=== PATIENT | male | born 1960 | race Caucasian/White ===

== ENCOUNTER 2016-07-28 16:01 | Emergency (ER) | payer OTHER ==
[~2016-07-28] VITALS: Ht 175.3 cm; Wt 115.3 kg
[~2016-07-28 16:01] MED LIST: ASPI81TA28 PO; ATOR-24 PO; CARV6.25 PO; FURO-85 PO; LISI-725 PO; POTA-335 PO
[2016-07-28 16:13] VITALS: TEMP 36.8; Ht 175.3 cm; Wt 115.3 kg
[2016-07-28] MEDS ORDERED: OMEP20CA9 PO (16:26)
[2016-07-28] MEDS ORDERED: CZR50 PO (16:26)
[2016-07-28] MEDS ORDERED: OPTIRAY 320 IV PRN (16:45)
--- NOTE | 2016-07-28 16:55 | EMERGENCY ROOM VISIT NOTE ---
History First contact with patient: 16:18 Chief Complaint: URINARY SYMPTOMS Stated Complaint: CAN'T URINATE, STOMACH PAIN Nursing Triage Summary: Pt reports swelling to ankle, abd bloating, unable to urinate, "My stomach is hard and I have cramps." Sx began yesterday. Nausea. "When I get cramps I get pain in my back." Denies hx of kidney stones. Denies hematuria. History of Present Illness The patient is a 56 year old male who presents to the Emergency Room with complaints of abdominal cramping, leg swelling and difficulty urinating. The patient reports that he has had abdominal bloating and cramping for the past one week. He states that yesterday, the pain became worse and he had developed difficulty urinating. The patient reports that when he does have a bowel movement, it is looser than normal. He states that he feels like his abdomen is "swelling up." The patient denies any history of similar symptoms. He rates his current discomfort a 0/10. He denies any history of kidney issues or abdominal issues. He has had a prior cholecystectomy. The patient has a history of hypertension and prediabetes, but states he is otherwise healthy. He denies any chest pain, shortness of breath, cough, fevers, blood in the stools or other urinary symptoms. Review of Systems A complete 10-point Review of Systems was discussed with the patient, with pertinent positives and negatives listed in the History of Present Illness. All remaining Review of Systems questions can be considered negative unless otherwise specified. Past Medical/Surgical History Medical Problems: (1) Benign hypertension (2) Chronic obstructive lung disease (3) Dyslipidemia (4) Gastroesophageal reflux disease (5) Male erectile disorder (6) Tobacco user Social History Smoking Status: Current Every Day Smoker Current/Historical Medications Scheduled Aspirin (Aspirin Ec), 81 MG PO DAILY Atorvastatin (Lipitor), 40 MG PO DAILY Carvedilol (Coreg), 6.25 MG PO DAILY Lisinopril (Zestril), 20 MG PO DAILY Losartan Potassium (Losartan Potassium), 50 MG PO DAILY Omeprazole (Prilosec), 20 MG PO QAM Allergies Coded Allergies: No Known Allergies (Verified , 07/28/16) Physical Exam Vital Signs Date Time Temp Pulse Resp B/P Pulse Ox O2 Delivery O2 Flow Rate FiO2 07/28/16 19:36 77 20 140/89 97 07/28/16 16:13 36.8 85 18 131/83 94 Room Air Physical Exam VITALS: Vitals are noted on the nurse's note and reviewed by myself. Vital signs stable. GENERAL: This is a 56-year-old male, in no acute distress, nondiaphoretic, well- developed well-nourished. SKIN: Capillary reflex less than 2 seconds. HEENT: Normocephalic. PERRLA. EOMI. Nares patent. Mucous membranes moist. Neck is supple without nuchal rigidity. HEART: Regular rate and rhythm without murmurs gallops or rubs. LUNGS: Clear to auscultation bilaterally without wheezes, rales or rhonchi. ABDOMEN: Positive bowel sounds x 4. The abdomen is slightly distended. There is tenderness across the mid abdomen. No guarding or rebound tenderness. MUSCULOSKELETAL: No pitting edema of the lower extremities. NEURO: Patient was alert and oriented to person place and time. Medical Decision & Procedures ER Provider Diagnostic Interpretation: CT ABD/PELVIS IV CONTRAST ONLY IMPRESSION: 1. 36 mm infrarenal abdominal aortic aneurysm. No evidence of rupture 2. 19 mm splenic hypodensity, possibly cystic 3. Hepatic steatosis 4. No current evidence of bowel obstruction. No evidence of free air 5. Multiple prominent fluid-filled small bowel loops with borderline bowel wall thickening and mild engorgement of the mesentery. The findings could indicate an enteritis. Laboratory Results 07/28/16 17:00 Red Blood Count 5.13, Mean Corpuscular Volume 92.0, Mean Corpuscular Hemoglobin 32.4, Mean Corpuscular Hemoglobin Concent 35.2, Mean Platelet Volume 11.6, Neutrophils (%) (Auto) 60.5, Lymphocytes (%) (Auto) 29.7, Monocytes (%) (Auto) 5.9, Eosinophils (%) (Auto) 3.0, Basophils (%) (Auto) 0.5, Neutrophils # (Auto) 4.64, Lymphocytes # (Auto) 2.28, Monocytes # (Auto) 0.45, Eosinophils # (Auto) 0.23, Basophils # (Auto) 0.04 07/28/16 17:00 Test 07/28/16 17:00 White Blood Count 7.67 K/uL (4.8-10.8) Red Blood Count 5.13 M/uL (4.7-6.1) Hemoglobin 16.6 g/dL (14.0-18.0) Hematocrit 47.2 % (42-52) Mean Corpuscular Volume 92.0 fL (80-100) Mean Corpuscular Hemoglobin 32.4 pg (25-34) Mean Corpuscular Hemoglobin Concent 35.2 g/dl (32-36) Platelet Count 167 K/uL (130-400) Mean Platelet Volume 11.6 fL (7.4-10.4) Neutrophils (%) (Auto) 60.5 % Lymphocytes (%) (Auto) 29.7 % Monocytes (%) (Auto) 5.9 % Eosinophils (%) (Auto) 3.0 % Basophils (%) (Auto) 0.5 % Neutrophils # (Auto) 4.64 K/uL (1.4-6.5) Lymphocytes # (Auto) 2.28 K/uL (1.2-3.4) Monocytes # (Auto) 0.45 K/uL (0.11-0.59) Eosinophils # (Auto) 0.23 K/uL (0-0.5) Basophils # (Auto) 0.04 K/uL (0-0.2) RDW Standard Deviation 45.1 fL (36.4-46.3) RDW Coefficient of Variation 13.5 % (11.5-14.5) Immature Granulocyte % (Auto) 0.4 % Immature Granulocyte # (Auto) 0.03 K/uL (0.00-0.02) Urine Color YELLOW Urine Appearance CLEAR (CLEAR) Urine pH 5.0 (4.5-7.5) Urine Specific [place] 1.024 (1.000-1.030) Urine Protein NEG (NEG) Urine Glucose (UA) NEG (NEG) Urine Ketones NEG (NEG) Urine Occult Blood NEG (NEG) Urine Nitrite NEG (NEG) Urine Bilirubin NEG (NEG) Urine Urobilinogen NEG (NEG) Urine Leukocyte Esterase NEG (NEG) Anion Gap 9.0 mmol/L (3-11) Est Creatinine Clear Calc Drug Dose 102.1 ml/min Estimated GFR () 96.4 Estimated GFR (Non- 83.2 BUN/Creatinine Ratio 12.8 (10-20) Calcium Level 8.8 mg/dl (8.5-10.1) Total Bilirubin 0.7 mg/dl (0.2-1) Aspartate Amino Transf (AST/SGOT) 22 U/L (15-37) Alanine Aminotransferase (ALT/SGPT) 32 U/L (12-78) Alkaline Phosphatase 153 U/L (45-117) Total Protein 7.4 gm/dl (6.4-8.2) Albumin 3.8 gm/dl (3.4-5.0) Globulin 3.6 gm/dl (2.5-4.0) Albumin/Globulin Ratio 1.1 (0.9-2) Lipase 150 U/L (73-393) Medical Decision Differential diagnosis includes bowel obstruction, cholecystitis, gastroenteritis, urinary retention, urinary tract infection, kidney stone, constipation, among others. The patient was evaluated as above. Labs were drawn and IV access was obtained. Imaging studies were performed and read by radiology as above. The patient declined analgesics. The patient was reassessed multiple times during their stay in the emergency department and remained in stable condition. The patient is a 56-year-old male who presents today complaining of abdominal bloating and discomfort. Labs revealed no leukocytosis, anemia or electrolyte abnormalities. Urinalysis was not suggestive of infection. Bladder scan did not show any significant urinary retention. CT scan of the abdomen and pelvis showed evidence of enteritis, which is likely the cause of the patient's discomfort. He does have an abdominal aortic aneurysm and reports that he are has this followed by vascular surgery every year. He declined any analgesics. Conservative measures were discussed and he was encouraged to follow up closely with his primary care provider. Based on the patient's presentation, lab results, and imaging studies, I feel the patient is stable for outpatient treatment. The patient's case was reviewed with Dr. Chiu, ED attending physician, who agreed with my assessment and treatment plan. Discharge instructions were reviewed with the patient. The patient verbalized understanding of my assessment and treatment plan and was discharged home in good condition. Impression Primary Impression: Enteritis Departure Information Dispostion Home / Self-Care Condition GOOD Referrals Sharan Allan M.D. (PCP) Patient Instructions A Signature Page, My [facility] Additional Instructions You have been treated in the Emergency Department your Abdominal Pain. Laboratory results and imaging studies have ruled out any emergent causes for your abdominal pain which would warrant admission or surgery. CT showed evidence of an enteritis, or inflammation of your intestines. For pain control, you can use the following lxfw-yct-[id number] medicines (if >12 yo): - Regular strength (325mg/tab) Tylenol (acetaminophen) 2 tabs every 4-6 hours as needed. Do not exceed 12 tablets in a 24 hour period. Avoid taking more than 4 grams (4000 mg) of Tylenol per day. This includes any other sources of acetaminophen you may take on a regular basis. - Regular strength (200 mg/tab) Advil (ibuprofen) 1-2 tabs every 4-6 hours as needed. Do not exceed a dose of 3200 mg per day. Drink plenty of water and stay well hydrated. As with any trip to the Emergency Department, you should follow-up with your Primary Care Provider from today's visit. Continue to follow-up with your specialist regarding the abdominal aortic aneurysm. Return to the emergency department if your symptoms persist despite treatment plan outlined above or if the following symptoms occur: Worsening abdominal pain , fevers, vomiting or any other new/concerning symptoms.
[2016-07-28 17:17] LABS: BASO % 0.5 %; BASO ABS # 0.04 K/uL (0-0.2); COMPLETE YES; HEMATOCRIT 47.2 % (42-52); IG% 0.4 %; LYMPH % 29.7 %; LYMPH ABS # 2.28 K/uL (1.2-3.4); MEAN CORPUSCULAR HEMOGLOBIN 32.4 pg (25-34); MEAN CORPUSCULAR HGB CONC 35.2 g/dl (32-36); MEAN PLATELET VOLUME 11.6 fL (7.4-10.4); MONO % 5.9 %; NEUT % 60.5 %; PLATELET COUNT 167 K/uL (130-400); RED BLOOD COUNT 5.13 M/uL (4.7-6.1); WHITE BLOOD COUNT 7.67 K/uL (4.8-10.8)
[2016-07-28 17:37] LABS: BUN/CREATININE RATIO 12.8 (10-20); CALCIUM 8.8 mg/dl (8.5-10.1); POTASSIUM 3.9 mmol/L (3.5-5.1)
[2016-07-28 17:40] LABS: ALB/GLOB RATIO 1.1 (0.9-2)
[2016-07-28 17:42] LABS: URINE APPEARANCE CLEAR (CLEAR); URINE BILIRUBIN NEG (NEG); URINE COLOR YELLOW; URINE NITRITE NEG (NEG); URINE SPECIFIC GRAVITY 1.024 (1.000-1.030); UROBILINOGEN NEG (NEG); ZZUR CULT IF INDIC CLEAN CATCH NO
[2016-07-28 18:00] LABS: MANUAL MICROSCOPIC REQUIRED? NO; REVIEW REQ? NO
--- NOTE | 2016-07-28 18:22 | DIAGNOSTIC IMAGING REPORT ---
CT ABD/PELVIS IV CONTRAST ONLY CLINICAL HISTORY: abdominal bloating, mid abdominal pain COMPARISON STUDY: None. TECHNIQUE: Following the IV administration of 116 mL of Optiray-320, CT scan of the abdomen and pelvis was performed from the lung bases to the proximal femurs. Images are reviewed in the axial, sagittal, and coronal planes. IV contrast was administered without complication. CT DOSE: 1245.21 mGy.cm FINDINGS: Lower chest: There is pulmonary emphysema. There are minor linear atelectatic changes. Liver: There is mild hepatic steatosis. No focal masses are visualized. Gallbladder: Surgically absent. Spleen: There is a 19 mm hypodensity arising from the inferior aspect of the spleen, possibly cystic Pancreas: Unremarkable. Adrenal glands: Unremarkable. Kidneys: No solid renal masses are visualized. There is a 7 mm left renal cyst. Bowel: There are multiple prominent fluid-filled small bowel loops which are the upper limits of normal in diameter. There is borderline wall thickening. There are no transition zones to indicate a high-grade bowel obstruction. There is no evidence of acute diverticulitis. There is no evidence of acute appendicitis. Peritoneum: There is no intraperitoneal free air or abdominal ascites. Vasculature: There is a 36 mm infrarenal abdominal aortic aneurysm. There is no evidence of rupture. Adenopathy: None. Pelvic viscera: The bladder, and pelvic viscera are unremarkable. Skeletal structures: No destructive osseous lesions are seen. IMPRESSION: 1. 36 mm infrarenal abdominal aortic aneurysm. No evidence of rupture 2. 19 mm splenic hypodensity, possibly cystic 3. Hepatic steatosis 4. No current evidence of bowel obstruction. No evidence of free air 5. Multiple prominent fluid-filled small bowel loops with borderline bowel wall thickening and mild engorgement of the mesentery. The findings could indicate an enteritis. Electronically signed by: Shiv Davila M.D. 07/28/2016 6:20 PM Dictated Date/Time: 07/28/2016 6:14 PM
[2016-07-28 19:36] VITALS: BP 140/89; PULSE 77; O2SAT 97
== END 2016-07-28 19:37 | disposition home or self-care (01) ==
LOC: C.EDB 16:03 → C.EDA 19:37
DX: K52.9 Noninfective gastroenteritis and colitis, unspecified (principal); I10 Essential (primary) hypertension; E78.5 Hyperlipidemia, unspecified; J44.9 Chronic obstructive pulmonary disease, unspecified; K21.9 Gastro-esophageal reflux disease without esophagitis; F17.200 Nicotine dependence, unspecified, uncomplicated; Z79.82 Long term (current) use of aspirin; Z79.899 Other long term (current) drug therapy

== ENCOUNTER → 2016-08-31 | Outpatient (CLI) | payer OTHER ==
[~2016-08-31] MED LIST changes: +CZR50 PO; -FURO-85 PO; +OMEP20CA9 PO; -POTA-335 PO
--- NOTE | 2016-09-01 06:11 | PAP/PSG TECHNICIAN REPORT ---
[facility] Blood Bank Manager Polysomnogram Report Study name: None Report date: 09/01/2016 Study date: 08/31/2016 Referring Physician: Carina Mukherjee M.D. Name: ADRIANNE CHADWICK Interpreting Physician: Carina Mukherjee M.D. Date of : 1960 Blood Bank Manager: Gene Cabezas RPSGT. Sex: Male Age: 56 StudyType: PSG Weight: 253 lbs Height: 56 years, Height 5' 10" BMI: 36.3 Medications: LIPITOR 40 MG, COREG 6.25 MG, PRILOSEC 20 MG, PRINIVIL 20 MG, ASPIRIN EC 81 MG Patient History PATIENT HAD A SLEEP STUDY DONE IN 2015. HE WAS NOT POSITIVE FOR ZAYRA BUT HAD HYPOXEMIA DURING REM SLEEP. HIS OXYGEN LEVELS DROPPED LOW 76%. HE IS HERE TODAY FOR AN EVALUATION OF ZAYRA. ESS=12 RM 5 Parameters Monitored NPSG: E1-M2, E2-M1, Fp1-M2, Fp2-M1, F3-M2, F4-M2, F4-M1, C3-M2, C4-M2, C4-M1, O1-M2, O2-M2, O2-M1, T3-M2, T4-M1, P3-M2, P4-M1, CHIN1, CHIN2, HR, EKG, Legs, PFLOW, SNOR, FLOW, CFLOW, Tidal Volume, THOR, ABDO, SpO2, PLTH, CPRESS, ETCO2 Wave, ETCO2, pH Sleep Architecture Sleep Stages Time at Lights Off 9:32:25 PM STAGES Time (min.) TST (%) Time at Lights On 5:27:25 AM Wake 81.5 -- Total Recording Time (TRT) 475.50 min. N1 56.0 14 Total Sleep Period (TSP) 456.5 min. N2 243.0 62 Total Sleep Time (TST) 393.5min. N3 13.0 3 Awake Time 82.0 min. REM 81.5 21 Wake after Sleep Onset 64.0 min. Sleep Efficiency (SE) 83 % Sleep Onset Latency (DAJUAN) 17.5 min. Number of Stage 1 Shifts None Awakenings 30 Stage Changes 119 Number of REM periods 9 REM 81.5 21 REM Latency 69.0 min. NREM 312.0 79 Body Position Analysis Supine Right Left Side Prone Vertical Total Sleep Time (min.) 45.0 181.9 178.7 360.61 0.0 0.0 Total Sleep Time (%) 8% 46% 45% 92 0% N/A% Total Sleep Time REM (min.) 5.1 37.5 38.9 None 0.0 0.0 Total Sleep Time NREM (min.) 27.8 144.4 139.8 None 0.0 0.0 Intermittent Wake (min.) 12.1 40.7 28.6 None 0.0 0.0 Total Sleep Period (%) 10% None None None None None Arousals Myoclonus (PLM) * Events Count Index Events Count Index Spontaneous 42 6 Events Awake (PLMW) 104 76.6 Respiratory 20 4.0 Events Asleep w/ Arousal (PLMA) 12 1.8 PLM 11 2 Events Asleep w/o Arousal (PLMS) 135 20.6 Snoring 9 1 Total Asleep 147 22.4 Total 82 13 Total 251 32 Respiratory Analysis * CA OA MA CH H RERA Total Count 2 20 1 0 98 1 121 Index 0.3 3.0 0.2 0 14.9 0 18.6 Mean Duration 15.6 19.5 24.1 0.00 18.0 16.9 18.2 Longest Duration 20.9 38.1 24.1 0.00 24.1 16.9 43.3 Respiratory Event Summary Total Supine ~Supine Right Left Prone REM NREM Apneas Count 23 6 17 15 2 N/A 19 4 Index 3.5 11 3 4.9 0.7 N/A 14 1 Hypopneas (4% Desat) Count 98 33 65 28 37 N/A 56 42 Index 14.9 60.2 11 9.2 12.4 N/A 41.2 8.1 Apneas & All Hypopneas Count 121 39 82 43 39 N/A 75 46 Index 18.4 71 14 14 13 N/A 55.2 8.8 Respiratory Events (Roll Forming Supervisor+All Hyp+RERA) Count 121 39 83 44 39 N/A 75 46 Index 18.6 71 14 14.5 13.1 N/A 55.2 9.0 Respiratory Related Arousal Count 20 39 9 7 2 N/A 7 19 Index 4.0 31 1 2 1 N/A 5 4 Snoring Analysis Supine Right Left Prone REM NREM Total Snore duration 20.5 min Snores count 60 303 487 N/A 229 621 850 Snore mean duration 1.4 Sec Snores index 109 100 164 N/A 168.6 119.4 129.6 TST with snoring (%) 5.2% Desaturation Event Summary: Minimum %SpO2 Event Count Mean/Min/Max Duration(sec.) Desaturation Index % Time In Bed > 90 22 28.8 / 10.8 / 55.5 153.8 1.8 86 - 90 127 26.2 / 9.3 / 80.2 19.8 81.2 81 - 85 22 28.5 / 12.0 / 60.0 27.6 10.1 76 - 80 7 19.7 / 12.3 / 30.5 14.3 6.2 71 - 75 1 12.5 / 12.5 / 12.5 17.6 0.7 66 - 70 0 N/A 0.0 0.0 61 - 65 0 N/A 0.0 0.0 56 - 60 0 N/A 0.0 0.0 51 - 55 0 N/A 0.0 0.0 < 50 0 N/A 0.0 0.0 Total REM NREM Awake <50% 0.0 min. 0.0 min. 0.0 min. 0.0 min. 51 - 60% 0.0 min. 0.0 min. 0.0 min. 0.0 min. 61 - 70% 0.0 min. 0.0 min. 0.0 min. 0.0 min. 71 - 80% 32.8 min. 29.9 min. 1.1 min. 1.9 min. 81 - 90% 433.6 min. 49.1 min. 309.9 min. 74.6 min. 91 - 100% 8.6 min. 2.5 min. 1.0 min. 5.0 min. Average 86 83 87 88 Minimum SpO2 70 70 73 74 Desaturation Event Index 18.1 54.5 9.0 16.2 # Desat. Events below 89% 143 74 47 22 Time(%) with Saturation below 89% 86.7 15.1 59.7 11.9 Time(min.) with Saturation below 89% 411.9 71.8 283.7 56.4 Time (mins) REM (mins) NREM (mins) % of TST SpO2 Below 90% 121 74 N47 97.5 SpO2 Below 88% 52 0 0 71 Heart Rate Analysis Min (bpm) Max (bpm) Average (bpm) Awake 49 103 88 NREM 62 101 82 REM 53 104 77 Overall 53 104 81 Supplemental O2 Values Minimum O2 level: None Value Start Time End Time Blood Bank Manager Comments Mr. Chadwick slept in the right, left and supine positions. No cardiac arrhythmia noted. Leg movements noted. No bruxism noted. Snoring was noted and scored as a 4 on a scale of 1 through 5. (0=no snoring, 5=snoring loud enough to be heard through a closed door or down the [address]onz[address] way) Mr. Chadwick awoke to use the restroom 0 times during the night. Mr. Chadwick stated I did not sleep as well as I do when I am in my own bed. The final report will be interpreted and signed by a sleep physician. The completed physician report will then be placed in the patient medical record. Therapy (cm H2O) 0 TIB (min.) 475.0 TST (min.) 393.5 Sleep Onset (min.) 17.5 REM Onset From Sleep (min.) 69.0 Sleep Efficiency % 83 Wakefulness (%) 17 Wakefulness (min.) 82.0 NREM 1 (%) 14 NREM 1 (min.) 56.0 NREM 2 (%) 62 NREM 2 (min.) 243.0 NREM 3 (%) 3 NREM 3 (min.) 13.0 REM (%) 21 REM (min.) 81.5 # Arousals 82 Arousal Index 13 # Snore 850 Snore Index 129.6 AHI 18.4 AHI Supine 71 AHI Non-Supine 14 NREM AHI 8.8 REM AHI 55.2 RDI 18.6 # Obstructive Apnea 20 # Central Apnea 2 # Mixed Apnea 1 # Hypopneas 98 RERAs 1 Total Respiratory Events 122 Time Below SpO2 89% (min.) 355.5 Mean NREM SpO2 (%) 87 Mean REM SpO2 (%) 83 Mean Sleep SpO2 (%) 86 Min NREM SpO2 (%) 73 Min REM SpO2 (%) 70 Position Supine (min.) 45.0 Position Non-supine (min.) 360.6 LM Index Sleep 22.4 LM Index NREM 20.6 LM Index REM 29.4 Mean Heart Rate (bpm) 81 Min Heart Rate (bpm) 53
--- NOTE | 2016-09-12 00:52 | POLYSOMNOGRAPH REPORT ---
REFERRING PERSON: Dr. Teodora Mukherjee. PET HOUSE SITTER: Gene Cabezas. Mr. Katz is a 56-year-old male who had a sleep study performed in March 2016. He was not positive for obstructive sleep apnea at that time, but had hypoxemia during REM sleep. His oxygen level dropped as low as 76%. He is here for reevaluation of obstructive sleep apnea. His [place] sleepiness scale score on the evening of this study is 12. BMI is 36.3. Following the technical and digital specifications of the [place] [employer] (AASM) a standard diagnostic polysomnogram was performed monitoring EEG, EOG, EMG (chin and leg deviations), oxygen saturation, body position, digital video, respiratory effort and airflow. The sleep Stage and event scoring was based on the AASM Manual for the Scoring of Sleep and Associated Events 2007 edition. Apneas are defined as a drop in the peak thermal sensor excursion by >90% of baseline for at least 10 seconds. Hypopneas were scored using the 4% oxygen desaturation rule (4A-[employer]ic[employer]) and a decrease in the nasal pressure excursions by >30% of baseline for at least 10 seconds. Respiratory effort-related arousal (RERA's) is defined as a sequence of breaths lasting at least 10 seconds characterized by increasing respiratory effort or flattening of the nasal pressure waveform leading to an arousal from sleep when the sequence of breaths does not meet criteria for an apnea or hypopnea. Apnea Hypopnea index (AHI) is defined as the number of apneas and hypopneas occurring in an hour of sleep. Respiratory disturbance index (RDI) is defined as the number of apneas, hypopneas, and RERA's occurring in an hour of sleep. Mr. Katz's total sleep period time was 456.5 minutes. Total sleep time was 393.5 minutes. Sleep efficiency was 83%. Latency to sleep onset was 17.5 minutes with wake after sleep onset of 64 minutes. Total non-REM sleep time was 312 minutes. He spent 14% of that time in N1 sleep, 62% in N2 sleep and 3% in N3 sleep. REM latency was 69 minutes. Total REM sleep time was 81.5 minutes or 21% of total sleep time. There were 82 cortical arousals from sleep. Forty two of these arousals were spontaneous, 20 were due to respiratory events, 11 due to periodic limb movements of sleep and 9 were due to snoring. There were 147 periodic limb movements noted on this test. Limb movement index was 22.4. Limb movement with arousal index was 1.8. There were 2 central, 20 obstructive and 1 mixed apnea on this test. There were 98 hypopneas and 1 RERA. Apnea-hypopnea index was elevated at 18.4 consistent with moderately severe sleep apnea. Supine AHI was 71, REM AHI was 55.2. There were 850 snoring events recorded. Total sleep time with snoring was 5.2%. Mean saturation during sleep was low at 86%. There were desaturations with respiratory events to 70%. Saturations were less than 89 for 411.9 minutes of recorded time. Loud snoring was heard throughout the study. IMPRESSION AND PLAN: A 56-year-old male with evidence of moderately severe sleep apnea and significant nocturnal hypoxemia on this study. This patient had hypoxemia for most of his total sleep time with deep desaturations during his episodes of REM sleep regardless of whether they were supine or non-supine. This patient would likely benefit from positive airway pressure therapy. He should return to the sleep lab for a full night titration and then based on those results be started on equipment at home. A download from his machine should be reviewed in 1 month both to check compliance as well as AHI and further pressure adjustments can occur at that time. In the meantime, this patient should be started on nocturnal oxygen. This patient may need oxygen supplementation along with CPAP to resolve his hypoxemia.
== END | disposition home or self-care (01) ==
LOC: C.NEUR 21:00
PROVIDERS: ATTEND Family Medicine
DX: J44.9 Chronic obstructive pulmonary disease, unspecified (principal); R09.02 Hypoxemia; R06.83 Snoring; G47.10 Hypersomnia, unspecified

== ENCOUNTER → 2016-10-24 | Outpatient (CLI) | payer OTHER ==
--- NOTE | 2016-10-25 06:34 | PAP/PSG TECHNICIAN REPORT ---
[facility] Director Of Cardiopulmonary Services Polysomnogram Report Study name: None Report date: 10/25/2016 Study date: 10/24/2016 Referring Physician: Benito Mukherjee M.D. Name: ADRIANNE KATZ Interpreting Physician: Carina Mukherjee M.D. Date of : 1960 Director Of Cardiopulmonary Services: Aleisha Francois RPSGT. Sex: Male Age: 56 Study Type: PSG PAP Weight: 253 lbs Height: 56 years, Height 5' 10" BMI: 36.3 Medications: LIPITOR 40 MG, COREG 6.25 MG, PRILOSEC 20 MG, PRINIVIL 20 MG, ASPIRIN EC 81 MG Patient History 56 yr-old male here for a new CPAP treatment study. He was found to be positive for ZAYRA with an AHI of 18.4. He was then set up with an Auto CPAP machine at home set to 5-15 CMH1O. He wears an AirFit F10 full face mask size medium from [employer]. The test was started on room air and 4 CMH2O. ETCO2 testing was not utilized during this study. Room 1 Parameters Monitored NPSG: E1-M2, E2-M1, Fp1-M2, Fp2-M1, F3-M2, F4-M2, F4-M1, C3-M2, C4-M2, C4-M1, O1-M2, O2-M2, O2-M1, T3-M2, T4-M1, P3-M2, P4-M1, CHIN1, CHIN2, HR, EKG, Legs, PFLOW, SNOR, FLOW, CFLOW, Tidal Volume, THOR, ABDO, SpO2, PLTH, CPRESS, ETCO2 Wave, ETCO2, pH Sleep Architecture Sleep Stages Time at Lights Off 9:38:07 PM STAGES Time (min.) TST (%) Time at Lights On 5:29:37 AM Wake 124.0 -- Total Recording Time (TRT) 471.50 min. N1 127.0 37 Total Sleep Period (TSP) 443.5 min. N2 199.0 57 Total Sleep Time (TST) 347.5min. N3 0.0 0 Awake Time 124.0 min. REM 21.5 6 Wake after Sleep Onset 96.0 min. Sleep Efficiency (SE) 74 % Sleep Onset Latency (DAJUAN) 28.0 min. Number of Stage 1 Shifts None Awakenings 30 Stage Changes 134 Number of REM periods 2 REM 21.5 6 REM Latency 333.0 min. NREM 326.0 94 Body Position Analysis Supine Right Left Side Prone Vertical Total Sleep Time (min.) 58.3 235.0 66.0 301.00 0.0 0.0 Total Sleep Time (%) 13% 68% 19% 87 0% N/A% Total Sleep Time REM (min.) 0.0 0.0 21.5 None 0.0 0.0 Total Sleep Time NREM (min.) 46.5 235.0 44.5 None 0.0 0.0 Intermittent Wake (min.) 11.8 62.4 49.8 None 0.0 0.0 Total Sleep Period (%) 13% None None None None None Arousals Myoclonus (PLM) * Events Count Index Events Count Index Spontaneous 24 4 Events Awake (PLMW) 246 119.0 Respiratory 25 4.5 Events Asleep w/ Arousal (PLMA) 98 16.9 PLM 98 17 Events Asleep w/o Arousal (PLMS) 470 81.2 Snoring 35 6 Total Asleep 568 98.1 Total 180 31 Total 814 104 Respiratory Analysis * CA OA MA CH H RERA Total Count 1 0 0 0 43 4 44 Index 0.2 0.0 0.0 0 7.4 1 8.3 Mean Duration 10.2 0.0 0.0 0.00 14.1 14.2 14.0 Longest Duration 10.2 0.0 0.0 0.00 0.0 16.1 20.5 Respiratory Event Summary Total Supine ~Supine Right Left Prone REM NREM Apneas Count 1 0 1 0 1 N/A 0 1 Index 0.2 0 0 0.0 0.9 N/A 0 0 Hypopneas (4% Desat) Count 43 3 40 7 33 N/A 8 35 Index 7.4 3.9 8 1.8 30.0 N/A 22.3 6.4 Apneas & All Hypopneas Count 44 3 41 7 34 N/A 8 36 Index 7.6 4 8 2 31 N/A 22.3 6.6 Respiratory Events (Hammer Mill Operator+All Hyp+RERA) Count 44 3 45 9 36 N/A 8 36 Index 8.3 4 9 2.3 32.7 N/A 22.3 7.4 Respiratory Related Arousal Count 25 3 25 6 19 N/A 0 26 Index 4.5 1 5 2 17 N/A 0 5 Snoring Analysis Supine Right Left Prone REM NREM Total Snore duration 82.1 min Snores count 201 2,299 106 N/A 8 2,598 2,606 Snore mean duration 1.9 Sec Snores index 259 587 96 N/A 22.3 478.2 450.0 TST with snoring (%) 23.6% Desaturation Event Summary: Minimum %SpO2 Event Count Mean/Min/Max Duration(sec.) Desaturation Index % Time In Bed > 90 125 19.8 / 7.3 / 60.0 20.2 78.8 86 - 90 13 15.8 / 7.5 / 36.0 7.9 21.0 81 - 85 0 N/A 0.0 0.2 76 - 80 0 N/A 0.0 0.0 71 - 75 0 N/A 0.0 0.0 66 - 70 0 N/A 0.0 0.0 61 - 65 0 N/A 0.0 0.0 56 - 60 0 N/A 0.0 0.0 51 - 55 0 N/A 0.0 0.0 < 50 0 N/A 0.0 0.0 Total REM NREM Awake <50% 0.0 min. 0.0 min. 0.0 min. 0.0 min. 51 - 60% 0.0 min. 0.0 min. 0.0 min. 0.0 min. 61 - 70% 0.0 min. 0.0 min. 0.0 min. 0.0 min. 71 - 80% 0.0 min. 0.0 min. 0.0 min. 0.0 min. 81 - 90% 99.5 min. 13.8 min. 64.1 min. 21.6 min. 91 - 100% 370.8 min. 7.7 min. 261.6 min. 101.5 min. Average 92 90 92 92 Minimum SpO2 84 84 87 86 Desaturation Event Index 16.0 25.1 10.7 29.0 # Desat. Events below 89% 42 9 17 16 Time(%) with Saturation below 89% 2.2 1.3 0.5 0.4 Time(min.) with Saturation below 89% 10.5 6.3 2.6 1.7 Time (mins) REM (mins) NREM (mins) % of TST SpO2 Below 90% 62 9 N53 6.5 SpO2 Below 88% 8 0 0 1 Heart Rate Analysis Min (bpm) Max (bpm) Average (bpm) Awake 67 99 81 NREM 65 96 77 REM 62 87 73 Overall 62 96 77 Supplemental O2 Values Minimum O2 level: None Value Start Time End Time Director Of Cardiopulmonary Services Comments Mr. Katz slept in the right, left, and supine positions. No cardiac arrhythmias were noted. PLMs and many arousals from leg movements were noted throughout the study. No bruxism noted. CPAP was initiated at +4 CMH2O and up-titrated to a level of +10 CMH2O, Cflex 2 which nearly eliminated all respiratory events and snoring. An AirFit F10 full face mask size medium from [employer] was used during titration He did not wake up to use the restroom during the night. Mr. Katz stated that he didn't sleep as well as he usually does. The final report will be interpreted and signed by a sleep physician. The completed physician report will then be placed in the patient medical record. Therapy Event: Therapy (cm H20) 4 5 7 8 9 10 Total Time at Pressure (min.) 50.1 98.5 81.3 48.7 92.4 100.5 TST at Pressure (min.) 22.1 54.5 58.3 39.7 82.9 90.0 # Periods 1 1 1 1 1 1 Sleep Onset (min.) 28.0 0.0 0.0 0.0 0.0 0.0 REM Onset (min.) N/A N/A N/A N/A 82.4 0.0 Sleep Efficiency % 44 55 71 81 89 89 Wakefulness (%) 55.9 44.7 28.3 18.5 10.3 10.5 Wakefulness (min.) 28.0 44.0 23.0 9.0 9.5 10.5 NREM 1 (%) 9.0 18.3 20.1 55.6 37.3 26.4 NREM 1 (min.) 4.5 18.1 16.3 27.1 34.5 26.5 NREM 2 (%) 35.1 37.0 51.6 25.9 41.5 51.8 NREM 2 (min.) 17.6 36.4 42.0 12.6 38.4 52.0 NREM 3 (%) 0.0 0.0 0.0 0.0 0.0 0.0 NREM 3 (min.) 0.0 0.0 0.0 0.0 0.0 0.0 REM (%) 0.0 0.0 0.0 0.0 10.8 11.4 REM (min.) 0.0 0.0 0.0 0.0 10.0 11.5 # Arousals 7 31 21 46 37 38 Arousal Index 19.0 34.1 21.6 69.5 26.8 25.3 # Snore 216 595 716 246 599 234 Snore Index 586.6 655.4 736.5 371.7 433.4 156.0 AHI 5.4 15.4 7.2 13.6 8.0 0.7 AHI Supine N/A N/A N/A N/A 7.7 0.0 AHI Non-Supine 5.4 15.4 7.2 13.6 8.1 0.9 NREM AHI 5.4 15.4 7.2 13.6 3.3 0.0 REM AHI N/A N/A N/A N/A 41.9 5.2 RDI 5.4 17.6 8.2 15.1 8.0 0.7 # Obstructive 0 0 0 0 0 0 # Central Ap 0 1 0 0 0 0 # Mixed 0 0 0 0 0 0 # Hypopneas 2 13 7 9 11 1 RERAS 0 2 1 1 0 0 Total Respiratory Events 2 16 8 10 11 1 Time Below SpO2 89.00% (min.) 0.5 1.1 0.4 0.1 4.2 2.5 Mean NREM SpO2 (%) 91 91 91 92 92 92 Mean REM SpO2 (%) N/A N/A N/A N/A 89 90 Mean Sleep SpO2 (%) 91 91 91 92 91 92 Min NREM SpO2 (%) 87 87 88 88 87 90 Min REM SpO2 (%) N/A N/A N/A N/A 84 86 Position Supine (min.) 0.0 0.0 0.0 0.0 23.5 23.0 Position Non-supine (min.) 22.1 54.5 58.3 39.7 59.4 67.0 LM Index Sleep 108.6 65.0 151.2 119.4 78.9 89.4 LM Index NREM 108.6 65.0 151.2 119.4 87.2 94.8 LM Index REM N/A N/A N/A N/A 18.0 52.3 Mean Heart Rate (bpm) 84 82 81 74 74 73 Min Heart Rate (bpm) 76 68 67 65 62 62
--- NOTE | 2016-10-30 22:59 | POLYSOMNOGRAPH REPORT ---
REFERRING PERSON: Carina Mukherjee MD CONSTRUCTION DRIVER: Aleisha Francois Mr. Katz is a 56-year-old male, who was found to have obstructive sleep apnea in the recent past. AHI on that study was 18.4. He was then set up on auto titrating CPAP. He returns to the lab to find out optimal pressure to ensure if hypoxemia resolves with treatment of sleep disordered breathing. He has chosen an AirFit F10 medium mask by [employer]. Following the technical and digital specifications of the [employer] (AASM) a standard diagnostic polysomnogram was performed monitoring EEG, EOG, EMG (chin and leg deviations), oxygen saturation, body position, digital video, respiratory effort and airflow. The sleep Stage and event scoring was based on the AASM Manual for the Scoring of Sleep and Associated Events 2007 edition. Apneas are defined as a drop in the peak thermal sensor excursion by >90% of baseline for at least 10 seconds. Hypopneas were scored using the 4% oxygen desaturation rule (4A-Medicare) and a decrease in the nasal pressure excursions by >30% of baseline for at least 10 seconds. Respiratory effort-related arousal (RERA's) is defined as a sequence of breaths lasting at least 10 seconds characterized by increasing respiratory effort or flattening of the nasal pressure waveform leading to an arousal from sleep when the sequence of breaths does not meet criteria for an apnea or hypopnea. Apnea Hypopnea index (AHI) is defined as the number of apneas and hypopneas occurring in an hour of sleep. Respiratory disturbance index (RDI) is defined as the number of apneas, hypopneas, and RERA's occurring in an hour of sleep. Mr. Katz's total sleep period time was 443.5 minutes. Total sleep time was 347.5 minutes. Sleep efficiency was 74%. Latency to sleep onset was 28 minutes with wake after sleep onset of 96 minutes. Total non-REM sleep time was 326 minutes. He spent 37% of his sleep time in N1 sleep, 57% in N2 sleep, no time in N3 sleep and 6% in REM sleep. This is abnormal sleep architecture with a propensity for superficial sleep. There were 180 cortical arousals from sleep. Twenty-four of these arousals were spontaneous, 25 were due to respiratory events, 98 were due to periodic limb movements of sleep and 37 were due to snoring. There were 568 periodic limb movements noted on this test. Limb movement index was 98.1. Limb movement with arousal index was 16.9. On this sleep test, there was 1 central, no obstructive and no mixed apneas. There were 43 hypopneas and 4 RERA. Apnea-hypopnea index was 7.6. A 2606 snoring events were recorded. Total sleep time with snoring was 23.6%. Mean saturation was 92% with desaturations to 84%. Saturations were less than 89 for 10.5 minutes of recorded time. There was no cardiac ectopy noted on this study. Heart rates during sleep ranged from a low of 52 beats per minute to a high of 96 beats per minute. As stated above, this was a CPAP titration study. Mr. Katz was titrated from a CPAP pressure of 4 to a CPAP pressure of 10 over the course of the night. Increasing pressures were needed to prevent apneas, hypopneas and arousals. He was observed on a pressure of 10 for 90 minutes of recording time, 11.5 of those minutes was spent in non-supine REM sleep. AHI and RDI on this pressure were both 0.7. Saturations less than 89% were only present for 2.5 minutes. He did continue to have periodic limb movements despite improvement in his sleep disordered breathing on this pressure. IMPRESSION AND PLAN: 1. Successful CPAP titration study in this patient with known obstructive sleep apnea. He appears to do well on CPAP at a pressure of 10. This appears to eliminate his apneas as well as his hypoxemia. 2. He did have considerable periodic limb movements of sleep on this test. This patient may benefit from Klonopin at that time to decrease arousals from periodic limb movements to improve hypersomnia should it persist with treatment of sleep disordered breathing.
== END | disposition home or self-care (01) ==
LOC: C.NEUR 20:00
PROVIDERS: ATTEND Family Medicine
DX: G47.33 Obstructive sleep apnea (adult) (pediatric) (principal); G47.34 Idiopathic sleep related nonobstructive alveolar hypoventilation

== ENCOUNTER 2017-07-21 14:41 | Inpatient (IN) | payer OTHER ==
[~2017-07-21] VITALS: Ht 175.3 cm; Wt 115.1 kg
[~2017-07-21 14:41] MED LIST changes: -CZR50 PO; -OMEP20CA9 PO
[2017-07-21] MEDS ORDERED: ONDANSETRON INJ 2 MG/ML 2 ML VIAL IV STA (14:58)
[2017-07-21] MEDS ORDERED: SODIUM CHLORIDE 0.9% 1000ML 1,000 ML IV STA ×2 (14:58→16:09)
--- NOTE | 2017-07-21 15:06 | EMERGENCY ROOM VISIT NOTE ---
History Report prepared by Sotero: Demetri Mcghee Under the Supervision of: Dr. Dat Espinoza M.D. First contact with patient: 14:54 Chief Complaint: SYNCOPE (NEAR SYNCOPE) Stated Complaint: ILLNESS/NEAR SYNCOPE Nursing Triage Summary: patient c/o nausea and diarrhea x 4 days. patient had near syncopal episode after having a bowel movement. patient stood up from toilet and became lightheaded, dizzy and felt hot. patient also c/o feeling pressure behind eyes. History of Present Illness The patient is a 57 year old male who presents to the Emergency Room with complaints of a persistent illness that started 4 days ago. He states that he has had persistent diarrhea throughout the 4 day period, including today. The patient notes that he has been nauseated as well, with episodes of vomiting. He adds that he has had a bit of ear pain. The patient says that he was sitting on the toilet having a bowel movement a few hours ago, and started to get very hot and lightheaded, and as he got off the toilet, he had a near-syncopal episode. The patient denies any hematochezia, but notes that his stools have been a bit dark. He adds that he is a smoker. The patient states that his grandchildren have been sick this week. He does not wear oxygen at home. Source of History: patient Onset: 4 days ago Position: other (global - illness) Timing: other (persistent) Associated Symptoms: + nausea, + vomiting (resolved), + diarrhea, No hematochezia (but stools a bit dark) Note: Associated symptoms: Near-syncopal episode this morning. Got hot and lightheaded before episode. Review of Systems See HPI for pertinent positives & negatives. A total of 10 systems reviewed and were otherwise negative. Past Medical & Surgical Medical Problems: (1) Benign hypertension (2) Chronic obstructive lung disease (3) Dyslipidemia (4) Gastroesophageal reflux disease (5) Male erectile disorder (6) Tobacco user Family History Diabetes mellitus Hypertension Social History Smoking Status: Former Smoker Marital Status: Housing Status: lives with family Occupation Status: unemployed Current/Historical Medications Scheduled Aspirin (Aspirin Ec), 81 MG PO DAILY Atorvastatin (Atorvastatin Calcium), 40 MG PO DAILY Carvedilol (Carvedilol), 6.25 MG PO QPM Losartan Potassium (Losartan Potassium), 50 MG PO QAM Montelukast Sod (Montelukast Sodium), 10 MG PO QAM Omeprazole (Prilosec), 20 MG PO QAM Allergies Coded Allergies: No Known Allergies (Verified , 07/28/16) Physical Exam Vital Signs Date Time Temp Pulse Resp B/P (MAP) Pulse Ox O2 Delivery O2 Flow Rate FiO2 07/21/17 16:28 69 18 96/56 95 Room Air 07/21/17 16:00 68 22 84/61 93 Room Air 83/41 07/21/17 15:19 79 07/21/17 15:16 70 20 77/48 96 Room Air 81 79/57 84 84/61 07/21/17 14:58 95 Room Air 07/21/17 14:47 36.5 79 20 105/65 95 Room Air Physical Exam GENERAL: Patient is in no acute distress. HEENT: No acute trauma, normocephalic atraumatic, mucous membranes dry, no nasal congestion, no scleral icterus. NECK: No stridor, no adenopathy, no meningismus, trachea is midline. LUNGS: Clear to auscultation bilaterally, no wheeze, no rhonchi, breath sounds equal. HEART: Without murmurs gallops or rubs, regular rate and rhythm. ABDOMEN: Soft, nontender, bowel sounds positive, no hernias, no peritonitis. EXTREMITIES: No cyanosis or edema, full range of motion of all the joints without pain or difficulty, no signs for acute trauma. NEUROLOGIC: Oriented x 3, no acute motor or sensory deficits, no focal weakness. SKIN: No rash, no jaundice, no diaphoresis. Medical Decision & Procedures ER Provider Diagnostic Interpretation: Orthostatic vital signs showed hypotension. Laboratory Results 07/21/17 15:32 Red Blood Count 4.84, Mean Corpuscular Volume 94.0, Mean Corpuscular Hemoglobin 33.3, Mean Corpuscular Hemoglobin Concent 35.4, Mean Platelet Volume 10.6, Neutrophils (%) (Auto) 67.5, Lymphocytes (%) (Auto) 20.1, Monocytes (%) (Auto) 8.7, Eosinophils (%) (Auto) 2.9, Basophils (%) (Auto) 0.4, Neutrophils # (Auto) 5.37, Lymphocytes # (Auto) 1.60, Monocytes # (Auto) 0.69, Eosinophils # (Auto) 0.23, Basophils # (Auto) 0.03 07/21/17 15:32 Test 07/21/17 15:32 07/21/17 15:43 White Blood Count 7.95 K/uL (4.8-10.8) Red Blood Count 4.84 M/uL (4.7-6.1) Hemoglobin 16.1 g/dL (14.0-18.0) Hematocrit 45.5 % (42-52) Mean Corpuscular Volume 94.0 fL (80-100) Mean Corpuscular Hemoglobin 33.3 pg (25-34) Mean Corpuscular Hemoglobin Concent 35.4 g/dl (32-36) Platelet Count 172 K/uL (130-400) Mean Platelet Volume 10.6 fL (7.4-10.4) Neutrophils (%) (Auto) 67.5 % Lymphocytes (%) (Auto) 20.1 % Monocytes (%) (Auto) 8.7 % Eosinophils (%) (Auto) 2.9 % Basophils (%) (Auto) 0.4 % Neutrophils # (Auto) 5.37 K/uL (1.4-6.5) Lymphocytes # (Auto) 1.60 K/uL (1.2-3.4) Monocytes # (Auto) 0.69 K/uL (0.11-0.59) Eosinophils # (Auto) 0.23 K/uL (0-0.5) Basophils # (Auto) 0.03 K/uL (0-0.2) RDW Standard Deviation 45.0 fL (36.4-46.3) RDW Coefficient of Variation 13.0 % (11.5-14.5) Immature Granulocyte % (Auto) 0.4 % Immature Granulocyte # (Auto) 0.03 K/uL (0.00-0.02) Prothrombin Time 10.9 SECONDS (9.0-12.0) Prothromb Time International Ratio 1.0 (0.9-1.1) Activated Partial Thromboplast Time 27.5 SECONDS (21.0-31.0) Partial Thromboplastin Ratio 1.1 Anion Gap 8.0 mmol/L (3-11) Est Creatinine Clear Calc Drug Dose 49.8 ml/min Estimated GFR () 41.2 Estimated GFR (Non- 35.5 BUN/Creatinine Ratio 12.3 (10-20) Calcium Level 8.4 mg/dl (8.5-10.1) Magnesium Level 2.3 mg/dl (1.8-2.4) Total Bilirubin 0.5 mg/dl (0.2-1) Aspartate Amino Transf (AST/SGOT) 26 U/L (15-37) Alanine Aminotransferase (ALT/SGPT) 33 U/L (12-78) Alkaline Phosphatase 139 U/L (45-117) Total Protein 6.9 gm/dl (6.4-8.2) Albumin 3.0 gm/dl (3.4-5.0) Globulin 3.9 gm/dl (2.5-4.0) Albumin/Globulin Ratio 0.8 (0.9-2) Thyroid Stimulating Hormone (TSH) 3.380 uIu/ml (0.300-4.500) Bedside Troponin I < 0.030 ng/ml (0-0.045) Laboratory results reviewed by me. Medications Administered Medications (Trade) Dose Ordered Sig/Joseph Route Start Time Stop Time Status Last Admin Dose Admin Ondansetron HCl (Zofran Inj) 4 mg NOW STAT IV 07/21/17 14:58 07/21/17 15:01 DC 07/21/17 15:52 4 MG Sodium Chloride 1,000 ml @ 999 mls/hr Q1H1M STAT IV 07/21/17 14:58 07/21/17 15:58 DC 07/21/17 14:58 999 MLS/HR Sodium Chloride 1,000 ml @ 999 mls/hr Q1H1M STAT IV 07/21/17 16:09 07/21/17 17:09 DC 07/21/17 16:13 999 MLS/HR ECG Indication: nausea Rate (beats per minute): 75 Rhythm: normal sinus Findings: no acute ischemic change, other (old inferior infarct, no dysrhythmia ) ED Course 1455: The patient was evaluated in room A4B. A complete history and physical exam was performed. 1458: Ordered NSS 1000 ml @ 999 mls/hr IV, Zofran Inj 4 mg IV. 1619: Upon reexamination the patient is feeling fine but his blood pressure is low. I discussed results and treatment plan with the patient. He verbalizes agreement and understanding. The patient will be evaluated for further management. 1650: Discussed the patient's case with Arin Luke. The patient will be evaluated for further management. Medical Decision Differential diagnosis includes but is not limited to dehydration, vasovagal syncope, electrolyte imbalance, anemia, dysrhythmia, renal failure. There is no leukocytosis or concerning anemia. Renal panel testing shows acute renal failure, no significant electrolyte abnormality requiring correction. There is no hepatitis. The patient appears to be in a euthyroid state. EKG shows a normal sinus rhythm, no acute ischemia. Cardiac enzyme testing 1 is not consistent with acute cardiac injury. Orthostatic vital signs showed a low blood pressure. Obstruction series is currently pending. The patient presents with a syncopal episode. He has had diarrhea and some vomiting for the last 4 days. He clinically seems dehydrated. His workup suggests acute renal failure secondary to dehydration. The patient was given IV Zofran and IV saline. He is resting comfortably. His blood pressure is still somewhat low. A hospital stay is warranted. I spoke to the patient and case management. The on-call hospitalist was consulted. Medication Reconcilliation Current Medication List: was personally reviewed by me Blood Pressure Screening Patient's blood pressure: Low blood pressure Consults Time Called: 1644 Consulting Physician: Arin Luke Returned Call: [phone] Discussed the patient's case with Arin Luke. The patient will be evaluated for further management. Impression Primary Impression: Syncope Additional Impressions: Dehydration Hypotension Diarrhea Scribe Attestation The scribe's documentation has been prepared under my direction and personally reviewed by me in its entirety. I confirm that the note above accurately reflects all work, treatment, procedures, and medical decision making performed by me. Departure Information Dispostion Being Evaluated By Hospitalist Referrals Sharan Allan M.D. (PCP) Patient Instructions My [facility] Problem Qualifiers
[2017-07-21] MEDS ORDERED: LPT40 PO (15:16)
[2017-07-21] MEDS ORDERED: SNG10 PO (15:16)
[2017-07-21] MEDS ORDERED: CRG625 PO (15:16)
[2017-07-21 15:46] LABS: BASO % 0.4 %; BASO ABS # 0.03 K/uL (0-0.2); EOS % 2.9 %; EOS ABS # 0.23 K/uL (0-0.5); HEMATOCRIT 45.5 % (42-52); HEMOGLOBIN 16.1 g/dL (14.0-18.0); IG# 0.03 K/uL (0.00-0.02); LYMPH % 20.1 %; MEAN CORPUSCULAR HEMOGLOBIN 33.3 pg (25-34); MEAN CORPUSCULAR HGB CONC 35.4 g/dl (32-36); MEAN PLATELET VOLUME 10.6 fL (7.4-10.4); MONO % 8.7 %; MONO ABS # 0.69 K/uL (0.11-0.59); NEUT % 67.5 %; NEUT ABS # 5.37 K/uL (1.4-6.5); PLATELET COUNT 172 K/uL (130-400); WHITE BLOOD COUNT 7.95 K/uL (4.8-10.8)
[2017-07-21 15:57] LABS: PTT PATIENT 27.5 SECONDS (21.0-31.0)
[2017-07-21 16:03] LABS: CALCIUM 8.4 mg/dl (8.5-10.1); CREATININE 2.01 mg/dl (0.60-1.40); POTASSIUM 3.5 mmol/L (3.5-5.1)
[2017-07-21 16:14] LABS: TOTAL PROTEIN 6.9 gm/dl (6.4-8.2)
[2017-07-21] MEDS ORDERED: OMEP20CA9 PO (16:26)
[2017-07-21] MEDS ORDERED: CZR50 PO (16:26)
--- NOTE | 2017-07-21 17:16 | DIAGNOSTIC IMAGING REPORT ---
ABDOMEN 2VIEW W/PA CHEST RTN CLINICAL HISTORY: nvd pain. Nausea. COMPARISON STUDY: 02/25/2012 FINDINGS: Mild cardia megaly. Lungs are clear. Mild nonobstructive ileus. Potential wall thickening of components of the bowel in the left flank. No evidence of bowel distention. IMPRESSION: 1. Mild cardia megaly. 2. Otherwise negative chest. 3. Mild ileus with potential wall thickening of bowel loops in the left flank. The above report was generated using voice recognition software. It may contain grammatical, syntax or spelling errors. Electronically signed by: Cristhian Ricci M.D. 07/21/2017 5:15 PM Dictated Date/Time: 07/21/2017 5:14 PM
[2017-07-21] MEDS ORDERED: ACETAMINOPHEN 325 MG TAB PO PRN (17:30)
[2017-07-21] MEDS ORDERED: ONDANSETRON INJ 2 MG/ML 2 ML VIAL IV PRN (17:30)
--- NOTE | 2017-07-21 17:59 | DIAGNOSTIC IMAGING REPORT ---
ABD/PELVIS NO IV OR ORAL CONT CT DOSE: 1390.62 mGy.cm HISTORY: Pain abdominal pain, diarrhea, hx diverticulosis TECHNIQUE: Multiaxial CT images of the abdomen and pelvis were performed without contrast. A dose lowering technique was utilized adhering to the principles of ALARA. COMPARISON STUDY: 07/28/2016 FINDINGS: Lung bases are clear. Liver spleen and pancreas are unremarkable. Cholecystectomy. Kidneys negative for hydronephrosis. Stable 3.6 cm aneurysm infrarenal aspect abdominal aorta. Nonobstructive bowel pattern. Potential mild wall thickening of components of the descending colon corresponding to the routine images. A mild low-grade colitis is not excluded. No evidence for abscess collection or obstruction. The latter is midline. Normal appendix. IMPRESSION: 1. Mild wall thickening of the descending colon suggestive of a mild colitis. 2. No evidence for abscess collection or obstruction. 3. Stable 3.6 cm abdominal aortic aneurysm. The above report was generated using voice recognition software. It may contain grammatical, syntax or spelling errors. Electronically signed by: Cristhian Ricci M.D. 07/21/2017 5:57 PM Dictated Date/Time: 07/21/2017 5:53 PM
[2017-07-21 18:45] VITALS: BP 135/77; PULSE 80; TEMP 36.4; O2SAT 94; O2SAT 96
--- NOTE | 2017-07-21 18:45 | NUR ---
a- PATIENT ADMITTED TO ROOM 221 FRON ED VIA LITTER DIAGNOSIS NEAR SYNCOPAL EPISODE....DR. WYNNE SERVICE.... NS INFUSING 100CC/HR....ORTHOSTATIC VS DONE...NEGATIVE....
[2017-07-21 18:51] VITALS: BP 143/91; PULSE 78; TEMP 36.5; O2SAT 94
[2017-07-21 18:52] VITALS: BP 138/83; PULSE 94; TEMP 36.6; O2SAT 94
[2017-07-21] MEDS ORDERED: POTASSIUM CHLORIDE 20 MEQ TABCR PO ONE (19:00)
[2017-07-21 19:09] VITALS: Ht 175.3 cm; Wt 115.1 kg
[2017-07-21 19:10] VITALS: BP 135/77; PULSE 80; TEMP 36.6
[2017-07-21 19:12] VITALS: BP 108/72; PULSE 74; TEMP 37.1; O2SAT 96
[2017-07-21 19:19] VITALS: O2SAT 96
[2017-07-21] MEDS: SODIUM CHLORIDE 0.9% 1000ML 1,000 ML IV SCH (19:34)
--- NOTE | 2017-07-21 20:00 | NUR ---
Assessment completed; see emr. SR per telemetry. VSS. Pt denies dizziness or lightheadedness. Encouraged pt to change positions slowly and to ring when OOB. OOB with supervision to BR to void; sample sent. Gait steady to and from BR. Call bacon within touch. Continue to monitor.
--- NOTE | 2017-07-21 20:18 | History and Physical ---
History & Physical Date & Time of Service: Jul 21, 2017 ~ 17:30 Chief Complaint: Syncope Primary Care Physician: Sharan Allan M.D. History of Present Illness 57 year old male who presents to the ED after a syncopal event at home. Patient reports he has been sick with nausea, vomiting, and diarrhea x 4 days. Today he was in the bathroom and reports he felt lightheaded and put himself on the floor. His reports she heard him call out for help and then she found him on the floor. She reports he kept "going out". EMS was called. Patient reports he has been having mild lower abdominal pain. No BRBPR or dark tarry stools. He has not had any vomiting for 2 days. He denies hematemesis or coffee ground emesis. After his syncopal event he was diaphoretic. He denies fever and chills. No chest pain or shortness of breath. He denies urinary symptoms. In the ED, patient is found to have creat 2.0 (normal baseline). He was also hypotensive that improved with IVF. Other labs are unremarkable. CT abd/pelvis ordered by myself is showing mild colitis. Past Medical/Surgical History Medical Problems: (1) AAA (abdominal aortic aneurysm) Permanent Comment: [place] 01/2017 - 3.8cm Status: Chronic (2) COPD (chronic obstructive pulmonary disease) Status: Chronic (3) GERD (gastroesophageal reflux disease) Status: Chronic (4) HLD (hyperlipidemia) Status: Chronic (5) HTN (hypertension) Status: Chronic Surgical Problems: (1) Hx of cholecystectomy Status: Chronic Family History FH: factor V Leiden mutation Hypertension MOTHER Social History Smoking Status: Current Every Day Smoker Alcohol Use: occasionally Immunizations History of Influenza Vaccine: Yes Influenza Vaccine Date: Jun 27, 2017 History of Tetanus Vaccine?: Yes Tetanus Immunization Date: Feb 06, 2008 History of Pneumococcal: Yes Pneumococcal Date: May 12, 2006 Multi-Drug Resistant Organisms History of MDRO: No Allergies Coded Allergies: No Known Allergies (Verified , 07/28/16) Home Medications Scheduled Aspirin (Aspirin Ec), 81 MG PO DAILY Atorvastatin (Atorvastatin Calcium), 40 MG PO DAILY Carvedilol (Carvedilol), 6.25 MG PO QPM Losartan Potassium (Losartan Potassium), 50 MG PO QAM Montelukast Sod (Montelukast Sodium), 10 MG PO QAM Omeprazole (Prilosec), 20 MG PO QAM Review of Systems ROS per HPI, all other systems reviewed and negative Physical Exam Vital Signs Date Time Temp Pulse Resp B/P (MAP) Pulse Ox O2 Delivery O2 Flow Rate FiO2 07/21/17 19:19 96 Room Air 07/21/17 19:12 37.1 74 18 108/72 (84) 96 Room Air 07/21/17 19:10 36.6 80 18 135/77 07/21/17 18:52 36.6 94 18 138/83 (101) 94 Room Air 07/21/17 18:51 36.5 78 18 143/91 (108) 94 Room Air 07/21/17 18:45 94 Room Air 07/21/17 18:45 36.4 80 18 135/77 (96) 96 Room Air 07/21/17 18:14 69 18 104/78 96 07/21/17 17:53 69 18 139/73 96 Room Air 07/21/17 16:28 69 18 96/56 95 Room Air 07/21/17 16:00 68 22 84/61 93 Room Air 83/41 07/21/17 15:19 79 07/21/17 15:16 70 20 77/48 96 Room Air 81 79/57 84 84/61 07/21/17 14:58 95 Room Air 07/21/17 14:47 36.5 79 20 105/65 95 Room Air General Appearance: WD/WN, no apparent distress Head: normocephalic, atraumatic Eyes: normal inspection, EOMI, sclerae normal ENT: hearing grossly normal, + pertinent finding (mucous membranes dry) Neck: supple, no JVD, trachea midline Respiratory/Chest: lungs clear, normal breath sounds, no respiratory distress Cardiovascular: regular rate, rhythm, no edema, normal peripheral pulses Abdomen/GI: normal bowel sounds, soft, no organomegaly, + tenderness (mild, lower abdominal ) Extremities/Musculoskelatal: normal inspection, no calf tenderness, normal capillary refill Neurologic/Psych: no motor/sensory deficits, alert, normal mood/affect, oriented x 3 Skin: normal color, warm/dry Diagnostics Laboratory Results Results Past 24 Hours Test 07/21/17 15:32 07/21/17 15:43 07/21/17 19:30 Range/Units White Blood Count 7.95 4.8-10.8 K/uL Red Blood Count 4.84 4.7-6.1 M/uL Hemoglobin 16.1 14.0-18.0 g/dL Hematocrit 45.5 42-52 % Mean Corpuscular Volume 94.0 80-100 fL Mean Corpuscular Hemoglobin 33.3 25-34 pg Mean Corpuscular Hemoglobin Concent 35.4 32-36 g/dl Platelet Count 172 130-400 K/uL Mean Platelet Volume 10.6 7.4-10.4 fL Neutrophils (%) (Auto) 67.5 % Lymphocytes (%) (Auto) 20.1 % Monocytes (%) (Auto) 8.7 % Eosinophils (%) (Auto) 2.9 % Basophils (%) (Auto) 0.4 % Neutrophils # (Auto) 5.37 1.4-6.5 K/uL Lymphocytes # (Auto) 1.60 1.2-3.4 K/uL Monocytes # (Auto) 0.69 0.11-0.59 K/uL Eosinophils # (Auto) 0.23 0-0.5 K/uL Basophils # (Auto) 0.03 0-0.2 K/uL RDW Standard Deviation 45.0 36.4-46.3 fL RDW Coefficient of Variation 13.0 11.5-14.5 % Immature Granulocyte % (Auto) 0.4 % Immature Granulocyte # (Auto) 0.03 0.00-0.02 K/uL Prothrombin Time 10.9 9.0-12.0 SECONDS Prothromb Time International Ratio 1.0 0.9-1.1 Activated Partial Thromboplast Time 27.5 21.0-31.0 SECONDS Partial Thromboplastin Ratio 1.1 Sodium Level 136 136-145 mmol/L Potassium Level 3.5 3.5-5.1 mmol/L Chloride Level 103 98-107 mmol/L Carbon Dioxide Level 25 21-32 mmol/L Anion Gap 8.0 3-11 mmol/L Blood Urea Nitrogen 25 7-18 mg/dl Creatinine 2.01 0.60-1.40 mg/dl Est Creatinine Clear Calc Drug Dose 49.8 ml/min Estimated GFR () 41.2 Estimated GFR (Non- 35.5 BUN/Creatinine Ratio 12.3 10-20 Random Glucose 117 70-99 mg/dl Calcium Level 8.4 8.5-10.1 mg/dl Magnesium Level 2.3 1.8-2.4 mg/dl Total Bilirubin 0.5 0.2-1 mg/dl Aspartate Amino Transf (AST/SGOT) 26 15-37 U/L Alanine Aminotransferase (ALT/SGPT) 33 12-78 U/L Alkaline Phosphatase 139 45-117 U/L Total Protein 6.9 6.4-8.2 gm/dl Albumin 3.0 3.4-5.0 gm/dl Globulin 3.9 2.5-4.0 gm/dl Albumin/Globulin Ratio 0.8 0.9-2 Thyroid Stimulating Hormone (TSH) 3.380 0.300-4.500 uIu/ml Bedside Troponin I < 0.030 0-0.045 ng/ml Diagnostic Radiology CHEST/ABD XR IMPRESSION: 1. Mild cardia megaly. 2. Otherwise negative chest. 3. Mild ileus with potential wall thickening of bowel loops in the left flank. CTABD/PELVIS IMPRESSION: 1. Mild wall thickening of the descending colon suggestive of a mild colitis. 2. No evidence for abscess collection or obstruction. 3. Stable 3.6 cm abdominal aortic aneurysm. Impression Assessment and Plan SYNCOPE GLADYS VOMITING / DIARRHEA - admit to tele - patient presenting after a syncopal event at home, also has been having N/V/D x 4 days - hypotensive in the ED that improved with IVF - CT showing mild colitis - likely viral gastroenteritis; check stool studies - clear liquid diet, advance as tolerated - syncope likely due to orthostasis from volume depletion; give IVF, follow orthostatic BPs, hold antihypertensives - GLADYS prerenal due to GI losses in combination with ARB use - EKG does show more pronounced Q-waves inferiorly - patient denies chest pain, troponin negative; continue to cycle cardiac enzymes, check resting echo - stress test 2013 - negative for ischemia HTN - presented with hypotension, holding losartan and carvedilol for now HLD - continue statin HX AAA - stable on CT scan DVT PROPHYLAXIS - SQ heparin DISPO - In my clinical judgment this beneficiary meets acute admission criteria, established by [facility], that includes being hospitalized through two midnights. Attending Addendum: The patient was seen and examined Admitted with Syncopal episode following N/V/D Dehydration with questionable EKG changes No more diarrhea and feels better now O/E No distress Chest-clear to auscultate bilaterally Heart-regular Abdomen-benign,no masses,bowel sound present Labs and Imaging studies were reviewed Agree with the assessment and plan. Dr Mignon Briceno Advanced Directives Existing Living Will: No Existing Power of Computator: No VTE Prophylaxis VTE Risk Assessment Done? Y/N: Yes Risk Level: Moderate
[2017-07-21 21:51] LABS: CKMB 1.4 ng/ml (0.5-3.6)
[2017-07-21] MEDS: HEPARIN SOD 5000 UNIT/0.5 ML CARP SQ SCH (22:28)
[2017-07-22] VITALS (10 sets, daily range): BP systolic 105–146; BP diastolic 70–89; PULSE 67–82; TEMP 36.2–36.5; O2SAT 93–97
--- NOTE | 2017-07-22 01:21 | NUR ---
Assessment completed; see emr. SR per telemetry. VSS. Pt denies dizziness or lightheadedness. Encouraged pt to change positions slowly and to ring when OOB. OOB with supervision to BR to void. Gait steady to and from BR. Call bacon within touch. Continue to monitor.
[2017-07-22 03:15] LABS: HEMATOCRIT 44.9 % (42-52); HEMOGLOBIN 15.1 g/dL (14.0-18.0); MEAN CELL VOLUME 95.1 fL (80-100); MEAN CORPUSCULAR HGB CONC 33.6 g/dl (32-36); MEAN PLATELET VOLUME 10.5 fL (7.4-10.4); PLATELET COUNT 152 K/uL (130-400); RED CELL DISTRIBUTION WIDTH SD 45.4 fL (36.4-46.3)
[2017-07-22 03:40] LABS: BLOOD UREA NITROGEN 18 mg/dl (7-18); CALCIUM 7.8 mg/dl (8.5-10.1); CARBON DIOXIDE 27 mmol/L (21-32); CKMB 1.7 ng/ml (0.5-3.6); CREATININE 1.41 mg/dl (0.60-1.40); GLUCOSE 83 mg/dl (70-99); POTASSIUM 4.5 mmol/L (3.5-5.1); SODIUM 137 mmol/L (136-145)
[2017-07-22] MEDS: SODIUM CHLORIDE 0.9% 1000ML 1,000 ML IV SCH ×2 (04:00→12:56)
--- NOTE | 2017-07-22 04:00 | NUR ---
Assessment completed; see emr. ST per telemetry. Pt dizziness, lightheadedness. Gait steady to the BR to void. Supervision only. Call bacon within touch, Continue to monitor.
[2017-07-22] MEDS: HEPARIN SOD 5000 UNIT/0.5 ML CARP SQ SCH ×3 (06:26→20:57)
--- NOTE | 2017-07-22 08:15 | NUR ---
A/ID; Sitting at edge of bed. Lungs diminished with rhonchi and rales at the bases. SR on monitor. Cough. Still c/o mid abdominal cramping . Last BM was yesterday. Patient teaching reinforced about need for stool specimen. Voiding concentrated yellow urine. Requesting diet be increased. NSS infusing without s/s. Call bacon within reach.
[2017-07-22] MEDS: PANTOprazole SOD 40 MG TAB PO SCH (08:27)
[2017-07-22] MEDS: ATORVASTATIN 40 MG TAB PO SCH (08:28)
[2017-07-22] MEDS: MONTELUKAST SOD 10 MG TAB PO SCH (08:28)
[2017-07-22] MEDS: ASPIRIN 81 MG ECTAB PO SCH (08:28)
--- NOTE | 2017-07-22 12:00 | NUR ---
Patient reassessed fully, see EMR for complete assessment. lungs diminished with rhonchi and rales bilateral. Denies SOB, cough, SOB and pain. Feels bloated. Abdomen distended, firm with +bsx4. Denies BM today. Passing flatus. No further abdominal cramping. Tolerating AHA diet with 100%. Call bacon within reach.
--- NOTE | 2017-07-22 16:00 | NUR ---
Patient remains OOB in chair. Lungs diminished with rhonchi with crackles in bases. SR on monitor. NSS infusing at 100cc/hr without all s/s. Still c/o bloating. No BM. Call bacon within reach.
--- NOTE | 2017-07-22 18:21 | Progress Note ---
Internal Med Progress Note Date of Service: Jul 22, 2017. Provider Documentation: SUBJECTIVE: resting comfortably no dizziness afebrile no chest pain or sob ambulating fine OBJECTIVE: Vital Signs-as noted below Exam: General-alert and oriented. Not in distress ENT-Normal hearing Neck-no neck masses supple Lungs-cta b/l no wheezing no crackles Heart-S1 and S2 heard regular rate and rthym, no murmurs Abdomen-Soft bowel sounds present non tender no distension Extremities-no edema no erythema Neuro-alert and awake moves extremities Lab data as noted below. ASSESSMENT & PLAN: SYNCOPE GLADYS VOMITING / DIARRHEA mostly viral gastroenteritis CT showing mild colitis syncope most likely due to orthostasis from volume depletion fluids holding BP meds stable currently will f/u echo. EKG changes asymptomatic Serial CE negative will f/u echo. GLADYS from above holding arb presented with cr 2.0 cr today 1.4 on fluids f/u labs. HTN presented with hypotension, holding losartan and carvedilol for now will monitor HLD On statin HX AAA stable on CT scan DVT PROPHYLAXIS SQ heparin DISPOSITION monitor in tele ambulate possible d/c in am Vital Signs: Date Time Temp Pulse Resp B/P (MAP) Pulse Ox O2 Delivery O2 Flow Rate FiO2 07/22/17 16:05 36.5 67 24 134/89 (104) 97 Room Air 07/22/17 16:00 Room Air 07/22/17 12:00 Room Air 07/22/17 11:39 36.5 74 18 113/73 (86) 95 Room Air 07/22/17 08:00 94 Room Air 07/22/17 07:50 36.5 72 19 112/78 (89) 94 Room Air 79 110/78 (89) 79 116/75 (89) 07/22/17 04:00 Room Air 07/22/17 04:00 73 105/70 (82) 80 105/73 (84) 80 112/75 (87) 07/22/17 00:10 36.4 68 20 125/76 (92) 93 Room Air 80 115/80 (92) 82 118/72 (87) 07/21/17 23:32 Room Air 07/21/17 19:19 96 Room Air 07/21/17 19:12 37.1 74 18 108/72 (84) 96 Room Air 07/21/17 19:10 36.6 80 18 135/77 07/21/17 18:52 36.6 94 18 138/83 (101) 94 Room Air 07/21/17 18:51 36.5 78 18 143/91 (108) 94 Room Air 07/21/17 18:45 94 Room Air 07/21/17 18:45 36.4 80 18 135/77 (96) 96 Room Air Lab Results: Results Past 24 Hours Test 07/21/17 19:30 07/21/17 21:00 07/21/17 21:15 07/22/17 02:58 Range/Units Urine Color YELLOW Urine Appearance CLOUDY CLEAR Urine pH 5.0 4.5-7.5 Urine Specific [place] 1.018 1.000-1.030 Urine Protein TRACE NEG Urine Glucose (UA) NEG NEG Urine Ketones NEG NEG Urine Occult Blood NEG NEG Urine Nitrite NEG NEG Urine Bilirubin NEG NEG Urine Urobilinogen NEG NEG Urine Leukocyte Esterase NEG NEG Urine WBC (Auto) 5-10 0-5 /hpf Urine RBC (Auto) 0-4 0-4 /hpf Urine Hyaline Casts (Auto) >30 0-5 /lpf Urine Epithelial Cells (Auto) >30 0-5 /lpf Urine Bacteria (Auto) NEG NEG Urine Renal Epithelial Cells 0-5 0-5 /lpf Urine Pathogenic Casts 0-3 WBC CASTS 0 /lpf Creatine Kinase MB Ratio 0-3.0 Creatine Kinase MB 1.4 1.7 0.5-3.6 ng/ml Troponin I < 0.015 < 0.015 0-0.045 ng/ml White Blood Count 6.00 4.8-10.8 K/uL Red Blood Count 4.72 4.7-6.1 M/uL Hemoglobin 15.1 14.0-18.0 g/dL Hematocrit 44.9 42-52 % Mean Corpuscular Volume 95.1 80-100 fL Mean Corpuscular Hemoglobin 32.0 25-34 pg Mean Corpuscular Hemoglobin Concent 33.6 32-36 g/dl RDW Standard Deviation 45.4 36.4-46.3 fL RDW Coefficient of Variation 13.0 11.5-14.5 % Platelet Count 152 130-400 K/uL Mean Platelet Volume 10.5 7.4-10.4 fL Sodium Level 137 136-145 mmol/L Potassium Level 4.5 3.5-5.1 mmol/L Chloride Level 107 98-107 mmol/L Carbon Dioxide Level 27 21-32 mmol/L Anion Gap 3.0 3-11 mmol/L Blood Urea Nitrogen 18 7-18 mg/dl Creatinine 1.41 0.60-1.40 mg/dl Est Creatinine Clear Calc Drug Dose 71.0 ml/min Estimated GFR () 63.2 Estimated GFR (Non- 54.5 BUN/Creatinine Ratio 13.0 10-20 Random Glucose 83 70-99 mg/dl Calcium Level 7.8 8.5-10.1 mg/dl
--- NOTE | 2017-07-22 19:22 | ECHOCARDIOGRAM REPORT ---
*NOTICE TO RECEIVING LIBERTARIAN AGENCY This information is strictly Confidential and protected under [place] law. [place] law prohibits you from making any further disclosure of this information unless further disclosure is expressly permitted by the written consent of the person to whom it pertains or is authorized by law. A general authorization for the release of medical or other information is not sufficient for this purpose. Hospital accepts no responsibility if the information is made available to any other person, INCLUDING THE PATIENT. Interpretation Summary * Name: ADRIANNE CHADWICK Study Date: 07/22/2017 03:38 PM BP: 112/75 mmHg * Patient Location: C.2T\S\E221\S\1 HR: 80 * : 1960 (M/d/yyyy) Gender: Male Height: 69 in * Age: 57 yrs Ethnicity: CA Weight: 250 lb * Ordering Physician: Arin Alba * Referring Physician: Self, Referred * Performed By: Pierre Aguirre RCS * * Reason For Study: EKG Changes * BSA: 2.3 m2 * The study was technically difficult. * -- Conclusions -- * The left ventricular wall motion is normal. * Left ventricular systolic function is normal. * There is moderate concentric left ventricular hypertrophy. * The LV Ejection Fraction = 55-60%. * Diastolic dysfunction, Grade II (pseudonormalization pattern). Procedure Details * A complete two-dimensional transthoracic echocardiogram was performed (2D, M-mode, Doppler and color flow Doppler). Left Ventricle * The left ventricle is normal in size. * There is moderate concentric left ventricular hypertrophy. * Ejection Fraction = 55-60%. * Left ventricular systolic function is normal. * The left ventricular wall motion is normal. Right Ventricle * The right ventricle is normal size. * The right ventricular systolic function is normal as assessed by tricuspid annular plane systolic excursion (TAPSE) (normal >1.5 cm). Atria * The left atrial size is normal. * Right atrial size is normal. * There is no evidence of atrial septal defect, but resolution does not allow assessment for a patent foramen ovale. Mitral Valve * The mitral valve is normal. * There is no mitral valve stenosis. * Significant mitral regurgitation is absent. Tricuspid Valve * The tricuspid valve is normal. * There is no tricuspid stenosis. * Significant tricuspid regurgitation is absent. Aortic Valve * The aortic valve is trileaflet. * Aortic stenosis is absent. * There is no significant aortic regurgitation. Pulmonic Valve * The pulmonary valve is not well seen, but the Doppler examination is normal without significant regurgitation or stenosis. Great Vessels * The aortic root and proximal ascending aorta are normal sized. Pericardium/Pleural * There is no pericardial effusion. Great Vessels * Normal inferior vena cava diameter and respiratory variation suggests normal central venous pressure. Left Ventricular Diastolic Function * Diastolic dysfunction, Grade II (pseudonormalization pattern). MMode 2D Measurements and Calculations IVSd 1.3 cm IVSs 1.4 cm LVIDd 4.0 cm LVIDs 2.9 cm LVPWd 1.3 cm LVPWs 1.5 cm IVS/LVPW 1.0 FS 25.8 % EDV(Teich) 68.6 ml ESV(Teich) 33.4 ml EF(Teich) 51.3 % EDV(cubed) 62.3 ml ESV(cubed) 25.5 ml EF(cubed) 59.1 % % IVS thick 0.64 % % LVPW thick 13.1 % LV mass(C)d 188.3 grams LV mass(C)dI 82.9 grams/m\S\2 LV mass(C)s 138.2 grams LV mass(C)sI 60.9 grams/m\S\2 SV(Teich) 35.2 ml SI(Teich) 15.5 ml/m\S\2 SV(cubed) 36.9 ml SI(cubed) 16.2 ml/m\S\2 Ao root diam 2.6 cm Ao root area 5.4 cm\S\2 LA dimension 3.6 cm asc Aorta Diam 2.9 cm LA/Ao 1.4 EDV(MOD-sp4) 123.1 ml ESV(MOD-sp4) 56.2 ml EF(MOD-sp4) 54.4 % EDV(MOD-sp2) 119.2 ml ESV(MOD-sp2) 50.2 ml EF(MOD-sp2) 57.8 % SV(MOD-sp4) 66.9 ml SI(MOD-sp4) 29.5 ml/m\S\2 SV(MOD-sp2) 68.9 ml SI(MOD-sp2) 30.3 ml/m\S\2 Doppler Measurements and Calculations MV E max heather 98.8 cm/sec MV A max heather 53.5 cm/sec MV E/A 1.8 MV P1/2t max heather 97.1 cm/sec MV P1/2t 57.5 msec MVA(P1/2t) 3.8 cm\S\2 MV dec slope 494.7 cm/sec\S\2 MV dec time 0.21 sec Ao V2 max 99.0 cm/sec Ao max PG 3.9 mmHg Ao max PG (full) 0.39 mmHg LV V1 max PG 3.5 mmHg LV V1 max 93.9 cm/sec PA V2 max 85.3 cm/sec PA max PG 2.9 mmHg TR max heather 164.8 cm/sec
--- NOTE | 2017-07-22 20:51 | NUR ---
PT ASSESSMENT COMPLETED IN [facility] PT ABLE TO AMBULATE THE ENTIRE UNIT WITH ZERO COMPLICATIONS PT IS READY TO BE DISCHARGED.
--- NOTE | 2017-07-23 | NUR ---
PT RESTING ZERO SIGNS OF DISTRESS
[2017-07-23 00:01] VITALS: O2SAT 96
[2017-07-23] MEDS: SODIUM CHLORIDE 0.9% 1000ML 1,000 ML IV SCH (00:43)
[2017-07-23 03:44] VITALS: BP 130/86; PULSE 64; TEMP 36.3; O2SAT 97
[2017-07-23 04:00] VITALS: O2SAT 96
--- NOTE | 2017-07-23 04:19 | NUR ---
PT RESTING ZERO SIGNS OF DISTRESS
[2017-07-23] MEDS: HEPARIN SOD 5000 UNIT/0.5 ML CARP SQ SCH (05:06)
--- NOTE | 2017-07-23 06:15 | NUR ---
PT HEART RATE DECREASED INTO THE 30'S AND STAYED THERE FOR A FEW SECONDS PT ASYMPTOMATIC MD MADE AWARE
[2017-07-23 07:50] VITALS: BP 128/83; PULSE 66; TEMP 36.3; O2SAT 97
[2017-07-23] MEDS: ASPIRIN 81 MG ECTAB PO SCH (09:23)
[2017-07-23] MEDS: ATORVASTATIN 40 MG TAB PO SCH (09:23)
[2017-07-23] MEDS: MONTELUKAST SOD 10 MG TAB PO SCH (09:24)
[2017-07-23] MEDS: PANTOprazole SOD 40 MG TAB PO SCH (09:24)
--- NOTE | 2017-07-23 09:30 | NUR ---
Patient ambulated with this RN in hallway. Walked down around [facility] and out around elevators and back to his room. Upon entering room, patient stated he had developed a couple of episodes of sharp chest pain that relieved on it's own. Stated they only lasted a few seconds. Patient teaching reinforced. Denies all s/s at present. This RN checked tele monitor with no s/s noted.
[2017-07-23 11:33] VITALS: BP 146/85; PULSE 63; TEMP 36.2; O2SAT 99
--- NOTE | 2017-07-23 11:52 | Cardiology Consultation ---
Cardiology Consultation Date of Consultation: Jul 23, [address] Katz is a 57 year old male seen in cardiology consultation per the request of Dr Soto for the evaluation of syncope and sinus bradycardia. The patient's PCP is Dr Allan. The patient describes onset of nausea and vomiting on 07/18/17. He notes that he was around his grandchildren the day before one of them was sick. His symptoms persisted for 4 days. Yesterday morning he was at home and felt sick to his stomach. He went to the bathroom and was sitting on the commode. He reports that after he had a bowel movement he felt warm and lightheaded. His spouse heard him calling for help and she found him on the floor here in he apparently had several lapses in consciousness in the next few minutes. He been assessed in the emergency room was found to have acute renal insufficiency with a creatinine of 2.01, which is improved 1.[address] of the abdomen and pelvis revealed stable measurements of his known abdominal aortic aneurysm and findings suggestive of colitis. EKG tracings were performed on 07/21/17, 07/22/17 and again on 07/23/17. His most recent EKG performed this morning 07/23 revealed sinus rhythm at 60 bpm. Nonpathologic Q waves are noted in leads III and aVF with mild J-point elevation which is essentially unchanged compared to a prior outpatient preoperative EKG that was performed January 2017. Overnight on telemetry transient bradycardia was noted with heart rates down to the 40-50 beat minute range, consistent with sinus bradycardia during hours of sleep. Cardiology was specifically consultation a cause of sinus bradycardia at 30 bpm For this morning 07/23/17 at 5:58 AM. The patient was sleeping at that time and was asymptomatic. No pauses or high grade AV block were noted. The second concern patient walked with the nurse in the hallway this morning. His heart rate mike appropriately with noted sinus rhythm the 6070 beat per minute range. He noted a brief episode of midline chest discomfort at the lower portion of the sternum that was fleeting and lasted only seconds and is completely resolved. Due to concerns of an age-indeterminate inferior infarction pattern on his initial presenting EKG he was admitted he underwent transthoracic echocardiogram on 07/22/17 that revealed normal biventricular function and normal left ventricular wall motion with ejection fraction 55-60%. Grade 2 diastolic dysfunction was noted with moderate concentric left ventricular hypertrophy and no significant valvular heart disease. History Past Medical History: 1. Chest pain leading to normal dobutamine stress test in June 2014 2. Mild bilateral carotid disease without infarction 3. Peripheral arterial disease with chronic moderate to severe right lower extremity disease and a 3.8 x 3.7 cm by US 01/2017 4. COPD 5. Chronic tobacco abuse 6. Obesity 7. Hypertension 8. Dyslipidemia 9. Esophageal reflux 10. Hiatal hernia 11. Hearing loss 12. Suspected underlying sharp sleep apnea, on CPAP therapy Past Surgical History: History of cholecystectomy Social History: Current every day smoker Family History: Mother with hypertension, family history of hypercoagulable state Review Of Systems See above for pertinent positives & negatives. A total of 10 systems reviewed and were otherwise negative. Allergies Coded Allergies: No Known Allergies (Verified , 07/28/16) Medications Reported Home Medications Medications Dose Route/Sig Max Daily Dose Days Date Category Dose Instructions Atorvastatin Calcium (Atorvastatin) 40 Mg Tab 40 Mg PO DAILY 07/21/17 Reported Montelukast Sodium (Montelukast Sod) 10 Mg Tab 10 Mg PO QAM 07/21/17 Reported Carvedilol 6.25 Mg Tab 6.25 Mg PO QPM 07/21/17 Reported TAKE THIS MEDICATION EVERY EVENING WITH FOOD Prilosec (Omeprazole) 20 Mg Cap 20 Mg PO QAM 07/28/16 Reported TAKE THIS MEDICATION ONCE DAILY ONE HOUR BEFORE FIRST MEAL OF THE DAY Losartan Potassium 50 Mg Tab 50 Mg PO QAM 07/28/16 Reported Aspirin Ec (Aspirin) 81 Mg Tab 81 Mg PO DAILY 02/19/15 Reported Physical Exam Vital Signs (Last 8hrs): Last 8 Hrs Date Time Temp Pulse Resp B/P (MAP) Pulse Ox O2 Delivery O2 Flow Rate FiO2 07/23/17 07:50 36.3 66 19 128/83 (98) 97 Room Air 07/23/17 04:00 96 Room Air 07/23/17 03:44 36.3 64 18 130/86 (101) 97 Room Air General Appearance: Alert and Oriented x3. NAD. Head: Normocephalic Atraumatic. Eyes: PERRLA, EOMI, conjunctiva and sclera clear Neck: Supple. No carotid bruits noted. No JVD. No HJD. Respiratory: Breath sounds clear to auscultation bilaterally. No w/r/r. Cardiovascular: Reg rate and rhythm. S1 and S2 noted. No murmurs, rubs, gallops. PMI non displace. Abdomen: Normal bowel sounds, soft nontender. no abdominal bruits. Extremities: No edema, no clubbing or cyanosis. distal pulses 2/4 bilaterally. Neuro: No focal deficits. Psychiatric: Normal affect. Data Last Resulted 07/22/17 02:58 Last Resulted 07/22/17 02:58 Serial cardiac enzymes were negative on 07/21-07/22/17 Imaging: CT findings as noted in history of present illness EKG: As noted in history of present illness Telemetry reviewed: As noted in history of present illness Assessment & Plan Impression: 49-year-old male 1. Syncope, this is compatible with vasovagal syncope in the setting of abdominal discomfort related to colitis 2. Asymptomatic sinus bradycardia during sleep, without reproduction of his present symptoms 3. Nonpathologic inferior Q waves noted on EKG, normal resting wall motion Plan: Regarding the patient's syncope that brought him here to the hospital, I think this is compatible with vasovagal syncope in the setting of his abdominal discomfort and this has improved. He has a symptomatic sinus bradycardia in the setting of untreated CPAP. I'm not sure what extent this has been evaluated in the past, or if the patient would even be willing to participate in CPAP therapy as he did not seem very enthusiastic about pursuing this. Based on his echocardiogram, he does have underlying hypertension, I agree with holding his carvedilol and losartan today with likely resume these as an outpatient tomorrow. He had a very brief episode of chest discomfort that retrospect do not think was reflective of angina that has not persisted and his cardiac enzymes resting echocardiogram have been within normal limits. No further cardiac testing is felt to be warranted at the present time. Patient is stable for discharge from cardiac perspective.
--- NOTE | 2017-07-23 12:53 | Discharge Instructions ---
Discharge Instructions Date of Service Jul 23, 2017. Admission Reason for Admission: Syncope Discharge Discharge Diagnosis / Problem: SYNCOPE Discharge Goals Goal(s): Decrease discomfort, Improve function Activity Recommendations Activity Limitations: resume your previous activity . Instructions / Follow-Up Instructions / Follow-Up FOLLOWUP WITH YOUR FAMILY DOCTOR Sharan Fernandez ON Jul AT 11:05am Current Hospital Diet Patient's current hospital diet: AHA Diet (Heart Healthy) Discharge Diet Recommended Diet: AHA Diet (Heart Healthy) Pending Studies Studies pending at discharge: no Medical Emergencies . Who to Call and When: Medical Emergencies: If at any time you feel your situation is an emergency, please call 911 immediately. . Non-Emergent Contact Non-Emergency issues call your: Primary Care Provider . . "Provider Documentation" section prepared by Héctor Soto. . VTE Core Measure Inpt VTE Proph given/why not?: Unfractionated heparin SQ (DECLINED)
[2017-07-23 13:22] VITALS: BP 146/85; PULSE 63; TEMP 36.2; O2SAT 99
--- NOTE | 2017-07-23 13:41 | NUR ---
Patient was discharged to home. discharge instructions given with patient and verbalizing understanding. saline lock dc'd/ cath tip intact. Pressure dressing applied.
--- NOTE | 2017-07-23 16:26 | Progress Note ---
Internal Med Progress Note Date of Service: Jul 23, 2017. Provider Documentation: SUBJECTIVE: resting comfortably denies any dizziness or chest pain or sob afebrile wants to go home OBJECTIVE: Vital Signs-as noted below Exam: General-alert and oriented. Not in distress ENT-Normal hearing Neck-no neck masses supple Lungs-cta b/l no wheezing no crackles Heart-S1 and S2 heard regular rate and rthym, no murmurs Abdomen-Soft bowel sounds present non tender no distension Extremities-no edema no erythema Neuro-alert and awake moves extremities Lab data as noted below. ASSESSMENT & PLAN: SYNCOPE mostlu vaso vagal from abdominal discomfort VOMITING / DIARRHEA mostly viral gastroenteritis CT showing mild colitis syncope most likely due to orthostasis from volume depletion fluids holding BP meds stable currently echo moderate concentric LVH grade 2 diastolic dysfunction, no wall motion abnormality. Normal EF stable EKG changes asymptomatic Serial CE negative echo as above asymptomatic no further cardiac testing as per cardiology GLADYS from above holding arb presented with cr 2.0 cr 1.4 07/22/17 on fluids f/u labs. Bradycardia in sleep asymptomatic mostly by not using cpap for sleep apnea advised to use cpap regularly seen by cardiology HTN presented with hypotension, holding losartan and carvedilol for now restarted on discharge HLD On statin HX AAA stable on CT scan discharged home Vital Signs: Date Time Temp Pulse Resp B/P (MAP) Pulse Ox O2 Delivery O2 Flow Rate FiO2 07/23/17 13:22 36.2 63 19 99 Room Air 07/23/17 12:00 Room Air 07/23/17 11:33 36.2 63 19 146/85 (105) 99 Room Air 07/23/17 08:00 Room Air 07/23/17 07:50 36.3 66 19 128/83 (98) 97 Room Air 07/23/17 04:00 96 Room Air 07/23/17 03:44 36.3 64 18 130/86 (101) 97 Room Air 07/23/17 00:01 96 Room Air 07/22/17 23:46 36.3 68 16 116/73 (87) 95 Room Air 07/22/17 20:00 96 Room Air 07/22/17 19:58 117/77 (90) 07/22/17 19:58 146/80 (102) 07/22/17 19:51 36.2 73 18 128/82 (97) 96 Room Air Lab Results: Microbiology Results 07/22/17 C.difficile Toxin B Gene (PCR) - Final, Complete No C. difficile toxin B gene detected 07/22/17 Shiga Toxin Test - Preliminary, Resulted No E. Coli shiga toxin 1 or shiga tox... 07/22/17 Stool Culture - Preliminary, Resulted NO SALMONELLA ISOLATED TO DATE,...
--- NOTE | 2017-07-23 17:25 | Discharge Summary ---
Discharge Summary Date of Service Jul 23, 2017. Discharge Summary Admission Date: Jul 21, 2017 at 17:25 Discharge Date: Jul 23, 2017 Discharge Disposition: Home Principal Diagnosis: SYNCOPE BRADYCARDIA Secondary Diagnoses/Problems: (1) AAA (abdominal aortic aneurysm) Permanent Comment: US 01/2017 - 3.8cm Status: Chronic (2) COPD (chronic obstructive pulmonary disease) Status: Chronic (3) GERD (gastroesophageal reflux disease) Status: Chronic (4) HLD (hyperlipidemia) Status: Chronic (5) HTN (hypertension) Status: Chronic Procedures: CT ABD/PELVIS: 1. Mild wall thickening of the descending colon suggestive of a mild colitis. 2. No evidence for abscess collection or obstruction. 3. Stable 3.6 cm abdominal aortic aneurysm. Consultations: CARDIOLOGY Medication Reconciliation Continued Medications: Aspirin (Aspirin Ec) 81 Mg Tab 81 MG PO DAILY Atorvastatin (Atorvastatin Calcium) 40 Mg Tab 40 MG PO DAILY Carvedilol (Carvedilol) 6.25 Mg Tab 6.25 MG PO QPM TAKE THIS MEDICATION EVERY EVENING WITH FOOD Losartan Potassium (Losartan Potassium) 50 Mg Tab 50 MG PO QAM Montelukast Sod (Montelukast Sodium) 10 Mg Tab 10 MG PO QAM Omeprazole (Prilosec) 20 Mg Cap 20 MG PO QAM TAKE THIS MEDICATION ONCE DAILY ONE HOUR BEFORE FIRST MEAL OF THE DAY Admission Information HPI (per Admitting provider): 57 year old male who presents to the ED after a syncopal event at home. Patient reports he has been sick with nausea, vomiting, and diarrhea x 4 days. Today he was in the bathroom and reports he felt lightheaded and put himself on the floor. His reports she heard him call out for help and then she found him on the floor. She reports he kept "going out". EMS was called. Patient reports he has been having mild lower abdominal pain. No BRBPR or dark tarry stools. He has not had any vomiting for 2 days. He denies hematemesis or coffee ground emesis. After his syncopal event he was diaphoretic. He denies fever and chills. No chest pain or shortness of breath. He denies urinary symptoms. In the ED, patient is found to have creat 2.0 (normal baseline). He was also hypotensive that improved with IVF. Other labs are unremarkable. CT abd/pelvis ordered by myself is showing mild colitis. Physical Exam (per Admitting): General Appearance: WD/WN, no apparent distress Head: normocephalic, atraumatic Eyes: normal inspection, EOMI, sclerae normal ENT: hearing grossly normal, + pertinent finding (mucous membranes dry) Neck: supple, no JVD, trachea midline Respiratory/Chest: lungs clear, normal breath sounds, no respiratory distress Cardiovascular: regular rate, rhythm, no edema, normal peripheral pulses Abdomen/GI: normal bowel sounds, soft, no organomegaly, + tenderness (mild, lower abdominal ) Extremities/Musculoskelatal: normal inspection, no calf tenderness, normal capillary refill Neurologic/Psych: no motor/sensory deficits, alert, normal mood/affect, oriented x 3 Skin: normal color, warm/dry Hospital Course SYNCOPE mostlu vaso vagal from abdominal discomfort VOMITING / DIARRHEA mostly viral gastroenteritis CT showing mild colitis syncope most likely due to orthostasis from volume depletion fluids holding BP meds stable currently echo moderate concentric LVH grade 2 diastolic dysfunction, no wall motion abnormality. Normal EF stable EKG changes asymptomatic Serial CE negative echo as above asymptomatic no further cardiac testing as per cardiology GLADYS from above holding arb presented with cr 2.0 cr 1.4 07/22/17 on fluids f/u labs. Bradycardia in sleep asymptomatic mostly by not using cpap for sleep apnea advised to use cpap regularly seen by cardiology HTN presented with hypotension, holding losartan and carvedilol for now restarted on discharge HLD On statin HX AAA stable on CT scan discharged home Total time spent on discharge = 35MINUTES This includes examination of the patient, discharge planning, medication reconciliation, and communication with other providers. Discharge Instructions Discharge Instructions Date of Service Jul 23, 2017. Admission Reason for Admission: Syncope Discharge Discharge Diagnosis / Problem: SYNCOPE Discharge Goals Goal(s): Decrease discomfort, Improve function Activity Recommendations Activity Limitations: resume your previous activity . Instructions / Follow-Up Instructions / Follow-Up FOLLOWUP WITH YOUR FAMILY DOCTOR Sharan Fernandez ON Jul AT 11:05am Current Hospital Diet Patient's current hospital diet: AHA Diet (Heart Healthy) Discharge Diet Recommended Diet: AHA Diet (Heart Healthy) Pending Studies Studies pending at discharge: no Medical Emergencies . Who to Call and When: Medical Emergencies: If at any time you feel your situation is an emergency, please call 911 immediately. . Non-Emergent Contact Non-Emergency issues call your: Primary Care Provider . . "Provider Documentation" section prepared by Héctor Soto. . VTE Core Measure Inpt VTE Proph given/why not?: Unfractionated heparin SQ (DECLINED)
== END 2017-07-23 13:44 | disposition home or self-care (01) | DRG 392 ==
LOC: EDBD 14:41 → C.EDA 14:42 → C.2T 17:25 → ENRESERV 17:50
PROVIDERS: ADMIT Internal Medicine; ATTEND Internal Medicine
DX: A08.4 Viral intestinal infection, unspecified (principal); N17.9 Acute kidney failure, unspecified; I95.1 Orthostatic hypotension; Z68.37 Body mass index [BMI] 37.0-37.9, adult; I10 Essential (primary) hypertension; J44.9 Chronic obstructive pulmonary disease, unspecified; E78.5 Hyperlipidemia, unspecified; I73.9 Peripheral vascular disease, unspecified; K21.9 Gastro-esophageal reflux disease without esophagitis; E66.9 Obesity, unspecified; Z87.891 Personal history of nicotine dependence; Z79.82 Long term (current) use of aspirin; E86.0 Dehydration; I71.4 Abdominal aortic aneurysm, without rupture; Z83.2 Family history of diseases of the blood and blood-forming organs and certain disorders involving the immune mechanism

== ENCOUNTER 2024-04-25 21:06 | Inpatient (IN) ==
[2024-04-25 21:53] LABS: Basophils # (auto) 0.12 K/uL (0.00-0.20); Basophils % (auto) 0.9 %; Eosinophils # (auto) 0.32 K/uL (0.00-0.50); Eosinophils % (auto) 2.4 %; Hematocrit (blood only) 49.4 % (42.0-52.0); Hemoglobin 16.9 g/dl (14.0-18.0); Immature Granulocytes # (auto) 0.05 K/uL (0.01-0.20); Immature Granulocytes % (auto) 0.4 %; Lymphocytes # (auto) 2.87 K/uL (1.20-3.40); Lymphocytes % (auto) 21.8 %; Mean Corpuscular Hemoglobin 32.1 pg (25.0-34.0); Mean Corpuscular Hgb Conc 34.2 g/dL (32.0-36.0); Mean Corpuscular Volume 93.7 fL (80.0-100.0); Mean Platelet Volume 11.1 fL (9.4-12.4); Monocytes # (auto) 0.73 K/uL (0.11-0.59); Monocytes % (auto) 5.6 %; Neutrophils # (auto) 9.06 K/uL (1.40-6.50); Neutrophils % (auto) 68.9 %; Platelet Count 238 K/uL (130-400); RDW Coefficient of Variation 13.9 % (11.5-14.5); RDW Standard Deviation 48.4 fL (36.4-46.3); Red Blood Count 5.27 M/uL (4.70-6.10); White Blood Count 13.15 K/ul (4.8-10.8)
[2024-04-25 22:09] LABS: Albumin Globulin Ratio 1.4 (0.9-2); Albumin Level 4.4 gm/dl (3.4-5.0); BUN Creatinine Ratio 15.7 (10-20); Bilirubin,Total 0.8 mg/dl (0.2-1.0); Calcium 9.3 mg/dl (8.6-10.3); Creatinine Clr Calc Pharmacy 74.4 ml/min; Globulin 3.1 gm/dl (2.5-4.0); Total Protein 7.5 gm/dl (6.0-8.3)
[2024-04-25] MEDS: OPTIRAY 320 100ml IV ONE (23:29)
--- NOTE | 2024-04-26 00:08 | CT Scan Report ---
Exam(s): CT ABDOMEN + PELVIS With Contrast IV Amt: 93 ml optiray 320 EXAM: CT Abdomen and Pelvis With Intravenous Contrast CLINICAL HISTORY: Reason for exam: RLQ abd pain. TECHNIQUE: Axial computed tomography images of the abdomen and pelvis with intravenous contrast. CTDI is 24.58 mGy and DLP is 1194.46 mGy-cm. Automated exposure control was utilized for the study. A dose lowering technique was utilized adhering to the principles of ALARA. CONTRAST: Patient received 93 ml optiray 320 of IV contrast COMPARISON: 07/11/2017 FINDINGS: Lung bases: Unremarkable. No mass. No consolidation. ABDOMEN: Liver: Unremarkable. No mass. Gallbladder and bile ducts: Postoperative changes prior cholecystectomy. No ductal dilation. Pancreas: Unremarkable. No mass. No ductal dilation. Spleen: Unremarkable. No splenomegaly. Adrenals: Unremarkable. No mass. Kidneys and ureters: Unremarkable. No solid mass. No hydronephrosis. Stomach and bowel: Low-grade small bowel obstruction centered on a infraumbilical and periumbilical hernias. The loops of bowel contained within the hernia demonstrate no focal distention but there is collapse of the small bowel is it exits the hernia. No mucosal thickening. PELVIS: Appendix: No findings to suggest acute appendicitis. Bladder: Unremarkable. No mass. Reproductive: Unremarkable as visualized. ABDOMEN and PELVIS: Intraperitoneal space: Unremarkable. No free air. No significant fluid collection. Bones/joints: No acute fracture. No dislocation. Soft tissues: See above. Vasculature: Unremarkable. No abdominal aortic aneurysm. Lymph nodes: Unremarkable. No enlarged lymph nodes. IMPRESSION: Low-grade small bowel obstruction secondary to 2 separate loops of small bowel contained within supra and infraumbilical anterior abdominal wall hernias. Electronically signed by: Tanner Herbert MD 04/26/24 00:07 AM
--- NOTE | 2024-04-26 00:57 | History & Physical Report ---
Date of Service April 26, 2024 Assessment & Plan (1) SBO (small bowel obstruction): Plan: hx SVT status post ablation hypertension, stable hyperlipidemia, on statin Rx AAA status post surgery COPD, chronic cough symptoms ongoing tobacco abuse Medical telemetry given potential need for patient's IV beta-héctor administration Bowel rest NGT insertion if with recurrent emesis General Surgery consult SBO DVT prophylaxis with Lovenox subcu Full code admit to Text document was generated using [employer] voice recognition software. It may contain grammatical or spelling errors. Kindly contact undersigned for clarification of any documentation item in question. History of Present Illness Chief Complaint: Abdominal pain Primary Care Provider: Alexandra Max MD History obtained from patient and records. Medical history significant for SVT status post ablation, hypertension, hyperlipidemia, PVD status post surgery, COPD, GERD, hiatal hernia, ongoing tobacco abuse. Last confinement 2016 for syncope likely vasovagal secondary to discomfort from gastroenteritis. Patient with on and off achy abdominal discomfort the last few weeks with alternating constipation/diarrhea. Patient woke up yesterday morning with more intense right lower quadrant pain associated with nausea, vomiting followed by constipation followed by loose stools. No fever, no chills. Denies headache, chest pain, SOB. 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 Allergies Allergy/AdvReac Type Severity Reaction Status Date / Time lisinopril Allergy Severe SHORT OF Verified 04/26/24 01:16 BREATH/ITCHY Home Medications Medication Instructions Recorded Confirmed Type albuterol sulfate 90 mcg/actuation 2 puff inhalation Q4H PRN 04/05/23 04/26/24 History aerosol inhaler COUGH/WHEEZING/DYSPNEA aspirin 81 mg tablet,delayed 81 mg PO QAM 04/05/23 04/26/24 History release atorvastatin 80 mg tablet 80 mg PO QAM 04/05/23 04/26/24 History montelukast 10 mg tablet 10 mg PO QAM 04/05/23 04/26/24 History (Singulair) omeprazole 20 mg capsule,delayed 20 mg PO DAILYBB 04/05/23 04/26/24 History release sildenafil 50 mg tablet 50 mg PO DAILY PRN Sexual Activity 04/05/23 04/26/24 History ezetimibe 10 mg tablet (Zetia) 10 mg PO QAM 10/18/23 04/26/24 History metoprolol succinate 25 mg 25 mg PO QAM 10/18/23 04/26/24 History tablet,extended release 24 hr losartan 25 mg tablet 25 mg PO QAM 04/26/24 04/26/24 History Past Med/Surg History Problem List Hernia (Acute) SBO (small bowel obstruction) (Acute) SVT (supraventricular tachycardia) GERD (gastroesophageal reflux disease) (Chronic) COPD (chronic obstructive pulmonary disease) (Chronic) HTN (hypertension) (Chronic) HLD (hyperlipidemia) (Chronic) AAA (abdominal aortic aneurysm) (Chronic) "US 01/2017 - 3.8cm" Hx of cholecystectomy (Chronic) Family History Other Diabetes Gallbladder disease Hypertension Social History Smoking Status: Current every day smoker Tobacco Type: Cigarettes Cigarettes Per Day: 20; Do You Dip or Chew Tobacco: No; Hx Alcohol Use: No Hx Substance Use: No Preferred Language: Irish 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 Current Living Situation: Alone Feels Safe at Home: Yes Safety Concerns: Feels Safe At This Time Assistive Devices: Denture - Upper, Denture - Lower, Glasses and Hearing Aid - Bilateral Review of Systems Review of Systems: As per HPI, all other systems reviewed and negative Physical Exam Physical Exam: GENERAL: Comfortable, pleasant, no respiratory distress SKIN: Normal color, warm HEENT: Alopecia, pink palpebral conjunctivae, no ptosis, dry buccal mucosa NECK : Supple, no tenderness CHEST : Decreased breath sounds, no tenderness HEART : RRR, no obvious murmurs ABDOMEN: Some distention, abdominal wall hernias noted, hypogastric tenderness EXTREMITIES : No LE swelling/tenderness, no other conspicuous deformities noted NEUROLOGIC : Coherent, no facial asymmetry, no other gross focality Results & Data Results & Data Vital Signs (Past 12 Hours) Vital Signs Temp Pulse Resp BP Pulse Ox O2 Del Method 04/25/24 23:54 59 L 04/25/24 21:18 36.6 C 77 18 125/85 96 Room Air Laboratory Results Laboratory Results WBC 13.15 K/ul (4.8-10.8) H 04/25/24 21:39 RBC 5.27 M/uL (4.70-6.10) 04/25/24 21:39 Hgb 16.9 g/dl (14.0-18.0) 04/25/24 21:39 Hct 49.4 % (42.0-52.0) 04/25/24 21:39 MCV 93.7 fL (80.0-100.0) 04/25/24 21:39 MCH 32.1 pg (25.0-34.0) 04/25/24 21:39 MCHC 34.2 g/dL (32.0-36.0) 04/25/24 21:39 RDW Std Deviation 48.4 fL (36.4-46.3) H 04/25/24 21:39 RDW Coeff of Mega 13.9 % (11.5-14.5) 04/25/24 21:39 Plt Count 238 K/uL (130-400) 04/25/24 21:39 MPV 11.1 fL (9.4-12.4) 04/25/24 21:39 Immature Gran % (Auto) 0.4 % 04/25/24 21:39 Neut % (Auto) 68.9 % 04/25/24 21:39 Lymph % (Auto) 21.8 % 04/25/24 21:39 [place] % (Auto) 5.6 % 04/25/24 21:39 Eos % (Auto) 2.4 % 04/25/24 21:39 Baso % (Auto) 0.9 % 04/25/24 21:39 Neut # (Auto) 9.06 K/uL (1.40-6.50) H 04/25/24 21:39 Lymph # (Auto) 2.87 K/uL (1.20-3.40) 04/25/24 21:39 [place] # (Auto) 0.73 K/uL (0.11-0.59) H 04/25/24 21:39 Eos # (Auto) 0.32 K/uL (0.00-0.50) 04/25/24 21:39 Baso # (Auto) 0.12 K/uL (0.00-0.20) 04/25/24 21:39 Immature Gran # (Auto) 0.05 K/uL (0.01-0.20) 04/25/24 21:39 Sodium 140 mmol/L (136-145) 04/25/24 21:39 Potassium 4.0 mmol/L (3.5-5.1) 04/25/24 21:39 Chloride 105 mmol/L (98-107) 04/25/24 21:39 Carbon Dioxide 28 mmol/L (21-32) 04/25/24 21:39 Anion Gap 7 (3-11) 04/25/24 21:39 BUN 17 mg/dl (6-23) 04/25/24 21:39 Creatinine 1.08 mg/dl (0.6-1.4) 04/25/24 21:39 Est Cr Clr Drug Dosing 74.4 ml/min 04/25/24 21:39 eGFR 76.16 04/25/24 21:39 BUN/Creatinine Ratio 15.7 (10-20) 04/25/24 21:39 Glucose 91 mg/dl (70-99(Fasting)) 04/25/24 21:39 Lactate 0.8 mmol/L (0.4-2.0) 04/26/24 00:12 Calcium 9.3 mg/dl (8.6-10.3) 04/25/24 21:39 Total Bilirubin 0.8 mg/dl (0.2-1.0) 04/25/24 21:39 AST 16 U/L (13-39) 04/25/24 21:39 ALT 15 U/L (7-52) 04/25/24 21:39 Alkaline Phosphatase 116 U/L (34-104) H 04/25/24 21:39 Total Protein 7.5 gm/dl (6.0-8.3) 04/25/24 21:39 Albumin 4.4 gm/dl (3.4-5.0) 04/25/24 21:39 Globulin 3.1 gm/dl (2.5-4.0) 04/25/24 21:39 Albumin/Globulin Ratio 1.4 (0.9-2) 04/25/24 21:39 Lipase 27 U/L (11-82) 04/25/24 21:39 Impressions Abdomen/Pelvis CT 04/25/24 22:02 Exam(s): CT ABDOMEN + PELVIS With Contrast IV Amt: 93 ml optiray 320 EXAM: CT Abdomen and Pelvis With Intravenous Contrast CLINICAL HISTORY: Reason for exam: RLQ abd pain. TECHNIQUE: Axial computed tomography images of the abdomen and pelvis with intravenous contrast. CTDI is 24.58 mGy and DLP is 1194.46 mGy-cm. Automated exposure control was utilized for the study. A dose lowering technique was utilized adhering to the principles of ALARA. CONTRAST: Patient received 93 ml optiray 320 of IV contrast COMPARISON: 07/11/2017 FINDINGS: Lung bases: Unremarkable. No mass. No consolidation. ABDOMEN: Liver: Unremarkable. No mass. Gallbladder and bile ducts: Postoperative changes prior cholecystectomy. No ductal dilation. Pancreas: Unremarkable. No mass. No ductal dilation. Spleen: Unremarkable. No splenomegaly. Adrenals: Unremarkable. No mass. Kidneys and ureters: Unremarkable. No solid mass. No hydronephrosis. Stomach and bowel: Low-grade small bowel obstruction centered on a infraumbilical and periumbilical hernias. The loops of bowel contained within the hernia demonstrate no focal distention but there is collapse of the small bowel is it exits the hernia. No mucosal thickening. PELVIS: Appendix: No findings to suggest acute appendicitis. Bladder: Unremarkable. No mass. Reproductive: Unremarkable as visualized. ABDOMEN and PELVIS: Intraperitoneal space: Unremarkable. No free air. No significant fluid collection. Bones/joints: No acute fracture. No dislocation. Soft tissues: See above. Vasculature: Unremarkable. No abdominal aortic aneurysm. Lymph nodes: Unremarkable. No enlarged lymph nodes. IMPRESSION: Low-grade small bowel obstruction secondary to 2 separate loops of small bowel contained within supra and infraumbilical anterior abdominal wall hernias. Electronically signed by: Tanner Herbert MD 04/26/24 00:07 AM
[2024-04-26] MEDS ORDERED: LORazepam 0.5 MG TAB PO PRN (01:00)
[2024-04-26] MEDS ORDERED: ACETAMINOPHEN 325 MG TAB PO PRN (01:00)
--- NOTE | 2024-04-26 01:11 | Emergency Department Note ---
Impression & Plan SBO (small bowel obstruction), Hernia ED Provider Note NAME: ADRIANNE CHADWICK AGE: 64 SEX: M : 1960 ARRIVES VIA: Walk-In INFORMANT: Patient, ED PROVIDER(S): Chantel David MD CHIEF COMPLAINT: Abdominal pain, nausea vomiting HPI: This is a 64-year-old male presenting for abdominal pain and nausea vomiting. Patient states that over the past few months he has had intermittent episodes similar to this where he has abdominal pain, nausea and vomiting. He is unable to eat due to this. He reports no current fevers. He does report some slight epigastric pain. Otherwise diarrhea or constipation. ROS: See above HPI for pertinent positives & negatives. A total of 10 systems reviewed and were otherwise negative. PAST MEDICAL HISTORY: See Below PAST SURGICAL HISTORY: See Below FAMILY HISTORY: See Below SOCIAL HISTORY: See Below HOME MEDICATIONS: See Below ALLERGIES: See Below VITALS: See Below PHYSICAL EXAMINATION: General: resting comfortably in no acute distress Head: Normocephalic and atraumatic Eyes: Normal inspection, extraocular muscles intact Ear, nose, throat: Normal external exam Neck: Normal range of motion Respiratory: lungs clear to auscultation bilaterally Cardiovascular: Regular rate/rhythm, no murmur GI: Distended, soft, nontender, no guarding or rebound, reducible supraumbilical anterior abdominal wall hernia Extremities: nontender, moves all extremities Neuro: The patient awake and alert, appropriately conversive, no focal deficits, symmetric faces Skin: Warm, dry, and intact MEDICAL DECISION MAKING: This is a 64-year-old male presented for abdominal pain/nausea vomiting. Patient vital does reveal leukocytosis at this time without clear electrolyte disturbances. Order CT ab/pelvis to help elucidate -CT imaging reveals a low-grade small bowel obstruction due to 2 hernias. -Patient states that this has been happening previously he is not sought medical care. -With patient's small obstruction, will admit to medicine service. -Discussed with Dr. Van Differential diagnosis: SBO, diverticulitis, appendicitis, cholecystitis ER treatment provided: See below Diagnostics interpreted by me: ECG: None Cardiac Monitoring: An order was placed for continuous cardiac monitoring. The monitor shows a rate of 66 with sinus rhythm. Laboratory studies: As stated above and show below. Imaging studies: See below. Past Med/Surg History Problem List Hernia (Acute) SBO (small bowel obstruction) (Acute) SVT (supraventricular tachycardia) GERD (gastroesophageal reflux disease) (Chronic) COPD (chronic obstructive pulmonary disease) (Chronic) HTN (hypertension) (Chronic) HLD (hyperlipidemia) (Chronic) AAA (abdominal aortic aneurysm) (Chronic) "US 01/2017 - 3.8cm" Hx of cholecystectomy (Chronic) Family History Other Diabetes Gallbladder disease Hypertension Social History Smoking Status: Current every day smoker Tobacco Type: Cigarettes Cigarettes Per Day: 20; Do You Dip or Chew Tobacco: No; Hx Alcohol Use: No Hx Substance Use: No Preferred Language: 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 Current Living Situation: Alone Feels Safe at Home: Yes Safety Concerns: Feels Safe At This Time Assistive Devices: Denture - Upper, Denture - Lower, Glasses and Hearing Aid - Bilateral Allergies Allergies Allergy/AdvReac Type Severity Reaction Status Date / Time lisinopril Allergy Severe SHORT OF Verified 04/26/24 01:16 BREATH/ITCHY Home Meds Home Medications Medication Instructions Recorded Confirmed albuterol sulfate 90 mcg/actuation 2 puff inhalation Q4H PRN 04/05/23 04/26/24 aerosol inhaler COUGH/WHEEZING/DYSPNEA aspirin 81 mg tablet,delayed 81 mg PO QAM 04/05/23 04/26/24 release atorvastatin 80 mg tablet 80 mg PO QAM 04/05/23 04/26/24 montelukast 10 mg tablet 10 mg PO QAM 04/05/23 04/26/24 (Singulair) omeprazole 20 mg capsule,delayed 20 mg PO DAILYBB 04/05/23 04/26/24 release sildenafil 50 mg tablet 50 mg PO DAILY PRN Sexual Activity 04/05/23 04/26/24 ezetimibe 10 mg tablet (Zetia) 10 mg PO QAM 10/18/23 04/26/24 metoprolol succinate 25 mg 25 mg PO QAM 10/18/23 04/26/24 tablet,extended release 24 hr losartan 25 mg tablet 25 mg PO QAM 04/26/24 04/26/24 Results & Data (ED) Vital Signs Vital Signs - 24 hr 04/25/24 21:18 04/25/24 23:54 04/25/24 23:55 Temperature 36.6 C Temperature Source Temporal Artery Scan Pulse Rate 77 59 L Pulse Rate [Apical] 61 Pulse Rhythm Pulse Rhythm [Apical] Regular Respiratory Rate 18 20 Respiratory Effort / Characteristics Non-Labored Spontaneous Non-Labored Spontaneous Respiratory Depth Normal Normal Respiratory Pattern Regular Regular Blood Pressure 125/85 Blood Pressure [Right Arm] 146/80 H Blood Pressure Mean 98 Blood Pressure Mean [Right Arm] 102 Blood Pressure Position Sitting Pulse Oximetry 96 96 Oxygen Delivery Method Room Air Room Air Sepsis Recent Fever Within 48 Hours No Sepsis New/Unexplained Change in Mental Status N/A Sepsis Action Taken by Nursing No Action Required 04/25/24 23:55 04/26/24 01:57 Temperature Temperature Source Pulse Rate 61 Pulse Rate [Apical] 66 Pulse Rhythm Regular Pulse Rhythm [Apical] Respiratory Rate 20 18 Respiratory Effort / Characteristics Non-Labored Spontaneous Respiratory Depth Normal Respiratory Pattern Regular Blood Pressure Blood Pressure [Right Arm] 124/78 Blood Pressure Mean Blood Pressure Mean [Right Arm] 93 Blood Pressure Position Pulse Oximetry 96 94 Oxygen Delivery Method Room Air Room Air Sepsis Recent Fever Within 48 Hours Sepsis New/Unexplained Change in Mental Status Sepsis Action Taken by Nursing Laboratory Data 04/25/24 21:39 04/25/24 21:39 Lab Results 04/25/24 04/26/24 Range/Units 21:39 00:12 WBC 13.15 H (4.8-10.8) K/ul RBC 5.27 (4.70-6.10) M/uL Hgb 16.9 (14.0-18.0) g/dl Hct 49.4 (42.0-52.0) % MCV 93.7 (80.0-100.0) fL MCH 32.1 (25.0-34.0) pg MCHC 34.2 (32.0-36.0) g/dL RDW Std Deviation 48.4 H (36.4-46.3) fL RDW Coeff of Mega 13.9 (11.5-14.5) % Plt Count 238 (130-400) K/uL MPV 11.1 (9.4-12.4) fL Immature Gran % (Auto) 0.4 % Neut % (Auto) 68.9 % Lymph % (Auto) 21.8 % [place] % (Auto) 5.6 % Eos % (Auto) 2.4 % Baso % (Auto) 0.9 % Neut # (Auto) 9.06 H (1.40-6.50) K/uL Lymph # (Auto) 2.87 (1.20-3.40) K/uL [place] # (Auto) 0.73 H (0.11-0.59) K/uL Eos # (Auto) 0.32 (0.00-0.50) K/uL Baso # (Auto) 0.12 (0.00-0.20) K/uL Immature Gran # (Auto) 0.05 (0.01-0.20) K/uL Sodium 140 (136-145) mmol/L Potassium 4.0 (3.5-5.1) mmol/L Chloride 105 (98-107) mmol/L Carbon Dioxide 28 (21-32) mmol/L Anion Gap 7 (3-11) BUN 17 (6-23) mg/dl Creatinine 1.08 (0.6-1.4) mg/dl Est Cr Clr Drug Dosing 74.4 ml/min eGFR 76.16 BUN/Creatinine Ratio 15.7 (10-20) Glucose 91 (70-99(Fasting)) mg/dl Lactate 0.8 (0.4-2.0) mmol/L Calcium 9.3 (8.6-10.3) mg/dl Magnesium 2.0 (1.7-2.4) mg/dl Total Bilirubin 0.8 (0.2-1.0) mg/dl AST 16 (13-39) U/L ALT 15 (7-52) U/L Alkaline Phosphatase 116 H (34-104) U/L Total Protein 7.5 (6.0-8.3) gm/dl Albumin 4.4 (3.4-5.0) gm/dl Globulin 3.1 (2.5-4.0) gm/dl Albumin/Globulin Ratio 1.4 (0.9-2) Lipase 27 (11-82) U/L Administered Medications Discontinued Medications Ioversol (Optiray 320 100ml) 100 ml IV ONCE ONE Stop: 04/25/24 23:30 Last Admin: 04/25/24 23:29 Dose: 93 ml Documented By: YAMILKA Imaging Data Radiologist's Impression: Abdomen/Pelvis CT 04/25/24 22:02 Exam(s): CT ABDOMEN + PELVIS With Contrast IV Amt: 93 ml optiray 320 EXAM: CT Abdomen and Pelvis With Intravenous Contrast CLINICAL HISTORY: Reason for exam: RLQ abd pain. TECHNIQUE: Axial computed tomography images of the abdomen and pelvis with intravenous contrast. CTDI is 24.58 mGy and DLP is 1194.46 mGy-cm. Automated exposure control was utilized for the study. A dose lowering technique was utilized adhering to the principles of ALARA. CONTRAST: Patient received 93 ml optiray 320 of IV contrast COMPARISON: 07/11/2017 FINDINGS: Lung bases: Unremarkable. No mass. No consolidation. ABDOMEN: Liver: Unremarkable. No mass. Gallbladder and bile ducts: Postoperative changes prior cholecystectomy. No ductal dilation. Pancreas: Unremarkable. No mass. No ductal dilation. Spleen: Unremarkable. No splenomegaly. Adrenals: Unremarkable. No mass. Kidneys and ureters: Unremarkable. No solid mass. No hydronephrosis. Stomach and bowel: Low-grade small bowel obstruction centered on a infraumbilical and periumbilical hernias. The loops of bowel contained within the hernia demonstrate no focal distention but there is collapse of the small bowel is it exits the hernia. No mucosal thickening. PELVIS: Appendix: No findings to suggest acute appendicitis. Bladder: Unremarkable. No mass. Reproductive: Unremarkable as visualized. ABDOMEN and PELVIS: Intraperitoneal space: Unremarkable. No free air. No significant fluid collection. Bones/joints: No acute fracture. No dislocation. Soft tissues: See above. Vasculature: Unremarkable. No abdominal aortic aneurysm. Lymph nodes: Unremarkable. No enlarged lymph nodes. IMPRESSION: Low-grade small bowel obstruction secondary to 2 separate loops of small bowel contained within supra and infraumbilical anterior abdominal wall hernias. Electronically signed by: Tanner Herbert MD 04/26/24 00:07 AM Discharge Plan Visit Data Chief Complaint: Abdominal Pain Stated Complaint: ABD PAIN, DIARREHEA, CRAMPING,NAUSEA ED Provider: Chantel David Discharge Problem: SBO (small bowel obstruction), Hernia Forms Stand Alone Forms: [employer] Prescriptions Prescriptions: No Action atorvastatin 80 mg tablet 80 mg PO QAM sildenafil 50 mg Tablet 50 mg PO DAILY PRN (Reason: Sexual Activity) Rx Instructions: administer 30 minutes to 4 hours before activity aspirin 81 mg Tablet,Delayed Release (Dr/Ec) 81 mg PO QAM omeprazole 20 mg capsule,delayed release(DR/EC) 20 mg PO DAILYBB montelukast [Singulair] 10 mg Tablet 10 mg PO QAM albuterol sulfate 90 mcg/actuation Hfa Aerosol Inhaler 2 puff INHALATION Q4H PRN (Reason: COUGH/WHEEZING/DYSPNEA) metoprolol succinate 25 mg Tablet Extended Release 24 Hr 25 mg PO QAM ezetimibe [Zetia] 10 mg Tablet 10 mg PO QAM losartan 25 mg tablet 25 mg PO QAM Referrals Referrals: Alexandra Max MD [Primary Care Provider] -
[2024-04-26] MEDS: SODIUM CHLORIDE 0.9% 1,000 ML IV ONE (02:40)
[2024-04-26] MEDS: PANTOprazole 40 MG TAB PO SCH (05:55)
[2024-04-26 07:03] LABS: Basophils # (auto) 0.07 K/uL (0.00-0.20); Basophils % (auto) 0.8 %; Eosinophils # (auto) 0.36 K/uL (0.00-0.50); Hematocrit (blood only) 45.8 % (42.0-52.0); Hemoglobin 15.1 g/dl (14.0-18.0); Immature Granulocytes # (auto) 0.03 K/uL (0.01-0.20); Immature Granulocytes % (auto) 0.3 %; Lymphocytes # (auto) 2.77 K/uL (1.20-3.40); Lymphocytes % (auto) 30.6 %; Mean Corpuscular Hemoglobin 31.8 pg (25.0-34.0); Mean Corpuscular Volume 96.4 fL (80.0-100.0); Mean Platelet Volume 10.9 fL (9.4-12.4); Monocytes # (auto) 0.64 K/uL (0.11-0.59); Monocytes % (auto) 7.1 %; Neutrophils # (auto) 5.19 K/uL (1.40-6.50); Neutrophils % (auto) 57.2 %; Platelet Count 183 K/uL (130-400); RDW Coefficient of Variation 14.1 % (11.5-14.5); RDW Standard Deviation 50.1 fL (36.4-46.3); Red Blood Count 4.75 M/uL (4.70-6.10); White Blood Count 9.06 K/ul (4.8-10.8)
[2024-04-26 07:18] LABS: BUN Creatinine Ratio 14.7 (10-20); Calcium 8.8 mg/dl (8.6-10.3); Creatinine Clr Calc Pharmacy 69.5 ml/min; Potassium 3.9 mmol/L (3.5-5.1)
[2024-04-26] MEDS: ASPIRIN 81 MG ECTAB PO SCH (07:31)
[2024-04-26] MEDS: METOPROLOL SUCC 25MG EXT REL TAB PO SCH (07:32)
[2024-04-26] MEDS: ATORVASTATIN 40 MG TAB PO SCH (07:32)
[2024-04-26] MEDS: LOSARTAN POTASSIUM 25 MG TAB PO SCH (07:32)
[2024-04-26] MEDS: EZETIMIBE 10 MG TAB PO SCH (07:32)
[2024-04-26] MEDS: MONTELUKAST SODIUM 10 MG TABLET PO SCH (07:33)
[2024-04-26 08:07] LABS: Appearance Urine Clear (Clear); Bacteria Urine Automated None Seen (None Seen); Bilirubin Urine Negative (Negative); Blood Urine Negative (Negative); Cast Urine Automated 0-2 /lpf (0-2); Color Urine Yellow; Epithelial Cell Urine Auto 0-2 /hpf (0-2); Glucose Urine UA Negative (Negative); Ketones Urine Trace (Negative); Leukocyte Esterase Urine Negative (Negative); Nitrite Urine Negative (Negative); Protein Urine Trace (Negative); RBC Urine Automated 0-2 /hpf (0-2); Specific Gravity Urine > 1.045 (1.000-1.030); Urobilinogen Urine Negative (Negative); WBC Urine Automated 0-5 /hpf (0-5)
--- NOTE | 2024-04-26 08:32 | Surgery Consultation ---
Date of Consultation April 26, 2024 Assessment & Plan (1) SBO (small bowel obstruction): Patient with c/o abd pain, n/v that has been present since last Monday. He states that he has been having these symptoms for the past year intermittently and has had two noticeable bulges on his abdominal scar since he had his open AAA repair a few years ago. He reports that when he starts to feel abd cramping/pain and nausea he will stop eating and just have some liquids and the pain and nausea subside however within a few weeks the symptoms will return. On exam he is in NAD, VSS, CT scan reading Low-grade small bowel obstruction secondary to 2 separate loops of small bowel contained within supra and infraumbilical anterior abdominal wall hernias. abd is non distended, two bulges noted around umbilical area that are reducible however protruded back out without manual pressure to abd wall defects. Dicussed with patient surgical intervention in the form of an open abd wall hernia repair x2, patient in agreement. Patient seen and examined with Dr. Garcia. (2) Hernia: Supervising Physician Co-Signing Physician Notes as per Paulie LI This 64-year-old gentleman had undergone abdominal aortic aneurysm resection in [facility] approximately 2 years ago has had off-and-on symptoms of nausea and some abdominal discomfort was noted to have radiographically at least 2 abdominal wall hernias and came in last night with symptoms of nausea On exam he is alert coherent very pleasant In the supine position the abdomen was benign in the periumbilical area infraumbilical area at least 2 defects were appreciated the most inferior along I was able to reduce the incarcerated small bowel and the defect was approximately by exam a centimeter or so in size the uppermost 1 similarly was reducible cannot the find the defect Immediately the patient's small bowel recurred and the hernial sac With this finding I recommended an open repair of the hernia with mesh Risk and complication were explained to the patient and we will proceed accordingly Due to his cardiac history although he is asymptomatic we will obtain a cardiac evaluation prior to surgery which is scheduled later this morning All questions answered History of Present Illness Reason for Consultation: SBO, abd wall hernia Attending Physician: Jerri Valdes MD History of Present Illness Patient is a pleasant 64 yo male with PMH SVT, GERD, COPD, HTN, HLD, Open AAA repair that presented to the [facility] ER last night with c/o abd pain, n/v that has been present since last Monday. He states that he has been having these symptoms for the past year intermittently and has had two noticeable bulges on his abdominal scar since he had his open AAA repair a few years ago. He reports that when he starts to feel abd cramping/pain and nausea he will stop eating and just have some liquids and the pain and nausea subside however within a few weeks the symptoms will return. He states the only abd surgeries he has had is the open AAA, chart review shows a cholecystectomy. He denies blood thinners, and has been NPO since Monday. Allergies Allergy/AdvReac Type Severity Reaction Status Date / Time lisinopril Allergy Severe SHORT OF Verified 04/26/24 01:16 BREATH/ITCHY Home Medications Medication Instructions Recorded Confirmed Type albuterol sulfate 90 mcg/actuation 2 puff inhalation Q4H PRN 04/05/23 04/26/24 History aerosol inhaler COUGH/WHEEZING/DYSPNEA aspirin 81 mg tablet,delayed 81 mg PO QAM 04/05/23 04/26/24 History release atorvastatin 80 mg tablet 80 mg PO QAM 04/05/23 04/26/24 History montelukast 10 mg tablet 10 mg PO QAM 04/05/23 04/26/24 History (Singulair) omeprazole 20 mg capsule,delayed 20 mg PO DAILYBB 04/05/23 04/26/24 History release sildenafil 50 mg tablet 50 mg PO DAILY PRN Sexual Activity 04/05/23 04/26/24 History ezetimibe 10 mg tablet (Zetia) 10 mg PO QAM 10/18/23 04/26/24 History metoprolol succinate 25 mg 25 mg PO QAM 10/18/23 04/26/24 History tablet,extended release 24 hr losartan 25 mg tablet 25 mg PO QAM 04/26/24 04/26/24 History Patient History Family History Other Diabetes Gallbladder disease Hypertension Social History Smoking Status: Current every day smoker Tobacco Type: Cigarettes Cigarettes Per Day: 20; Do You Dip or Chew Tobacco: No; Hx Alcohol Use: No Hx Substance Use: No Preferred Language: Thai Wall 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 Required: No Current Living Situation: Alone Feels Safe at Home: Yes Safety Concerns: Feels Safe At This Time Assistive Devices: Denture - Upper, Denture - Lower, Glasses and Hearing Aid - Bilateral Review of Systems Constitutional: no fever and no chills Respiratory: no dyspnea Cardiovascular: no chest pain Gastrointestinal: + abdominal pain, + nausea and + vomitin g Physical Exam Constitutional: cooperative and comfortable; no acute distress Respiratory: normal respiratory effort and able to speak in complete sentences; no respiratory distress Cardiovascular: Rate/Rhythm: regular rate Gastrointestinal (Abdomen): Inspection/Auscultation: + abdominal surgical scar Percussion/Palpation: + abdomen tender, abdomen soft and + hernia Skin: no rashes, warm and dry Results & Data Vital Signs (Past 12 Hours) Vital Signs Temp Pulse Pulse Resp BP BP Pulse Ox 04/26/24 07:57 97.3 F L 60 18 124/75 94 04/26/24 07:35 04/26/24 07:00 64 04/26/24 04:51 65 04/26/24 04:16 04/26/24 02:27 97.9 F 60 18 153/80 H 95 04/26/24 02:18 04/26/24 01:57 66 18 124/78 94 04/25/24 23:55 61 20 96 04/25/24 23:55 61 20 146/80 H 96 04/25/24 23:54 59 L 04/25/24 21:18 97.9 F 77 18 125/85 96 O2 Del Method 04/26/24 07:57 Room Air 04/26/24 07:35 Room Air 04/26/24 07:00 04/26/24 04:51 04/26/24 04:16 Room Air 04/26/24 02:27 Room Air 04/26/24 02:18 Room Air 04/26/24 01:57 Room Air 04/25/24 23:55 Room Air 04/25/24 23:55 Room Air 04/25/24 23:54 04/25/24 21:18 Room Air Diagnostic Findings [facility], [place] [phone] CT Scan Report Patient: ADRIANNE CHADWICK Admit Date: 04/25/24 MR#: [id number] Address[address]: [address] [facility] Acct ID:[id number] Address2: [address] Date: 1960 [facility] Zip: [place] [id number] Age: 64 Location: ED Sex: M Room/Bed: Att Phy: Diagnosis: ABD PAIN, DIARREHEA, CRAMPING,NAUSEA Margie Phy: Alexandra Max MD Service Date: 04/25/24 [facility] Phy: Interpreting Phy: Tanner Herbert MDAdmit Phy: Ordering Phy: Lainey Faria MD cc: ~ Exam(s): CT ABDOMEN + PELVIS With Contrast IV Amt: 93 ml optiray 320 EXAM: CT Abdomen and Pelvis With Intravenous Contrast CLINICAL HISTORY: Reason for exam: RLQ abd pain. TECHNIQUE: Axial computed tomography images of the abdomen and pelvis with intravenous contrast. CTDI is 24.58 mGy and DLP is 1194.46 mGy-cm. Automated exposure control was utilized for the study. A dose lowering technique was utilized adhering to the principles of ALARA. CONTRAST: Patient received 93 ml optiray 320 of IV contrast COMPARISON: 07/11/2017 FINDINGS: Lung bases: Unremarkable. No mass. No consolidation. ABDOMEN: Liver: Unremarkable. No mass. Gallbladder and bile ducts: Postoperative changes prior cholecystectomy. No ductal dilation. Pancreas: Unremarkable. No mass. No ductal dilation. Spleen: Unremarkable. No splenomegaly. Adrenals: Unremarkable. No mass. Kidneys and ureters: Unremarkable. No solid mass. No hydronephrosis. Stomach and bowel: Low-grade small bowel obstruction centered on a infraumbilical and periumbilical hernias. The loops of bowel contained within the hernia demonstrate no focal distention but there is collapse of the small bowel is it exits the hernia. No mucosal thickening. PELVIS: Appendix: No findings to suggest acute appendicitis. Bladder: Unremarkable. No mass. Reproductive: Unremarkable as visualized. ABDOMEN and PELVIS: Intraperitoneal space: Unremarkable. No free air. No significant fluid collection. Bones/joints: No acute fracture. No dislocation. Soft tissues: See above. Vasculature: Unremarkable. No abdominal aortic aneurysm. Lymph nodes: Unremarkable. No enlarged lymph nodes. IMPRESSION: Low-grade small bowel obstruction secondary to 2 separate loops of small bowel contained within supra and infraumbilical anterior abdominal wall hernias. Electronically signed by: Tanner Herbert MD 04/26/24 00:07 AM Dictated: 04/26/246 Transcribed: 04/26/246 PG Care Time/CCT Total # of Minutes Spent Total Time Spent with Patient: Total time spent is greater than 50% in coordination of care (as documented) at patient's floor/unit and/or counseling patient: Coding Level of Care Code 52891 INT INP/OBS CARE 2/55MIN Diagnoses SBO (small bowel obstruction) K56.609 Hernia K46.9
[2024-04-26] MEDS: ENOXAPARIN INJ 40 MG/0.4 ML SYR SQ SCH (10:01)
--- OUTSIDE RECORDS SUMMARY | 2024-04-26 10:07 | External Medical Summary | Summary of Care ---
Author Name Unknown Organization [facility] Address [address] [place] [address] Phone [phone] Care Team Providers Care Matcher Name Role Phone Alexandra Sales MD Primary Care Prov ider Reason for Visit * Reason Comments Follow Up Encounter Details Date Type Department Care Team (Late st Contact Info) Description 04/23/2024 8:00 AM EDT Office Visit Cardiology, [facility] [address] [facility] [place] [address] Crissy Siegel CRNP [address] [facility] [place] [address] SVT (supraventricular tachycardia) (HCC)*; S/P radiofrequency ablation operation for arrhythmia; HTN, goal below 130/80; Dyslipidemia, goal LDL below 70; Palpitations; Tobacco use disorder Allergies Active Allergy Reactions Criticality Noted Date Comments Lisinopril Other (Please comment) 05/16/2016 Shortness of breath, and itchy documented as of this encounter (statuses as of 04/23/2024) Medications Medication Sig Dispensed Refills Start Date End Date Status Albuterol Sulfate HFA 108 (90 Base) MCG/ACT Inhalation Aerosol Solution Inhale 2 Puffs by mouth every 4 hours as needed for Cough, Wheezing or Dyspnea. 18 g 1 04/21/2021 Active Sildenafil Citrate 50 MG Oral TabletIndications:Er ectile dysfunction Take 1 Tablet by mouth daily as needed for Erectile Dysfunction. 10 Tablet 5 10/25/2022 Active Aspirin 81 MG Oral Tablet Delayed ReleaseIndications:H TN, goal below 140/90,Palpitations, Dyslipidemia, goal LDL below 130,PAD (peripheral artery disease) (HCC) Take 1 Tablet by mouth in the morning. 99 Tablet 3 05/09/2023 Active Cetirizine HCl 10 MG Oral Tablet (ZyrTEC) Take 1 Tablet by mouth in the morning. 90 Tablet 3 05/09/2023 Active Montelukast Sodium 10 MG Oral Tablet (Singulair)Indicatio ns:COPD, moderate (HCC),Chronic rhinitis TAKE 1 TABLET BY MOUTH EVERY DAY IN THE MORNING 90 Tablet 2 06/17/2023 Active Losartan Potassium 25 MG Oral Tablet (Cozaar) Take 1 Tablet by mouth in the morning. 34 Tablet 11 07/07/2023 Active Triamcinolone Acetonide 0.5 % External Cream (Aristocort) Apply topically to affected area 2 times a day. To affected area. 15 g 5 11/08/2023 Active Fluticasone Propionate HFA 110 MCG/ACT Inhalation Aerosol (Flovent HFA)Indications:Prim nikolai osteoarthritis of both ankles TAKE 2 PUFFS BY MOUTH TWICE A DAY 12 g 5 11/23/2023 Active Ezetimibe 10 MG Oral Tablet (Zetia)Indications:D yslipidemia, goal LDL below 70 TAKE 1 TABLET BY MOUTH EVERY DAY IN THE MORNING 90 Tablet 3 12/28/2023 Active Atorvastatin Calcium 80 MG Oral Tablet (Lipitor)Indications :Hyperlipidemia LDL goal <100 TAKE 1 TABLET BY MOUTH EVERY DAY 90 Tablet 2 02/21/2024 Active Omeprazole 20 MG Oral Capsule Delayed Release (PriLOSEC)Indication s:Abdominal pain, epigastric,Gastroeso phageal reflux disease with esophagitis without hemorrhage TAKE 1 CAPSULE BY MOUTH EVERY DAY 1 HOUR BEFORE FIRST MEAL OF THE DAY 90 Capsule 1 04/13/2024 Active Metoprolol Succinate ER 50 MG Oral Tablet Extended Release 24 Hour (Toprol XL) Take 1 Tablet by mouth in the morning. 90 Tablet 3 04/23/2024 Active Verapamil HCl ER 180 MG Oral Capsule Extended Release 24 Hour Take 1 Capsule by mouth in the morning. 90 Capsule 3 12/29/2023 10/01/202 4 Discontinue d(Medicatio n/Dose Changed) Hospital, Clinic, or Other Facility Administered Medication Ordered Dose Route Frequency Start Date End Date Status albuterol sulfate (PROVENTIL) (2.5 MG/3ML) 0.083% inhalation solution 2.5 mgIndications:COPD, moderate (HCC) 2.5 mg NEBULIZER Q4H PRN 03/15/2019 Active documented as of this encounter (statuses as of 04/23/2024) Active Problems Problem Noted Date Diagnosed Date Abdominal aortic aneurysm (AAA) without rupture 10/18/2022 Abdominal aortic aneurysm (AAA) without rupture 10/18/2022 Abdominal aortic aneurysm (AAA) without rupture 10/18/2022 Postoperative anemia due to acute blood loss Chronic kidney disease, stage 3a 05/31/2021 Overview: Per CKD protocol COPD, group B, by GOLD 2017 classification 05/04 Overview: Per COPD GOLD Classification Age-related cataract of both eyes 05/07/2019 Dermatitis of both ear canals 08/01/2017 Sensorineural hearing loss (SNHL) of both ears 0 08/01/2017 Atherosclerotic PVD with intermittent claudicati on 05/10/2017 Hypoxemia 04/22/2016 Overview: 03/2016 PSG - mild DHC Abdominal aortic aneurysm without rupture 2015 Overview: 3.1 cm Diverticulosis 10/30/2014 Overview: entire colon COPD, moderate 10/31/2011 Overview: 06/27/19 In Check dial performed to assess inhaler technique: Name of inhaler Albuterol Pass: Yes at 45L/min Encouraged to take slow deep breath and use aero chamber. Test performed by Felicity TR[employer] LAYER HEAD CPFT HIATAL HERNIA 05/06/2005 ADVANCE DIRECTIVE INFORMATION 01/25/2005 Overview: No, Advance Directive brochure offered , patient declined. Tobacco use disorder 06/25/2004 Esophageal reflux 06/25/2004 BMI 37.0-37.9, adult Essential hypertension with goal blood pressure less than 140/90 Hyperlipidemia LDL goal <100 Overview: ICD-10 update of inactive term documented as of this encounter (statuses as of 04/23/2024) Resolved Problems Problem Noted Date Diagnosed Date Resolved Date Discomfort of both ears 08/01/201702/21 AAA (abdominal aortic aneurysm) 11/07/2013 12/20/2016 Overview: 3.1 cm AAA Dyslipidemia, goal LDL below 130 04/21/2010 12/23/2013 OBESITY, BMI 30-34 (SEE ACTUAL BMI) 10/15/2009 08/10/2012 Overview: Per Obesity Taxonomy Benign neoplasm of colon 05/06/200911/2017 Overview: polyps x3, diverticulosis adenomatous/repeat colonoscopy in 5 yrs Severe obesity with body mas s index (BMI) of 35.0 to 39.9 with serious comorbidity 04/08/2009 Overview: Per Obesity Taxonomy Sebaceous cyst 01/13/2005 04/08/2009 Dyslipidemia, goal to be determined 06/25/2004 10/22/2010 COPD, severity to be determined 10/31/2011 Generalized osteoarthrosis, unspecified site 02/20/2015 documented as of this encounter (statuses as of 04/23/2024) Immunizations Name Administration Dates Next Due Pneumococcal Polysaccharide PPV23 (Pneumovax) 05/12/2006 Seasonal Influenza Vac., MDV , IM, 0.5 mL (Fluzone) 05/25/2012,04/29/2011,04/21/2010,04/08,05/19/2008,04/23/2007,08/11/2006 Seasonal Influenza, PF, 6 M & above, IM , (FluLaval or Fluzone) 06/27/2017 TDAP, Age 7 and older, IM (Adacel) 02/06/2008 documented as of this encounter Social History Tobacco Use Types Packs/Day Years Used Date Smoking Tobacco: Every Day Cigarettes 1 50 Smokeless Tobacco: Never Comments:04/05/23 varies from day to day, declined pamphlet Alcohol Use Standard Drinks/Week Comments No 0 (1 standard drink = 0.6 oz pur e alcohol) occassionally PHQ-2 Answer Date Recorded PHQ Adult Total Score 0 10/18/2022 Hunger Vital Sign Answer Date Recorded Within the past 12 months, y ou worried that your food would run out before you got the money to buy more. Patient declined Within the past 12 months, t he food you bought just didn't last and you didn't have money to get more. Patient declined Sex and Gender Information Value Date Recorded Sex Assigned at Male 11/08/2023 4:03 PM EDT Gender Identity Male 11/08/2023 4:03 PM EDT Sexual Orientation Straight 11/08/2023 4: 03 PM EDT Job Start Date Occupation Industry Not on file Not on file Not on file documented as of this encounter Last Filed Vital Signs Vital Sign Reading Time Taken Comments Blood Pressure 138/82 04/23/2024 8:01 AM EDT Pulse 68 04/23/2024 8:01 AM EDT Temperature - - Respiratory Rate 20 04/23/2024 8:01 AM EDT Oxygen Saturation - - Inhaled Oxygen Concentration - - Weight 91.7 kg (202 lb 1.6 oz) 04/23/2024 8:01 A M EDT Height - - Body Mass Index 29.84 11/08/2023 3:38 PM EDT documented in this encounter Functional Status Functional Status Response Date of Assess ment Are you deaf or do you have serious difficulty h earing? Yes 12/07/2021 Are you blind or do you have serious difficulty seeing, even when wearing glasses? No 12/07/2021 Do you have serious difficul ty walking or climbing stairs? (5 years old or older) No 12/07/2021 Do you have difficulty dress ing or bathing? (5 years old or older) No 12/07/2021 Because of a physical, menta l, or emotional condition, do you have difficulty doing errands alone such as visiting a doctor s office or shopping? (15 years old or older) No 12/08/19 Cognitive Status Response Date of Assessm ent Because of a physical, menta l, or emotional condition, do you have serious difficulty concentrating, remembering, or making decisions? (5 years old or older) No 12/07/2021 documented as of this encounter Patient Instructions * Patient Instructions* Crissy Siegel CRNP - 04/23/2024 8:25 AM EDT Melatonin is a supplement you can use to help with sleep. This can be taken daily up to 10 mg max. Tylenol PM can also help used on occasion for sleep. Stop verapamil Start Toprol 50 mg daily documented in this encounter Progress Notes * Alysha Guzman DO - 04/23/2024 10:01 AM EDT I have reviewed the advanced practitioner's documentation on the date of service referenced in note, and I agree with, and take responsibility for the plan of care. 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 Reason for Visit: follow up Interim Hospitalization(s): denies Problems/Concerns: sporadic episodes of increased heart rate; reports approx every 2-3 weeks "my digestive system just stops -- I can put stuff in, but nothing comes out" Chest Pain/SOB: denies [facility] Discussed: Not applicable [facility] is a way you can talk to your provider online through e-mail. Would you like to sign up? I can activate it for you? ALREADY ACTIVE Patient was instructed to not get up on the exam table until directed and assisted by their provider; patient is to remain seated in the chair/ wheelchair/ exam table for fall prevention and safety reasons. Patient is aware to have assistance to step down off exam table with personnel. Patient voiced full comprehension of instructions. documented in this encounter Plan of Treatment Upcoming Encounters Date Type Department Care Team (Late st Contact Info) Description 06/24/2024 8:20 AM EST Office Visit Family [address] [phone] Alexandra Sales MD [address] [place] [address] [place] [address] 07/11/2024 10:30 AM EST Appointment Vascular Lab [address] [address] 07/11/2024 11:00 AM EST Appointment Vascular Lab [address] [address] 07/11/2024 12:00 PM EST Appointment Vascular Lab [place] [address] [place] [address] 07/11/2024 12:30 PM EST Office Visit Vascular Surg [facility] [address] [place] [address] Negro Dover MD [address] [place] [address] 10/22/2024 8:00 AM EDT Office Visit Cardiology, [facility] [address] [facility] [place] [address] Crissy Siegel CRNP [address] [facility] [place] [phone] Scheduled Procedures Name Priority Associated Diagnoses Date/Ti me COLONOSCOPY FLEXIBLE PROXIMA L DIAGNOSTIC Recall Personal history of colonic polyps COLONOSCOPY FLEXIBLE PROXIMA L DIAGNOSTIC Recall History of colon polyps Health Maintenance Due Date Last Done Comments Cologuard 02/08/2004 Fecal Occult Blood Test 02/08/2004 Sigmoidoscopy 02/08/2004 Pneumococcal Vaccine: 65+ Years (2 of 2 - PCV) 05/12/2007 05/12/2006 DISCUSS TOBACCO CESSATION (REFER TO SMARTSET #3291) 02/13/2020 02/12/2019 GFR 03/05/2024 09/05/2023, 04/24, 10/14/2022, Additional history exists COVID-19 Vaccine ( season) 2024 Influenza Vaccine (FLU shot) (#1) 2024 06/27/2017, 06/27/2017 (Refused), 05/25/2012, Additional history exists AAA Monitoring 04/05/2024 04/05/2023, 03/24, 10/13/2021, Additional history exists CKD PHOS USE SMARTSET 77580 05/13/2024 05/13/2023, 0 10/14/2022 CKD HGB USE SMARTSET 22143 09/05/202409/05, 05/13/2023, 05/13/2023, Additional history exists Albumin/Creatinine Ratio 11/02/2024 024, 10/14/2022, 06/07/2008, Additional history exists Depression Screening 11/07/2024 11/08/2023 O2 ASSESSMENT COMPLETED IN PAST YEAR FOR COPD 11/07/2024 11/08/2023 Colonoscopy 08/11/2025 08/11/2020, 07/24, 10/30/2014, Additional history exists Colorectal Cancer Screening 08/11/2025 Diabetes Screening 09/05/2026 09/05/2023, 1 , 05/13/2023, Additional history exists DTap/Tdap Vaccines (3 - Td or Tdap) 11/13/2031 11/12/2021 (Declined), 02/06/2008 Lung Cancer Screening Completed 05/01/2020 , 02/15/2019, 07/14/2017 RETIRED - COLONOSCOPY-EVERY 5 YRS AGES 18-100 Discontinued 08/11/2020, 08/11/2020, 10/30/2014, Additional history exists Diabetic Eye Exam Discontinued 12/22/2021, 06/25/2008 Diabetic Foot Exam Discontinued 10/18/2022, 0 12/22/2021, 05/19/2008, Additional history exists Alpha-1 Antitrypsin Completed 05/13/2023 HPV (Gardasil) Vaccine Aged Out No lo nger eligible based on patient's age to complete this topic Hepatitis B Vaccine Aged Out No longe r eligible based on patient's age to complete this topic MENINGOCOCCAL (MENACTRA/MENVEO) Aged Out No longer eligible based on patient's age to complete this topic Zoster Vaccines Discontinued documented as of this encounter Medical Devices Implanted Type Area Bomb Technician Device Identifier Shelf Expiration Date Model / Serial / Lot Lens Intraoc 16.5 - [id number] - [id number] Implanted:Qty : 1 on 05/28/2019 by Collin Mayberry MD at [facility] Right: Eye [employer] 11/20/2021 [id number] / [id number] / [id number] Lens Intraoc 17.5 - [id number] - [id number] Implanted:Qty : 1 on 06/04/2019 by Collin Mayberry MD at OR [facility] Left: Eye [employer] 12/22/2023 [id number] / [id number] / [id number] Graft Hemashld [id number] - [id number] Implanted:Qty : 1 on 12/07/2021 by Negro Dover MD [place] [facility]A: Aorta GETINGE : MAQUET [id number] 08/23/2025 [id number] / [id number] / [id number] documented as of this encounter Visit Diagnoses Diagnosis SVT (supraventricular tachycardia) (HCC)- Primary Other specified cardiac dysrhythmias S/P radiofrequency ablation operation for arrhythmia Other postprocedural status HTN, goal below 130/80 Unspecified essential hypertension Dyslipidemia, goal LDL below 70 Other and unspecified hyperlipidemia Palpitations Tobacco use disorder documented in this encounter Advance Directives * Full Code (Latest Code Status on File) Date Activated Date Inactivated Comments 12/07/2021 12:57 PM 12/12/2021 7:03 PM This order reflects the patients wishes and were consensually agreed upon. Question Answer Comments Discussion of Advance Direct krystal occurred with: Not Discussed recent postop anesthesia Care Teams Matcher Relationship Specialty Start Date End Date Alexandra Sales MD [address] [place] [address] [place] [phone] PCP - General Family Medicine 02/12/19 documented as of this encounter
--- OUTSIDE RECORDS SUMMARY | 2024-04-26 10:07 | External Medical Summary | Summary of Care ---
Author Name Unknown Organization [facility] Address [address] [place] [address] Phone [phone] Care Team Providers Care Welding Setter Name Role Phone Juve Oconnor MD Primary Care Prov ider Reason for Visit * Reason Comments eRx-Medication Refill Encounter Details Date Type Department Care Team (Late st Contact Info) Description 04/12/2024 Refill Family Medicine [address] [phone] Juve Oconnor MD [address] [place], [place] [address] [address] Abdominal pain, epigastric; Gastroesophageal reflux disease with esophagitis without hemorrhage Allergies Active Allergy Reactions Criticality Noted Date Comments Lisinopril Other (Please comment) 05/16/2016 Shortness of breath, and itchy documented as of this encounter (statuses as of 04/13/2024) Medications Medication Sig Dispensed Refills Start Date End Date Status Albuterol Sulfate HFA 108 (90 Base) MCG/ACT Inhalation Aerosol Solution Inhale 2 Puffs by mouth every 4 hours as needed for Cough, Wheezing or Dyspnea. 18 g 1 04/21/2021 Active Sildenafil Citrate 50 MG Oral TabletIndications:E rectile dysfunction Take 1 Tablet by mouth daily as needed for Erectile Dysfunction. 10 Tablet 5 10/25/2022 Active Aspirin 81 MG Oral Tablet Delayed ReleaseIndications: HTN, goal below 140/90,Palpitations ,Dyslipidemia, goal LDL below 130,PAD (peripheral artery disease) (HCC) Take 1 Tablet by mouth in the morning. 99 Tablet 3 05/09/2023 Active Cetirizine HCl 10 MG Oral Tablet (ZyrTEC) Take 1 Tablet by mouth in the morning. 90 Tablet 3 05/09/2023 Active Montelukast Sodium 10 MG Oral Tablet (Singulair)Indicati ons:COPD, moderate (HCC),Chronic rhinitis TAKE 1 TABLET BY [...] Propionate HFA 110 MCG/ACT Inhalation Aerosol (Flovent HFA)Indications:Margie amarilys osteoarthritis of both ankles TAKE 2 PUFFS BY MOUTH TWICE A DAY 12 g 5 11/23/2023 Active Ezetimibe 10 MG Oral Tablet (Zetia)Indications: Dyslipidemia, goal LDL below 70 TAKE 1 TABLET BY MOUTH EVERY DAY IN THE MORNING 90 Tablet 3 12/28/2023 Active Verapamil HCl ER 180 MG Oral Capsule Extended Release 24 Hour Take 1 Capsule by mouth in the morning. 90 Capsule 3 12/29/2023 Active Atorvastatin Calcium 80 MG Oral Tablet (Lipitor)Indication s:Hyperlipidemia LDL goal <100 TAKE 1 TABLET BY MOUTH EVERY DAY 90 Tablet 2 02/21/2024 Active Omeprazole 20 MG Oral Capsule Delayed Release (PriLOSEC)Indicatio ns:Abdominal pain, epigastric,Gastroes ophageal reflux disease with esophagitis without hemorrhage TAKE 1 CAPSULE BY MOUTH EVERY DAY 1 HOUR BEFORE FIRST MEAL OF THE DAY 90 Capsule 1 04/13/2024 Active Omeprazole 20 MG Oral Capsule Delayed Release (PriLOSEC)Indicatio ns:Abdominal pain, epigastric,Gastroes ophageal reflux disease with esophagitis without hemorrhage TAKE 1 CAPSULE BY MOUTH EVERY DAY 1 HOUR BEFORE FIRST MEAL OF THE DAY 90 Capsule 01/21/2024 04/13/20 24 Discontinued Hospital, Clinic, or Other Facility Administered Medication Ordered Dose Route Frequency Start Date End Date Status albuterol sulfate (PROVENTIL) (2.5 MG/3ML) 0.083% inhalation solution 2.5 mgIndications:COPD, moderate (HCC) 2.5 mg NEBULIZER Q4H PRN 03/15/2019 Active documented as of this encounter (statuses as of 04/13/2024) Active Problems Problem Noted Date Diagnosed Date [...] use aero chamber. Test performed by Felicity SENIOR ACTUARIAL ANALYST CPFT HIATAL HERNIA 05/06/2005 ADVANCE DIRECTIVE INFORMATION 01/25/2005 Overview: No, Advance Directive brochure offered , patient declined. Tobacco use disorder 06/25/2004 Esophageal reflux 06/25/2004 BMI 37.0-37.9, adult Essential hypertension with goal blood pressure less than 140/90 Hyperlipidemia LDL goal <100 Overview: ICD-10 update of inactive term documented as of this encounter (statuses as of 04/13/2024) Resolved Problems Problem Noted Date Diagnosed Date [...] as of this encounter (statuses as of 04/13/2024) Immunizations Name Administration Dates Next Due Pneumococcal Polysaccharide PPV23 (Pneumovax) 05/12/2006 Seasonal Influenza, PF, 6 M & above, IM , (FluLaval or Fluzone) 06/27/2017 Seasonal Influenza, Trivalen t, (IIV3), with Preserv, (Fluzone) 05/25/2012,04/29/2011,04/21/2010,04/08,05/19/2008,04/23/2007,08/11/2006 TDAP, Age 7 and older, IM (Adacel) [...] on file documented as of this encounter Functional Status Functional Status Response [...] No 12/07/2021 documented as of this encounter Miscellaneous Notes * Telephone Encounter - Claudy Kauffman, [facility] - 04/13/2024 8:35 PM EDTSigned Prescriptions: Disp Refills Omeprazole 20 MG Oral Capsule Delayed Rele*90 Cap*1 Sig: TAKE 1CAPSULE BY MOUTH EVERY DAY 1 HOUR BEFORE FIRST MEAL OF THE DAYAuthorizing Provider: JUVE OCONNOR User: CLAUDY KAUFFMAN documented in this encounter Plan of Treatment Upcoming Encounters Date Type Department Care Team (Late st Contact Info) Description 04/16/2024 9:00 AM EDT Appointment Vascular Lab [address] [address] 04/16/2024 9:30 AM EDT Appointment Vascular Lab [address] [address] 04/16/2024 10:30 AM EDT Appointment Vascular Lab [address] [address] 04/16/2024 11:15 AM EDT Office Visit Vascular Surg [address] [address] Negro Dover MD [address] [place] [address] 04/23/2024 8:00 AM EDT Office Visit Cardiology, [facility] [address] [place] [address] Crissy Siegel CRNP [address] [place] [address] 06/24/2024 8:20 AM EST Office Visit Family Medicine [address] [place] [phone] Juve Oconnor MD [address] [place] [address] [place] [phone] Scheduled Procedures Name Priority Associated Diagnoses Date/Ti [...] Additional history exists CKD PHOS USE SMARTSET 76728 05/13/2024 05/13/2023, 0 10/14/2022 CKD HGB USE SMARTSET 93461 09/05/202409/05, 05/13/2023, 05/13/2023, Additional history exists Albumin/Creatinine [...] this encounter Medical Devices Implanted Type Area Tool Room Supervisor Device Identifier Shelf Expiration Date Model / Serial / Lot Lens Intraoc 16.5 - [id number] - [id number] Implanted:Qty : 1 on 05/28/2019 by Collin Mayberry MD at OR [facility] Right: Eye BAUSCH & LOMB 11/20/2021 [id number] / [id number] / [id number] Lens Intraoc 17.5 - [id number] - [id number] Implanted:Qty : 1 on 06/04/2019 by Collin Mayberry MD at OR [facility] Left: Eye BAUSCH & LOMB 12/22/2023 [id number] / [id number] / [id number] Graft Hemashld [id number] - [id number] Implanted:Qty : 1 on 12/07/2021 by Negro Dover MD at [place] [facility] [place]/A: Aorta GETINGE : MAQUET [id number] 08/23/2025 [id number] / [id number] / [id number] documented as of this encounter Visit Diagnoses Diagnosis Abdominal pain, epigastric Gastroesophageal reflux disease with esophagitis without hemorrhage documented in this encounter Advance Directives * Full Code (Latest Code Status on File) Date Activated Date Inactivated Comments 12/07/2021 12:57 PM 12/12/2021 7:03 PM This order reflects the patients wishes and were consensually agreed upon. Question Answer Comments Discussion of Advance Direct krystal occurred with: Not Discussed recent postop anesthesia Care Teams Welding Setter Relationship Specialty Start Date End Date Juve Oconnor MD [address] [place] [address] [place] [address] PCP - General Family Medicine 02/12/19 documented as of this encounter
--- OUTSIDE RECORDS SUMMARY | 2024-04-26 10:07 | External Medical Summary | Summary of Care ---
Author Name Unknown Organization [facility] Address [address] [place] [address] Phone [phone] Care Team Providers Care Regulatory Internship Name Role Phone Alexandra Sales MD Primary Care Prov ider Reason for Referral * Evaluate & Treat - Unlimited Visits (Within 30 days (routine)) - Pending Review Specialty Diagnoses / Procedures Referred By Myesha choi Referred To Contact Vascular Surgery / Cardiovascular Surgery Diagnoses Atherosclerotic PVD with intermittent claudication (HCC) Abdominal aortic aneurysm (AAA) without rupture, unspecified part (HCC) Alexandra Sales MD [address] [place] [address] [place] [id number] Referral ID Status Reason Start Date Expiration Date Visits Requested Visits Authorized [id number] Pending Review Specialty Services Required 04/03/[phone] Question Answer Referral Priority Within 30 days (routine) Where should this appointment be scheduled? [facility] What condition is the patient being seen for? Leg Claudication / PAD / Ischemia Reason for Visit * Reason Onset Date Comments Referral Requested by Specialist 04/03/2024 Encounter Details Date Type Department Care Team (Late st Contact Info) Description 04/03/2024 Telephone Vascular Surg [facility] [address] [place] [address] Services, Scheduling [address] [place] [address] Referral Requested by Specialist Allergies Active Allergy Reactions Criticality Noted Date Comments Lisinopril Other (Please comment) 05/16/2016 Shortness of breath, and itchy documented as of this encounter (statuses as of 04/03/2024) Medications Medication Sig Dispensed Refills Start Date End Date Status Albuterol Sulfate HFA 108 (90 Base) MCG/ACT Inhalation Aerosol Solution Inhale 2 Puffs by mouth every 4 hours as needed for Cough, Wheezing or Dyspnea. 18 g 1 04/21/2021 Active Sildenafil Citrate 50 MG Oral TabletIndications:Ere ctile dysfunction Take 1 Tablet by mouth daily as needed for Erectile Dysfunction. 10 Tablet 5 10/25/2022 Active Aspirin 81 MG Oral Tablet Delayed ReleaseIndications:HT N, goal below 140/90,Palpitations,D yslipidemia, goal LDL below 130,PAD (peripheral artery disease) (HCC) Take 1 Tablet by mouth in the morning. 99 Tablet 3 05/09/2023 Active Cetirizine HCl 10 MG Oral Tablet (ZyrTEC) Take 1 Tablet by mouth in the morning. 90 Tablet 3 05/09/2023 Active Montelukast Sodium 10 MG Oral Tablet (Singulair)Indication s:COPD, moderate (HCC),Chronic rhinitis TAKE 1 TABLET BY [...] Propionate HFA 110 MCG/ACT Inhalation Aerosol (Flovent HFA)Indications:Prima ry osteoarthritis of both ankles TAKE 2 PUFFS BY MOUTH TWICE A DAY 12 g 5 11/23/2023 Active Ezetimibe 10 MG Oral Tablet (Zetia)Indications:Dy slipidemia, goal LDL below 70 TAKE 1 TABLET BY MOUTH EVERY DAY IN THE MORNING 90 Tablet 3 12/28/2023 Active Verapamil HCl ER 180 MG Oral Capsule Extended Release 24 Hour Take 1 Capsule by mouth in the morning. 90 Capsule 3 12/29/2023 Active Omeprazole 20 MG Oral Capsule Delayed Release (PriLOSEC)Indications :Abdominal pain, epigastric,Gastroesop hageal reflux disease with esophagitis without hemorrhage TAKE 1 CAPSULE BY MOUTH EVERY DAY 1 HOUR BEFORE FIRST MEAL OF THE DAY 90 Capsule 01/21/2024 Active Atorvastatin Calcium 80 MG Oral Tablet (Lipitor)Indications: Hyperlipidemia LDL goal <100 TAKE 1 TABLET BY MOUTH EVERY DAY 90 Tablet 2 02/21/2024 Active Hospital, Clinic, or Other Facility Administered Medication Ordered Dose Route Frequency Start Date End Date Status albuterol sulfate (PROVENTIL) (2.5 MG/3ML) 0.083% inhalation solution 2.5 mgIndications:COPD, moderate (HCC) 2.5 mg NEBULIZER Q4H PRN 03/15/2019 Active documented as of this encounter (statuses as of 04/03/2024) Active Problems Problem Noted Date Diagnosed Date [...] use aero chamber. Test performed by Felicity MANAGER OF REGULATORY AFFAIRS CPFT HIATAL HERNIA 05/06/2005 ADVANCE DIRECTIVE INFORMATION 01/25/2005 Overview: No, Advance Directive brochure offered , patient declined. Tobacco use disorder 06/25/2004 Esophageal reflux 06/25/2004 BMI 37.0-37.9, adult Essential hypertension with goal blood pressure less than 140/90 Hyperlipidemia LDL goal <100 Overview: ICD-10 update of inactive term documented as of this encounter (statuses as of 04/03/2024) Resolved Problems Problem Noted Date Diagnosed Date [...] as of this encounter (statuses as of 04/03/2024) Immunizations Name Administration Dates Next Due Pneumococcal [...] encounter Miscellaneous Notes * Telephone Encounter - Tabby Navarro OSA - 04/03/2024 10:04 AM EDT Good morning, This patient is being seen by Dr. Dover in the Vascular Clinic on 04/16. Would you mind please placing a referral for patient. Please let me know if you have any questions and hope you have a great day!!! [facility] documented in this encounter Plan of Treatment Upcoming Encounters Date Type Department Care Team (Late st Contact Info) Description 04/16/2024 9:00 AM EDT Appointment Vascular Lab [place] [address] [place] [address] 04/16/2024 9:30 AM EDT Appointment Vascular Lab [address] [address] 04/16/2024 10:30 AM EDT Appointment Vascular Lab [address] [address] 04/16/2024 11:15 AM EDT Office Visit Vascular Surg [address] [address] Negro Dover MD [address] [place] [address] 04/23/2024 8:00 AM EDT Office Visit Cardiology, [facility] [address] [place] [address] Crissy Siegel CRNP [address] [place] [address] 06/24/2024 8:20 AM EST Office Visit Family Medicine [address] [place] [phone] Alexandra Sales MD [address] [place] [address] [place] [address] Scheduled Procedures Name Priority Associated Diagnoses Date/Ti me COLONOSCOPY FLEXIBLE PROXIMA L DIAGNOSTIC Recall Personal history of colonic polyps COLONOSCOPY FLEXIBLE PROXIMA L DIAGNOSTIC Recall History of colon polyps Scheduled Referrals Name Type Priority Associated Diagnoses Orde r Schedule VASCULAR SURGERY REFERRAL OP Referral Within 30 days (routine) Atherosclerotic PVD with intermittent claudication (HCC) Abdominal aortic aneurysm (AAA) without rupture, unspecified part (HCC) Ordered: 04/03/2024 Health Maintenance Due Date Last Done Comments [...] Additional history exists CKD PHOS USE SMARTSET 04978 05/13/2024 05/13/2023, 0 10/14/2022 CKD HGB USE SMARTSET 19871 09/05/202409/05, 05/13/2023, 05/13/2023, Additional history exists Albumin/Creatinine [...] this encounter Medical Devices Implanted Type Area Gunite Mixer Device Identifier Shelf Expiration Date Model / Serial / Lot Lens Intraoc 16.5 - [id number] - [id number] Implanted:Qty : 1 on 05/28/2019 by Collin Mayberry MD at OR [facility] Right: Eye BAUSCH & LOMB 11/20/2021 [id number] / [id number] / [id number] Lens Intraoc 17.5 - [id number] - [id number] Implanted:Qty : 1 on 06/04/2019 by Collin Mayberry MD at OR [facility] Left: Eye BAUSCH & LOMB 12/22/2023 [id number] / [id number] / [id number] Graft Hemashld [id number] - [id number] Implanted:Qty : 1 on 12/07/2021 by Negro Dover MD at OR [facility] [place] N/A: Aorta GETINGE : MAQUET [id number] 08/23/2025 [id number] / [id number] / [id number] documented as of this encounter Visit Diagnoses Diagnosis Atherosclerotic PVD with intermittent claudication (HCC)- Primary Atherosclerosis of [place] arteries of the extremities with intermittent claudication Abdominal aortic aneurysm (AAA) without rupture, unspecified part (HCC) documented in this encounter Advance Directives * Full Code (Latest Code Status on File) Date Activated Date Inactivated Comments 12/07/2021 12:57 PM 12/12/2021 7:03 PM This order reflects the patients wishes and were consensually agreed upon. Question Answer Comments Discussion of Advance Direct krystal occurred with: Not Discussed recent postop anesthesia Care Teams Regulatory Internship Relationship Specialty Start Date End Date Alexandra Sales MD [address] [place] [address] [place] [phone] PCP - General Family Medicine 02/12/19 documented as of this encounter
--- OUTSIDE RECORDS SUMMARY | 2024-04-26 10:07 | External Medical Summary | Summary of Care ---
Author Name Unknown Organization [facility] Address [address] [place] [address] Phone [phone] Care Team Providers Care Grain Loader Name Role Phone Alexandra Sales MD Primary Care Prov ider Reason for Referral * Evaluate & Treat - Unlimited Visits (Within 30 days (routine)) - Pending Review Specialty Diagnoses / Procedures Referred By Myesha choi Referred To Contact Vascular Surgery / Cardiovascular Surgery Diagnoses Atherosclerotic PVD with intermittent claudication (HCC) Abdominal aortic aneurysm (AAA) without rupture, unspecified part (HCC) Alexandra Sales MD [address] [place] [address] [place] [address] Referral ID Status Reason Start Date Expiration Date Visits Requested Visits Authorized [id number] Pending Review Specialty Services Required 04/03/2024 999 [...] Contact Info) Description 04/03/2024 Telephone Vascular Surg [facility] [address] [place] [address] Services, Scheduling [address] [place] [address] Referral Requested by Specialist Allergies Active Allergy Reactions Criticality Noted Date Comments Lisinopril Other (Please comment) 05/16/2016 Shortness of breath, and itchy documented as of this encounter (statuses as of 04/04/2024) Medications Medication Sig Dispensed Refills Start Date [...] as of this encounter (statuses as of 04/04/2024) Active Problems Problem Noted Date Diagnosed Date [...] use aero chamber. Test performed by Felicity OPERATION RESEARCH ANALYST CPFT HIATAL HERNIA 05/06/2005 ADVANCE DIRECTIVE INFORMATION 01/25/2005 Overview: No, Advance Directive brochure offered , patient declined. Tobacco use disorder 06/25/2004 Esophageal reflux 06/25/2004 BMI 37.0-37.9, adult Essential hypertension with goal blood pressure less than 140/90 Hyperlipidemia LDL goal <100 Overview: ICD-10 update of inactive term documented as of this encounter (statuses as of 04/04/2024) Resolved Problems Problem Noted Date Diagnosed Date [...] as of this encounter (statuses as of 04/04/2024) Immunizations Name Administration Dates Next Due Pneumococcal [...] encounter Miscellaneous Notes * Telephone Encounter - Byron Serrano OSA - 04/04/2024 3:42 PM EDT Pt rec automated call about referral. I explained that it needed to be linked. I did so ZAYRA Ashton * Telephone Encounter - Tabby Navarro OSA [...] 04/16/2024 9:00 AM EDT Appointment Vascular Lab [place] [address] [place] [address] 04/16/2024 9:30 AM EDT Appointment Vascular Lab [address] [address] 04/16/2024 10:30 AM EDT Appointment Vascular Lab [place] [address] [place] [address] 04/16/2024 11:15 AM EDT Office Visit Vascular Surg [address] [address] Negro Dover MD [address] [place] [address] 04/23/2024 8:00 AM EDT Office Visit Cardiology, [facility] [address] [facility] [place] [address] Crissy Siegel CRNP [address] [facility] [place] [phone] 06/24/2024 8:20 AM EST Office Visit Family Medicine [address] [place] [phone] Alexandra Sales MD [address] [place] [address] [place] [address] Scheduled Procedures Name Priority Associated Diagnoses Date/Ti [...] Additional history exists CKD PHOS USE SMARTSET 52494 05/13/2024 05/13/2023, 0 10/14/2022 CKD HGB USE SMARTSET 93073 09/05/202409/05, 05/13/2023, 05/13/2023, Additional history exists Albumin/Creatinine [...] this encounter Medical Devices Implanted Type Area Promotion Writer Device Identifier Shelf Expiration Date Model / Serial / Lot Lens Intraoc 16.5 - [id number] - [id number] Implanted:Qty : 1 on 05/28/2019 by Collin Mayberry MD at OR [facility] Right: Eye BAUSCH & LOMB 11/20/2021 [id number] / [id number] / [id number] Lens Intraoc 17.5 - [id number] - [id number] Implanted:Qty : 1 on 06/04/2019 by Collin Mayberry MD at OR [facility] Left: Eye BAUSCH & LOMB 12/22/2023 [id number] / [id number] / [id number] Graft Hemashld [id number] - [id number] Implanted:Qty : 1 on 12/07/2021 by Negro Dover MD [place] [facility] [place] N/A: Aorta GETINGE : CAMERON [id number] 08/23/2025 [id number] / [id number] / [id number] documented as of this encounter Visit Diagnoses Diagnosis Atherosclerotic PVD with intermittent claudication (HCC)- Primary Atherosclerosis of [place] arteries of the extremities with intermittent claudication [...] Not Discussed recent postop anesthesia Care Teams Grain Loader Relationship Specialty Start Date End Date Alexandra Sales MD [address] [place] [address] [place] [address] PCP - General Family Medicine 02/12/19 documented as of this encounter
--- OUTSIDE RECORDS SUMMARY | 2024-04-26 10:08 | External Medical Summary | Summary of Care ---
Author Name Unknown Organization [facility] Address [address] [place] [address] Phone [phone] Care Team Providers Care Prekindergarten Teacher Name Role Phone Alexandra Sales MD Primary Care Prov ider Reason for Visit * Reason Comments Follow Up 6 mo f/u Encounter Details Date Type Department Care Team (Latest Contact Info) Description 11/08/2023 3:40 PM EDT Office Visit Family Medicine [address] [phone] Alexandra Sales MD [address] [place], [place] [address] [address] Annual physical exam*; SVT (supraventricular tachycardia) ([facility]); Palpitations; S/P AAA repair; Essential hypertension with goal blood pressure less than 140/90; Hyperlipidemia LDL goal <100; Tobacco use disorder; COPD, group B, by GOLD 2017 classification ([facility]) Allergies Active Allergy Reactions Criticality Noted Date Comments Lisinopril Other (Please comment) 05/16/2016 Shortness of breath, and itchy documented as of this encounter (statuses as of 11/08/2023) Medications Medication Sig Dispensed Refills Start Date [...] Erectile Dysfunction. 10 Tablet 5 10/25/2022 Active Atorvastatin Calcium 80 MG Oral Tablet (Lipitor)Indication s:Hyperlipidemia LDL goal <100 TAKE 1 TABLET BY MOUTH EVERY DAY 90 Tablet 3 02/23/2023 Active Aspirin 81 MG Oral Tablet Delayed ReleaseIndications: HTN, goal below 140/90,Palpitations ,Dyslipidemia, goal LDL below 130,PAD (peripheral artery disease) ([facility]) Take 1 Tablet by mouth in the morning. 99 Tablet 3 05/09/2023 Active Additional Information Patient not taking.Reported on 11/08/2023 Cetirizine HCl 10 MG Oral Tablet (ZyrTEC) Take 1 Tablet by mouth in the morning. 90 Tablet 3 05/09/2023 Active Ezetimibe 10 MG Oral Tablet (Zetia) Take 1 Tablet by mouth in the morning. 34 Tablet 6 05/17/2023 Active Montelukast Sodium 10 MG Oral Tablet (Singulair)Indicati ons:COPD, moderate (HCC),Chronic rhinitis TAKE 1 TABLET BY MOUTH EVERY DAY IN THE MORNING 90 Tablet 2 06/17/2023 Active Losartan Potassium 25 MG Oral Tablet (Cozaar) Take 1 Tablet by mouth in the morning. 34 Tablet 11 07/07/2023 Active Omeprazole 20 MG Oral Capsule Delayed Release (PriLOSEC)Indicatio ns:Abdominal pain, epigastric,Gastroes ophageal reflux disease with esophagitis without hemorrhage TAKE 1 CAPSULE BY MOUTH EVERY DAY 1 HOUR BEFORE FIRST MEAL OF THE DAY 90 Capsule 0 10/24/2023 Active Fluticasone Propionate HFA 110 MCG/ACT Inhalation Aerosol (Flovent HFA)Indications:Margie amarilys osteoarthritis of both ankles TAKE 2 PUFFS BY MOUTH TWICE A DAY 12 g 0 10/24/2023 Active Triamcinolone Acetonide 0.5 % External Cream (Aristocort) Apply topically to affected area 2 times a day. To affected area. 15 g 5 11/08/2023 Active Metoprolol Succinate ER 50 MG Oral Tablet Extended Release 24 Hour (toPROL XL)Indications:SVT (supraventricular tachycardia) (HCC),Palpitations, S/P AAA repair,Essential hypertension with goal blood pressure less than 140/90 Take 50mg daily in the morning 30 Tablet 5 11/08/2023 Active Metoprolol Succinate ER 50 MG Oral Tablet Extended Release 24 Hour (Toprol XL)Indications:SVT (supraventricular tachycardia) (HCC),Palpitations, S/P AAA repair,Essential hypertension with goal blood pressure less than 140/90 Take 50mg daily in the morning and 25mg (1/2 tablet) in the evening. 135 Tablet 3 08/02/2023 4 Discontinu ed(Refill) Hospital, Clinic, or Other Facility Administered Medication Ordered Dose Route Frequency Start Date End Date Status albuterol sulfate (PROVENTIL) (2.5 MG/3ML) 0.083% inhalation solution 2.5 mgIndications:COPD, moderate (HCC) 2.5 mg NEBULIZER Q4H PRN 03/15/2019 Active documented as of this encounter (statuses as of 11/08/2023) Active Problems Problem Noted Date Diagnosed Date [...] use aero chamber. Test performed by Felicity WORK OVER RIG OPERATOR CPFT HIATAL HERNIA 05/06/2005 ADVANCE DIRECTIVE INFORMATION 01/25/2005 Overview: No, Advance Directive brochure offered , patient declined. Tobacco use disorder 06/25/2004 Esophageal reflux 06/25/2004 BMI 37.0-37.9, adult Essential hypertension with goal blood pressure less than 140/90 Hyperlipidemia LDL goal <100 Overview: ICD-10 update of inactive term documented as of this encounter (statuses as of 11/08/2023) Resolved Problems Problem Noted Date Diagnosed Date [...] as of this encounter (statuses as of 11/08/2023) Immunizations Name Administration Dates Next Due Pneumococcal Polysaccharide PPV23 (Pneumovax) 05/12/2006 Seasonal Influenza, PF, 6 M & above, IM , (FluLaval or Fluzone) 06/27/2017 Seasonal Influenza, Split, I IV3, With Preserve, Inj 05/25/2012,04/29/2011,04/21/2010,04/08,05/19/2008,04/23/2007,08/11/2006 TDAP (age 11 and older)(Adacel) 02/06/2008 documented as of this encounter Social History Tobacco Use Types Packs/Day Years Used Date Smoking Tobacco: Every Day Cigarettes 1 50 Smokeless Tobacco: Never Tobacco Cessation:Ready to Q uit: Not Asked; Counseling Given: Not Answered Comments:04/05/23 varies from day to day, declined [...] Sign Reading Time Taken Comments Blood Pressure 130/68 11/08/2023 3:38 PM EDT Pulse 63 11/08/2023 3:38 PM EDT Temperature 35.9 C (96.6 F) 11/08/2023 3:38 PM ED T Respiratory Rate - - Oxygen Saturation 97% 11/08/2023 3:38 PM EDT Inhaled Oxygen Concentration - - Weight 81.6 kg (180 lb) 11/08/2023 3:38 PM EDT Height 175.3 cm (5' 9") 11/08/2023 3:38 PM EDT Body Mass Index 26.58 11/08/2023 3:38 PM EDT documented in this [...] No 12/07/2021 documented as of this encounter Progress Notes * Alexandra Sales MD - 11/08/2023 3:58 PM EDT Is [address] Katz is a 63 year old male. Chief Complaint Patient presents with Follow Up 6 mo f/u HPI: annual check up HTN. Well managed with losartan and metoprolol.. Lipids. Taking atorvastatin 80mg. Last LDL 54. SVT. Underwent ablation per Dr Yip on 10/18/23. Believes was told to reduce metoprolol to 25mg daily, which he did. States he is noticing palpitations in the evening time; just before he takes the 25mg metoprolol (which he is just taking once a day in the evening). AAA repair. Completed 11/2021. Follows with vascular surgery. Weight. Actively working on weight loss through watching his diet. Feeling better. Prediabetes. A1C 5.7 in apr 2023. Working on diet and exercise. A1C is much improved. Tobacco. Still smoking but wants to quit. Up to 1 PPD. States he needs to make up his mind once andfor all. Prev; vaccines PMH: Patient Active Problem List Diagnosis Code Tobacco use disorder F17.200 Esophageal reflux K21.9 ADVANCE DIRECTIVE INFORMATION HIATAL HERNIA K44.9 COPD, moderate (HCC) J44.9 BMI 37.0-37.9, adult Z68.37 Essential hypertension with goal blood pressure less than 140/90 I10 Hyperlipidemia LDL goal <100 E78.5 Diverticulosis K57.90 Abdominal aortic aneurysm without rupture (HCC) I71.40 Hypoxemia R09.02 Atherosclerotic PVD with intermittent claudication ([facility]) I70.219 Dermatitis of both ear canals H60.543 Sensorineural hearing loss (SNHL) of both ears H90.3 Age-related cataract of both eyes H25.9 COPD, group B, by GOLD 2017 classification ([facility]) J44.9 Chronic kidney disease, stage 3a ([facility]) N18.31 Postoperative anemia due to acute blood loss D62 Abdominal aortic aneurysm (AAA) without rupture ([facility]) I71.40 Abdominal aortic aneurysm (AAA) without rupture ([facility]) I71.40 Abdominal aortic aneurysm (AAA) without rupture ([facility]) I71.40 Current Outpatient Medications Medication Sig Dispense Refill Albuterol Sulfate HFA 108 (90 Base) MCG/ACT Inhalation Aerosol Solution Inhale 2 Puffs by mouth every 4 hours as needed for Cough, Wheezing or Dyspnea. 18 g 1 Sildenafil Citrate 50 MG Oral Tablet Take 1 Tablet by mouth daily as needed for Erectile Dysfunction. 10 Tablet 5 Atorvastatin Calcium 80 MG Oral Tablet (Lipitor) TAKE 1 TABLET BY MOUTH EVERY DAY 90 Tablet 3 Cetirizine HCl 10 MG Oral Tablet (ZyrTEC) Take 1 Tablet by mouth in the morning. 90 Tablet 3 Ezetimibe 10 MG Oral Tablet (Zetia) Take 1 Tablet by mouth in the morning. 34 Tablet 6 Montelukast Sodium 10 MG Oral Tablet (Singulair) TAKE 1 TABLET BY MOUTH EVERY DAY IN THE MORNING 90Tablet 2 Losartan Potassium 25 MG Oral Tablet (Cozaar) Take 1 Tablet by mouth in the morning. 34 Tablet 11 Metoprolol Succinate ER 50 MG Oral Tablet Extended Release 24 Hour (Toprol XL) Take 50mg daily in the morning and 25mg (1/2 tablet) in the evening. 135 Tablet 3 Omeprazole 20 MG Oral Capsule Delayed Release (PriLOSEC) TAKE 1 CAPSULE BY MOUTH EVERY DAY 1 HOUR BEFORE FIRST MEAL OF THE DAY 90 Capsule 0 Fluticasone Propionate HFA 110 MCG/ACT Inhalation Aerosol (Flovent HFA) TAKE 2 PUFFS BY MOUTH TWICEA DAY 12 g 0 Triamcinolone Acetonide 0.5 % External Cream (Aristocort) Apply topically to affected area 2 times a day. To affected area. 15 g 5 Aspirin 81 MG Oral Tablet Delayed Release Take 1 Tablet by mouth in the morning. (Patient not taking: Reported on 11/08/2023) 99 Tablet 3 Current Facility-Administered Medications Medication Dose Route Frequency Provider Last Rate Last Admin albuterol sulfate (PROVENTIL) (2.5 MG/3ML) 0.083% inhalation solution 2.5 mg 2.5 mg Nebulizer Q4H PRN Alexandra Sales MD 2.5 mg at 06/27/19 1331 Review of patient's allergies indicates: Allergen Reactions Lisinopril Other (Please comment) Shortness of breath, and itchy Objective BP 130/68 | Pulse 63 | Temp 35.9 C (96.6 F) (Tympanic) | Ht 1.753 m (5' 9") | Wt 81.6 kg (180 lb) | SpO2 97% | BMI 26.58 kg/m | BSA 1.99 m Physical Exam Constitutional: Appearance: Normal appearance. HENT: Head: Normocephalic. Cardiovascular: Rate and Rhythm: Normal rate and regular rhythm. Pulses: Normal pulses. Pulmonary: Effort: Pulmonary effort is normal. Breath sounds: Wheezing and rhonchi present. Abdominal: Palpations: Abdomen is soft. Musculoskeletal: General: Normal range of motion. Cervical back: Normal range of motion and neck supple. Skin: General: Skin is warm and dry. Neurological: General: No focal deficit present. Mental Status: He is alert and oriented to person, place, and time. Psychiatric: Mood and Affect: Mood normal. ASSESSMENT/PLAN: Annual physical exam (Primary) SVT (supraventricular tachycardia) (HCC) Palpitations S/P AAA repair Essential hypertension with goal blood pressure less than 140/90 Hyperlipidemia LDL goal <100 Tobacco use disorder COPD, group B, by GOLD 2017 classification (HCC) Other orders - Triamcinolone Acetonide 0.5 % External Cream (Aristocort); Apply topically to affected area 2 times a day. To affected area. Increase metoprolol to 50mg qAM to suppress SVT and keep follow up with cardiology Strongly encourage tobacco cessation; he is thinking about it Follow up in 6 months. Alexandra Max MD documented in this encounter Nursing Notes * Mikey Hernandez LPN - 11/08/2023 3:46 PM EDT Chief Complaint Patient presents with Follow Up 6 mo f/u Taking Metoprolol 25 mg at Bedtime. He states told him at Procedure to stop 50 mg and just take 25 mg at Hs Had Ablastin done 10/18/23 Request Triamcinolone cream for Eczema Given in 2019 The patient has been properly identified by confirmation of name and date of . documented in this encounter Plan of Treatment Upcoming Encounters Date Type Department Care Team (Late st Contact Info) Description 11/28/2023 3:00 PM EDT Office Visit Cardiology, [facility] [address] [facility] [place] [address] Crissy Siegel CRNP [address] [facility] [place] [address] 04/16/2024 9:00 AM EDT Appointment Vascular Lab [facility] [place] [address] [place] [address] 04/16/2024 9:30 AM EDT Appointment Vascular Lab [address] [address] 04/16/2024 10:30 AM EDT Appointment Vascular Lab [place] [address] [place] [address] 04/16/2024 11:15 AM EDT Office Visit Vascular Surg [place] [address] [place] [address] Negro Dover MD [address] [place] [address] 05/17/2024 8:00 AM EDT Office Visit Cardiology, [facility] [address] [place] [address] Shelbie Arnold PA-C [address] [facility] [facility] [place] [address] 06/25/2024 8:00 AM EST Office Visit Family Medicine [address] [place] [phone] Alexandra Sales MD [address] [place] [address] [place] [address] Scheduled Procedures Name Priority Associated Diagnoses Date/Ti me COLONOSCOPY FLEXIBLE PROXIMA L DIAGNOSTIC Recall Personal history of colonic polyps COLONOSCOPY FLEXIBLE PROXIMA L DIAGNOSTIC Recall History of colon polyps Health Maintenance Due Date Last Done Comments Pneumococcal Vaccine: Pediatrics (0 to 5 Years) and At-Risk Patients (6 to 64 Years) (2 of 2 - PCV) 05/12/2007 05/12/2006 DISCUSS TOBACCO CESSATION (REFER TO SMARTSET #3291) 02/13/2020 02/12/2019 COVID-19 Vaccine ( season) 2023 GFR 03/05/2024 09/05/2023, 04/24, 10/14/2022, Additional history exists Influenza Vaccine (FLU shot) (Season Ended) 2024 06/27/2017, 06/27/2017 (Refused), 05/25/2012, Additional history exists AAA Monitoring 04/05/2024 04/05/2023, 03/24, 10/13/2021, Additional history exists CKD PHOS USE SMARTSET 27769 05/13/2024 05/13/2023, 0 10/14/2022 CKD HGB USE SMARTSET 26653 09/05/202409/05, 05/13/2023, 05/13/2023, Additional history exists Albumin/Creatinine Ratio 11/02/2024 024, 10/14/2022, 06/07/2008, Additional history exists Depression Screening 11/07/2024 11/08/2023 O2 ASSESSMENT COMPLETED IN PAST YEAR FOR COPD 11/07/2024 11/08/2023 COLONOSCOPY-EVERY 5 YRS AGES 18-100 08/11/2025 08/11/2020, 08/11/2020, 10/30/2014, Additional history exists Diabetes Screening 09/05/2026 09/05/2023, 1 , 05/13/2023, Additional history exists DTaP,Tdap,and Td Vaccines (3 - Td or Tdap) 11/13/2031 11/12/2021 (Declined), 02/06/2008 Lung Cancer Screening Completed 05/01/2020 , 02/15/2019, 07/14/2017 Diabetic Eye Exam Discontinued 12/22/2021, , 05/19/2008, Additional history exists Diabetic Foot Exam Discontinued 10/18/2022, 0 12/22/2021, 05/19/2008, Additional history exists Alpha-1 Antitrypsin Completed 05/13/2023 GARDASIL-HPV IMMUNIZATION SERIES Aged Out No longer eligible based on patient's age to complete this topic Hepatitis B Aged Out No longer eligi ble based on patient's age to complete this topic MENINGOCOCCAL (MENACTRA/MENVEO) Aged Out No longer eligible based on patient's age to complete this topic Zoster Vaccines Discontinued documented as of this encounter Medical Devices Implanted Type Area General Studies Program Chair Device Identifier Shelf Expiration Date Model / Serial / Lot Lens Intraoc 16.5 - [id number] - [id number] Implanted:Qty : 1 on 05/28/2019 by Collin Mayberry MD at OR [facility] Right: Eye [employer] 11/20/2021 [id number] / [id number] / [id number] Lens Intraoc 17.5 - [id number] - [id number] Implanted:Qty : 1 on 06/04/2019 by Collin Mabyerry MD at OR [facility] Left: Eye [employer] 12/22/2023 [id number] / [id number] / [id number] Graft Hemashld [id number] - [id number] Implanted:Qty : 1 on 12/07/2021 by Negro Dover MD at [place] [facility] [place]/A: Aorta GETINGE : MAQUET [id number] 08/23/2025 [id number] / [id number] / [id number] documented as of this encounter Visit Diagnoses Diagnosis Annual physical exam- Primary Routine general medical examination at a health care facility SVT (supraventricular tachycardia) (HCC) Other specified cardiac dysrhythmias Palpitations S/P AAA repair Other postprocedural status Essential hypertension with goal blood pressure less than 140/90 Hyperlipidemia LDL goal <100 Other and unspecified hyperlipidemia Tobacco use disorder COPD, group B, by GOLD 2017 classification (HCC) documented in this encounter Advance Directives Latest Code Status on File Code Status Date Activated Date Inactivated Comments Full Code 12/07/2021 12:57 PM 12/12/2021 7:03 PM This order reflects the patients wishes and were consensually agreed upon. Question Answer Comments Discussion of Advance Directives occurred with: Not Discussed recent postop anesthesia Care Teams Prekindergarten Teacher Relationship Specialty Start Date End Date Alexandra Sales MD [address] [place] [address] [place] [address] PCP - General Family Medicine 02/12/19 documented as of this encounter
--- OUTSIDE RECORDS SUMMARY | 2024-04-26 10:08 | External Medical Summary | Summary of Care ---
Author Name Unknown Organization [facility] Address [address] [place] [address] Phone [phone] Care Team Providers Care Gum Worker Name Role Phone Alexandra Sales MD Primary Care Prov ider Reason for Visit * Reason Comments Outpatient Testing Encounter Details Date Type Department Care Team (Late st Contact Info) Description 11/03/2023 10:20 AM EDT Laboratory Laboratory [address] [place] [phone] [facility] [address] [place] [address] Encounter for long-term (current) use of other medications; Chronic kidney disease, stage 3a (HCC) Allergies Active Allergy Reactions Criticality Noted Date Comments Lisinopril Other (Please comment) 05/16/2016 Shortness of breath, and itchy documented as of this encounter (statuses as of 11/03/2023) Medications Medication Sig Dispensed Refills Start Date End Date Status Albuterol Sulfate HFA 108 (90 Base) MCG/ACT Inhalation Aerosol Solution Inhale 2 Puffs by mouth every 4 hours as needed for Cough, Wheezing or Dyspnea. 18 g 1 04/21/2021 Active Sildenafil Citrate 50 MG Oral TabletIndications:Erec tile dysfunction Take 1 Tablet by mouth daily as needed for Erectile Dysfunction. 10 Tablet 5 10/25/2022 Active Atorvastatin Calcium 80 MG Oral Tablet (Lipitor)Indications:H yperlipidemia LDL goal <100 TAKE 1 TABLET BY MOUTH EVERY DAY 90 Tablet 3 02/23/2023 Active Aspirin 81 MG Oral Tablet Delayed ReleaseIndications:HTN , goal below 140/90,Palpitations,Dy slipidemia, goal LDL below 130,PAD (peripheral artery disease) [...] Active Montelukast Sodium 10 MG Oral Tablet (Singulair)Indications :COPD, moderate (HCC),Chronic rhinitis TAKE 1 TABLET BY MOUTH EVERY DAY IN THE MORNING 90 Tablet 2 06/17/2023 Active Losartan Potassium 25 MG Oral Tablet (Cozaar) Take 1 Tablet by mouth in the morning. 34 Tablet 11 07/07/2023 Active Metoprolol Succinate ER 50 MG Oral Tablet Extended Release 24 Hour (Toprol XL)Indications:SVT (supraventricular tachycardia) ([facility]),Palpitations,S/P AAA repair,Essential hypertension with goal blood pressure less than 140/90 Take 50mg daily in the morning and 25mg (1/2 tablet) in the evening. 135 Tablet 3 08/02/2023 Active Omeprazole 20 MG Oral Capsule Delayed Release (PriLOSEC)Indications: Abdominal pain, epigastric,Gastroesoph ageal reflux disease with esophagitis without hemorrhage TAKE 1 CAPSULE BY MOUTH EVERY DAY 1 HOUR BEFORE FIRST MEAL OF THE DAY 90 Capsule 0 10/24/2023 Active Fluticasone Propionate HFA 110 MCG/ACT Inhalation Aerosol (Flovent HFA)Indications:Primar y osteoarthritis of both ankles TAKE 2 PUFFS BY MOUTH TWICE A DAY 12 g 0 10/24/2023 Active Hospital, Clinic, or Other Facility Administered Medication Ordered Dose Route Frequency Start Date End Date Status albuterol sulfate (PROVENTIL) (2.5 MG/3ML) 0.083% inhalation solution 2.5 mgIndications:COPD, moderate (HCC) 2.5 mg NEBULIZER Q4H PRN 03/15/2019 Active documented as of this encounter (statuses as of 11/03/2023) Active Problems Problem Noted Date Diagnosed Date [...] use aero chamber. Test performed by Felicity WEATHERIZATION COORDINATOR CPFT HIATAL HERNIA 05/06/2005 ADVANCE DIRECTIVE INFORMATION 01/25/2005 Overview: No, Advance Directive brochure offered , patient declined. Tobacco use disorder 06/25/2004 Esophageal reflux 06/25/2004 BMI 37.0-37.9, adult Essential hypertension with goal blood pressure less than 140/90 Hyperlipidemia LDL goal <100 Overview: ICD-10 update of inactive term documented as of this encounter (statuses as of 11/03/2023) Resolved Problems Problem Noted Date Diagnosed Date [...] as of this encounter (statuses as of 11/03/2023) Immunizations Name Administration Dates Next Due Pneumococcal [...] Information Value Date Recorded Sex Assigned at Not on file Gender Identity Not on file Sexual Orientation Not on file Job Start Date Occupation Industry Not on [...] No 12/07/2021 documented as of this encounter Plan of Treatment Upcoming Encounters Date Type Department Care Team (Late st Contact Info) Description 11/08/2023 3:40 PM EDT Office Visit Family Medicine [address] [place] [address] Alexandra Sales MD [address] [place] [address] [place] [address] 11/28/2023 3:00 PM EDT Office Visit Cardiology, [facility] [address] [facility] [place] [address] Crissy Siegel CRNP [address] [place] [address] 04/16/2024 9:00 AM EDT Appointment Vascular Lab [address] [place] [address] 04/16/2024 9:30 AM EDT Appointment Vascular Lab [facility] [address] [place] [address] 04/16/2024 10:30 AM EDT Appointment Vascular Lab [facility] [address] [place] [address] 04/16/2024 11:15 AM EDT Office Visit Vascular Surg [facility] [address] [place] [address] Negro Dover MD [address] [place] [address] 05/17/2024 8:00 AM EDT Office Visit Cardiology, [facility] [address] [facility] [place] [address] Shelbie Arnold PA-C [address] [facility] [place] [address] Pending Results Name Type Priority Associated Diagnoses Date /Time VITAMIN B12 Lab Routine Encounter for long-term (current) use of other medications 11/03/2023 10:15 AM EDT MAGNESIUM Lab Routine Encounter for long-term (current) use of other medications 11/03/2023 10:15 AM EDT ALBUMIN / CREATININE RATIO, URINE Lab Routine Chronic kidney disease, stage 3a (HCC) 11/03/2023 10:15 AM EDT Scheduled Procedures Name Priority Associated Diagnoses Date/Ti [...] 02/13/2020 02/12/2019 COVID-19 Vaccine ( season) 2023 Albumin/Creatinine Ratio 10/15/2023 023, 06/07/2008, 06/20/2006, Additional history exists Depression Screening 10/19/2023 10/18/2022 GFR 03/05/2024 09/05/2023, 04/24, 10/14/2022, Additional history exists Influenza Vaccine (FLU shot) (Season Ended) 2024 06/27/2017, 06/27/2017 (Refused), 05/25/2012, Additional history exists AAA Monitoring 04/05/2024 04/05/2023, 03/24, 10/13/2021, Additional history exists CKD PHOS USE SMARTSET 39327 05/13/2024 05/13/2023, 0 10/14/2022 O2 ASSESSMENT COMPLETED IN PAST YEAR FOR COPD 07/07/2024 07/07/2023 CKD HGB USE SMARTSET 60267 09/05/202409/05, 05/13/2023, 05/13/2023, Additional history exists COLONOSCOPY-EVERY 5 YRS AGES 18-100 08/11/2025 08/11/2020, 08/11/2020, 10/30/2014, Additional history exists Diabetes Screening 09/05/2026 09/05/2023, 1 , 05/13/2023, Additional history exists DTaP,Tdap,and Td Vaccines (3 - Td or Tdap) 11/13/2031 11/12/2021 (Declined), 02/06/2008 LUNG CANCER SCREENING - USE SMARTSET 89273 Completed 05/01/2020, 02/15/2019, 07/14/2017 Diabetic Eye Exam Discontinued 12/22/2021, [...] this encounter Medical Devices Implanted Type Area Boom Boss Device Identifier Shelf Expiration Date Model / Serial / Lot Lens Intraoc 16.5 - [id number] - [id number] Implanted:Qty : 1 on 05/28/2019 by Collin Mayberry MD at OR [facility] Right: Eye [employer] LOMB 11/20/2021 [id number] / [id number] / [id number] Lens Intraoc 17.5 - [id number] - [id number] Implanted:Qty : 1 on 06/04/2019 by Collin Mayberry MD at OR [facility] Left: Eye BAUSCH & LOMB 12/22/2023 [id number] / [id number] / [id number] Graft Hemashld [id number] - [id number] Implanted:Qty : 1 on 12/07/2021 by Negro Dover MD at OR [facility] N/A: Aorta GETINGE : MAQUET [id number] 08/23/2025 [id number] / [id number] / [id number] documented as of this encounter Visit Diagnoses Diagnosis Encounter for long-term (current) use of other medications Chronic kidney disease, stage 3a (HCC) documented in this encounter Advance Directives Latest Code Status on File Code Status Date Activated Date Inactivated Comments Full Code 12/07/2021 12:57 PM 12/12/2021 7:03 PM This order reflects the patients wishes and were consensually agreed upon. Question Answer Comments Discussion of Advance Directives occurred with: Not Discussed recent postop anesthesia Care Teams Gum Worker Relationship Specialty Start Date End Date Alexandra Sales MD [address] [place] [address] [place] [address] PCP - General Family Medicine 02/12/19 documented as of this encounter
--- OUTSIDE RECORDS SUMMARY | 2024-04-26 10:08 | External Medical Summary | Summary of Care ---
Author Name Unknown Organization [facility] Address [address] [place] [address] Phone [phone] Care Team Providers Care Submarine Operator Name Role Phone Juve Oconnor MD Primary Care Prov ider Reason for Visit * Reason Comments eRx-Medication Refill Encounter Details Date Type Department Care Team (Late st Contact Info) Description 01/20/2024 Refill Family Medicine [address] [phone] Juve Oconnor MD [address] [place], [place] [address] [phone] Abdominal pain, epigastric; Gastroesophageal reflux disease with esophagitis without hemorrhage Allergies Active Allergy Reactions Criticality Noted Date Comments Lisinopril Other (Please comment) 05/16/2016 Shortness of breath, and itchy documented as of this encounter (statuses as of 01/21/2024) Medications Medication Sig Dispensed Refills Start Date [...] OF THE DAY 90 Capsule 01/21/2024 Active Omeprazole 20 MG Oral Capsule Delayed Release (PriLOSEC)Indicatio ns:Abdominal pain, epigastric,Gastroes ophageal reflux disease with esophagitis without hemorrhage TAKE 1 CAPSULE BY MOUTH EVERY DAY 1 HOUR BEFORE FIRST MEAL OF THE DAY 90 Capsule 10/24/2023 01/21/20 24 Discontinued Hospital, Clinic, or Other Facility Administered Medication Ordered Dose Route Frequency Start Date End Date Status albuterol sulfate (PROVENTIL) (2.5 MG/3ML) 0.083% inhalation solution 2.5 mgIndications:COPD, moderate (HCC) 2.5 mg NEBULIZER Q4H PRN 03/15/2019 Active documented as of this encounter (statuses as of 01/21/2024) Active Problems Problem Noted Date Diagnosed Date [...] use aero chamber. Test performed by Felicity MULTICRAFT OPERATOR CPFT HIATAL HERNIA 05/06/2005 ADVANCE DIRECTIVE INFORMATION 01/25/2005 Overview: No, Advance Directive brochure offered , patient declined. Tobacco use disorder 06/25/2004 Esophageal reflux 06/25/2004 BMI 37.0-37.9, adult Essential hypertension with goal blood pressure less than 140/90 Hyperlipidemia LDL goal <100 Overview: ICD-10 update of inactive term documented as of this encounter (statuses as of 01/21/2024) Resolved Problems Problem Noted Date Diagnosed Date [...] as of this encounter (statuses as of 01/21/2024) Immunizations Name Administration Dates Next Due Pneumococcal Polysaccharide PPV23 (Pneumovax) 05/12/2006 Seasonal Influenza, PF, 6 M & above, IM , (FluLaval or Fluzone) 06/27/2017 Seasonal Influenza, Split, I IV3, With Preserve, Inj 05/25/2012,04/29/2011,04/21/2010,04/08,05/19/2008,04/23/2007,08/11/2006 TDAP, Age 7 and older, IM [...] encounter Miscellaneous Notes * Telephone Encounter - Gloria Dietz [facility] - 01/21/2024 9:57 AM EDT Signed Prescriptions: Disp Refills Omeprazole 20 MG Oral Capsule Delayed Rele*90 Cap*0 Sig: TAKE 1 CAPSULE BY MOUTH EVERY DAY 1 HOUR BEFORE FIRST MEAL OF THE DAYAuthorizing Provider: JUVE OCONNOR User: GLORIA DIETZ documented in this encounter Plan of Treatment Upcoming Encounters Date Type Department Care Team (Late st Contact Info) Description 04/16/2024 9:00 AM EDT Appointment Vascular Lab [address] [address] 04/16/2024 9:30 AM EDT Appointment Vascular Lab [address] [address] 04/16/2024 10:30 AM EDT Appointment Vascular Lab [address] [address] 04/16/2024 11:15 AM EDT Office Visit Vascular Surg [address] [address] Negro Dover MD [facility] [place] [address] 04/23/2024 8:00 AM EDT [facility] [place] [address] Crissy Siegel CRNP [address] [place], [place] [phone] 06/25/2024 8:00 AM EST Office Visit Family Medicine [address] [place] [phone] Juve Oconnor MD [address] [place] [address] [place] [id number] Scheduled Procedures Name Priority Associated Diagnoses Date/Ti me COLONOSCOPY FLEXIBLE PROXIMA L DIAGNOSTIC Recall Personal history of colonic polyps COLONOSCOPY FLEXIBLE PROXIMA L DIAGNOSTIC Recall History of colon polyps Health Maintenance Due Date Last Done Comments Cologuard 02/08/2004 Fecal Occult Blood Test 02/08/2004 Sigmoidoscopy 02/08/2004 Pneumococcal Vaccine: Pediatrics (0 to 5 Years) and At-Risk Patients (6 to 64 Years) (2 of 2 - PCV) 05/12/2007 05/12/2006 DISCUSS TOBACCO CESSATION (REFER TO SMARTSET #3291) 02/13/2020 02/12/2019 COVID-19 Vaccine ( - season) 2023 GFR 03/05/2024 09/05/2023, 04/24, 10/14/2022, Additional history exists Influenza Vaccine (FLU shot) (Season Ended) 2024 06/27/2017, 06/27/2017 (Refused), 05/25/2012, Additional history exists AAA Monitoring 04/05/2024 04/05/2023, 03/24, 10/13/2021, Additional history exists CKD PHOS USE SMARTSET 27598 05/13/2024 05/13/2023, 0 10/14/2022 CKD HGB USE SMARTSET 03059 09/05/202409/05, 05/13/2023, 05/13/2023, Additional history exists Albumin/Creatinine [...] this encounter Medical Devices Implanted Type Area Vessel Captain Device Identifier Shelf Expiration Date Model / Serial / Lot Lens Intraoc 16.5 - [id number] - [id number] Implanted:Qty : 1 on 05/28/2019 by Collin Mayberry MD at OR [facility] Right: Eye BAUSCH [employer] LOMB 11/20/2021 [id number] / [id number] / [id number] Lens Intraoc 17.5 - [id number] - [id number] Implanted:Qty : 1 on 06/04/2019 by Collin Mayberry MD at OR [facility] Left: Eye BAUSCH [employer] LOMB 12/22/2023 [id number] / [id number] / [id number] Graft Hemashld [id number] - [id number] Implanted:Qty : 1 on 12/07/2021 by Negro Dover MD at OR [facility] N/A: Aorta GETINGE : MAQUET [id number] 08/23/2025 [id number] 180 / [id number] / [id number] documented as of this encounter [...] Not Discussed recent postop anesthesia Care Teams Submarine Operator Relationship Specialty Start Date End Date Juve Oconnor MD [address] [place] [address] [place] [address] PCP - General Family Medicine 02/12/19 documented as of this encounter
--- OUTSIDE RECORDS SUMMARY | 2024-04-26 10:08 | External Medical Summary | Summary of Care ---
Author Name Unknown Organization [facility] Address [address] [place] [address] Phone [phone] Care Team Providers Care Filemaker Developer Name Role Phone Alexandra Sales MD Primary Care Prov ider Reason for Visit * Reason Comments eRx-Medication Refill Encounter Details Date Type Department Care Team (Late st Contact Info) Description 12/27/2023 Refill Cardiology, [facility] [address] [facility] [place] [address] Wilian Castanon, [address] [place] [address] Dyslipidemia, goal LDL below 70* Allergies Active Allergy Reactions Criticality Noted Date Comments Lisinopril Other (Please comment) 05/16/2016 Shortness of breath, and itchy documented as of this encounter (statuses as of 12/28/2023) Medications Medication Sig Dispensed Refills Start Date End Date Status Albuterol Sulfate HFA 108 (90 Base) MCG/ACT Inhalation Aerosol Solution Inhale 2 Puffs by mouth every 4 hours as needed for Cough, Wheezing or Dyspnea. 18 g 1 1 Active Sildenafil Citrate 50 MG Oral TabletIndications:E rectile dysfunction Take 1 Tablet by mouth daily as needed for Erectile Dysfunction. 10 Tablet 5 3 Active Atorvastatin Calcium 80 MG Oral Tablet (Lipitor)Indication s:Hyperlipidemia LDL goal <100 TAKE 1 TABLET BY MOUTH EVERY DAY 90 Tablet 3 3 Active Aspirin 81 MG Oral Tablet Delayed ReleaseIndications: HTN, goal below 140/90,Palpitations ,Dyslipidemia, goal LDL below 130,PAD (peripheral artery disease) (HCC) Take 1 Tablet by mouth in the morning. 99 Tablet 3 3 Active Additional Information Patient not taking.Reported on 11/08/2023 Cetirizine HCl 10 MG Oral Tablet (ZyrTEC) Take 1 Tablet by mouth in the morning. 90 Tablet 3 3 Active Montelukast Sodium 10 MG Oral Tablet (Singulair)Indicati ons:COPD, moderate (HCC),Chronic rhinitis TAKE 1 TABLET BY MOUTH EVERY DAY IN THE MORNING 90 Tablet 2 3 Active Losartan Potassium 25 MG Oral Tablet (Cozaar) Take 1 Tablet by mouth in the morning. 34 Tablet 11 3 Active Omeprazole 20 MG Oral Capsule Delayed Release (PriLOSEC)Indicatio ns:Abdominal pain, epigastric,Gastroes ophageal reflux disease with esophagitis without hemorrhage TAKE 1 CAPSULE BY MOUTH EVERY DAY 1 HOUR BEFORE FIRST MEAL OF THE DAY 90 Capsule 4 Active Triamcinolone Acetonide 0.5 % External Cream (Aristocort) Apply topically to affected area 2 times a day. To affected area. 15 g 5 4 Active Metoprolol Succinate ER 50 MG Oral Tablet Extended Release 24 Hour (toPROL XL)Indications:SVT (supraventricular tachycardia) ([facility]),Palpitations, S/P AAA repair,Essential hypertension with goal blood pressure less than 140/90 Take 50mg daily in the morning 30 Tablet 5 4 Active Fluticasone Propionate HFA 110 MCG/ACT Inhalation Aerosol (Flovent HFA)Indications:Margie amarilys osteoarthritis of both ankles TAKE 2 PUFFS BY MOUTH TWICE A DAY 12 g 5 4 Active Ezetimibe 10 MG Oral Tablet (Zetia)Indications: Dyslipidemia, goal LDL below 70 TAKE 1 TABLET BY MOUTH EVERY DAY IN THE MORNING 90 Tablet 3 4 Active Ezetimibe 10 MG Oral Tablet (Zetia) Take 1 Tablet by mouth in the morning. 34 Tablet 6 3 12/28/19 24 Discontinued Hospital, Clinic, or Other Facility Administered Medication Ordered Dose Route Frequency Start Date End Date Status albuterol sulfate (PROVENTIL) (2.5 MG/3ML) 0.083% inhalation solution 2.5 mgIndications:COPD, moderate (HCC) 2.5 mg NEBULIZER Q4H PRN 03/15/2019 Active documented as of this encounter (statuses as of 12/28/2023) Active Problems Problem Noted Date Diagnosed Date [...] use aero chamber. Test performed by Felicity CERTIFIED PROSTHETIST VICE PRESIDENT CPFT HIATAL HERNIA 05/06/2005 ADVANCE DIRECTIVE INFORMATION 01/25/2005 Overview: No, Advance Directive brochure offered , patient declined. Tobacco use disorder 06/25/2004 Esophageal reflux 06/25/2004 BMI 37.0-37.9, adult Essential hypertension with goal blood pressure less than 140/90 Hyperlipidemia LDL goal <100 Overview: ICD-10 update of inactive term documented as of this encounter (statuses as of 12/28/2023) Resolved Problems Problem Noted Date Diagnosed Date [...] as of this encounter (statuses as of 12/28/2023) Immunizations Name Administration Dates Next Due Pneumococcal [...] encounter Miscellaneous Notes * Telephone Encounter - Pdero Siegel CRNP - 12/28/2023 1:24 PM EDTSigned Prescriptions: Disp Refills Ezetimibe 10 MG Oral Tablet (Zetia) 90 Tab*3 Sig: TAKE 1 TABLET BY MOUTH EVERY DAY IN THE MORNING Authorizing Provider: PEDRO SIEGEL * Telephone Encounter - Jaquelin Torres CMA - 12/28/2023 11:24 AM EDTPending Prescriptions: Disp Refills Ezetimibe 10 MG Oral Tablet (Zetia) 90 Tab*3 Sig: TAKE 1 TABLET BY MOUTH EVERY DAY IN THE MORNING * Telephone Encounter - Jaquelin Torres CMA - 12/28/2023 11:23 AM EDT Did you pend patient's preferred pharmacy and medication before forwarding?yes Pharmacy: [id number] Pending Prescriptions: Disp Refills Ezetimibe 10 MG Oral Tablet (Zetia) [Phar*90 Tab*3 Sig: TAKE 1 TABLET BY MOUTH EVERY DAY IN THE MORNING Last Visit: 11/28/2023 (in office), Visit date not found (telemedicine) Next Visit: 12/29/2023 If no future appointments scheduled, and last appointment is greater than a year ago, please schedule patient for a follow-up appointment Last date the medication was ordered: 05-17-2023 Is this request for a controlled substance?No Urine Drug Screen:No results found for this or any previous visit. Patient Phone Numbers Labs: Lab Results Component Value Date/Time CREAT 1.1 09/05/2023 04:25 PM CREAT 1.3 (H) 10/01/2020 09:14 AM CREAT 1.3 (H) 03/03/2020 10:24 AM POTASSIUM 4.0 09/05/2023 04:25 PM POTASSIUM 4.7 12/07/2021 12:24 PM POTASSIUM 4.2 03/03/2020 10:24 AM TSH 1.06 05/13/2023 09:48 AM TSH 1.69 08/10/2012 11:35 AM LDLCALC 54 09/05/2023 04:25 PM LDLCALC UNINTERPRETABLE RESULT 03/15/2019 09:34 AM LDLDIRECT 104 03/03/2020 10:24 AM ALT 27 05/12/2021 11:12 AM ALT 32 07/28/2016 12:00 AM ALT 26 05/27/2015 01:30 PM HGBA1C 5.7 (H) 05/13/2023 09:48 AM HGBA1C 5.8 04/08/2009 09:09 AM documented in this encounter Plan of Treatment Upcoming Encounters Date Type Department Care Team (Late st Contact Info) Description 12/29/2023 9:30 AM EDT Office Visit Cardiology, [facility] 132 [facility] [place] [address] Pedro Siegel CRNP [address] [place] [address] 04/16/2024 9:00 AM EDT Appointment Vascular Lab [address] [address] 04/16/2024 9:30 AM EDT Appointment Vascular Lab [address] [address] 04/16/2024 10:30 AM EDT Appointment Vascular Lab [address] [address] 04/16/2024 11:15 AM EDT Office Visit Vascular Surg [address] [address] Negro Dover MD [facility] [place] [address] 05/17/2024 8:00 AM EDT Office Visit Cardiology, [facility] [address] [place] [address] Shelbie Arnold PA-C [address] [address] 06/25/2024 8:00 AM EST Office Visit Family Medicine [address] [place] [address] Alexandra Sales MD [address] [place] [address] [place] [address] Scheduled Procedures Name Priority Associated Diagnoses Date/Ti [...] Additional history exists CKD PHOS USE SMARTSET 08953 05/13/2024 05/13/2023, 0 10/14/2022 CKD HGB USE SMARTSET 99104 09/05/202409/05, 05/13/2023, 05/13/2023, Additional history exists Albumin/Creatinine [...] this encounter Medical Devices Implanted Type Area Food And Beverage Lead Device Identifier Shelf Expiration Date Model / Serial / Lot Lens Intraoc 16.5 - [id number] - [id number] Implanted:Qty : 1 on 05/28/2019 by Collin Mayberry MD at OR [facility] Right: Eye BAUSCH [employer] LOMB 11/20/2021 [id number] / [id number] / [id number] Lens Intraoc 17.5 - [id number] - [id number] Implanted:Qty : 1 on 06/04/2019 by Collin Mayberry MD at OR [facility] Left: Eye BAUSCH & LOMB 12/22/2023 [id number] / [id number] / [id number] Graft Hemashld [id number] - [id number] Implanted:Qty : 1 on 12/07/2021 by Negro Dover MD at OR [facility] N/A: Aorta GETINGE : DEONNAT [id number] 08/23/2025 [id number] 180 / [id number] / [id number] documented as of this encounter Visit Diagnoses Diagnosis Dyslipidemia, goal LDL below 70- Primary Other and unspecified hyperlipidemia documented in this encounter Advance Directives * Full Code (Latest Code Status on File) Date Activated Date Inactivated Comments 12/07/2021 12:57 PM 12/12/2021 7:03 PM This order reflects the patients wishes and were consensually agreed upon. Question Answer Comments Discussion of Advance Direct krystal occurred with: Not Discussed recent postop anesthesia Care Teams Filemaker Developer Relationship Specialty Start Date End Date Alexandra Sales MD [address] [place] [address] [place] [phone] PCP - General Family Medicine 02/12/19 documented as of this encounter
--- OUTSIDE RECORDS SUMMARY | 2024-04-26 10:08 | External Medical Summary ---
Author Name Unknown Address Unknown Organization K01:[facility] [place] [place] - [address] [place] [address] Laboratory Report Ordering Provider Test Date Status PADMINI WATERS 11/03/2023 10:15:22 Final Normal: <30 mg/g creatinine< br/>High: 30-300 mg/g creatinine
Very High: >300 mg/g creatinine
Nephrotic: >2200 mg/g creatinine Observation Date Value Abnormality Reference (Units ) Status Albumin, Urine 11/03/2023 10:15:22 <1.20 (mg/dL) Final Creatinine, Urine 11/03/2023 10:15:22 51 (mg/dL) Final Albumin/Creatinine [Mass Ratio] in Urine 11/03/2023 10:15:22 <24 <30 (mg/g Creat) Final Performing Location [facility] [place] [place] - [address] [place] [address]
--- OUTSIDE RECORDS SUMMARY | 2024-04-26 10:08 | External Medical Summary ---
Author Name Unknown Address Unknown Organization [id number]:LABORATORY [facility] [place] - [address] [place] [address] Laboratory Report Ordering Provider Test Date Status PADMINI WATERS 11/03/2023 10:15:22 Final Observation Date Value Abnormality Reference (Units ) Status Vitamin B12 11/03/2023 10:15:22 [phone] (pg/mL) Final Performing Location LABORATORY [facility] - [address] [place] [address]
--- OUTSIDE RECORDS SUMMARY | 2024-04-26 10:08 | External Medical Summary | Summary of Care ---
Author Name Unknown Organization [facility] Address [address] [place] [address] Phone [phone] Care Team Providers Care Long Term Name Role Phone Alexandra Sales MD Primary Care Prov ider Reason for Visit * Reason Comments Follow Up Encounter Details Date Type Department Care Team (Late st Contact Info) Description 12/29/2023 9:30 AM EDT Office Visit Cardiology, [facility] [address] [facility] [place] [address] Crissy Siegel CRNP [address] [place] [address] SVT (supraventricular tachycardia) (HCC)*; S/P radiofrequency ablation operation for arrhythmia; HTN, goal below 130/80; Dyslipidemia, goal LDL below 70; Coronary artery disease involving [place] coronary artery of [place] heart without angina pectoris Allergies Active Allergy Reactions Criticality Noted Date Comments Lisinopril Other (Please comment) 05/16/2016 Shortness of breath, and itchy documented as of this encounter (statuses as of 01/14/2024) Medications Medication Sig Dispensed Refills Start Date [...] goal LDL below 130,PAD (peripheral artery disease) ([facility]) Take 1 Tablet by mouth in the morning. 99 Tablet 3 05/09/2023 Active Cetirizine HCl 10 MG Oral Tablet (ZyrTEC) Take 1 Tablet by mouth in the morning. 90 Tablet 3 05/09/2023 Active Montelukast Sodium 10 MG Oral Tablet (Singulair)Indicatio ns:COPD, moderate ([facility]),Chronic rhinitis TAKE 1 TABLET BY MOUTH EVERY [...] MEAL OF THE DAY 90 Capsule 10/24/2023 Active Triamcinolone Acetonide 0.5 % External [...] the morning. 90 Capsule 3 12/29/2023 Active Metoprolol Succinate ER 50 MG Oral Tablet Extended Release 24 Hour (toPROL XL)Indications:SVT (supraventricular tachycardia) (HCC),Palpitations,S /P AAA repair,Essential hypertension with goal blood pressure less than 140/90 Take 50mg daily in the morning 30 Tablet 5 11/08/2023 4 Discontinue d(Medicatio n/Dose Changed) Hospital, Clinic, or Other Facility Administered Medication Ordered Dose Route Frequency Start Date End Date Status albuterol sulfate (PROVENTIL) (2.5 MG/3ML) 0.083% inhalation solution 2.5 mgIndications:COPD, moderate (HCC) 2.5 mg NEBULIZER Q4H PRN 03/15/2019 Active documented as of this encounter (statuses as of 01/14/2024) Active Problems Problem Noted Date Diagnosed Date [...] use aero chamber. Test performed by Felicity .NET ARCHITECT CPFT HIATAL HERNIA 05/06/2005 ADVANCE DIRECTIVE INFORMATION 01/25/2005 Overview: No, Advance Directive brochure offered , patient declined. Tobacco use disorder 06/25/2004 Esophageal reflux 06/25/2004 BMI 37.0-37.9, adult Essential hypertension with goal blood pressure less than 140/90 Hyperlipidemia LDL goal <100 Overview: ICD-10 update of inactive term documented as of this encounter (statuses as of 01/14/2024) Resolved Problems Problem Noted Date Diagnosed Date [...] as of this encounter (statuses as of 01/14/2024) Immunizations Name Administration Dates Next Due Pneumococcal [...] Sign Reading Time Taken Comments Blood Pressure 116/64 12/29/2023 9:14 AM EDT Pulse 60 12/29/2023 9:14 AM EDT Temperature - - Respiratory Rate 16 12/29/2023 9:14 AM EDT Oxygen Saturation - - Inhaled Oxygen Concentration - - Weight 88.1 kg (194 lb 4.8 oz) 12/29/2023 9:14 A M EDT Height - - Body Mass Index 28.69 11/08/2023 3:38 PM EDT documented in this [...] * Patient Instructions* Crissy Siegel CRNP - 12/29/2023 9:51 AM EDT Stop Metoprolol Start Verapamil 180 mg 1 tablet once per day Change positions slowly, try not to hyperextend your neck to far when you are looking up documented in this encounter Progress Notes * Alysha Guzman DO - 01/14/2024 7:58 PM EDT I have reviewed the advanced practitioner's documentation on the date of service referenced in note, and I agree with, and take responsibility for the plan of care. Pt returns to EP due to SVT He has not had any more feelings of passing out Still has severe episodes of palpitations with associated dizziness But also has dizziness with change in head positions When he wore the zio he did not have any reall symptoms I think the dizzy episodes are possibly more due to vertigo Can try verapamil rather than metoprolol EP f/u 3 months Alysha Guzman DO Department of Cardiology [facility] [place] [address] documented in this encounter Nursing Notes * Jaquelin Torres CMA - 12/29/2023 9:14 AM EDT Examination Room: 10 Name: [address] Date of : (1960). Reason for Visit: follow up Interim Hospitalization(s): denies Problems/Concerns: denies Chest Pain/SOB: denies [facility] [...] 04/16/2024 9:00 AM EDT Appointment Vascular Lab [place] [address] [place] [address] 04/16/2024 9:30 AM EDT Appointment Vascular Lab [place] [address] [place] [address] 04/16/2024 10:30 AM EDT Appointment Vascular Lab [address] [address] 04/16/2024 11:15 AM EDT Office Visit Vascular Surg [place] [address] [place] [address] Negro Dover MD [address] [place] [address] 04/23/2024 8:00 AM EDT Office Visit Cardiology, [facility] [address] [place] [address] Crissy Siegel CRNP [address] [place] [address] 06/25/2024 8:00 AM EST Office Visit Family Medicine [address] [place] [phone] Alexandra Sales MD [address] [place] [address] [place] [address] Scheduled Procedures Name Priority Associated Diagnoses Date/Ti [...] #3291) 02/13/2020 02/12/2019 COVID-19 Vaccine ( - 2022- season) 2023 GFR 03/05/2024 09/05/2023, 04/24, 10/14/2022, Additional history exists Influenza Vaccine (FLU shot) (Season Ended) 2024 06/27/2017, 06/27/2017 (Refused), 05/25/2012, Additional history exists AAA Monitoring 04/05/2024 04/05/2023, 03/24, 10/13/2021, Additional history exists CKD PHOS USE SMARTSET 65153 05/13/2024 05/13/2023, 0 10/14/2022 CKD HGB USE SMARTSET 19667 09/05/202409/05, 05/13/2023, 05/13/2023, Additional history exists Albumin/Creatinine [...] this encounter Medical Devices Implanted Type Area Certified Fraud Examiner Device Identifier Shelf Expiration Date Model / Serial / Lot Lens Intraoc 16.5 - [id number] - [id number] Implanted:Qty : 1 on 05/28/2019 by Collin Mayberry MD at OR [facility] Right: Eye [employer]OMB 11/20/2021 [id number] / [id number] / [id number] Lens Intraoc 17.5 - [id number] - [id number] Implanted:Qty : 1 on 06/04/2019 by Collin Mayberry MD at OR [facility] Left: Eye BAUSCH [employer] LOMB 12/22/2023 [id number] / [id number] / [id number] Graft Hemashld Obck83do [id number] - [id number] Implanted:Qty : 1 on 12/07/2021 by Negro Dover MD at [place] [facility] N/A: Aorta GETINGE : MAQUET [id number] 08/23/2025 [id number] / [id number] / [id number] documented as of this encounter Visit Diagnoses Diagnosis SVT (supraventricular tachycardia) (HCC)- Primary Other specified cardiac dysrhythmias S/P radiofrequency ablation operation for arrhythmia Other postprocedural status HTN, goal below 130/80 Unspecified essential hypertension Dyslipidemia, goal LDL below 70 Other and unspecified hyperlipidemia Coronary artery disease involving [place] coronary artery of [place] heart without angina pectoris documented in this encounter Advance Directives * Full Code (Latest Code Status on File) Date Activated Date Inactivated Comments 12/07/2021 12:57 PM 12/12/2021 7:03 PM This order reflects the patients wishes and were consensually agreed upon. Question Answer Comments Discussion of Advance Direct krystal occurred with: Not Discussed recent postop anesthesia Care Teams Long Term Relationship Specialty Start Date End Date Alexandra Sales MD [address] [place] [address] [place] [id number] PCP - General Family Medicine 02/12/19 documented as of this encounter
--- OUTSIDE RECORDS SUMMARY | 2024-04-26 10:08 | External Medical Summary | Summary of Care ---
Author Name Unknown Organization [facility] Address [address] [place] [address] Phone [phone] Care Team Providers Care Ramp Jockey Name Role Phone Juve Oconnor MD Primary Care Prov ider Reason for Visit * Reason Comments eRx-Medication Refill Encounter Details Date Type Department Care Team (Late st Contact Info) Description 11/22/2023 Refill Family Medicine [address] [phone] Juve Oconnor MD [address] [place] [address] [place] [address] Primary osteoarthritis of both ankles Allergies Active Allergy Reactions Criticality Noted Date Comments Lisinopril Other (Please comment) 05/16/2016 Shortness of breath, and itchy documented as of this encounter (statuses as of 11/23/2023) Medications Medication Sig Dispensed Refills Start Date [...] goal LDL below 130,PAD (peripheral artery disease) ([facility]) Take 1 Tablet by mouth in the morning. 99 Tablet 3 3 Active Additional Information Patient not taking.Reported on 11/08/2023 Cetirizine HCl 10 MG Oral Tablet (ZyrTEC) Take 1 Tablet by mouth in the morning. 90 Tablet 3 3 Active Ezetimibe 10 MG Oral Tablet (Zetia) Take 1 Tablet by mouth in the morning. 34 Tablet 6 3 Active Montelukast Sodium 10 MG Oral [...] MEAL OF THE DAY 90 Capsule 0 4 Active Triamcinolone Acetonide 0.5 % External Cream (Aristocort) Apply topically to affected area 2 times a day. To affected area. 15 g 5 4 Active Metoprolol Succinate ER 50 MG Oral Tablet Extended Release 24 Hour (toPROL XL)Indications:SVT (supraventricular tachycardia) ([facility]),Palpitations, S/P AAA repair,Essential hypertension with goal blood pressure less than 140/90 Take 50mg daily in the morning 30 Tablet 5 4 Active Fluticasone Propionate HFA 110 MCG/ACT Inhalation Aerosol (Flovent HFA)Indications:Margie panda osteoarthritis of both ankles TAKE 2 PUFFS BY MOUTH TWICE A DAY 12 g 5 4 Active Fluticasone Propionate HFA 110 MCG/ACT Inhalation Aerosol (Flovent HFA)Indications:Margie panda osteoarthritis of both ankles TAKE 2 PUFFS BY MOUTH TWICE A DAY 12 g 0 4 11/23/19 24 Discontinued Hospital, Clinic, or Other Facility Administered Medication Ordered Dose Route Frequency Start Date End Date Status albuterol sulfate (PROVENTIL) (2.5 MG/3ML) 0.083% inhalation solution 2.5 mgIndications:COPD, moderate (HCC) 2.5 mg NEBULIZER Q4H PRN 03/15/2019 Active documented as of this encounter (statuses as of 11/23/2023) Active Problems Problem Noted Date Diagnosed Date [...] use aero chamber. Test performed by Felicity ELECTRONICS DEPARTMENT MANAGER CPFT HIATAL HERNIA 05/06/2005 ADVANCE DIRECTIVE INFORMATION 01/25/2005 Overview: No, Advance Directive brochure offered , patient declined. Tobacco use disorder 06/25/2004 Esophageal reflux 06/25/2004 BMI 37.0-37.9, adult Essential hypertension with goal blood pressure less than 140/90 Hyperlipidemia LDL goal <100 Overview: ICD-10 update of inactive term documented as of this encounter (statuses as of 11/23/2023) Resolved Problems Problem Noted Date Diagnosed Date [...] as of this encounter (statuses as of 11/23/2023) Immunizations Name Administration Dates Next Due Pneumococcal [...] encounter Miscellaneous Notes * Telephone Encounter - Radha Vega [facility] - 11/23/2023 2:55 PM EDT Signed Prescriptions: Disp Refills Fluticasone Propionate HFA 110 MCG/ACT Inh*12 g 5 Sig: TAKE 2 PUFFS BY MOUTH TWICE A DAYAuthorizing Provider: JUVE OCONNOR User: RADHA VEGA documented in this encounter Plan of Treatment Upcoming Encounters Date Type Department Care Team (Late st Contact Info) Description 11/28/2023 3:00 PM EDT Office Visit Cardiology, [facility] [address] [place] [address] Crissy Siegel CRNP [address] [facility] [place] [address] 04/16/2024 9:00 AM EDT Appointment Vascular Lab [place] [address] [place] [address] 04/16/2024 9:30 AM EDT Appointment Vascular Lab [place] [address] [place] [address] 04/16/2024 10:30 AM EDT Appointment Vascular Lab [place] [address] [place] [address] 04/16/2024 11:15 AM EDT Office Visit Vascular Surg [place] [address] [place] [address] Negro Dover MD [address] [place] [address] 05/17/2024 8:00 AM EDT Office Visit Cardiology, [facility] [address] [place] [address] Shelbie Arnold PA-C [address] [place] [address] [place] [id number] 06/25/2024 8:00 AM EST Office Visit Family Medicine [address] [phone] Juve Oconnor MD [address] [place] [address] [place] [address] Scheduled Procedures Name Priority Associated Diagnoses Date/Ti [...] TO SMARTSET #3291) 02/13/2020 02/12/2019 COVID-19 Vaccine (2022- season) 2023 GFR 03/05/2024 09/05/2023, 04/24, 10/14/2022, Additional history exists Influenza Vaccine (FLU shot) (Season Ended) 2024 06/27/2017, 06/27/2017 (Refused), 05/25/2012, Additional history exists AAA Monitoring 04/05/2024 04/05/2023, 03/24, 10/13/2021, Additional history exists CKD PHOS USE SMARTSET 77062 05/13/2024 05/13/2023, 0 10/14/2022 CKD HGB USE SMARTSET 20905 09/05/202409/05, 05/13/2023, 05/13/2023, Additional history exists Albumin/Creatinine [...] history exists Diabetic Eye Exam Discontinued 12/22/2021, , 05/19/2008, [...] this encounter Medical Devices Implanted Type Area Consumer Insight Manager Device Identifier Shelf Expiration Date Model / Serial / Lot Lens Intraoc 16.5 - [id number] - [id number] Implanted:Qty : 1 on 05/28/2019 by Collin Mayberry MD at OR [facility] Right: Eye BAUSCH & LOMB 11/20/2021 [id number] / [id number] / [id number] Lens Intraoc 17.5 - [id number] - [id number] Implanted:Qty : 1 on 06/04/2019 by Collin Mayberry MD at OR [facility] Left: Eye BAUSCH & LOMB 12/22/2023 [id number] / [id number] / [id number] Graft Hemashld [id number] - [id number] Implanted:Qty : 1 on 12/07/2021 by Negro Dover MD at OR [facility] N/A: Aorta GETINGE : MAQUET [id number] 08/23/2025 [id number] / [id number] / [id number] documented as of this encounter Visit Diagnoses Diagnosis Primary osteoarthritis of both ankles documented in this encounter Advance Directives Latest Code Status on File Code Status Date Activated Date Inactivated Comments Full Code 12/07/2021 12:57 PM 12/12/2021 7:03 PM This order reflects the patients wishes and were consensually agreed upon. Question Answer Comments Discussion of Advance Directives occurred with: Not Discussed recent postop anesthesia Care Teams Ramp Jockey Relationship Specialty Start Date End Date Juve Oconnor MD [address] [place] [address] [place] [address] PCP - General Family Medicine 02/12/19 documented as of this encounter
--- OUTSIDE RECORDS SUMMARY | 2024-04-26 10:08 | External Medical Summary | Summary of Care ---
Author Name Unknown Organization [facility] Address [address] [place] [address] Phone [phone] Care Team Providers Care Jigger Crown Pouncing Machine Operator Name Role Phone Alexandra Sales MD Primary Care Prov ider Reason for Visit * Reason Comments Follow Up Encounter Details Date Type Department Care Team (Late st Contact Info) Description 11/28/2023 3:00 PM EDT Office Visit Cardiology, [facility] [address] [facility] [place] [address] Crissy Siegel CRNP [address] [place] [address] SVT (supraventricular tachycardia) (HCC)*; S/P radiofrequency ablation operation for arrhythmia; HTN, goal below 130/80; Dyslipidemia, goal LDL below 70; Coronary artery disease involving [place] coronary artery of [place] heart without angina pectoris; Palpitations Allergies Active Allergy Reactions Criticality Noted Date Comments Lisinopril Other (Please comment) 05/16/2016 Shortness of breath, and itchy documented as of this encounter (statuses as of 12/01/2023) Medications Medication Sig Dispensed Refills Start Date [...] goal LDL below 130,PAD (peripheral artery disease) ([facility]) Take 1 Tablet by mouth in the [...] 10 MG Oral Tablet (Singulair)Indicatio ns:COPD, moderate ([facility]),Chronic rhinitis TAKE 1 TABLET BY MOUTH EVERY [...] THE DAY 90 Capsule 0 10/24/2023 Active Triamcinolone Acetonide 0.5 % External Cream (Aristocort) Apply topically to affected area 2 times a day. To affected area. 15 g 5 11/08/2023 Active Metoprolol Succinate ER 50 MG Oral Tablet Extended Release 24 Hour (toPROL XL)Indications:SVT (supraventricular tachycardia) ([facility]),Palpitations,S /P AAA repair,Essential hypertension with goal blood pressure less than 140/90 Take 50mg daily in the morning 30 Tablet 5 11/08/2023 Active Fluticasone Propionate HFA 110 MCG/ACT Inhalation Aerosol (Flovent HFA)Indications:Prim nikolai osteoarthritis of both ankles TAKE 2 PUFFS BY MOUTH TWICE A DAY 12 g 5 11/23/2023 Active Hospital, Clinic, or Other Facility Administered Medication Ordered Dose Route Frequency Start Date End Date Status albuterol sulfate (PROVENTIL) (2.5 MG/3ML) 0.083% inhalation solution 2.5 mgIndications:COPD, moderate (HCC) 2.5 mg NEBULIZER Q4H PRN 03/15/2019 Active documented as of this encounter (statuses as of 12/01/2023) Active Problems Problem Noted Date Diagnosed Date [...] use aero chamber. Test performed by Felicity CHANNEL REBUILDER CPFT HIATAL HERNIA 05/06/2005 ADVANCE DIRECTIVE INFORMATION 01/25/2005 Overview: No, Advance Directive brochure offered , patient declined. Tobacco use disorder 06/25/2004 Esophageal reflux 06/25/2004 BMI 37.0-37.9, adult Essential hypertension with goal blood pressure less than 140/90 Hyperlipidemia LDL goal <100 Overview: ICD-10 update of inactive term documented as of this encounter (statuses as of 12/01/2023) Resolved Problems Problem Noted Date Diagnosed Date [...] as of this encounter (statuses as of 12/01/2023) Immunizations Name Administration Dates Next Due Pneumococcal [...] Sign Reading Time Taken Comments Blood Pressure 128/80 11/28/2023 2:53 PM EDT Pulse 64 11/28/2023 2:53 PM EDT Temperature - - Respiratory Rate 16 11/28/2023 2:53 PM EDT Oxygen Saturation - - Inhaled Oxygen Concentration - - Weight 85.7 kg (189 lb) 11/28/2023 2:53 PM EDT Height - - Body Mass Index 27.91 11/08/2023 3:38 PM EDT documented in this [...] as of this encounter Progress Notes * Alysha Guzman DO - 12/01/2023 6:19 PM EDT I have reviewed the advanced practitioner's documentation on the date of service referenced in note, and I agree with, and take responsibility for the plan of care. Pt seen in routine EP f/u due to SVT Pt reported a near syncopal episode one time he saw his PCP and his toprol was increased and symptoms seem better Continue current cardiac medications Recommend zio patch EP f/u 1 month Alysha Guzman DO Department of Cardiology [facility] [place] [address] documented in this encounter Procedure Notes * Wilian Castanon DO - 11/28/2023 3:01 PM EDTAssociated Order(s): EKG REASON FOR STUDY: s/p abl;s/p abl CONCLUSIONS: Sinus bradycardia with Premature supraventricular complexes Otherwise normal ECG When compared with ECG of 17-May-2023 14:03, Premature supraventricular complexes are now Present Ventricular Rate: 55 Atrial Rate: 55 VT Interval: 200 QRS Duration: 80 QT/QTc: 424/405 ms P-R-T [place]: 53 : 52 : 48 degrees documented in this encounter Plan of Treatment Upcoming Encounters Date Type Department Care Team (Late st Contact Info) Description 12/29/2023 9:30 AM EDT Office Visit Cardiology, [facility] [address] [facility] [place] [address] Crissy Siegel CRNP [address] [facility] [place] [phone] 04/16/2024 9:00 AM EDT Appointment Vascular Lab [address] [place] [phone] 04/16/2024 9:30 AM EDT Appointment Vascular Lab [place] [address] [place] [address] 04/16/2024 10:30 AM EDT Appointment Vascular Lab [place] [address] [place] [address] 04/16/2024 11:15 AM EDT Office Visit Vascular Surg [place] [address] [place] [address] Negro Dover MD [address] [place] [address] 05/17/2024 8:00 AM EDT Office Visit Cardiology, [facility] [address] [facility] [place] [address] Shelbei Arnold PA-C [address] [facility] [place], [place] [phone] 06/25/2024 8:00 AM EST Office Visit Family Medicine [address] [place] [phone] Alexandra Sales MD [address] [place] [address] [place] [address] Scheduled Orders Name Type Priority Associated Diagnoses Orde r Schedule EXTERNAL EKG 8 TO 15 DAYS Holter Routine S/P radiofrequency ablation operation for arrhythmia SVT (supraventricular tachycardia) (HCC) Expected: 11/28/2023 (Approximate), Expires: 11/27/2024 Scheduled Procedures Name Priority Associated Diagnoses Date/Ti [...] 05/12/2006 DISCUSS TOBACCO CESSATION (REFER TO SMARTSET #7390) 02/13/2020 02/12/2019 COVID-19 Vaccine ( season) 2023 GFR 03/05/2024 09/05/2023, 04/24, 10/14/2022, Additional history exists Influenza Vaccine (FLU shot) (Season Ended) 2024 06/27/2017, 06/27/2017 (Refused), 05/25/2012, Additional history exists AAA Monitoring 04/05/2024 04/05/2023, 03/24, 10/13/2021, Additional history exists CKD PHOS USE SMARTSET 33874 05/13/2024 05/13/2023, 0 10/14/2022 CKD HGB USE SMARTSET 32259 09/05/202409/05, 05/13/2023, 05/13/2023, Additional history exists Albumin/Creatinine [...] this encounter Medical Devices Implanted Type Area Staff Readiness Officer Device Identifier Shelf Expiration Date Model / Serial / Lot Lens Intraoc 16.5 - [id number] - [id number] Implanted:Qty : 1 on 05/28/2019 by Collin Mayberry MD at OR [facility] [address] Right: Eye BAUSCH & LOMB 11/20/2021 [id number] / [id number] / [id number] Lens Intraoc 17.5 - [id number] - [id number] Implanted:Qty : 1 on 06/04/2019 by Collin Mayberry MD at OR [facility] [address] Left: Eye BAUSCH & LOMB 12/22/2023 [id number] / [id number] / [id number] Graft Hemashld [id number] - [id number] Implanted:Qty : 1 on 12/07/2021 by Negro Dover MD [place] [facility] N/A: Aorta GETINGE : MAQUET [id number] 08/23/2025 [id number] 180 / [id number] / [id number] documented as of this encounter Procedures Procedure Name Priority Date/Time Associated Diagnosis Comments VT ECG ROUTINE ECG W/LEAST 12 LDS W/I&R Routine 11/28/2023 3:01 PM EDT S/P radiofrequency ablation operation for arrhythmia SVT (supraventricular tachycardia) (HCC) documented in this encounter Results * EKG (11/28/2023 3:01 PM EDT) 11/28/2023 3:01 PM EDT Narrative Procedure Note Wilian Castanon DO - 11/28/2023 3:01 PM EDT REASON FOR STUDY: s/p abl;s/p abl CONCLUSIONS: Sinus bradycardia with Premature supraventricular complexes Otherwise normal ECG When compared with ECG of 17-May-2023 14:03, Premature supraventricular complexes are now Present Ventricular Rate: 55 Atrial Rate: 55 VT Interval: 200 QRS Duration: 80 QT/QTc: 424/405 ms P-R-T [place]: 53 : 52 : 48 degrees Crissy Siegel JEN EKG [facility] documented in this encounter Visit Diagnoses Diagnosis SVT (supraventricular tachycardia) (HCC)- Primary Other specified cardiac dysrhythmias S/P radiofrequency ablation operation for arrhythmia Other postprocedural status HTN, goal below 130/80 Unspecified essential hypertension Dyslipidemia, goal LDL below 70 Other and unspecified hyperlipidemia Coronary artery disease involving [place] coronary artery of [place] heart without angina pectoris Palpitations documented in this encounter Advance Directives Latest Code Status on File Code Status Date Activated Date Inactivated Comments Full Code 12/07/2021 12:57 PM 12/12/2021 7:03 PM This order reflects the patients wishes and were consensually agreed upon. Question Answer Comments Discussion of Advance Directives occurred with: Not Discussed recent postop anesthesia Care Teams Jigger Crown Pouncing Machine Operator Relationship Specialty Start Date End Date Alexandra Sales MD [address] [place] [address] [place] [address] PCP - General Family Medicine 02/12/19 documented as of this encounter
--- OUTSIDE RECORDS SUMMARY | 2024-04-26 10:08 | External Medical Summary ---
Author Name Unknown Address Unknown Organization K01:[facility] [address] [place] [address] Laboratory Report Ordering Provider Test Date Status PADMINI WATERS 11/03/2023 10:15:22 Final Observation Date Value Abnormality Reference (Units ) Status Magnesium 11/03/2023 10:15:22 2.3 1.5-2.6 (m g/dL) Final Performing Location [facility] [address] [place] [address]
--- OUTSIDE RECORDS SUMMARY | 2024-04-26 10:08 | External Medical Summary | Summary of Care ---
Author Name Unknown Organization [facility] Address [address] [place] [address] Phone [phone] Care Team Providers Care Acupressurist Name Role Phone Juve Oconnor MD Primary Care Prov ider Reason for Visit * Reason Comments eRx-Medication Refill Encounter Details Date Type Department Care Team (Late st Contact Info) Description 02/21/2024 Refill Family Medicine [address] [phone] Juve Oconnor MD [address] [place] [address] [place] [address] Hyperlipidemia LDL goal <100 Allergies Active Allergy Reactions Criticality Noted Date Comments Lisinopril Other (Please comment) 05/16/2016 Shortness of breath, and itchy documented as of this encounter (statuses as of 02/21/2024) Medications Medication Sig Dispensed Refills Start Date [...] EVERY DAY 90 Tablet 2 02/21/2024 Active Atorvastatin Calcium 80 MG Oral Tablet (Lipitor)Indication s:Hyperlipidemia LDL goal <100 TAKE 1 TABLET BY MOUTH EVERY DAY 90 Tablet 3 02/23/2023 02/21/20 24 Discontinued Hospital, Clinic, or Other Facility Administered Medication Ordered Dose Route Frequency Start Date End Date Status albuterol sulfate (PROVENTIL) (2.5 MG/3ML) 0.083% inhalation solution 2.5 mgIndications:COPD, moderate (HCC) 2.5 mg NEBULIZER Q4H PRN 03/15/2019 Active documented as of this encounter (statuses as of 02/21/2024) Active Problems Problem Noted Date Diagnosed Date [...] use aero chamber. Test performed by Felicity AUTO SALVAGE WORKER CPFT HIATAL HERNIA 05/06/2005 ADVANCE DIRECTIVE INFORMATION 01/25/2005 Overview: No, Advance Directive brochure offered , patient declined. Tobacco use disorder 06/25/2004 Esophageal reflux 06/25/2004 BMI 37.0-37.9, adult Essential hypertension with goal blood pressure less than 140/90 Hyperlipidemia LDL goal <100 Overview: ICD-10 update of inactive term documented as of this encounter (statuses as of 02/21/2024) Resolved Problems Problem Noted Date Diagnosed Date [...] as of this encounter (statuses as of 02/21/2024) Immunizations Name Administration Dates Next Due Pneumococcal [...] encounter Miscellaneous Notes * Telephone Encounter - Remedios Velez RPh - 02/21/2024 2:26 PM EDTSigned Prescriptions: Disp Refills Atorvastatin Calcium 80 MG Oral Tablet (Li*90 Tab*2 Sig: TAKE 1TABLET BY MOUTH EVERY DAYAuthorizing Provider: JUVE OCONNOR User: REMEDIOS VELEZ documented in this encounter Plan of Treatment Upcoming Encounters Date Type Department Care Team (Late st Contact Info) Description 04/16/2024 9:00 AM EDT Appointment Vascular Lab [facility] [address] [place] [address] 04/16/2024 9:30 AM EDT Appointment Vascular Lab [place] [address] [place] [address] 04/16/2024 10:30 AM EDT Appointment Vascular Lab [place] [address] [place] [address] 04/16/2024 11:15 AM EDT Office Visit Vascular Surg [address] [address] Negro Dover MD [address] [place] [address] 04/23/2024 8:00 AM EDT Office Visit Cardiology, [facility] [address] [place] [address] Crissy Siegel CRNP [address] [place], [place] [phone] 06/25/2024 8:00 AM EST Office Visit Family Medicine [address] [phone] Juve Oconnor MD [address] [place] [address] [place] [address] Scheduled Procedures Name Priority Associated Diagnoses Date/Ti [...] 02/13/2020 02/12/2019 COVID-19 Vaccine ( season) 2023 *CXR OR CT FOR COPD EVER 02/04/2024 GFR 03/05/2024 09/05/2023, 04/24, 10/14/2022, Additional history exists Influenza Vaccine (FLU shot) (#1) 2024 06/27/2017, 06/27/2017 (Refused), 05/25/2012, Additional history exists AAA Monitoring 04/05/2024 04/05/2023, 03/24, 10/13/2021, Additional history exists CKD PHOS USE SMARTSET 95705 05/13/2024 05/13/2023, 0 10/14/2022 CKD HGB USE SMARTSET 77096 09/05/202409/05, 05/13/2023, 05/13/2023, Additional history exists Albumin/Creatinine [...] this encounter Medical Devices Implanted Type Area Travel Writer Device Identifier Shelf Expiration Date Model / Serial / Lot Lens Intraoc 16.5 - [id number] - [id number] Implanted:Qty : 1 on 05/28/2019 by Collin Mayberry MD at OR [facility] Right: Eye BAUSCH & LOMB 11/20/2021 [id number] / [id number] / [id number] Lens Intraoc 17.5 - [id number] - [id number] Implanted:Qty : 1 on 06/04/2019 by Collin Mayberry MD at OR [facility] Left: Eye BAUSCH & LOMB 12/22/2023 [id number] / [id number] / [id number] Graft Hemashld [id number] - [id number] Implanted:Qty : 1 on 12/07/2021 by Negro Dover MD at [place] [facility] N/A: Aorta GETINGE : MAQUET [id number] 08/23/2025 [id number] 180 / [id number] / [id number] documented as of this encounter Visit Diagnoses Diagnosis Hyperlipidemia LDL goal <100 Other and unspecified hyperlipidemia documented in this encounter Advance Directives * Full Code (Latest Code Status on File) Date Activated Date Inactivated Comments 12/07/2021 12:57 PM 12/12/2021 7:03 PM This order reflects the patients wishes and were consensually agreed upon. Question Answer Comments Discussion of Advance Direct krystal occurred with: Not Discussed recent postop anesthesia Care Teams Acupressurist Relationship Specialty Start Date End Date Juve Oconnor MD [address] [place] [address] [place] [address] PCP - General Family Medicine 02/12/19 documented as of this encounter
--- OUTSIDE RECORDS SUMMARY | 2024-04-26 10:09 | External Medical Summary | Summary of Care ---
Author Name Unknown Organization [facility] Address [address] [place] [address] Phone [phone] Care Team Providers Care Document Management Consultant Name Role Phone Alexandra Sales MD Primary Care Prov ider Encounter Details Date Type Department Care Team ([facility] st Contact Info) Description 10/31/2023 Orders Only PATIENT PORTAL DO NOT DELETE THIS DEPT USED BY [place] [id number] Allergies Active Allergy Reactions Criticality Noted Date Comments Lisinopril Other (Please comment) 05/16/2016 Shortness of breath, and itchy documented as of this encounter (statuses as of 10/31/2023) Medications Medication Sig Dispensed Refills Start Date [...] Release 24 Hour (Toprol XL)Indications:SVT (supraventricular tachycardia) (HCC),Palpitations,S/P AAA repair,Essential hypertension with goal blood pressure [...] as of this encounter (statuses as of 10/31/2023) Active Problems Problem Noted Date Diagnosed Date [...] use aero chamber. Test performed by Felicity WELFARE WORKER CPFT HIATAL HERNIA 05/06/2005 ADVANCE DIRECTIVE INFORMATION 01/25/2005 Overview: No, Advance Directive brochure offered , patient declined. Tobacco use disorder 06/25/2004 Esophageal reflux 06/25/2004 BMI 37.0-37.9, adult Essential hypertension with goal blood pressure less than 140/90 Hyperlipidemia LDL goal <100 Overview: ICD-10 update of inactive term documented as of this encounter (statuses as of 10/31/2023) Resolved Problems Problem Noted Date Diagnosed Date [...] as of this encounter (statuses as of 10/31/2023) Immunizations Name Administration Dates Next Due Pneumococcal [...] 3:40 PM EDT Office Visit Family Medicine [address] [phone] Alexandra Sales MD [address] [place] [address] [place] [address] 11/28/2023 3:00 PM EDT Office Visit Cardiology, [facility] [address] [facility] [place] [address] Crissy Siegel CRNP 400 [facility] [place] [address] 04/16/2024 9:00 AM EDT Appointment Vascular Lab [address] [address] 04/16/2024 9:30 AM EDT Appointment Vascular Lab [address] [address] 04/16/2024 10:30 AM EDT Appointment Vascular Lab [address] [address] 04/16/2024 11:15 AM EDT Office Visit Vascular Surg [facility] [address] [facility] [place] [address] Negro Dover [facility] [address] [facility] [place] [address] 05/17/2024 8:00 AM EDT Office Visit Cardiology, [facility] [address] [facility] [place] [address] Shelbie Arnold PA-C [address] [place] [address] Scheduled Procedures Name Priority Associated Diagnoses Date/Ti [...] Additional history exists CKD PHOS USE SMARTSET 69505 05/13/2024 05/13/2023, 0 10/14/2022 O2 ASSESSMENT COMPLETED IN PAST YEAR FOR COPD 07/07/2024 07/07/2023 CKD HGB USE SMARTSET 25088 09/05/202409/05, 05/13/2023, 05/13/2023, Additional history exists COLONOSCOPY-EVERY 5 YRS AGES 18-100 08/11/2025 08/11/2020, 08/11/2020, 10/30/2014, Additional history exists Diabetes Screening 09/05/2026 09/05/2023, 1 , 05/13/2023, Additional history exists DTaP,Tdap,and Td Vaccines (3 - Td or Tdap) 11/13/2031 11/12/2021 (Declined), 02/06/2008 LUNG CANCER SCREENING - USE SMARTSET 76471 Completed 05/01/2020, 02/15/2019, 07/14/2017 Diabetic Eye Exam [...] this encounter Medical Devices Implanted Type Area Computer Discovery Teacher Device Identifier Shelf Expiration Date Model / Serial / Lot Lens Intraoc 16.5 - [id number] - [id number] Implanted:Qty : 1 on 05/28/2019 by Collin Mayberry MD at OR [facility] Right: Eye BAUSCH & LOMB 11/20/2021 [id number] / [id number] / [id number] Lens Intraoc 17.5 - [id number] - [id number] Implanted:Qty : 1 on 06/04/2019 by Collin Mayberry MD at OR [facility] Left: Eye BAUSCH & LOMB 12/22/2023 [id number] / [id number] / [id number] Graft Hemashld [id number] - [id number] Implanted:Qty : 1 on 12/07/2021 by Negro Dover MD at [facility] N/A: Aorta GETINGE : [place] [id number] 08/23/2025 [id number] / [id number] / [id number] documented as of this encounter Advance Directives Latest Code Status on File Code Status Date Activated Date Inactivated Comments Full Code 12/07/2021 12:57 PM 12/12/2021 7:03 PM This order reflects the patients wishes and were consensually agreed upon. Question Answer Comments Discussion of Advance Directives occurred with: Not Discussed recent postop anesthesia Care Teams Document Management Consultant Relationship Specialty Start Date End Date Alexandra Sales MD [address] [place] [address] [place] [id number] PCP - General Family Medicine 02/12/19 documented as of this encounter
[2024-04-26 10:33] LABS: Troponin I High Sensitivity 4.4 pg/ml (0-20)
[2024-04-26] MEDS ORDERED: PROPOFOL IV EMULSION 10 MG/ML 20 ML VIAL IV ONE (10:51)
[2024-04-26] MEDS ORDERED: LIDOCAINE 2% 2 ML VIAL/AMP(20MG/ML) INFIL ONE (10:51)
[2024-04-26] MEDS ORDERED: ONDANSETRON INJ 2 MG/ML 2 ML VIAL ONE ×2 (10:51→14:26)
[2024-04-26] MEDS ORDERED: DEXAMETHASONE SOD INJ 4 MG/ML VIAL ONE ×2 (10:51→14:26)
[2024-04-26] MEDS ORDERED: fentaNYL citrate PF 100 MCG/2 ML VIAL ONE (10:51)
[2024-04-26] MEDS ORDERED: MIDAZOLAM HCL 1 MG/ML 2ML VIAL ONE (10:51)
[2024-04-26] MEDS: LACTATED RINGER'S 1,000 ML IV SCH (11:18)
[2024-04-26] MEDS ORDERED: ONDANSETRON INJ 2 MG/ML 2 ML VIAL IV PRN ×3 (11:29→15:47)
[2024-04-26] MEDS ORDERED: fentaNYL citrate PF 100 MCG/2 ML VIAL IV PRN (11:29)
[2024-04-26] MEDS ORDERED: HYDROmorphone INJ 1 MG/ML SYRINGE IV PRN ×2 (11:29→11:32)
[2024-04-26] MEDS ORDERED: ATROPINE SULFATE 0.1 MG/ML 10ML SYR IV PRN ×2 (11:29→11:32)
[2024-04-26] MEDS ORDERED: ePHEDrine sulfate 50 MG/ML AMP IV PRN ×2 (11:29→11:32)
--- NOTE | 2024-04-26 11:29 | Anesthesiology Consultation ---
Date of Service April 26, 2024 Assessment & Plan ASA ASA3 Proposed Anesthesia Anesthesia Type: General Risk / Benefits Reviewed With: PT / POA / Parent / Guardian, Accepts Plan and Informed Consent Obtained History Surgery Operation Date: 04/26/24 13:50 Proposed Procedures p Open Abdominal Wall Hernia Repair with Mesh - Janes Garcia MD, FACS Height/Weight Height: 5 ft 9 in Weight: 87.3 kg Allergies Allergy/AdvReac Type Severity Reaction Status Date / Time lisinopril Allergy Severe SHORT OF Verified 04/26/24 01:16 BREATH/ITCHY Medications Home Medications Medication Instructions Recorded Confirmed Last Taken albuterol sulfate 90 mcg/actuation 2 puff inhalation Q4H PRN 04/05/23 04/26/24 Unknown aerosol inhaler COUGH/WHEEZING/DYSPNEA aspirin 81 mg tablet,delayed 81 mg PO QAM 04/05/23 04/26/24 04/24/24 release atorvastatin 80 mg tablet 80 mg PO QAM 04/05/23 04/26/24 04/24/24 montelukast 10 mg tablet 10 mg PO QAM 04/05/23 04/26/24 04/24/24 (Singulair) omeprazole 20 mg capsule,delayed 20 mg PO DAILYBB 04/05/23 04/26/24 04/24/24 release sildenafil 50 mg tablet 50 mg PO DAILY PRN Sexual Activity 04/05/23 04/26/24 Unknown ezetimibe 10 mg tablet (Zetia) 10 mg PO QAM 10/18/23 04/26/24 04/24/24 metoprolol succinate 25 mg 25 mg PO QAM 10/18/23 04/26/24 04/24/24 tablet,extended release 24 hr losartan 25 mg tablet 25 mg PO QA 04/26/24 04/26/24 04/24/24 Active Medications Generic Name Dose Route Start Last Admin Trade Name Freq PRN Reason Stop Dose Admin Aspirin 81 mg 04/26/24 09:00 04/26/24 07:31 Aspirin 81 Mg Ectab PO 05/26/24 08:59 81 mg QAM EVELIN Administration Atorvastatin Calcium 80 mg 04/26/24 09:00 04/26/24 07:32 Atorvastatin 40 Mg Tab PO 05/26/24 08:59 80 mg QAM EVELIN Administration Ezetimibe 10 mg 04/26/24 09:00 04/26/24 07:32 Ezetimibe 10 Mg Tab PO 05/26/24 08:59 10 mg QAM EVELIN Administration Enoxaparin Sodium 40 mg 04/26/24 09:00 04/26/24 10:01 Enoxaparin Inj 40 Mg/0.4 Ml Syr SQ 05/26/24 08:59 Not Given QAM EVELIN Sodium Chloride 1,000 mls @ 75 mls/hr 04/26/24 01:00 04/26/24 10:42 Nss IV 04/26/24 14:19 0 mls/hr .[id number] Infusion Lactated Ringer's 1,000 mls @ 15 mls/hr 04/26/24 11:30 04/26/24 11:18 Lr IV 05/26/24 11:29 15 mls/hr .Q24H EVELIN Administration Losartan Potassium 25 mg 04/26/24 09:00 04/26/24 07:32 Losartan Potassium 25 Mg Tab PO 05/26/24 08:59 25 mg QAM EVELIN Administration Metoprolol Succinate 25 mg 04/26/24 09:00 04/26/24 07:32 Metoprolol Succ 25mg Ext Rel Tab PO 05/26/24 08:59 25 mg QAM EVELIN Administration Montelukast Sodium 10 mg 04/26/24 09:00 04/26/24 07:33 Montelukast Sodium 10 Mg Tablet PO 05/26/24 08:59 10 mg QAM EVELIN Administration Pantoprazole Sodium 40 mg 04/26/24 06:30 04/26/24 05:55 Pantoprazole 40 Mg Tab PO 05/26/24 06:29 40 mg DAILYBB EVELIN Administration NPO Date Last Intake of Fluids: 04/24/24 Time Last Intake of Fluids: 07:30 Last Intake of Fluids Comment: Water w/ AM meds Date Last Intake of Solids: 04/24/24 Exercise / Class Metabolic Activity II 4-5 Yardwork/Stairs/Walk up hill Past Family History Family History Other Diabetes Gallbladder disease Hypertension Past Anesthesia History No Hx of Anesthesia Complications and No Family Hx of Anesthesia Complications History of PONV No Hx of PONV and No Hx of Motion Sickness Social History Smoking Status: Current every day smoker Smoking cigarettes per day: 20 Do You Dip or Chew Tobacco: No Hx Alcohol Use: No Hx Substance Use: No substance use type: does not use Review of Systems denies fever/cough/ colds/ chest pain/ SOB/ ZAYRA denies ZAYRA Physical Exam Vital Signs Last Vital Signs Temp 36.8 C 04/26/24 11:08 Pulse 58 L 04/26/24 11:08 Resp 20 04/26/24 11:08 BP 114/66 04/26/24 11:08 Pulse Ox 96 04/26/24 11:08 O2 Del Method Room Air 04/26/24 11:08 ENMT Mouth: + edentulous; no TMJ abnormality and no dentition abnormality Thyromental Distance: > or= 3.5 Finger Breadths Mallampati Class: II Neck neck extension not limited Respiratory normal respiratory effort; no respiratory distress Auscultation: lungs clear to auscultation bilaterally Cardiovascular Rate/Rhythm: regular rate and regular rhythm Neurologic moves all extremities Psychiatric Orientation: alert and oriented x 3 Testing Laboratory Results 04/26/24 06:45 04/26/24 06:45 Urine Color Yellow 04/26/24 Unknown Urine Appearance Clear (Clear) 04/26/24 Unknown Urine pH 5.0 (4.5-7.5) 04/26/24 Unknown Ur Specific Crapo > 1.045 (1.000-1.030) H 04/26/24 Unknown Urine Protein Trace (Negative) H 04/26/24 Unknown Urine Glucose (UA) Negative (Negative) 04/26/24 Unknown Urine Ketones Trace (Negative) H 04/26/24 Unknown Urine Nitrite Negative (Negative) 04/26/24 Unknown Ur Leukocyte Esterase Negative (Negative) 04/26/24 Unknown Urine WBC (Auto) 0-5 /hpf (0-5) 04/26/24 Unknown Urine RBC (Auto) 0-2 /hpf (0-2) 04/26/24 Unknown U Hyaline Cast (Auto) 0-2 /lpf (0-2) 04/26/24 Unknown U Epithel Cells (Auto) 0-2 /hpf (0-2) 04/26/24 Unknown Urine Bacteria (Auto) None Seen (None Seen) 04/26/24 Unknown
--- NOTE | 2024-04-26 11:29 | Cardiology Consultation ---
Date of Consultation April 26, 2024 Assessment & Plan (1) Pre-operative cardiovascular examination, supraventricular arrhythmia: (2) SVT (supraventricular tachycardia): (3) SBO (small bowel obstruction): (4) S/P AAA repair: Plan Patient admitted with recurrent abdominal pain and findings consistent with small bowel obstruction secondary due to abdominal hernias. General Surgery Consulted who recommended hernia repair during this admission. Patient with history of SVT s/p ablation without recurrent arrhythmias. Verapamil recently transitioned to low dose metoprolol 25 mg - 1 tablet daily Continue current dose. No significant bradycardia or bradyarrhythmias on telemetry. He is asymptomatic. Currently patient has no symptoms to suggest underlying ischemic heart disease, angina, arrhythmias, or CHF. He had a recent echo in Jul 2023 with preserved EF and no significant valvular disease. He had a nuclear stress test in Jul 2023 that was negative for inducible ischemia His EKG on admission was without ischemic changes. He is followed closely by vascular with imaging of his AAA repair and PVD, both of which have been stable. Cardiovascular surgical risks discussed with patient in detail. He is considered moderate risk of perioperative cardiac complications based on his risk factors for CAD and history/co morbidities. However, he is currently optimized from a cardiac standpoint and currently without symptoms. No cardiac contraindications to proceeding with surgery for hernia repair as planned No further cardiac testing warranted. Case discussed with Dr. ePtty I spent a total of 60 minutes on the date of service in preparation, delivery, and documentation of the care provided to this patient, excluding any time spent in the performance of separately billed services. Millicent Soria PA-C Department of Cardiology, [facility] This chart was completed in part utilizing Speech Voice Recognition Software. Grammatical errors, random word insertions, pronoun errors, and incomplete sentences are an occasional consequence of this system due to software limitations, ambient noise, and hardware issues. Any formal questions or concerns about the content, text, or information contained within the body of this dictation should be directly addressed to the provider for clarification. Supervising Physician Co-Signing Physician Notes Patient seen and examined please see additional consultation placed under my name as well Assessment and plan as well outlined above Care and management personally endorsed I spent a total of 20 minutes on the date of service in preparation, delivery, and documentation of the care provided to this patient, excluding any time spent in the performance of separate History of Present Illness Reason for Consultation: Preop cardiovascular evaluation/risk assessment Requesting Physician: Marly Hospitalist - Dr. Valdes Attending Physician: Dr. Petty History of Present Illness Patient Is a 64-year-old male who who presented to the emergency department with complaints of abdominal pain. Diagnosed with small bowel obstruction in the setting of Abdominal hernia. Surgery consulted and plans for hernia repair x2 during admission. Cardiology consulted for preop risk assessment. Patient know to [facility] - Dr. Castanon and Dr. Guzman. History includes: 1. PSVT with heart rate recorded as high as 230 beats per minute on ZIO -Underwent AVNRT/SVT slow pathway modification on 10/18/[address] Guzman 2. Atypical chest discomfort in the setting of chronic ROA and limited functional capacity due to RLE claudication and COPD. -Negative nuclear stress test in Jul 2023 3. Right SFA occlusion with chronic, stable right calf claudication. No resting discomfort - Follows with vascular surger 4. AAA s/p repair (18 mm Dacron tube graft) on 12/07/21 - follows with vascular surgery 5. Dyslipidemia 6. HTN 7. Active tobacco abuse Most recent office visit with EP was several days ago. Verapamil possibly contributing to constipation and was changed to low dose metoprolol succinate 25 mg daily. he tolerated this change without issue. At time of consult today, patient resting in bed comfortably. He denies acute abdominal pain currently. He denies acute cardiac complaints. No recent exertional chest pain. Chronic but stable dyspnea reported. This was evaluated earlier this year as an outpatient and he had a negative nuclear stress test in Jul 2023 and also had an echo with normal LVEF and No significant valvular heart disease. No recent sustained palpitations or tachypalpitations. Rare fluttering noted, non sustained. EKG on arrival demonstrated sinus bradycardia, HR of 54. On telemetry, his HR has ranged 56 -70's. No significant bradycardia. Allergies Allergy/AdvReac Type Severity Reaction Status Date / Time lisinopril Allergy Severe SHORT OF Verified 04/26/24 01:16 BREATH/ITCHY Home Medications Medication Instructions Recorded Confirmed Type albuterol sulfate 90 mcg/actuation 2 puff inhalation Q4H PRN 04/05/23 04/26/24 History aerosol inhaler COUGH/WHEEZING/DYSPNEA aspirin 81 mg tablet,delayed 81 mg PO QAM 04/05/23 04/26/24 History release atorvastatin 80 mg tablet 80 mg PO QAM 04/05/23 04/26/24 History montelukast 10 mg tablet 10 mg PO QAM 04/05/23 04/26/24 History (Singulair) omeprazole 20 mg capsule,delayed 20 mg PO DAILYBB 04/05/23 04/26/24 History release sildenafil 50 mg tablet 50 mg PO DAILY PRN Sexual Activity 04/05/23 04/26/24 History ezetimibe 10 mg tablet (Zetia) 10 mg PO QAM 10/18/23 04/26/24 History metoprolol succinate 25 mg 25 mg PO QAM 10/18/23 04/26/24 History tablet,extended release 24 hr losartan 25 mg tablet 25 mg PO QAM 04/26/24 04/26/24 History Patient History Family History Other Diabetes Gallbladder disease Hypertension Social History Smoking Status: Current every day smoker Tobacco Type: Cigarettes Cigarettes Per Day: 20; Do You Dip or Chew Tobacco: No; Hx Alcohol Use: No Hx Substance Use: No Preferred Language: Swedish 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 Current Living Situation: Alone Feels Safe at Home: Yes Safety Concerns: Feels Safe At This Time Assistive Devices: Denture - Upper, Denture - Lower, Glasses and Hearing Aid - Bilateral Review of Systems Review of Systems: All systems reviewed & are unremarkable except as noted in HPI & below Physical Exam Constitutional: WD/WN, vitals as above average body habitus; no acute distress Neck: normal visual inspection Respiratory: normal respiratory effort; no respiratory distress Auscultation: + wheezes (scattered expiratory wheeze) Cardiovascular: Rate/Rhythm: regular rate and regular rhythm Heart Sounds: normal S1 and normal S2; no murmur Vessels: no JVD Extremities: no edema Gastrointestinal (Abdomen): Inspection/Auscultation: normal bowel sounds Percussion/Palpation: abdomen soft and + hernia (x2) Musculoskeletal: no cyanosis or clubbing, extremities motor strength 5/5 Neurologic: PERRL, EOMI, accommodation nl, no face palsy, no dysarthria Results & Data Vital Signs (Past 12 Hours) Vital Signs Temp Pulse Pulse Resp BP Pulse Ox O2 Del Method 04/26/24 11:08 36.8 C 58 L 20 114/66 96 Room Air 04/26/24 07:57 36.3 C L 60 18 124/75 94 Room Air 04/26/24 07:35 Room Air 04/26/24 07:00 64 04/26/24 04:51 65 04/26/24 04:16 Room Air 04/26/24 02:27 36.6 C 60 18 153/80 H 95 Room Air 04/26/24 02:18 Room Air 04/26/24 01:57 66 18 124/78 94 Room Air 04/25/24 23:55 61 20 96 Room Air 04/25/24 23:55 61 20 146/80 H 96 Room Air 04/25/24 23:54 59 L Laboratory Results Cardiac Enzymes 04/25/24 04/26/24 Range/Units 21:39 06:45 AST 16 (13-39) U/L Troponin I High Sens 4.4 (0-20) pg/ml CBC 04/25/24 04/26/24 Range/Units 21:39 06:45 WBC 13.15 H 9.06 (4.8-10.8) K/ul RBC 5.27 4.75 (4.70-6.10) M/uL Hgb 16.9 15.1 (14.0-18.0) g/dl Hct 49.4 45.8 (42.0-52.0) % Plt Count 238 183 (130-400) K/uL Neut # (Auto) 9.06 H 5.19 (1.40-6.50) K/uL Lymph # (Auto) 2.87 2.77 (1.20-3.40) K/uL Pima # (Auto) 0.73 H 0.64 H (0.11-0.59) K/uL Eos # (Auto) 0.32 0.36 (0.00-0.50) K/uL Baso # (Auto) 0.12 0.07 (0.00-0.20) K/uL Comprehensive Metabolic Panel 04/25/24 04/26/24 Range/Units 21:39 06:45 Sodium 140 142 (136-145) mmol/L Potassium 4.0 3.9 (3.5-5.1) mmol/L Chloride 105 107 (98-107) mmol/L Carbon Dioxide 28 29 (21-32) mmol/L BUN 17 17 (6-23) mg/dl Creatinine 1.08 1.16 (0.6-1.4) mg/dl Glucose 91 82 (70-99(Fasting)) mg/dl Calcium 9.3 8.8 (8.6-10.3) mg/dl AST 16 (13-39) U/L ALT 15 (7-52) U/L Alkaline Phosphatase 116 H (34-104) U/L Total Protein 7.5 (6.0-8.3) gm/dl Albumin 4.4 (3.4-5.0) gm/dl Intake and Output 04/25/24 04/26/24 04/26/24 22:59 06:59 14:59 Intake Total 662.5 / 662.5 Output Total 0 / 0 Balance 662.5 / 662.5 Intake: IV 602.5 / 602.5 Sodium Chloride 0.9% 1,000 ml @ 602.5 / 602.5 75 mls/hr IV .[id number] Rx#: [id number] Oral 60 / 60 Output: # Bowel Movements 0 / 0 Other: Other Intake Source npo Water w/ AM meds # Unmeasured Voids 1 Weight 86.9 kg 87.3 kg 87.3 kg Weight Measurement Method Standing Scale Patient Weight 04/27/24 06:59 Weight 87.3 kg Diagnostic Findings Telemetry reviewed: sinus onelia and NSR with HR ranging 56 to 65 bmp. No arrhythmias. No symptomatic bradycardia, pauses or high degree AV block. EKG reviewed from admission: Sinus bradycardia 54 bpm Otherwise normal EKG No ischemic changes noted. Abdomen/Pelvis CT 04/25/24 22:02 IMPRESSION: Low-grade small bowel obstruction secondary to 2 separate loops of small bowel contained within supra and infraumbilical anterior abdominal wall hernias. Electronically signed by: Tanner Herbert MD 04/26/24 00:07 AM Prior outside data reviewed: Nuclear stress test report reviewed dated July 2023: Interpretation Summary Lexiscan nuclear stress test is negative for ischemia or scar. Gated SPECT images reveals normal myocardial thickening and wall motion. The LV ejection fraction is calculated at >70%. Echocardiogram report reviewed dated July 2023: Interpretation Summary The qualitative LV ejection fraction is 55-59% (normal). The left ventricular diastolic function is normal. No significant valvular disease is present. Compared to prior study of 11/08/2021, there is no significant change. Aortic duplex report reviewed dated March 2023: IMPRESSION : There is no evidence of an abdominal aortic aneurysm., Abdominal aortic ectasia of 2.6 cm. Recommend follow-up aortic ultrasound in five years for further evaluation of ectasia. Medications Administered Current Inpatient Medications Acetaminophen (Acetaminophen 325 Mg Tab) 650 mg PO QID PRN PRN Reason: pain/fever Stop: 05/26/24 00:59 Aspirin (Aspirin 81 Mg Ectab) [facility] [place] Stop: 05/26/24 08:59 Last Admin: 04/26/24 07:31 Dose: 81 mg Atorvastatin Calcium (Atorvastatin 40 Mg Tab) 80 mg [facility] [place] Stop: 05/26/24 08:59 Last Admin: 04/26/24 07:32 Dose: 80 mg Atropine Sulfate (Atropine Sulfate 0.1 Mg/Ml 10ml Syr) 0.5 mg IV Q1M PRN PRN Reason: PACU Use-HR<40 &/or Bradycardi Stop: 04/26/24 19:32 Ezetimibe (Ezetimibe 10 Mg Tab) 10 mg [facility] [place] Stop: 05/26/24 08:59 Last Admin: 04/26/24 07:32 Dose: 10 mg Enoxaparin Sodium (Enoxaparin Inj 40 Mg/0.4 Ml Syr) 40 mg SQ QAM [facility] Stop: 05/26/24 08:59 Last Admin: 04/26/24 10:01 Dose: Not Given Ephedrine Sulfate (Ephedrine Sulfate 50 Mg/Ml Amp) 5 mg IV Q5M PRN PRN Reason: PACU Use Only-SBP<90 mmHg Stop: 04/26/24 19:32 Fentanyl Citrate (Fentanyl Citrate Pf 100 Mcg/2 Ml Vial) 50 mcg IV Q5M PRN PRN Reason: PACU Use Only-Pain Stop: 04/26/24 19:32 Hydromorphone HCl (Hydromorphone Inj 1 Mg/Ml Syringe) 0.25 mg IV Q5M PRN PRN Reason: PACU Use Only-Pain Stop: 04/26/24 19:32 Sodium Chloride (Nss) 1,000 mls @ 75 mls/hr IV .[id number] ONE Stop: 04/26/24 14:19 Last Infusion: 04/26/24 10:42 Dose: 0 mls/hr Promethazine HCl (Phenergan) 6.25 mg in 50.25 mls @ 201 mls/hr IV Q6H PRN PRN Reason: Nausea And Vomiting Stop: 05/26/24 00:59 Sodium Chloride (Nss) 1,000 mls @ 75 mls/hr IV .[id number] EVELIN Stop: 05/26/24 13:59 Lactated Ringer's (Lr) 1,000 mls @ 15 mls/hr IV .Q24H [facility] Stop: 05/26/24 11:29 Last Admin: 04/26/24 11:18 Dose: 15 mls/hr Ketorolac Tromethamine (Ketorolac Tromethamine 15 Mg/Ml Vial) 15 mg IV Q6H PRN PRN Reason: Pain Stop: 05/01/24 00:59 Lorazepam (Lorazepam 0.5 Mg Tab) 0.5 mg PO TID PRN PRN Reason: Anxiety Stop: 05/26/24 00:59 Losartan Potassium (Losartan Potassium 25 Mg Tab) [address] [facility] Stop: 05/26/24 08:59 Last Admin: 04/26/24 07:32 Dose: 25 mg Metoprolol Succinate (Metoprolol Succ 25mg Ext Rel Tab) 25 mg PO [facility] [place] Stop: 05/26/24 08:59 Last Admin: 04/26/24 07:32 Dose: 25 mg Montelukast Sodium (Montelukast Sodium 10 Mg Tablet) [address] [facility] Stop: 05/26/24 08:59 Last Admin: 04/26/24 07:33 Dose: 10 mg Ondansetron HCl (Ondansetron Inj 2 Mg/Ml 2 Ml Vial) 4 mg IV ONCE PRN PRN Reason: PACU Use Only-Nausea/Vomiting Stop: 04/26/24 19:32 Pantoprazole Sodium (Pantoprazole 40 Mg Tab) [facility]: 05/26/24 06:29 Last Admin: 04/26/24 05:55 Dose: 40 mg
--- NOTE | 2024-04-26 11:43 | Cardiology Consultation ---
Date of Consultation April 26, 2024 Assessment & Plan (1) Pre-operative cardiovascular examination, supraventricular arrhythmia: (2) SBO (small bowel obstruction): (3) Hernia: (4) S/P AAA repair: (5) COPD (chronic obstructive pulmonary disease): Plan Patient is a 64-year-old male referred for preoperative evaluation prior to planned necessary surgery for incarcerated hernia, small bowel obstruction. No cardiac contraindications to surgery. No recent myocardial infarction, congestive heart failure, angina or sustained arrhythmias. No valvular disease with preserved LV systolic function EKG normal Functional capacity approximately 5 METS or greater Patient has vascular risk factors given known abdominal aneurysm and peripheral vascular disease as well as underlying obstructive lung disease Most recent issues of atrial arrhythmias controlled other than brief episodes of atrial tachycardia. Has received beta-héctor this morning Recommendations: Proceed with surgery at mild to moderately increased risk secondary to underlying morbidities only No cardiac contraindication Continue prehospital medications with metoprolol succinate at 25 mg/day History of Present Illness Reason for Consultation: Preoperative cardiovascular evaluation Requesting Physician: Marly zapien Attending Physician: Jerri Valdes MD History of Present Illness Patient is a 64-year-old male referred for preoperative evaluation prior to planned surgical repair/small bowel obstruction Ongoing chronic cardiac concerns include 1. 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 Hypertension 3. Hyperlipidemia 4. Chronic obstructive lung disease with ongoing tobacco use 5. Atherosclerotic peripheral vascular disease status post surgical abdominal aortic aneurysm repair with Dacron tube graft 12/07/2021. 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 Patient has been having intermittent difficulties with constipation and abdominal pain. Medications recently switched from verapamil to metoprolol succinate due to concerns with little change in symptom No history of myocardial infarction, TIA or stroke No recent angina, congestive heart failure. No history of significant valvular disease or LV dysfunction No sustained arrhythmias No renal dysfunction Functional capacity above 5 METS Prior stress nuclear imaging July 2023 negative for ischemia with known normal LV systolic function EKG normal Patient received a.m. meds this morning Allergies Allergy/AdvReac Type Severity Reaction Status Date / Time lisinopril Allergy Severe SHORT OF Verified 04/26/24 01:16 BREATH/ITCHY Home Medications Medication Instructions Recorded Confirmed Type albuterol sulfate 90 mcg/actuation 2 puff inhalation Q4H PRN 04/05/23 04/26/24 History aerosol inhaler COUGH/WHEEZING/DYSPNEA aspirin 81 mg tablet,delayed 81 mg PO QAM 04/05/23 04/26/24 History release atorvastatin 80 mg tablet 80 mg PO QAM 04/05/23 04/26/24 History montelukast 10 mg tablet 10 mg PO QAM 04/05/23 04/26/24 History (Singulair) omeprazole 20 mg capsule,delayed 20 mg PO DAILYBB 04/05/23 04/26/24 History release sildenafil 50 mg tablet 50 mg PO DAILY PRN Sexual Activity 04/05/23 04/26/24 History ezetimibe 10 mg tablet (Zetia) 10 mg PO QAM 10/18/23 04/26/24 History metoprolol succinate 25 mg 25 mg PO QAM 10/18/23 04/26/24 History tablet,extended release 24 hr losartan 25 mg tablet 25 mg PO QAM 04/26/24 04/26/24 History Patient History Family History Other Diabetes Gallbladder disease Hypertension Social History Smoking Status: Current every day smoker Tobacco Type: Cigarettes Cigarettes Per Day: 20; Do You Dip or Chew Tobacco: No; Hx Alcohol Use: No Hx Substance Use: No Preferred Language: [place] Oracle Bpm Consultant Required: No Current Living Situation: Alone Feels Safe at Home: Yes Safety Concerns: Feels Safe At This Time Assistive Devices: Denture - Upper, Denture - Lower, Glasses and Hearing Aid - Bilateral Physical Exam Constitutional: WD/WN, vitals as above no acute distress Eyes: PERRL, conjunctivae normal, anicteric sclerae ENMT: external ear and nose normal, oropharynx normal Neck: trachea midline, no thyromegaly Respiratory: normal respiratory effort, lungs clear to auscultation Auscultation: + diminished lung sounds Cardiovascular: Rate/Rhythm: regular rate and regular rhythm Heart Sounds: normal S1 and normal S2; no gallop and no murmur Palpation: normal PMI Vessels: normal carotid upstroke and radial pulses present; no JVD and no carotid bruit Extremities: no edema Diminished pulses right lower extremity Gastrointestinal (Abdomen): Inspection/Auscultation: + abdominal surgical scar Percussion/Palpation: + abdomen tender and + guarding Musculoskeletal: no cyanosis or clubbing, extremities motor strength 5/5 Skin: no rashes, warm and dry Neurologic: PERRL, EOMI, accommodation nl, no face palsy, no dysarthria Psychiatric: A+Ox3, euthymic affect Results & Data Vital Signs (Past 12 Hours) Vital Signs Temp Pulse Pulse Resp BP Pulse Ox O2 Del Method 04/26/24 11:08 36.8 C 58 L 20 114/66 96 Room Air 04/26/24 07:57 36.3 C L 60 18 124/75 94 Room Air 04/26/24 07:35 Room Air 04/26/24 07:00 64 04/26/24 04:51 65 04/26/24 04:16 Room Air 04/26/24 02:27 36.6 C 60 18 153/80 H 95 Room Air 04/26/24 02:18 Room Air 04/26/24 01:57 66 18 124/78 94 Room Air 04/25/24 23:55 61 20 96 Room Air 04/25/24 23:55 61 20 146/80 H 96 Room Air 04/25/24 23:54 59 L Laboratory Results Laboratory Results - last 24 hr 04/25/24 04/26/24 04/26/24 21:39 00:12 06:45 WBC 13.15 H 9.06 RBC 5.27 4.75 Hgb 16.9 15.1 Hct 49.4 45.8 MCV 93.7 96.4 MCH 32.1 31.8 MCHC 34.2 33.0 RDW Std Deviation 48.4 H 50.1 H RDW Coeff of Mega 13.9 14.1 Plt Count 238 183 MPV 11.1 10.9 Immature Gran % (Auto) 0.4 0.3 Neut % (Auto) 68.9 57.2 Lymph % (Auto) 21.8 30.6 Ceiba % (Auto) 5.6 7.1 Eos % (Auto) 2.4 4.0 Baso % (Auto) 0.9 0.8 Neut # (Auto) 9.06 H 5.19 Lymph # (Auto) 2.87 2.77 Ceiba # (Auto) 0.73 H 0.64 H Eos # (Auto) 0.32 0.36 Baso # (Auto) 0.12 0.07 Immature Gran # (Auto) 0.05 0.03 Sodium 140 142 Potassium 4.0 3.9 Chloride 105 107 Carbon Dioxide 28 29 Anion Gap 7 6 BUN 17 17 Creatinine 1.08 1.16 Est Cr Clr Drug Dosing 74.4 69.5 eGFR 76.16 69.90 BUN/Creatinine Ratio 15.7 14.7 Glucose 91 82 Lactate 0.8 Calcium 9.3 8.8 Magnesium 2.0 Total Bilirubin 0.8 AST 16 ALT 15 Alkaline Phosphatase 116 H Troponin I High Sens 4.4 Total Protein 7.5 Albumin 4.4 Globulin 3.1 Albumin/Globulin Ratio 1.4 Lipase 27 Urine Color Urine Appearance Urine pH Ur Specific [place] Urine Protein Urine Glucose (UA) Urine Ketones Urine Blood Urine Nitrite Urine Bilirubin Urine Urobilinogen Ur Leukocyte Esterase Urine WBC (Auto) Urine RBC (Auto) U Hyaline Cast (Auto) U Epithel Cells (Auto) Urine Bacteria (Auto) 04/26/24 Unknown WBC RBC Hgb Hct MCV MCH MCHC RDW Std Deviation RDW Coeff of Mega Plt Count MPV Immature Gran % (Auto) Neut % (Auto) Lymph % (Auto) [place] % (Auto) Eos % (Auto) Baso % (Auto) Neut # (Auto) Lymph # (Auto) Ce[place] # (Auto) Eos # (Auto) Baso # (Auto) Immature Gran # (Auto) Sodium Potassium Chloride Carbon Dioxide Anion Gap BUN Creatinine Est Cr Clr Drug Dosing eGFR BUN/Creatinine Ratio Glucose Lactate Calcium Magnesium Total Bilirubin AST ALT Alkaline Phosphatase Troponin I High Sens Total Protein Albumin Globulin Albumin/Globulin Ratio Lipase Urine Color Yellow Urine Appearance Clear Urine pH 5.0 Ur Specific [place] > 1.045 H Urine Protein Trace H Urine Glucose (UA) Negative Urine Ketones Trace H Urine Blood Negative Urine Nitrite Negative Urine Bilirubin Negative Urine Urobilinogen Negative Ur Leukocyte Esterase Negative Urine WBC (Auto) 0-5 Urine RBC (Auto) 0-2 U Hyaline Cast (Auto) 0-2 U Epithel Cells (Auto) 0-2 Urine Bacteria (Auto) None Seen Diagnostic Findings Lexiscan stress nuclear imaging 07/27/2023 Interpretation Summary Lexiscan nuclear stress test is negative for ischemia or scar. Gated SPECT images reveals normal myocardial thickening and wall motion. The LV ejection fraction is calculated at >70%. Echocardiogram 07/27/2023 The qualitative LV ejection fraction is 55-59% (normal). The left ventricular diastolic function is normal. No significant valvular disease is present. Compared to prior study of 11/08/2021, there is no significant change. EKG 04/26/2024 Sinus bradycardia 54 bpm with otherwise normal trace
[2024-04-26] MEDS: ceFAZolin 2,000 MG/15 ML IV PUSH IV ONE (12:07)
[2024-04-26] MEDS ORDERED: ALBUTEROL HFA 8 GM INHALER INH ONE (12:17)
[2024-04-26] MEDS ORDERED: ePHEDrine sulfate 50 MG/5 ML SYR ONE ×2 (12:37→14:26)
[2024-04-26] MEDS ORDERED: ROCURONIUM BROMIDE 10 MG/ML 5 ML VIAL IV ONE (12:37)
[2024-04-26] MEDS ORDERED: SUCCINYLCHOLINE 100MG/5ML SYR IV ONE (12:37)
[2024-04-26] MEDS ORDERED: SUGAMMADEX SODIUM 200 MG/2 ML VIAL IV ONE (12:39)
--- NOTE | 2024-04-26 13:04 | Hospitalist Progress Note ---
Date of Service April 26, 2024 Assessment & Plan (1) SBO (small bowel obstruction): Plan Pt is a 64yoM with past medical history significant for SVT status post ablation, hypertension, hyperlipidemia, PVD status post surgery, COPD, GERD, hiatal hernia, ongoing tobacco abuse admitted with SBO in the setting of abdominal hernias. SBO Abdominal hernias Patient presenting with right-sided abdominal pain, nausea and vomiting and alternating diarrhea versus constipation CT abdomen pelvis noting low-grade SBO in the setting of loops of bowel contained in supra and infraumbilical abdominal hernias. Lactate normal Bowel rest, pt NPO General surgery consulted, appreciate recs - will proceed with surgery, requesting cardiology surgical clearance/optimization. Cardiology consulted, appreciate recs. Continue metoprolol succinate 25 mg daily -Status post abdominal hernia repair on 04/26/2024 -Per general surgery, keep patient n.p.o. after surgery due to unexpected findings Continue IV fluids, PRN IV pain control and antiemetics Continue to monitor hx SVT status post ablation 10/18/2023 continue metoprolol succinate 25 mg daily Hypertension continue metoprolol succinate 25 mg daily, losartan Hyperlipidemia on statin Rx PVD AAA status post surgery Diet: NPO at this time per Gen surg DVT prophylaxis: Lovenox subcu Dispo: PT/OT once medically stable for further recs Admission and Anticipated Discharge Date Admission Date: April 26, 2024 Subjective Patient was seen sitting in bed. Denied acute concerns. Denied abdominal pain at that time. Denied chest pain, shortness of breath Review of Systems Review of Systems: All systems reviewed & are unremarkable except as noted in Subjective Physical Exam Physical Exam: General: Alert, oriented. No acute distress Psych: Appropriate mood and affect Neuro: No gross deficits HEENT: NC/AT CV: RRR Resp: Breath sounds clear bilaterally, no increased effort of breathing. Abdomen: Soft, tender in R upper and lower quadrants Extremities: trace edema in lower extremities bilaterally. Results & Data Results & Data Vital Signs (Past 12 Hours) Vital Signs Temp Pulse Pulse Resp BP Pulse Ox O2 Del Method 04/26/24 11:08 36.8 C 58 L 20 114/66 96 Room Air 04/26/24 07:57 36.3 C L 60 18 124/75 94 Room Air 04/26/24 07:35 Room Air 04/26/24 07:00 64 04/26/24 04:51 65 04/26/24 04:16 Room Air 04/26/24 02:27 36.6 C 60 18 153/80 H 95 Room Air 04/26/24 02:18 Room Air 04/26/24 01:57 66 18 124/78 94 Room Air Diagnostic Findings Abdomen/Pelvis CT 04/25/24 22:02 Exam(s): CT ABDOMEN + PELVIS With Contrast IV Amt: 93 ml optiray 320 EXAM: CT Abdomen and Pelvis With Intravenous Contrast CLINICAL HISTORY: Reason for exam: RLQ abd pain. TECHNIQUE: Axial computed tomography images of the abdomen and pelvis with intravenous contrast. CTDI is 24.58 mGy and DLP is 1194.46 mGy-cm. Automated exposure control was utilized for the study. A dose lowering technique was utilized adhering to the principles of ALARA. CONTRAST: Patient received 93 ml optiray 320 of IV contrast COMPARISON: 07/11/2017 FINDINGS: Lung bases: Unremarkable. No mass. No consolidation. ABDOMEN: Liver: Unremarkable. No mass. Gallbladder and bile ducts: Postoperative changes prior cholecystectomy. No ductal dilation. Pancreas: Unremarkable. No mass. No ductal dilation. Spleen: Unremarkable. No splenomegaly. Adrenals: Unremarkable. No mass. Kidneys and ureters: Unremarkable. No solid mass. No hydronephrosis. Stomach and bowel: Low-grade small bowel obstruction centered on a infraumbilical and periumbilical hernias. The loops of bowel contained within the hernia demonstrate no focal distention but there is collapse of the small bowel is it exits the hernia. No mucosal thickening. PELVIS: Appendix: No findings to suggest acute appendicitis. Bladder: Unremarkable. No mass. Reproductive: Unremarkable as visualized. ABDOMEN and PELVIS: Intraperitoneal space: Unremarkable. No free air. No significant fluid collection. Bones/joints: No acute fracture. No dislocation. Soft tissues: See above. Vasculature: Unremarkable. No abdominal aortic aneurysm. Lymph nodes: Unremarkable. No enlarged lymph nodes. IMPRESSION: Low-grade small bowel obstruction secondary to 2 separate loops of small bowel contained within supra and infraumbilical anterior abdominal wall hernias. Electronically signed by: Tanner Herbert MD 04/26/24 00:07 AM
[2024-04-26] MEDS ORDERED: KETOROLAC 30 MG/ML VIAL ONE (14:18)
--- NOTE | 2024-04-26 14:18 | Post Operative Brief Note ---
Immediate Post Op Note Date of Surgery April 26, 2024 Pre & Post Diagnosis Operation Date: 04/26/24 13:50 Pre-Op Diagnosis: Small Bowel Obstruction, Abdominal Wall Hernia Post-Op Diagnosis: Small Bowel Obstruction, Abdominal Wall Hernia I identified the patient and participated in the time-out.: Yes Procedure Operation Date: 04/26/24 13:50 Actual Procedures p Open incarcerated incisional hernia x 2, lysis of adhesions, repair incercerated hernia with marlex mesh(Not Applicable) - Janes Garcia MD, FACS Surgeon Janes Garcia MD, FACS Food Taster Brenda LI Estimated Blood Loss 30 Findings Consistent with Post-Op Diagnosis Drains Migue Drain (19 Amharic Migue drain inserted into abdomen during procedure by Dr. Garcia)
[2024-04-26] MEDS: BUPIVACAINE 0.5 % 5 MG/1 ML MPF 30ML VIAL ONE (14:22)
[2024-04-26] MEDS: LIDOCAINE 1% LOCAL 20 ML VIAL ONE (14:22)
--- NOTE | 2024-04-26 14:35 | Operative Report ---
PG Post Operative Report Pre & Post Diagnosis Operation Date: 04/26/24 13:50 Pre-Op Diagnosis: Small Bowel Obstruction, Abdominal Wall Hernia Post-Op Diagnosis: Small Bowel Obstruction, Abdominal Wall Hernia I identified the patient and participated in the time-out.: Yes Procedure Operation Date: 04/26/24 13:50 Actual Procedures p Open incarcerated incisional hernia x 2, lysis of adhesions, repair incercerated hernia with marlex mesh(Not Applicable) - Janes Garcia MD, FACS Patient was brought into the operating theater supine position general trach anesthesia systemic antibiotics on board patient identified timeout was had after we have prepped the abdomen Betadine scrub and solution properly draped made a linear incision through the old scar extending approximately 10 cm around the umbilical crater for clinically the patient had a hernia at approximately 7 o'clock position and another hernia of the 12 o'clock position went through subcutaneous tissue significant amount of scar tissue was appreciated we elevated the scar tissue and dissected out through the subcu until we were able to identify the hernial sac inferiorly with small bowel strictly adherent to the hernial sac could be reduced to the into the abdomen easily but we needed to dissected out underneath the hernial defect we were finished the most inferior hernia with defect was approximately 4 cm once this had been completed for dissection onto the abdominal wall we identified another hernia just cephalad to this similarly had a small bowel contents that was easily reducible we dissected out underneath the hernial defect and identified that this defect was approximately 2 cm we then elected to bring these to the defects together with a total of approximately 6 cm defect we then dissected more cephalad since clinically had another hernia and we were able to then identified a similar fashion hernia with small bowel contents acutely reducible adhesions to the anterior abdominal wall and the hernial defect were taken down avoiding the bowel we were dilated approximately 3 cm defect with generously dissecting the subcutaneous tissue away from the abdominal wall well beyond so that we were free. The initial hernias in anticipation that we would likely reinforce the area or Marlex mesh we then closed the inferior hernia first using 0 PDS interrupted suture we did this transversely is relatively tension-free and then similarly we closed the upper hernia in a similar fashion using 0 PDS interrupted suture that we brought in a sheet of Marlex mesh and sutured it onto the lateral aspect of the rectus fascia in both areas overlapping defect approximately 2 to 3 cm circumferentially we tacked this down with an 0 Prolene suture the repair appeared solid without any significant tension the subcutaneous tissue was then closed after we placed a Migue drain through a separate incision at 5 o'clock position stab wound on top of the mesh usin 2-0 Vicryl we were able then to approximate the subcutaneous tissue onto the fascia and the mesh with interrupted sutures and we continued with a continuous suture in the subcutaneous corner midline mert for skin edges dressing was applied procedure was tolerated well by patient estimate blood loss 30 cc addendum The total incisional hernia x 2 one 6 cm the other 3 cm AddendumC Sid LI was present throughout the procedure and helped the retraction exposure wound closure Spoke with his [id number] Jory at [phone] Surgeon Janes Garcia MD, FACS Contract Associate Manager Brenda LI Estimated Blood Loss 30 Findings Consistent with Post-Op Diagnosis 3 abdominal wall defects incarcerated hernias inferior to 2 hernias were united 1 single defect was approximately 6 cm another defect approximately 3 cm was cephalad to that both at incarcerated but partially reducible small bowel Specimens Hernial sac scar tissue Drains 19 Migue subcutaneous Complications None Indications Recurrent intermittent small bowel obstruction Description of Procedure merda I attest to the content of the Intraoperative Record and any orders documented therein. Any exceptions are noted below.
[2024-04-26] MEDS: fentaNYL citrate PF 100 MCG/2 ML VIAL IV PRN (14:46)
--- NOTE | 2024-04-26 15:11 | Anesthesiology Progress Note ---
Date of Service April 26, 2024 Anesthesia Post Procedure Vital Signs Vital Signs: Temp Pulse Pulse Resp BP BP BP 04/26/24 15:05 81 16 131/71 04/26/24 14:55 71 16 136/83 04/26/24 14:45 72 16 138/75 04/26/24 14:37 36.0 C L 75 16 128/64 04/26/24 11:08 36.8 C 58 L 20 114/66 04/26/24 07:57 36.3 C L 60 18 124/75 04/26/24 07:35 04/26/24 07:00 64 04/26/24 04:51 65 04/26/24 04:16 04/26/24 02:27 36.6 C 60 18 153/80 H 04/26/24 02:18 04/26/24 01:57 66 18 124/78 04/25/24 23:55 61 20 04/25/24 23:55 61 20 146/80 H 04/25/24 23:54 59 L 04/25/24 21:18 36.6 C 77 18 125/85 Pulse Ox O2 Del Method O2 Flow Rate 04/26/24 15:05 97 Nasal Cannula 2 04/26/24 14:55 98 Oxymask 5 04/26/24 14:45 96 Oxymask 9 04/26/24 14:37 94 Oxymask 9 04/26/24 11:08 96 Room Air 04/26/24 07:57 94 Room Air 04/26/24 07:35 Room Air 04/26/24 07:00 04/26/24 04:51 04/26/24 04:16 Room Air 04/26/24 02:27 95 Room Air 04/26/24 02:18 Room Air 04/26/24 01:57 94 Room Air 04/25/24 23:55 96 Room Air 04/25/24 23:55 96 Room Air 04/25/24 23:54 04/25/24 21:18 96 Room Air Pain Intensity Abdomen: Pain Intensity: 4 Transfer of Care Handoff Completed per policy Notes Mental Status: alert / awake / arousable Patient Amnestic to Procedure: Yes Nausea / Vomiting: adequately controlled Pain: adequately controlled Airway Patency, RR, SpO2: stable & adequate BP & HR: stable & adequate Hydration State: stable & adequate Anesthetic Complications: no major complications apparent
[2024-04-26] MEDS ORDERED: ACETAMINOPHEN 1,000 MG/100 ML VIAL IV PRN (15:47)
[2024-04-26] MEDS ORDERED: MoRPHine SULFATE 4 MG/ML 1 ML CARP\\VIAL IV PRN (15:47)
[2024-04-26] MEDS: SODIUM CHLORIDE 0.9% 1,000 ML IV SCH (15:49)
[2024-04-26] MEDS: PROMETHAZINE 6.25 MG/50.25 ML BAG IV PRN (16:23)
--- NOTE | 2024-04-26 18:40 | Electrocardiogram Report ---
Test Reason : Blood Pressure : */* mmHG Vent. Rate : 54 BPM Atrial Rate : 54 BPM P-R Int : 194 ms QRS Dur : 82 ms QT Int : 430 ms P-R-T Axes : 57 55 36 degrees QTcB Int : 407 ms Sinus bradycardia Otherwise normal ECG When compared with ECG of 18-Oct-2023 14:36, SC interval has decreased Confirmed by Dave Herring ([id number]) on 04/26/2024 6:39:59 PM Referred By: REFERRED SELF Confirmed By: Dave Herring
[2024-04-26] MEDS: KETOROLAC TROMETHAMINE 15 MG/ML VIAL IV PRN (19:38)
[2024-04-26] MEDS: ceFAZolin 2000MG 2,000 MG/15 ML SYR IV SCH (19:47)
[2024-04-26] MEDS: HEPARIN SOD 5,000 UNIT/0.5 ML VIAL SQ SCH (21:50)
[2024-04-27] MEDS: MoRPHine SULFATE 2 MG/ML CARP IV PRN (01:30)
[2024-04-27 06:01] LABS: Basophils # (auto) 0.03 K/uL (0.00-0.20); Basophils % (auto) 0.2 %; Hematocrit (blood only) 42.8 % (42.0-52.0); Hemoglobin 13.8 g/dl (14.0-18.0); Immature Granulocytes # (auto) 0.05 K/uL (0.01-0.20); Immature Granulocytes % (auto) 0.4 %; Lymphocytes # (auto) 1.38 K/uL (1.20-3.40); Lymphocytes % (auto) 10.8 %; Mean Corpuscular Hemoglobin 31.5 pg (25.0-34.0); Mean Corpuscular Hgb Conc 32.2 g/dL (32.0-36.0); Mean Corpuscular Volume 97.7 fL (80.0-100.0); Monocytes # (auto) 0.72 K/uL (0.11-0.59); Monocytes % (auto) 5.6 %; Neutrophils # (auto) 10.58 K/uL (1.40-6.50); Platelet Count 182 K/uL (130-400); RDW Coefficient of Variation 13.9 % (11.5-14.5); RDW Standard Deviation 50.3 fL (36.4-46.3); Red Blood Count 4.38 M/uL (4.70-6.10); White Blood Count 12.76 K/ul (4.8-10.8)
[2024-04-27 06:19] LABS: Albumin Globulin Ratio 1.5 (0.9-2); Albumin Level 3.8 gm/dl (3.4-5.0); Bilirubin,Total 0.5 mg/dl (0.2-1.0); Calcium 8.4 mg/dl (8.6-10.3); Globulin 2.5 gm/dl (2.5-4.0); Magnesium 1.9 mg/dl (1.7-2.4); Phosphorus 4.3 mg/dl (2.5-4.9); Potassium 4.5 mmol/L (3.5-5.1); Total Protein 6.3 gm/dl (6.0-8.3)
--- NOTE | 2024-04-27 09:41 | Surgery Progress Note ---
Date of Service April 27, 2024 Assessment & Plan (1) SBO (small bowel obstruction): Plan: Patient is postop day #1 for open repair of incisional hernia x 2 with Marlex mesh onlay The operative findings was explained to the patient specifically stating what we have found in the surgical repair At this point we will start a diet leave the Migue drain in for today and tentatively plan to discharge the patient tomorrow All question answered Plan Increase activity as tolerated Start patient on full liquid advance as tolerated Likely plan for discharge tomorrow Admission and Anticipated Discharge Date Admission Date: April 26, 2024 Subjective Patient feels fine like to get started denies any nausea any tolerable Physical Exam Physical Exam: Alert coherent resting comfortable no distress Abdomen soft no localized tenderness dressing removed mert intact no ecchymosis Migue drain approximately 30 cc serosanguineous Results & Data Vital Signs (Past 12 Hours) Vital Signs Temp Pulse Pulse Resp BP Pulse Ox O2 Del Method 04/27/24 08:32 50 L 04/27/24 08:12 36.5 C 59 L 18 119/69 94 Room Air 04/27/24 02:54 36.6 C 67 18 107/67 92 Room Air 04/27/24 00:10 Room Air 04/26/24 22:41 56 L 04/26/24 22:23 36.8 C 57 L 18 104/63 93 Room Air 04/26/24 21:56 63
[2024-04-27] MEDS: oxyCODONE/ACETAMINOPHEN 5mg/325mg TAB PO PRN (11:30)
--- NOTE | 2024-04-27 11:50 | Hospitalist Progress Note ---
Date of Service April 27, 2024 Assessment & Plan (1) SBO (small bowel obstruction): Plan Pt is a 64yoM with past medical history significant for SVT status post ablation, hypertension, hyperlipidemia, PVD status post surgery, COPD, GERD, hiatal hernia, ongoing tobacco abuse admitted with SBO in the setting of abdominal hernias. SBO Abdominal hernias Patient presenting with right-sided abdominal pain, nausea and vomiting and alternating diarrhea versus constipation CT abdomen pelvis noting low-grade SBO in the setting of loops of bowel contained in supra and infraumbilical abdominal hernias. Lactate normal Bowel rest, pt NPO General surgery consulted, appreciate recs - will proceed with surgery, requesting cardiology surgical clearance/optimization. Cardiology consulted, appreciate recs. Continue metoprolol succinate 25 mg daily -Status post abdominal hernia repair on 04/26/2024 -Per general surgery, keep patient n.p.o. after surgery due to unexpected findings. diet being advanced on postop day 1 Continue IV fluids, PRN IV pain control and antiemetics Continue to monitor hx SVT status post ablation 10/18/2023 continue metoprolol succinate 25 mg daily Hypertension continue metoprolol succinate 25 mg daily, losartan Hyperlipidemia on statin Rx PVD AAA status post surgery Diet: advancing diet as tolerated DVT prophylaxis: heparin subcu Dispo: PT/OT once medically stable for further recs Admission and Anticipated Discharge Date Admission Date: April 26, 2024 Subjective patient was seen sitting in the chair at bedside. Denied acute concerns. Notes he does not have any pain except when he moves or touches the area with mert Has been eating, states tolerating well Review of Systems Review of Systems: All systems reviewed & are unremarkable except as noted in Subjective Physical Exam Physical Exam: General: Alert, oriented. No acute distress Psych: Appropriate mood and affect Neuro: No gross deficits HEENT: NC/AT CV: RRR Resp: Breath sounds clear bilaterally, no increased effort of breathing. Abdomen: Soft, tender in R upper and lower quadrants Extremities: trace edema in lower extremities bilaterally. Results & Data Results & Data Vital Signs (Past 12 Hours) Vital Signs Temp Pulse Pulse Resp BP Pulse Ox O2 Del Method 04/27/24 11:26 36.8 C 55 L 18 150/77 H 96 Room Air 04/27/24 08:32 50 L 04/27/24 08:12 36.5 C 59 L 18 119/69 94 Room Air 04/27/24 02:54 36.6 C 67 18 107/67 92 Room Air 04/27/24 00:10 Room Air
[2024-04-28 03:08] VITALS: RESP 18
[2024-04-28 06:04] LABS: Hematocrit (blood only) 42.4 % (42.0-52.0); Mean Corpuscular Hemoglobin 31.8 pg (25.0-34.0); Mean Corpuscular Volume 96.4 fL (80.0-100.0); Mean Platelet Volume 11.2 fL (9.4-12.4); Platelet Count 159 K/uL (130-400); RDW Standard Deviation 50.1 fL (36.4-46.3); White Blood Count 9.37 K/ul (4.8-10.8)
[2024-04-28 06:25] LABS: Albumin Globulin Ratio 1.6 (0.9-2); Albumin Level 3.9 gm/dl (3.4-5.0); BUN Creatinine Ratio 17.7 (10-20); Bilirubin,Total 0.7 mg/dl (0.2-1.0); Calcium 8.6 mg/dl (8.6-10.3); Creatinine Clr Calc Pharmacy 85.5 ml/min; Globulin 2.5 gm/dl (2.5-4.0); Magnesium 1.8 mg/dl (1.7-2.4); Potassium 4.4 mmol/L (3.5-5.1); Total Protein 6.4 gm/dl (6.0-8.3)
[2024-04-28 08:12] VITALS: TEMP 97.9
--- NOTE | 2024-04-28 09:07 | Surgery Progress Note ---
Date of Service April 28, 2024 Assessment & Plan (1) SBO (small bowel obstruction): Plan: Patient is postop day #2 for open repair of incisional hernia x 2 with Marlex mesh onlay Pain is well-controlled. Abdominal incision is healing well. Migue drain removed and Optifoam dressing placed. He is ok for discharge today from surgical perspective. Primary team aware. Discharge instructions reviewed. He is going to use Ibuprofen and Tylenol for post-op pain management. All questions answered. Discharge per primary team. Pt seen and examined with Dr. Garcia. Plan Increase activity as tolerated Start patient on full liquid advance as tolerated Likely plan for discharge tomorrow Admission and Anticipated Discharge Date Admission Date: April 26, 2024 Supervising Physician Co-Signing Physician Notes Will plan discharge today if okay with the medical service drain a bit removed instructions given regarding wound care and follow-up activity Subjective Patient resting in bed, he is tolerating a regular diet with no new concerns. Physical Exam Physical Exam: Alert coherent resting comfortable no distress Abdomen soft no localized tenderness. Incision is clean, dry, intact and well- approximated with mert in place. There are no signs of infection or evidence of incisional separation. Migue drain removed today and Optifoam dressing applied. Results & Data Vital Signs (Past 12 Hours) Vital Signs Temp Pulse Pulse Resp BP Pulse Ox O2 Del Method 04/28/24 08:11 36.6 C 50 L 18 126/81 92 Room Air 04/28/24 07:21 53 L 04/28/24 07:12 Room Air 04/28/24 02:34 36.3 C L 51 L 18 137/82 91 Room Air 04/27/24 22:49 36.6 C 54 L 16 132/75 91 Room Air 04/27/24 21:55 52 L 04/27/24 21:15 Room Air PG Care Time/CCT Total # of Minutes Spent Total Time Spent with Patient: Total time spent is greater than 50% in coordination of care (as documented) at patient's floor/unit and/or counseling patient: Coding Level of Care Code 00526 Post Operative Follow-Up Diagnoses SBO (small bowel obstruction) K56.609
[2024-04-28] MEDS ORDERED: SODIUM PHOSPHATE 3 MMOL/1 ML INFUSION IV STA (09:35)
[2024-04-28] MEDS: SODIUM PHOSPHATE 15 MMOL in SODIUM CHLORIDE 0.9% 250 ML IV ONE (10:16)
[2024-04-28 11:25] VITALS: BP 153/88; O2SAT 94
[2024-04-28] MEDS: POT PHOSPHATE MONOBASIC W/ SOD TAB PO SCH (11:25)
--- NOTE | 2024-04-28 12:57 | Discharge Summary ---
Discharge Summary Date of Service April 28, 2024 Principal Dx & Hospital Course #1 = Principal Diagnosis (1) S/P hernia repair: (2) Hernia: (3) SBO (small bowel obstruction): Plan Pt is a 64yoM with past medical history significant for SVT status post ablation, hypertension, hyperlipidemia, PVD status post surgery, COPD, GERD, hiatal hernia, ongoing tobacco abuse admitted with SBO in the setting of abdominal hernias. SBO Abdominal hernias Patient presenting with right-sided abdominal pain, nausea and vomiting and alternating diarrhea versus constipation CT abdomen pelvis noting low-grade SBO in the setting of loops of bowel contained in supra and infraumbilical abdominal hernias. Lactate normal Bowel rest, pt initially NPO General surgery consulted, appreciate recs - will proceed with surgery, requesting cardiology surgical clearance/optimization. Cardiology consulted, appreciate recs. Continue metoprolol succinate 25 mg daily -Status post abdominal hernia repair on 04/26/2024 -Per general surgery, keep patient n.p.o. after surgery due to unexpected findings. diet being advanced from postop day 1. Pt discharged on postop Day 2 Was treated with IV fluids, PRN IV pain control and antiemetics pt passing gas on day of discharge, tolerating food well. General surgery follow up after discharge Hypophosphatemia Repleted with po and IV on day of discharge PCP followup for continued monitoring and supplementation hx SVT status post ablation 10/18/2023 continue metoprolol succinate 25 mg daily Cardiology follow up after discharge Hypertension continue metoprolol succinate 25 mg daily, losartan Hyperlipidemia on statin Rx, continue PVD AAA status post surgery Notes For Next Care Provider please ensure General surgery follow up Please continue to monitor electrolytes, particularly phosphate after discharge. Replete as needed. Medication Changes From Visit Percocet 5mg/325mg 1 tab q8h ( 0 tabs Admission HPI Per Admitting Provider History obtained from patient and records. Medical history significant for SVT status post ablation, hypertension, hyperlipidemia, PVD status post surgery, COPD, GERD, hiatal hernia, ongoing tobacco abuse. Last confinement 2016 for syncope likely vasovagal secondary to discomfort from gastroenteritis. Patient with on and off achy abdominal discomfort the last few weeks with alternating constipation/diarrhea. Patient woke up yesterday morning with more intense right lower quadrant pain associated with nausea, vomiting followed by constipation followed by loose stools. No fever, no chills. Denies headache, chest pain, SOB. 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 No acute distress Psych: Appropriate mood and affect Neuro: No gross deficits HEENT: NC/AT CV: RRR Resp: Breath sounds clear bilaterally, no increased effort of breathing. Abdomen: Soft, tender in R lower quadrant Extremities: trace edema in lower extremities bilaterally. Updated Medication List Medication Instructions Recorded Confirmed Type albuterol sulfate 90 mcg/actuation 2 puff inhalation Q4H PRN 04/05/23 04/26/24 History aerosol inhaler COUGH/WHEEZING/DYSPNEA aspirin 81 mg tablet,delayed 81 mg PO QAM 04/05/23 04/26/24 History release atorvastatin 80 mg tablet 80 mg PO QAM 04/05/23 04/26/24 History montelukast 10 mg tablet 10 mg PO QAM 04/05/23 04/26/24 History (Singulair) omeprazole 20 mg capsule,delayed 20 mg PO DAILYBB 04/05/23 04/26/24 History release sildenafil 50 mg tablet 50 mg PO DAILY PRN Sexual Activity 04/05/23 04/26/24 History ezetimibe 10 mg tablet (Zetia) 10 mg PO QAM 10/18/23 04/26/24 History metoprolol succinate 25 mg 25 mg PO QAM 10/18/23 04/26/24 History tablet,extended release 24 hr losartan 25 mg tablet 25 mg PO QAM 04/26/24 04/26/24 History oxycodone-acetaminophen 5 mg-325 1 tab PO Q8H PRN pain, severe #10 04/28/24 Rx mg tablet (Percocet) tabs Hospital Stay Data Consultations 04/26/24 00:35 ED Decision to Admit Stat 04/26/24 02:40 Consult General Surgery Routine 04/26/24 08:52 Consult Cardiology Routine Procedures Performed Operation Date: 04/26/24 13:50 Actual Procedures p Open incarcerated incisional hernia x 2, lysis of adhesions, repair in cercerated hernia with marlex mesh(Not Applicable) - Janes Garcia MD, FACS Diagnostic Imagining Performed 04/25/24 22:02 CT Abd and Pelvis [CT abd pelvis IV con only] Stat Abdomen/Pelvis CT 04/25/24 22:02 Exam(s): CT ABDOMEN + PELVIS With Contrast IV Amt: 93 ml optiray 320 EXAM: CT Abdomen and Pelvis With Intravenous Contrast CLINICAL HISTORY: Reason for exam: RLQ abd pain. TECHNIQUE: Axial computed tomography images of the abdomen and pelvis with intravenous contrast. CTDI is 24.58 mGy and DLP is 1194.46 mGy-cm. Automated exposure control was utilized for the study. A dose lowering technique was utilized adhering to the principles of ALARA. CONTRAST: Patient received 93 ml optiray 320 of IV contrast COMPARISON: 07/11/2017 FINDINGS: Lung bases: Unremarkable. No mass. No consolidation. ABDOMEN: Liver: Unremarkable. No mass. Gallbladder and bile ducts: Postoperative changes prior cholecystectomy. No ductal dilation. Pancreas: Unremarkable. No mass. No ductal dilation. Spleen: Unremarkable. No splenomegaly. Adrenals: Unremarkable. No mass. Kidneys and ureters: Unremarkable. No solid mass. No hydronephrosis. Stomach and bowel: Low-grade small bowel obstruction centered on a infraumbilical and periumbilical hernias. The loops of bowel contained within the hernia demonstrate no focal distention but there is collapse of the small bowel is it exits the hernia. No mucosal thickening. PELVIS: Appendix: No findings to suggest acute appendicitis. Bladder: Unremarkable. No mass. Reproductive: Unremarkable as visualized. ABDOMEN and PELVIS: Intraperitoneal space: Unremarkable. No free air. No significant fluid collection. Bones/joints: No acute fracture. No dislocation. Soft tissues: See above. Vasculature: Unremarkable. No abdominal aortic aneurysm. Lymph nodes: Unremarkable. No enlarged lymph nodes. IMPRESSION: Low-grade small bowel obstruction secondary to 2 separate loops of small bowel contained within supra and infraumbilical anterior abdominal wall hernias. Electronically signed by: Tanner Herbert MD 04/26/24 00:07 AM Pending Results Patient Have Any Pending Studies at Discharge: No Discharge Instructions Given to Patient (Per Discharging Provider) Per General Surgery: You may remove your outer dressing on 04/28/24. You have mert that will need to come out at your follow up appointment. Please keep surgical area clean and dry. You can apply gauze and tape for comfort, Change your dressing daily. please continue to wear your abdominal binder until your follow up in 1 week. You can remove for short breaks and showering Total Time Total Time Spent Total Time Spent (In Minutes): 65
[2024-04-28 13:11] VITALS: PULSE 81
== END 2024-04-28 14:02 | disposition home or self-care (01) | DRG 355 ==
LOC: ED 21:06 → 2N 04-26 00:58 → 2W 04-26 22:42

== ENCOUNTER 2024-08-28 09:51 | Inpatient (IN) ==
--- NOTE | 2024-08-28 10:04 | Emergency Department Note ---
Impression & Plan Acute hypoxemic respiratory failure, Influenza A, Shortness of breath ED Provider Note NAME: ADRIANNE CHADWICK AGE: 64 SEX: M : 1960 ARRIVES VIA: Ambulance INFORMANT: Patient ED PROVIDER(S): Tanner Nixon DO CHIEF COMPLAINT: Shortness of breath HPI: Patient is a 64-year-old male with past medical history of SVT, SBO, AAA repair, COPD, hypertension, hyperlipidemia who presents to the ER for shortness of breath. Symptoms have been present since yesterday. He admits to cough, congestion, and runny nose. He has been feeling hot and cold at home. He was febrile for medics. He denies any belly pain, nausea, vomiting or diarrhea. No dysuria, urgency or frequency. Notes he does have significant manage shortness of breath. Per EMS who provides additional history was hypoxic at 87%. ADDITIONAL HISTORY OBTAINED: Per HPI Chronic Medical/Social Conditions Affecting Care: Per HPI PAST MEDICAL HISTORY:See Below PAST SURGICAL HISTORY:See Below FAMILY HISTORY:See Below SOCIAL HISTORY:See Below HOME MEDICATIONS:See Below ALLERGIES:See Below VITALS:See Below PHYSICAL EXAMINATION: GENERAL: Sitting up in bed, alert, slightly ill-appearing, on nasal cannula, persistent cough EYE EXAM: normal conjunctiva. OROPHARYNX: Dry mucous membranes NECK: supple, no nuchal rigidity, no adenopathy, non-tender LUNGS: Diffuse wheezing bilaterally. Normal chest wall mechanics HEART: no murmurs, S1 normal and S2 normal ABDOMEN: abdomen soft, non-tender, normo-active bowel sounds, no masses, no rebound or guarding. UPPER EXTREMITIES: upper extremities are grossly normal. LOWER EXTREMITIES: No pitting edema. NEURO EXAM: Normal sensorium, cranial nerves II-XII grossly intact, normal speech, no gross weakness of arms, no gross weakness of legs. MEDICAL DECISION MAKING: Patient is a 64-year-old male who presents to the ER brought in by EMS found to be hypoxic at 87% on room air. He was placed on 2 L nasal cannula. IV was established and blood work was obtained. He was given neb treatments as well as IV steroids. Labs show no significant leukocytosis or anemia. Mild thrombocytopenia. BMP along with LFTs bilirubins were unremarkable. Troponin was negative. Pro-Dale normal. Patient was positive for influenza. Chest x-ray was clean. Patient was updated bedside. He remained on 2 L throughout the stay in the ER was updated bedside discussed with the hospitalist for further evaluation management treatment. Consults/Care Managements Discussions: Per MDM Triage Nursing notes reviewed. Limited review of prior medical records performed Vital Signs: reviewed and remarkable for no significant abnormalities Differential diagnosis: Differential diagnoses includes but is not limited to pneumonia, bronchitis, COPD/Asthma exacerbation, pneumothorax, pulmonary embolism, congestive heart failure, acute coronary syndrome ER treatment provided: See below Diagnostics interpreted by me include EKG and cardiac monitoring as listed below: -Cardiac Monitoring: An order was placed for continuous cardiac monitoring. The monitor shows a rate of 101 with sinus rhythm. -ECG: Sinus rhythm rate of 97 Normal axis No PVCs QTc 419 -Laboratory studies:Interpreted by me as stated above in MDM and shown below. Imaging studies: Xrays: As interpreted by me: Portable AP upright 1 view of the chest shows no focal infiltrate CTs show: none Procedures:none Critical Care: I have personally spent 33 minutes of critical care time in the direct management of this patient. This includes bedside care, interpretation of diagnostic studies, and testing, discussion with consultants, patient, and family members, and other required patient management activities. This 33 minutes is in excess of all separately billable procedures. Past Med/Surg History Problem List (Updated 06/11/24 @ 14:34 by Janes Garcia MD, FACS) Shortness of breath (Acute) Influenza A (Acute) Acute hypoxemic respiratory failure (Acute) Influenza A History of incisional hernia repair (04/26/24) Open incarcerated incisional hernia x 2, lysis of adhesions, repair incercerated hernia with marlex mesh(Not Applicable) - Janes Garcia MD, FACS S/P AAA repair Hernia (Acute) SBO (small bowel obstruction) (Acute) SVT (supraventricular tachycardia) GERD (gastroesophageal reflux disease) (Chronic) COPD (chronic obstructive pulmonary disease) (Chronic) HTN (hypertension) (Chronic) HLD (hyperlipidemia) (Chronic) AAA (abdominal aortic aneurysm) (Chronic) "US 01/2017 - 3.8cm" Hx of cholecystectomy (Chronic) Surgical History (Updated 06/11/24 @ 14:34 by Janes Garcia MD, FACS) S/P hernia repair Family History Other Diabetes Gallbladder disease Hypertension Social History Smoking Status: Current every day smoker Tobacco Type: Cigarettes Cigarettes Per Day: 20; Do You Dip or Chew Tobacco: No; Hx Alcohol Use: No Hx Substance Use: No Preferred Language: Spanish Communication Ability: Effective Court Bailiff Required: No Current Living Situation: Alone Feels Safe at Home: Yes Assistive Devices: None Allergies Allergies Allergy/AdvReac Type Severity Reaction Status Date / Time lisinopril Allergy Severe SHORT OF Verified 06/11/24 14:29 BREATH/ITCHY Home Meds Home Medications Medication Instructions Recorded Confirmed aspirin 81 mg tablet,delayed 81 mg PO QAM 04/05/23 08/28/24 release atorvastatin 80 mg tablet 80 mg PO QAM 04/05/23 08/28/24 montelukast 10 mg tablet 10 mg PO QAM 04/05/23 08/28/24 (Singulair) omeprazole 20 mg capsule,delayed 20 mg PO DAILYBB 04/05/23 08/28/24 release ezetimibe 10 mg tablet (Zetia) 10 mg PO QAM 10/18/23 08/28/24 losartan 25 mg tablet 25 mg PO QA 04/26/24 08/28/24 metoprolol succinate 50 mg 50 mg PO QAM 08/28/24 08/28/24 tablet,extended release 24 hr Results & Data (ED) Vital Signs Vital Signs - 24 hr 08/28/24 09:41 08/28/24 09:57 08/28/24 09:57 Temperature 37.9 C H 37.9 C H Temperature Source Oral Oral Pulse Rate Pulse Rate [Right Finger] 95 H Pulse Rate from SpO2 Sensor Respiratory Rate 26 H Respiratory Effort / Characteristics Spontaneous Accessory Muscle Use Short of Breath Respiratory Pattern Tachypnea Blood Pressure Blood Pressure [Right Arm] 146/73 H Blood Pressure Mean Blood Pressure Mean [Right Arm] 97 Pulse Oximetry 86 L 94 Oxygen Delivery Method Room Air Nasal Cannula Oxygen Flow Rate 2 Sepsis Recent Fever Within 48 Hours Yes Sepsis New/Unexplained Change in Mental Status No Sepsis Action Taken by Nursing No Action Required 08/28/24 10:02 08/28/24 10:06 08/28/24 10:16 Temperature Temperature Source Pulse Rate 99 H 93 H Pulse Rate [Right Finger] Pulse Rate from SpO2 Sensor 100 H Respiratory Rate 23 18 Respiratory Effort / Characteristics Non-Labored Spontaneous Respiratory Pattern Blood Pressure 146/73 H Blood Pressure [Right Arm] Blood Pressure Mean 97 Blood Pressure Mean [Right Arm] Pulse Oximetry 94 95 Oxygen Delivery Method Nasal Cannula Oxygen Flow Rate 2 Sepsis Recent Fever Within 48 Hours Sepsis New/Unexplained Change in Mental Status Sepsis Action Taken by Nursing 08/28/24 11:12 08/28/24 11:30 08/28/24 11:30 Temperature Temperature Source Pulse Rate 126 H Pulse Rate [Right Finger] Pulse Rate from SpO2 Sensor 126 H Respiratory Rate 17 Respiratory Effort / Characteristics Respiratory Pattern Blood Pressure 116/67 82/56 L 82/56 L Blood Pressure [Right Arm] Blood Pressure Mean 83 62 62 Blood Pressure Mean [Right Arm] Pulse Oximetry 98 Oxygen Delivery Method Oxygen Flow Rate Sepsis Recent Fever Within 48 Hours Sepsis New/Unexplained Change in Mental Status Sepsis Action Taken by Nursing 08/28/24 11:33 Temperature Temperature Source Pulse Rate 133 H Pulse Rate [Right Finger] Pulse Rate from SpO2 Sensor 134 H Respiratory Rate 21 Respiratory Effort / Characteristics Respiratory Pattern Blood Pressure 82/56 L Blood Pressure [Right Arm] Blood Pressure Mean 64 Blood Pressure Mean [Right Arm] Pulse Oximetry 97 Oxygen Delivery Method Oxygen Flow Rate 3 Sepsis Recent Fever Within 48 Hours Sepsis New/Unexplained Change in Mental Status Sepsis Action Taken by Nursing Laboratory Data 08/28/24 10:00 08/28/24 10:00 Lab Results 08/28/24 Range/Units 10:00 WBC 9.24 (4.8-10.8) K/ul RBC 4.65 L (4.70-6.10) M/uL Hgb 14.8 (14.0-18.0) g/dl Hct 42.5 (42.0-52.0) % MCV 91.4 (80.0-100.0) fL MCH 31.8 (25.0-34.0) pg MCHC 34.8 (32.0-36.0) g/dL RDW Std Deviation 44.9 (36.4-46.3) fL RDW Coeff of Mega 13.2 (11.5-14.5) % Plt Count 128 L (130-400) K/uL MPV 11.4 (9.4-12.4) fL Immature Gran % (Auto) 0.4 % Neut % (Auto) 87.5 % Lymph % (Auto) 4.7 % Carlton % (Auto) 6.6 % Eos % (Auto) 0.2 % Baso % (Auto) 0.6 % Neut # (Auto) 8.08 H (1.40-6.50) K/uL Lymph # (Auto) 0.43 L (1.20-3.40) K/uL Carlton # (Auto) 0.61 H (0.11-0.59) K/uL Eos # (Auto) 0.02 (0.00-0.50) K/uL Baso # (Auto) 0.06 (0.00-0.20) K/uL Immature Gran # (Auto) 0.04 (0.01-0.20) K/uL Sodium 138 (136-145) mmol/L Potassium 3.7 (3.5-5.1) mmol/L Chloride 106 (98-107) mmol/L Carbon Dioxide 25 (21-32) mmol/L Anion Gap 7 (3-11) BUN 16 (6-23) mg/dl Creatinine 1.08 (0.6-1.4) mg/dl Est Cr Clr Drug Dosing Not Reportable eGFR 76.16 BUN/Creatinine Ratio 14.8 (10-20) Glucose 81 (70-99(Fasting)) mg/dl Calcium 8.4 L (8.6-10.3) mg/dl Total Bilirubin 0.6 (0.2-1.0) mg/dl AST 21 (13-39) U/L ALT 18 (7-52) U/L Alkaline Phosphatase 97 (34-104) U/L Troponin I High Sens 9.8 (0-20) pg/ml Total Protein 6.7 (6.0-8.3) gm/dl Albumin 4.0 (3.4-5.0) gm/dl Globulin 2.7 (2.5-4.0) gm/dl Albumin/Globulin Ratio 1.5 (0.9-2) Lipase 20 (11-82) U/L Procalcitonin 0.09 (0-0.5) ng/ml Nasal Influ A H1 2008 PCR DETECTED A (NotDetected) Adenovirus (PCR) Not Detected (NotDetected) B. pertussis DNA (PCR) Not Detected (NotDetected) B.parapertussis DNA PCR Not Detected (NotDetected) C. pneumoniae DNA (PCR) Not Detected (NotDetected) Coronavirus OC43 (PCR) Not Detected (NotDetected) Coronavirus HKU1 (PCR) Not Detected (NotDetected) Coronavirus 229E (PCR) Not Detected (NotDetected) SARS-CoV-2 (PCR) Not Detected (NotDetected) Coronavirus NL63 (PCR) Not Detected (NotDetected) Human Metapneumovir PCR Not Detected (NotDetected) Influenza Type B (PCR) Not Detected (NotDetected) M. pneumoniae (PCR) Not Detected (NotDetected) Parainfluenza 1 (PCR) Not Detected (NotDetected) Parainfluenza 2 (PCR) Not Detected (NotDetected) Parainfluenza 3 (PCR) Not Detected (NotDetected) Parainfluenza 4 (PCR) Not Detected (NotDetected) RSV (PCR) Not Detected (NotDetected) Entero/Rhino (PCR) Not Detected (NotDetected) Administered Medications Albuterol (Albut/Ipratrop 3mg/0.5mg Neb 3 Ml Vial) 3 ml NEB Q6R [facility]; Protocol Stop: 09/27/24 12:59 Last Admin: 08/28/24 13:13 Dose: 3 ml Documented By: Guaifenesin (Guaifenesin 600 Mg Tabcr) 600 mg PO Q12 [facility] Stop: 09/27/24 12:04 Last Admin: 08/28/24 13:12 Dose: 600 mg Documented By: MR Losartan Potassium (Losartan Potassium 25 Mg Tab) 25 mg PO QAM [facility] Stop: 09/27/24 11:59 Last Admin: 08/28/24 12:30 Dose: Not Given Documented By: MR Metoprolol Succinate (Metoprolol Succ 25mg Ext Rel Tab) [facility] [place] Stop: 09/27/24 11:59 Last Admin: 08/28/24 12:30 Dose: Not Given Documented By: MR Oseltamivir Phosphate (Oseltamivir Phosphate 75 Mg Cap) 75 mg PO BID [facility]; Protocol Stop: 09/02/24 11:44 Last Admin: 08/28/24 13:12 Dose: Not Given Documented By: MR Discontinued Medications Albuterol (Albut/Ipratrop 3mg/0.5mg Neb 3 Ml Vial) 12 ml NEB ONE ONE; Protocol Stop: 08/28/24 09:58 Last Admin: 08/28/24 10:16 Dose: 12 ml Documented By: KULWANT Azithromycin (Azithromycin 250 Mg Tab) 500 mg PO NOW ONE Stop: 08/28/24 11:43 Last Admin: 08/28/24 13:12 Dose: 500 mg Documented By: MR Benzonatate (Benzonatate 100 Mg Capsule) 100 mg PO NOW ONE Stop: 08/28/24 09:59 Last Admin: 08/28/24 10:18 Dose: 100 mg Documented By: MR Sodium Chloride (Nss) 1,000 mls @ 999 mls/hr IV .Q1H1M ONE Stop: 08/28/24 10:57 Last Infusion: 08/28/24 11:57 Dose: Infused Documented By: Admin: 08/28/24 10:19 Dose: 999 mls/hr Documented By: MR Ceftriaxone Sodium (Rocephin) 2,000 mg in 50 mls @ 100 mls/hr IV NOW STA Stop: 08/28/24 10:27 Last Infusion: 08/28/24 11:57 Dose: Infused Documented By: Admin: 08/28/24 10:18 Dose: 100 mls/hr Documented By: MR Ibuprofen (Ibuprofen 200 Mg Tab) 400 mg PO NOW STA Stop: 08/28/24 09:59 Last Admin: 08/28/24 10:18 Dose: 400 mg Documented By: MR Methylprednisolone (Methylprednisolone 125 Mg/2 Ml Vial) 40 mg IV NOW STA Stop: 08/28/24 09:58 Last Admin: 08/28/24 10:18 Dose: 40 mg Documented By: MR Oseltamivir Phosphate (Oseltamivir Phosphate 75 Mg Cap) 75 mg PO 1200 EVELIN; Protocol Stop: 08/28/24 14:00 Last Admin: 08/28/24 13:12 Dose: 75 mg Documented By: MR Imaging Data Radiologist's Impression: Chest X-Ray 08/28/24 09:57 XR chest 1V portable CLINICAL HISTORY: Chest pain, nonspecific COMPARISON STUDY: 04/05/2023 FINDINGS: Heart size and pulmonary vasculature normal. No effusion, consolidation, or pneumothorax. IMPRESSION: No acute findings. ACT 112: Negative or not required by law. Electronically signed by: Ezequiel Jarquin M.D. 08/28/2024 10:23 AM Discharge Plan Visit Data Chief Complaint: Illness Stated Complaint: ILLNESS, COUGH, HEADACHE, FEVER ED Provider: Tanner Nixon Discharge Problem: Acute hypoxemic respiratory failure, Influenza A, Shortness of breath Patient Disposition: Admitted As Inpatient Discharge Instructions Interventions: ED Discharge Assessment Last Done: 08/28/24 13:31
[2024-08-28] MEDS: ALBUT/IPRATROP 3MG/0.5MG NEB 3 ML VIAL NEB ONE (10:16)
[2024-08-28] MEDS: methylPREDNISolone 125 MG/2 ML VIAL IV STA (10:18)
[2024-08-28] MEDS: IBUPROFEN 200 MG TAB PO STA (10:18)
[2024-08-28] MEDS: cefTRIAXone SODIUM 2,000 MG/50 ML BAG IV STA (10:18)
[2024-08-28] MEDS: BENZONATATE 100 MG CAPSULE PO ONE (10:18)
[2024-08-28] MEDS: SODIUM CHLORIDE 0.9% 1,000 ML IV ONE (10:19)
--- NOTE | 2024-08-28 10:25 | XRay Report ---
XR chest 1V portable CLINICAL HISTORY: Chest pain, nonspecific COMPARISON STUDY: 04/05/2023 FINDINGS: Heart size and pulmonary vasculature normal. No effusion, consolidation, or pneumothorax. IMPRESSION: No acute findings. ACT 112: Negative or not required by law. Electronically signed by: Ezequiel Jarquin M.D. 08/28/2024 10:23 AM
[2024-08-28 10:30] LABS: Basophils # (auto) 0.06 K/uL (0.00-0.20); Basophils % (auto) 0.6 %; Eosinophils # (auto) 0.02 K/uL (0.00-0.50); Eosinophils % (auto) 0.2 %; Hematocrit (blood only) 42.5 % (42.0-52.0); Hemoglobin 14.8 g/dl (14.0-18.0); Immature Granulocytes # (auto) 0.04 K/uL (0.01-0.20); Immature Granulocytes % (auto) 0.4 %; Lymphocytes # (auto) 0.43 K/uL (1.20-3.40); Lymphocytes % (auto) 4.7 %; Mean Corpuscular Hemoglobin 31.8 pg (25.0-34.0); Mean Corpuscular Hgb Conc 34.8 g/dL (32.0-36.0); Mean Corpuscular Volume 91.4 fL (80.0-100.0); Mean Platelet Volume 11.4 fL (9.4-12.4); Monocytes # (auto) 0.61 K/uL (0.11-0.59); Monocytes % (auto) 6.6 %; Neutrophils # (auto) 8.08 K/uL (1.40-6.50); Neutrophils % (auto) 87.5 %; Platelet Count 128 K/uL (130-400); RDW Coefficient of Variation 13.2 % (11.5-14.5); RDW Standard Deviation 44.9 fL (36.4-46.3); Red Blood Count 4.65 M/uL (4.70-6.10); White Blood Count 9.24 K/ul (4.8-10.8)
[2024-08-28 10:40] LABS: Alanine Aminotransferase 18 U/L (7-52); Albumin Globulin Ratio 1.5 (0.9-2); Alkaline Phosphatase 97 U/L (34-104); Anion Gap 7 (3-11); Aspartate Aminotransferase 21 U/L (13-39); BUN Creatinine Ratio 14.8 (10-20); Bilirubin,Total 0.6 mg/dl (0.2-1.0); Blood Urea Nitrogen 16 mg/dl (6-23); Calcium 8.4 mg/dl (8.6-10.3); Carbon Dioxide 25 mmol/L (21-32); Chloride 106 mmol/L (98-107); Globulin 2.7 gm/dl (2.5-4.0); Glucose 81 mg/dl (70-99(Fasting)); Lipase 20 U/L (11-82); Potassium 3.7 mmol/L (3.5-5.1); Sodium 138 mmol/L (136-145); Total Protein 6.7 gm/dl (6.0-8.3)
[2024-08-28 10:45] LABS: Troponin I High Sensitivity 9.8 pg/ml (0-20)
[2024-08-28 11:09] LABS: Adenovirus PCR Not Detected (NotDetected); Bordetella parapertussis PCR Not Detected (NotDetected); Bordetella pertussis PCR Not Detected (NotDetected); Chlamydia pneumoniae PCR Not Detected (NotDetected); Coronavirus 229E PCR Not Detected (NotDetected); Coronavirus CoV-2 (COVID19)PCR Not Detected (NotDetected); Coronavirus HKU1 PCR Not Detected (NotDetected); Coronavirus NL63 PCR Not Detected (NotDetected); Coronavirus OC43PCR Not Detected (NotDetected); Human Metapneumovirus PCR Not Detected (NotDetected); Influenza A (H1 2009) PCR DETECTED (NotDetected); Influenza B PCR Not Detected (NotDetected); Mycoplasma pneumoniae PCR Not Detected (NotDetected); Parainfluenza Virus 1 PCR Not Detected (NotDetected); Parainfluenza Virus 2 PCR Not Detected (NotDetected); Parainfluenza Virus 3 PCR Not Detected (NotDetected); Parainfluenza Virus 4 PCR Not Detected (NotDetected); Respiratory Syncytial VirusPCR Not Detected (NotDetected); Rhinovirus/Enterovirus PCR Not Detected (NotDetected)
--- NOTE | 2024-08-28 11:32 | Electrocardiogram Report ---
Test Reason : Blood Pressure : */* mmHG Vent. Rate : 97 BPM Atrial Rate : 97 BPM P-R Int : 170 ms QRS Dur : 76 ms QT Int : 330 ms P-R-T Axes : 59 37 57 degrees QTcB Int : 419 ms Normal sinus rhythm Normal ECG When compared with ECG of 26-Apr-2024 09:37, Vent. rate has increased by 43 bpm Confirmed by Jan Sparks ([id number]) on 08/28/2024 11:31:43 AM Referred By: Confirmed By: Jan Sparks
[2024-08-28] MEDS ORDERED: LEVALBUTEROL 1.25 MG/3 ML NEB NEB PRN (11:39)
[2024-08-28] MEDS ORDERED: ONDANSETRON INJ 2 MG/ML 2 ML VIAL IV PRN (11:45)
[2024-08-28] MEDS ORDERED: MAGNESIUM HYDROXIDE SUSP 30 ML UDC PO PRN (11:45)
[2024-08-28] MEDS ORDERED: ALUMINUM/MAGNESIUM SUSP 30 ML UDC PO PRN (11:45)
--- NOTE | 2024-08-28 11:50 | History & Physical Report ---
Date of Service August 28, 2024 Assessment & Plan (1) Influenza A: Plan Acute exacerbation of COPD Acute exacerbation of asthma Influenza A URTI Sepsis POA: Likely secondary to viral URTI. Heart rate and respiratory rate elevated at presentation. Hypoxia Patient presents with dry cough, sore throat, fever for 1 day Noted to have flu a positive at presentation CXR with no acute finding. Pro-Dale and WBC WNL. Exacerbation of COPD and asthma likely secondary to viral UTI UTI. Continue with Solu-Medrol scheduled, Perforomist and budesonide nebulization, Tessalon Perles, Mucinex, incentive spirometer. Add doxycycline for 5 days. Add tamsulosin for 5 days. Continue to provide supportive care, IVF today given tachycardia. Can DC IV fluid once heart rate settled and p.o. intake improves. Other chronic medical conditions: HLD, GERD, CKD stage IIIb----continue with/resume home meds as when able. DVT prophylaxis: Heparin subcu DNI/DNI Addendum: BP was low ,at 81/54, RN paged, will give 500 ml NS bolus, pt seen at bedside again, denies any chest pain or new complaints, keep leg end of bed elevated, c/w maintenance ivf at 75 ml/hr for next 1.5 L NSS. Hold today AM BP meds. communicated w/ RN at bedside. History of Present Illness Chief Complaint: Fever, sore throat, dry cough for 1 day Primary Care Provider: Alexandra Max MD 64-year-old male with PMH of asthma, COPD, current tobacco abuse [smokes 1 packs a day for more than 50 years per patient], PVD, HLD, CKD stage IIIa, GERD, AAA, SNHL of both ears presented to the ED with complaint of dry cough, fever, sore throat for 1 days. Patient reports having fever, but did not measure, it is associated with dry cough, shortness of breath, weakness, poor appetite since yesterday. Patient noted to be hypoxic at 87% by EMS. Patient needed 2 L oxygen at presentation. Patient denies nausea, vomiting, chest pain, belly pain, diarrhea, pain or burning with passing urine. Patient reports decreased appetite. Patient reports smoking 1 packs a day for more than 50 years, denies alcohol/recreational drug use. DNR/DNI Medications reviewed with patient at bedside. Plan of care discussed with patient and his [id number] at bedside in detail, answered all their questions, they voiced understanding. Allergies Allergy/AdvReac Type Severity Reaction Status Date / Time lisinopril Allergy Severe SHORT OF Verified 06/11/24 14:29 BREATH/ITCHY Home Medications Medication Instructions Recorded Confirmed Type albuterol sulfate 90 mcg/actuation 2 puff inhalation Q4H PRN 04/05/23 06/11/24 History aerosol inhaler COUGH/WHEEZING/DYSPNEA aspirin 81 mg tablet,delayed 81 mg PO QAM 04/05/23 06/11/24 History release atorvastatin 80 mg tablet 80 mg PO QAM 04/05/23 06/11/24 History montelukast 10 mg tablet 10 mg PO QAM 04/05/23 06/11/24 History (Singulair) omeprazole 20 mg capsule,delayed 20 mg PO DAILYBB 04/05/23 06/11/24 History release sildenafil 50 mg tablet 50 mg PO DAILY PRN Sexual Activity 04/05/23 06/11/24 History ezetimibe 10 mg tablet (Zetia) 10 mg PO QAM 10/18/23 06/11/24 History metoprolol succinate 25 mg 25 mg PO QAM 10/18/23 06/11/24 History tablet,extended release 24 hr losartan 25 mg tablet 25 mg PO QAM 04/26/24 06/11/24 History Past Med/Surg History Problem List (Updated 06/11/24 @ 14:34 by Janes Garcia MD, FACS) Influenza A History of incisional hernia repair (04/26/24) Open incarcerated incisional hernia x 2, lysis of adhesions, repair incercerated hernia with marlex mesh(Not Applicable) - Janes Garcia MD, FACS S/P AAA repair Hernia (Acute) SBO (small bowel obstruction) (Acute) SVT (supraventricular tachycardia) GERD (gastroesophageal reflux disease) (Chronic) COPD (chronic obstructive pulmonary disease) (Chronic) HTN (hypertension) (Chronic) HLD (hyperlipidemia) (Chronic) AAA (abdominal aortic aneurysm) (Chronic) "US 01/2017 - 3.8cm" Hx of cholecystectomy (Chronic) Surgical History (Updated 06/11/24 @ 14:34 by Janes Garcia MD, FACS) S/P hernia repair Family History Other Diabetes Gallbladder disease Hypertension Social History Smoking Status: Current every day smoker Tobacco Type: Cigarettes Cigarettes Per Day: 20; Do You Dip or Chew Tobacco: No; Hx Alcohol Use: No Hx Substance Use: No Preferred Language: [place] Communication Ability: Effective Pin Attacher Required: No Current Living Situation: Alone Feels Safe at Home: Yes Assistive Devices: None Review of Systems Review of Systems: Negative otherwise mentioned in HPI. Physical Exam Physical Exam: GENERAL: Alert and oriented x3. NAD, getting breathing treatment HEENT: No pallor, no icterus. Pupils equal, round and reactive to light. Oral mucosa moist. NECK: No JVD, no neck masses. HEART: S1 and S2 heard. Regular rate and rhythm. HR in 110s, No murmur, no gallop. RESPIRATORY SYSTEM: Normal AP diameter. No accessory muscle use. b/l wheeze and occ crackles ABDOMEN: Soft, bowel sounds present, nontender, no distention. Midline old healed surgical scar noted. CENTRAL NERVOUS SYSTEM: No facial droop. Speech is clear. Obeys simple commands. Moves extremities. EXTREMITIES: No edema, no erythema seen. Results & Data Results & Data Vital Signs (Past 12 Hours) Vital Signs Temp Pulse Pulse Resp BP Pulse Ox O2 Del Method 08/28/24 10:16 18 95 Nasal Cannula 08/28/24 10:02 99 H 08/28/24 09:57 94 Nasal Cannula 08/28/24 09:41 37.9 C H 95 H 26 H 146/73 H 86 L Room Air O2 Flow Rate 08/28/24 10:16 2 08/28/24 10:02 08/28/24 09:57 2 08/28/24 09:41
[2024-08-28] MEDS ORDERED: Patient's HEIGHT &/or WEIGHT Needed STA (11:56)
[2024-08-28] MEDS: METOPROLOL SUCC 25MG EXT REL TAB PO SCH (12:30)
[2024-08-28] MEDS: LOSARTAN POTASSIUM 25 MG TAB PO SCH (12:30)
[2024-08-28] MEDS: guaiFENesin 600 MG TABCR PO SCH (13:12)
[2024-08-28] MEDS: AZITHROMYCIN 250 MG TAB PO ONE (13:12)
[2024-08-28] MEDS: OSELTAMIVIR PHOSPHATE 75 MG CAP PO SCH ×2 (13:12)
[2024-08-28] MEDS: ALBUT/IPRATROP 3MG/0.5MG NEB 3 ML VIAL NEB SCH (13:13)
--- OUTSIDE RECORDS SUMMARY | 2024-08-28 15:57 | External Medical Summary | Summary of Care ---
Author Name Unknown Organization [facility] Address [address] [place] [address] Phone [phone] Care Team Providers Care Disabilities Services Officer Name Role Phone Alexandra Sales MD Primary Care Prov ider Reason for Visit * Reason Comments eRx-Medication Refill Encounter Details Date Type Department Care Team (Late st Contact Info) Description 07/09/2024 Refill Cardiology, [facility] [address] [place] [address] Shelbie Arnold PA-C [address] [facility] [place] [phone] Allergies Active Allergy Reactions Criticality Noted Date Comments Lisinopril Other (Please comment) 05/16/2016 Shortness of breath, and itchy documented as of this encounter (statuses as of 07/11/2024) Medications Albuterol Sulfate HFA 108 (90 Base) MCG/ACT Inhalation Aerosol Solution Inhale 2 Puffs by mouth every 4 hours as needed for Cough, Wheezing or Dyspnea. 18 g 1 021 Active Sildenafil Citrate 50 MG Oral TabletIndications :Erectile dysfunction Take 1 Tablet by mouth daily as needed for Erectile Dysfunction. 10 Tablet 5 023 Active Aspirin 81 MG Oral Tablet Delayed ReleaseIndication s:HTN, goal below 140/90,Palpitatio ns,Dyslipidemia, goal LDL below 130,PAD (peripheral artery disease) (HCC) Take 1 Tablet by mouth in the morning. 99 Tablet 3 023 Active Cetirizine HCl 10 MG Oral Tablet (ZyrTEC) Take 1 Tablet by mouth in the morning. 90 Tablet 3 023 Active Triamcinolone Acetonide 0.5 % External Cream (Aristocort) Apply topically to affected area 2 times a day. To affected area. 15 g 5 024 Active Fluticasone Propionate HFA 110 MCG/ACT Inhalation Aerosol (Flovent HFA)Indications:P rimary osteoarthritis of both ankles TAKE 2 PUFFS BY MOUTH TWICE A DAY 12 g 5 024 Active Additional Information Patient taking differently: PRN, Reported on 07/11/2024 Ezetimibe 10 MG Oral Tablet (Zetia)Indication s:Dyslipidemia, goal LDL below 70 TAKE 1 TABLET BY MOUTH EVERY DAY IN THE MORNING 90 Tablet 3 024 Active Atorvastatin Calcium 80 MG Oral Tablet (Lipitor)Indicati ons:Hyperlipidemi a LDL goal <100 TAKE 1 TABLET BY MOUTH EVERY DAY 90 Tablet 2 024 Active Omeprazole 20 MG Oral Capsule Delayed Release (PriLOSEC)Indicat ions:Abdominal pain, epigastric,Gastro esophageal reflux disease with esophagitis without hemorrhage TAKE 1 CAPSULE BY MOUTH EVERY DAY 1 HOUR BEFORE FIRST MEAL OF THE DAY 90 Capsule 1 024 Active Metoprolol Succinate ER 50 MG Oral Tablet Extended Release 24 Hour (Toprol XL) Take 1 Tablet by mouth in the morning. 90 Tablet 3 024 Active Montelukast Sodium 10 MG Oral Tablet (Singulair)Indica tions:COPD, moderate (HCC),Chronic rhinitis TAKE 1 TABLET BY MOUTH EVERY DAY IN THE MORNING 90 Tablet 1 024 Active Losartan Potassium 25 MG Oral Tablet (Cozaar) TAKE 1 TABLET BY MOUTH EVERY DAY IN THE MORNING 90 Tablet 024 Active Losartan Potassium 25 MG Oral Tablet (Cozaar) Take 1 Tablet by mouth in the morning. 34 Tablet 11 023 2023 Discontinued Hospital, Clinic, or Other Facility Administered Medication Ordered Dose Route Frequency Start Date End Date Status albuterol sulfate (PROVENTIL) (2.5 MG/3ML) 0.083% inhalation solution 2.5 mgIndications:COPD, moderate (HCC) 2.5 mg NEBULIZER Q4H PRN 03/15/2019 Active documented as of this encounter (statuses as of 07/11/2024) Active Problems Problem Noted Date Diagnosed Date Actinic keratosis of scalp 06/24/2024 Abdominal aortic aneurysm (AAA) without rupture 10/18/2022 [...] with intermittent claudicati on 05/10/2017 Hypoxemia 04/22/2016 Overview (04/22/2016): 03/2016 PSG - mild DHC Abdominal aortic aneurysm without rupture 2015 Overview (12/20/2016): 3.1 cm Diverticulosis 10/30/2014 Overview (11/06/2014): entire colon COPD, moderate 10/31/2011 Overview (06/27/2019): 06/27/19 In Check dial performed to assess inhaler technique: Name of inhaler Albuterol Pass: Yes at 45L/min Encouraged to take slow deep breath and use aero chamber. Test performed by [employer] [facility] HIATAL HERNIA 05/06/2005 Tobacco use disorder 06/25/2004 Esophageal reflux 06/25/2004 BMI 37.0-37.9, adult Essential hypertension with goal blood pressure less than 140/90 Hyperlipidemia LDL goal <100 Overview (11/23/2015): ICD-10 update of inactive term documented as of this encounter (statuses as of 07/11/2024) Resolved Problems Problem Noted Date Diagnosed Date Resolved Date Prediabetes 06/24/2024 07/08/2024 Discomfort of both ears 08/01/201702/21 AAA (abdominal aortic aneurysm) 11/07/2013 12/20/2016 Overview (11/20/2013): 3.1 cm AAA Dyslipidemia, goal LDL below 130 04/21/2010 12/23/2013 OBESITY, BMI 30-34 (SEE ACTUAL BMI) 10/15/2009 08/10/2012 Overview (10/15/2009): Per Obesity Taxonomy Benign neoplasm of colon 05/06/200911/2017 Overview (05/13/2009): polyps x3, diverticulosis adenomatous/repeat colonoscopy in 5 yrs Severe obesity with body mas s index (BMI) of 35.0 to 39.9 with serious comorbidity 04/08/2009 Overview (10/15/2009): Per Obesity Taxonomy ADVANCE DIRECTIVE INFORMATION 01/25/2005 05/27/2024 Overview (01/25/2005): No, Advance Directive brochure offered , patient declined. Sebaceous cyst 01/13/2005 04/08/2009 Dyslipidemia, goal to be determined 06/25/2004 10/22/2010 COPD, severity to be determined 10/31/2011 Generalized osteoarthrosis, unspecified site 02/20/2015 documented as of this encounter (statuses as of 07/11/2024) Immunizations Name Administration Dates Next Due Pneumococcal [...] Date Recorded PHQ Adult Total Score 0 11/08/2023 Hunger Vital Sign Answer Date Recorded Within the past 12 months, y ou worried that your food would run out before you got the money to buy more. Patient declined Within the past 12 months, t he food you bought just didn't last and you didn't have money to get more. Patient declined Childcare Answer Date Recorded Do you feel overwhelmed with taking care of a child, family member or friend? No 11/08/2023 Does your family need help f inding childcare? (Household - for ages 0-17 years) Not on file 11/08/2023 Clothing Answer Date Recorded Have you been unable to get clothing when it was really needed? No 11/08/2023 Is your family able to get c lothes or diapers when needed? (Household - for ages 0-17 years) Not on file 11/08/2023 Personal Safety Answer Date Recorded Do you feel unsafe or have concerns for your saf ety? No 11/08/2023 Do you have concerns for you r family's safety? (Household - for ages 0-17 years) Not on file 11/08/2023 Utilities Answer Date Recorded Do you have trouble paying y our heating, water, or electric bill? No 11/08/2023 Is your family able to pay t he heat, water, or electric bill? (Household - for ages 0-17 years) Not on file 11/08/2023 Does your family have access to good internet? (Household - for ages 0-17 years) Not on file 11/08/2023 Employment Status Answer Date Recorded Are you unemployed or without regular income? No 11/08/2023 Does the household have a re gular source of income? (Household - for ages 0-17 years) Not on file 11/08/2023 Social Connections Answer Date Recorded How often do you feel lonely or isolated from th ose around you? Never 11/08/2023 Financial Resource Strain Answer Date R ecorded Do you have any trouble payi ng for your medications, or do you think you might in the future? No 11/08/2023 Does your family have troubl e paying for medicine? (Household - for ages 0-17 years) Not on file 11/08/2023 Transportation Needs Answer Date Record ed READ ONLY Do you have troubl e getting a ride to medical visits or work? Never True 11/08/2023 Does your family have a hard time getting a ride to doctors visits? (Household - for ages 0-17 years) Not on file 11/08/2023 Has lack of transportation k ept you from medical appointments, meetings, work, or from getting things needed for daily living? Check all that apply. (Adult - for ages 18 years and over) Not on file 11/08/2023 Do you (or your family) have trouble finding or paying for a ride (transportation)? (Household - for ages 0-17 years) Not on file 11/08/2023 Housing Stability Answer Date Recorded Do you currently live in a s helter or have no steady place to sleep at night? No 11/08/2023 READ ONLY Do you think you a re at risk of becoming homeless? No 11/08/2023 Does your family worry about paying for your home or becoming homeless? (Household - for ages 0-17 years) Not on file 0 11/08/2023 Are you homeless or worried that you might be in the future? (Adult - for ages 18 years and over) Not on file Are you (or your family) jeffery eless or worried that you might be in the future? (Household - for ages 0-17 years) Not on file Food Insecurity Answer Date Recorded Do you need food for this week? No 11/08/2023 Are you able to get enough f ood for your family? (Household - for ages 0-17 years) Not on file 11/08/2023 Does your family need food t his week? (Household - for ages 0-17 years) Not on file 11/08/2023 Do you always have enough fo od for your family? 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 Answer Date of Assessment Author Yes 12/07/2021 3:58 PM EDT Adrianna Hu RN * Are you blind or do you have serious difficulty seeing, even when wearing glasses? Answer Date of Assessment Author No 12/07/2021 3:58 PM EDT Adrianna Hu RN * Do you have serious difficulty walking or climbing stairs? (5 years old or older) Answer Date of Assessment Author No 12/07/2021 3:58 PM EDT Karen Hu RN * Do you have difficulty dressing or bathing? (5 years old or older) Answer Date of Assessment Author No 12/07/2021 3:58 PM EDT Adrianna Hu RN * Because of a physical, mental, or emotional condition, do you have difficulty doing errands alone such as visiting a doctors office or shopping? (15 years old or older) Answer Date of Assessment Author No 12/07/2021 3:58 PM EDT Adrianna Hu RN documented as of this encounter Mental Status * Because of a physical, mental, or emotional condition, do you have serious difficulty concentrating, remembering, or making decisions? (5 years old or older) Answer Entry Date Author No 12/07/2021 3:58 PM EDT Adrianna Hu RN documented in this encounter Miscellaneous Notes * Telephone Encounter - Evgeny Houston - 07/11/2024 4:10 PM EST Received message from [facility] regarding patient needing an appointment. Patient was notified. Successfully contacted patient and provided [facility] message. * Telephone Encounter - Matt Archibald RPh - 07/10/2024 2:18 PM ESTSigned Prescriptions: Disp Refills Losartan Potassium 25 MG Oral Tablet (Coza*90 Tab*0 Sig: TAKE 1 TABLET BY MOUTH EVERY DAY IN THE MORNING Authorizing Provider: SHELBIE ARNOLD Ordering User: MATT ARCHIBALD * Telephone Encounter - Matt Archibald RPh - 07/10/2024 2:16 PM EST Please contact patient so that an appointment can be scheduled with his Primary CARDIOLOGY provider. Refill authorized to hold patient over in the mean time. Last Visit: 10/06/2023 (in office), Visit date not found (telemedicine) Next Visit: 10/22/2024 (cardiology EP visit) ThanksMatt, PharmD Clinical Pharmacist [facility] ([facility]) 07/10/2024, 2:16 PM documented in this encounter Plan of Treatment Upcoming Encounters Date Type Department Care Team (Late st Contact Info) Description 10/22/2024 8:00 AM EDT Office Visit Cardiology, [facility] [address] [facility] [place] [address] Crissy Siegel CRNP [address] [place] [address] [place] [phone] 12/24/2024 8:00 AM EDT Office Visit Family Medicine [address] [phone] Maribel Angel PA-C [address] [place] [address] [place] [id number] 06/25/2025 8:00 AM EST Office Visit Family Medicine [address] [place] [phone] Alexandra Sales MD [address] [place] [address] [place] [id number] 07/30/2025 11:30 AM EST Appointment Vascular [facility] [place] [address] [place] [address] 07/30/2025 12:00 PM EST Office Visit Vascular Surg [place] [address] [place] [address] Negro [place] MD [facility] [place] [address] Scheduled Procedures Name Priority Associated Diagnoses Date/Ti me COLONOSCOPY FLEXIBLE PROXIMA L DIAGNOSTIC Recall Personal history of colonic polyps COLONOSCOPY FLEXIBLE PROXIMA L DIAGNOSTIC Recall History of colon polyps Health Maintenance Due Date Last Done Comments Cologuard 02/08/2004 Fecal Occult Blood Test 02/08/2004 Sigmoidoscopy 02/08/2004 Pneumococcal Vaccine: 65+ Years (2 of 2 - PCV) 05/12/2007 05/12/2006 COVID-19 Vaccine ( season) 2024 Influenza Vaccine (FLU shot) (#1) 2024 06/27/2017, 06/27/2017 (Refused), 05/25/2012, Additional history exists CKD HGB USE SMARTSET 03434 09/05/202409/05, 05/13/2023, 05/13/2023, Additional history exists Albumin/Creatinine Ratio 11/02/2024 024, 10/14/2022, 06/07/2008, Additional history exists Depression Screening 11/07/2024 11/08/2023 GFR 12/23/2024 06/24/2024, 08/24, 05/13/2023, Additional history exists AAA Monitoring 04/05/2025 04/05/2023, 03/24, 10/13/2021, Additional history exists CKD PHOS USE SMARTSET 77926 06/24/202508/2023, 05/13/2023, 10/14/2022 DISCUSS TOBACCO CESSATION (REFER TO SMARTSET #3234) 06/24/2025 06/24/2024 (Course Completed), 02/12/2019 O2 ASSESSMENT COMPLETED IN PAST YEAR FOR COPD 06/24/2025 06/24/2024 Colonoscopy 08/11/2025 08/11/2020, 07/24, 10/30/2014, Additional history exists Colorectal Cancer Screening 08/11/2025 Diabetes Screening 06/24/2027 06/24/2024, 1 08/25/2023, 09/05/2023, Additional history exists DTap/Tdap Vaccines (3 - [...] this encounter Medical Devices Implanted Type Area Barrel Endshake Adjuster Device Identifier Shelf Expiration Date Model / Serial / Lot Lens Intraoc 16.5 - [id number] - [id number] Implanted:Qty : 1 on 05/28/2019 by Collin Mayberry MD at [facility] Right: Eye [employer] 11/20/2021 [id number] / [id number] / [id number] Lens Intraoc 17.5 - [id number] - [id number] Implanted:Qty : 1 on 06/04/2019 by Collin Mayberry MD at [facility] Left: Eye [employer] 12/22/2023 [id number] / [id number] / [id number] Graft Hemashld [id number] - [id number] Implanted:Qty : 1 on 12/07/2021 by Negro [place] MD at OR [facility] N/A: Aorta GETINGE : MAQUET [id number] 08/23/2025 [id number] / [id number] / [id number] documented as of this encounter Advance Directives * Full Code (Latest Code Status on File) Date Activated Date Inactivated Comments 12/07/2021 12:57 PM 12/12/2021 7:03 PM This order reflects the patients wishes and were consensually agreed upon. Question Answer Comments Discussion of Advance Direct krystal occurred with: Not Discussed recent postop anesthesia Care Teams Disabilities Services Officer Relationship Specialty Start Date End Date Alexandra Sales MD [address] [place] [address] [place] [phone] PCP - General Family Medicine 02/12/19 documented as of this encounter
--- OUTSIDE RECORDS SUMMARY | 2024-08-28 15:57 | External Medical Summary | Summary of Care ---
Author Name Unknown Organization [facility] Address [address] [place] [address] Phone [phone] Care Team Providers Care Project Executive Name Role Phone Alexandra Sales MD Primary Care Prov ider Reason for Visit * Reason Comments eRx-Medication Refill Encounter Details Date Type Department Care Team (Late st Contact Info) Description 08/06/2024 Refill Cardiology, [facility] [address] [facility] [place] [address] Wilian Castanon, [address] [facility] [place] [address] Palpitations; Supraventricular tachycardia, unspecified (HCC) Allergies Active Allergy Reactions Criticality Noted Date Comments Lisinopril Other (Please comment) 05/16/2016 Shortness of breath, and itchy documented as of this encounter (statuses as of 08/06/2024) Medications Albuterol Sulfate HFA 108 (90 Base) [...] goal LDL below 130,PAD (peripheral artery disease) ([facility]) Take 1 Tablet by mouth in [...] THE DAY 90 Capsule 1 024 Active Montelukast Sodium 10 MG Oral Tablet (Singulair)Indica tions:COPD, moderate (HCC),Chronic rhinitis TAKE 1 TABLET BY MOUTH EVERY DAY IN THE MORNING 90 Tablet 1 024 Active Losartan Potassium 25 MG Oral Tablet (Cozaar) TAKE 1 TABLET BY MOUTH EVERY DAY IN THE MORNING 90 Tablet 024 Active Metoprolol Succinate ER 50 MG Oral Tablet Extended Release 24 Hour (toPROL XL)Indications:Pa lpitations,Suprav entricular tachycardia, unspecified (HCC) TAKE 50MG BY MOUTH ONCE DAILY IN THE MORNING AND 25MG (1/2 TABLET) IN THE EVENING 135 Tablet 3 025 Active Metoprolol Succinate ER 50 MG Oral Tablet Extended Release 24 Hour (Toprol XL) Take 1 Tablet by mouth in the morning. 90 Tablet 3 024 2024 Discontinued Hospital, Clinic, or Other Facility Administered Medication Ordered Dose Route Frequency Start Date End Date Status albuterol sulfate (PROVENTIL) (2.5 MG/3ML) 0.083% inhalation solution 2.5 mgIndications:COPD, moderate (HCC) 2.5 mg NEBULIZER Q4H PRN 03/15/2019 Active documented as of this encounter (statuses as of 08/06/2024) Active Problems Problem Noted Date Diagnosed Date [...] use aero chamber. Test performed by Felicity LEGAL BILLER CPFT HIATAL HERNIA 05/06/2005 Tobacco use disorder 06/25/2004 Esophageal reflux 06/25/2004 BMI 37.0-37.9, adult Essential hypertension with goal blood pressure less than 140/90 Hyperlipidemia LDL goal <100 Overview (11/23/2015): ICD-10 update of inactive term documented as of this encounter (statuses as of 08/06/2024) Resolved Problems Problem Noted Date Diagnosed Date [...] as of this encounter (statuses as of 08/06/2024) Immunizations Name Administration Dates Next Due Pneumococcal [...] Day Cigarettes 1 50 Smokeless Tobacco: Never Comments:07/11/24 1 pack chuy ly, declined pamphlet Alcohol Use Standard Drinks/Week Comments [...] 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 Not on file [...] Adrianna Hu RN * Do you have difficulty [...] encounter Miscellaneous Notes * Telephone Encounter - Torrie Delacruz, [facility] - 08/06/2024 8:19 PM EST Signed Prescriptions: Disp Refills Metoprolol Succinate ER 50 MG Oral Tablet *135 Ta*3 Sig: TAKE 50MG BY MOUTH ONCE DAILY IN THE MORNING AND 25MG (1/2 TABLET) IN THE EVENING Authorizing Provider: PEDRO SIEGEL Ordering User: TORRIE DELACRUZ * Telephone Encounter - Vernon Houston - 08/06/2024 5:08 AM ESTPending Prescriptions: Disp Refills Metoprolol Succinate ER 50 MG Oral Tablet *135 Ta*3 Sig: TAKE 50MG BY MOUTH ONCE DAILY IN THE MORNING AND 25MG (1/2 TABLET) IN THE EVENING * Telephone Encounter - Vernon Houston - 08/06/2024 5:06 AM EST Did you pend patient's preferred pharmacy and medication before forwarding?yes Pharmacy: [id number] [id number] [facility] Pending Prescriptions: Disp Refills Metoprolol Succinate ER 50 MG Oral Tablet*135 Ta*3 Sig: TAKE 50MG BY MOUTH ONCE DAILY IN THE MORNING AND 25MG (1/2 TABLET) IN THE EVENING Last Visit: 04/23/2024 (in office), Visit date not found (telemedicine) Next Visit: 10/22/2024 If no future appointments scheduled, and last appointment is greater than a year ago, please schedule patient for a follow-up appointment Last date the medication was ordered: 04/23/2024 Is this request for a controlled substance?No Urine Drug Screen:No results found for this or any previous visit. Patient Phone Numbers Labs: Lab Results Component Value Date/Time CREAT 1.0 06/24/2024 08:53 AM CREAT 1.3 (H) 10/01/2020 09:14 AM CREAT 1.3 (H) 03/03/2020 10:24 AM POTASSIUM 4.4 06/24/2024 08:53 AM POTASSIUM 4.7 12/07/2021 12:24 PM POTASSIUM 4.2 03/03/2020 10:24 AM TSH 1.06 05/13/2023 09:48 AM TSH 1.69 08/10/2012 11:35 AM LDL 54 09/05/2023 04:25 PM LDL 104 03/03/2020 10:24 AM LDL UNINTERPRETABLE RESULT 03/15/2019 09:34 AM ALT 27 05/12/2021 11:12 AM ALT 32 07/28/2016 12:00 AM ALT 26 05/27/2015 01:30 PM HGBA1C 5.6 06/24/2024 08:53 AM HGBA1C 5.8 04/08/2009 09:09 AM documented in this encounter Plan of Treatment Upcoming Encounters Date Type Department Care Team (Late st Contact Info) Description 10/22/2024 8:00 AM EDT Office Visit Cardiology, [facility] [address] [facility] [place] [address] Pedro Siegel CRNP [address] [place] [address] Jg [place] [address] 12/24/2024 8:00 AM EDT Office Visit [address] [place] [phone] Maribel Angel PA-C [address] [place] [address] [place] [address] 06/25/2025 8:00 AM EST Office Visit Family Medicine [address] [phone] Alexandra Sales MD [address] [place] [address] [place] [address] 07/30/2025 11:30 AM EST Appointment Vascular Lab [place] [address] [place] [address] 07/30/2025 12:00 PM EST Office Visit Vascular Surg [place] [address] [place] [address] Negro Dover MD [facility] [place] [address] Scheduled Procedures Name Priority Associated Diagnoses Date/Ti me COLONOSCOPY FLEXIBLE PROXIMA L DIAGNOSTIC Recall Personal history of colonic polyps COLONOSCOPY FLEXIBLE PROXIMA L DIAGNOSTIC Recall History of colon polyps Health Maintenance Due Date Last Done Comments Cologuard 02/08/2004 Fecal Occult Blood Test 02/08/2004 Sigmoidoscopy 02/08/2004 Pneumococcal Vaccine: 50+ Years (2 of 2 - PCV) 05/12/2007 05/12/2006 COVID-19 Vaccine ( season) 2024 Influenza Vaccine (FLU shot) (#1) 2024 06/27/2017, 06/27/2017 (Refused), 05/25/2012, Additional history exists CKD HGB USE SMARTSET 02287 09/05/202409/05, 05/13/2023, 05/13/2023, Additional history exists Albumin/Creatinine Ratio 11/02/2024 024, 10/14/2022, 06/07/2008, Additional history exists Depression Screening 11/07/2024 11/08/2023 GFR 12/23/2024 06/24/2024, 08/24, 05/13/2023, Additional history exists AAA Monitoring 04/05/2025 04/05/2023, 03/24, 10/13/2021, Additional history exists CKD PHOS USE SMARTSET 02722 06/24/2025 12/08/2023, 05/13/2023, 10/14/2022 DISCUSS TOBACCO CESSATION (REFER TO SMARTSET #3291) 06/24/2025 06/24/2024 (Course Completed), 02/12/2019 O2 ASSESSMENT [...] this encounter Medical Devices Implanted Type Area Supervisor Fabrication And Assembly Device Identifier Shelf Expiration Date Model / Serial / Lot Lens Intraoc 16.5 - [id number] - [id number] Implanted:Qty : 1 on 05/28/2019 by Collin Mayberry MD at OR [facility] Right: Eye [employer] 11/20/2021 [id number] / [id number] / [id number] Lens Intraoc 17.5 - [id number] - [id number] Implanted:Qty : 1 on 06/04/2019 by Collin aMyberry MD at OR [facility] Left: Eye [employer]CH [employer] LOMB 12/22/2023 [id number] / [id number] / [id number] Graft Hemashld [id number] - [id number] Implanted:Qty : 1 on 12/07/2021 by Negro Dover MD at [place] [facility] N/A: Aorta GETINGE : MAQUET [id number] 08/23/2025 [id number] / [id number] / [id number] documented as of this encounter Visit Diagnoses Diagnosis Palpitations Supraventricular tachycardia, unspecified (HCC) documented in this encounter Advance Directives * Full Code (Latest Code Status on File) Date Activated Date Inactivated Comments 12/07/2021 12:57 PM 12/12/2021 7:03 PM This order reflects the patients wishes and were consensually agreed upon. Question Answer Comments Discussion of Advance Direct krystal occurred with: Not Discussed recent postop anesthesia Care Teams Project Executive Relationship Specialty Start Date End Date Alexandra Sales MD [address] [place] [address] [place] [address] PCP - General Family Medicine 02/12/19 documented as of this encounter
--- OUTSIDE RECORDS SUMMARY | 2024-08-28 15:57 | External Medical Summary | Summary of Care ---
Author Name Unknown Organization [facility] Address [address] [place] [address] Phone [phone] Care Team Providers Care Manager Solution Name Role Phone Alexandra Sales MD Primary Care Prov ider Encounter Details Date Type Department Care Team (Latest Contact Info) Description 07/11/2024 9:29 AM EST Hospital Encounter Vascular Lab [facility] [address] [place] [address] Arrived Discharge Disposition: Home - Self Care Allergies Active Allergy Reactions Criticality Noted Date Comments Lisinopril Other (Please comment) 05/16/2016 Shortness of breath, and itchy documented as of this encounter (statuses as of 07/12/2024) Medications Albuterol Sulfate HFA 108 (90 Base) MCG/ACT Inhalation Aerosol Solution Inhale 2 Puffs by mouth every 4 hours as needed for Cough, Wheezing or Dyspnea. 18 g 1 1 Active Sildenafil Citrate 50 MG Oral TabletIndications: Erectile dysfunction Take 1 Tablet by mouth daily as needed for Erectile Dysfunction. 10 Tablet 5 3 Active Aspirin 81 MG Oral Tablet Delayed ReleaseIndications :HTN, goal below 140/90,Palpitation s,Dyslipidemia, goal LDL below 130,PAD (peripheral artery disease) (HCC) Take 1 Tablet by mouth in the morning. 99 Tablet 3 3 Active Cetirizine HCl 10 MG Oral Tablet (ZyrTEC) Take 1 Tablet by mouth in the morning. 90 Tablet 3 3 Active Triamcinolone Acetonide 0.5 % External Cream (Aristocort) Apply topically to affected area 2 times a day. To affected area. 15 g 5 4 Active Fluticasone Propionate HFA 110 MCG/ACT Inhalation Aerosol (Flovent HFA)Indications:Pr imary osteoarthritis of both ankles TAKE 2 PUFFS BY MOUTH TWICE A DAY 12 g 5 4 Active Ezetimibe 10 MG Oral Tablet (Zetia)Indications :Dyslipidemia, goal LDL below 70 TAKE 1 TABLET BY MOUTH EVERY DAY IN THE MORNING 90 Tablet 3 4 Active Atorvastatin Calcium 80 MG Oral Tablet (Lipitor)Indicatio ns:Hyperlipidemia LDL goal <100 TAKE 1 TABLET BY MOUTH EVERY DAY 90 Tablet 2 4 Active Omeprazole 20 MG Oral Capsule Delayed Release (PriLOSEC)Indicati ons:Abdominal pain, epigastric,Gastroe sophageal reflux disease with esophagitis without hemorrhage TAKE 1 CAPSULE BY MOUTH EVERY DAY 1 HOUR BEFORE FIRST MEAL OF THE DAY 90 Capsule 1 4 Active Metoprolol Succinate ER 50 MG Oral Tablet Extended Release 24 Hour (Toprol XL) Take 1 Tablet by mouth in the morning. 90 Tablet 3 4 Active Montelukast Sodium 10 MG Oral Tablet (Singulair)Indicat ions:COPD, moderate (HCC),Chronic rhinitis TAKE 1 TABLET BY MOUTH EVERY DAY IN THE MORNING 90 Tablet 1 4 Active Hospital, Clinic, or Other Facility Administered Medication Ordered Dose Route Frequency Start Date End Date Status albuterol sulfate (PROVENTIL) (2.5 MG/3ML) 0.083% inhalation solution 2.5 mgIndications:COPD, moderate (HCC) 2.5 mg NEBULIZER Q4H PRN 03/15/2019 Active documented as of this encounter (statuses as of 07/12/2024) Active Problems Problem Noted Date Diagnosed Date [...] use aero chamber. 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 Not on file [...] Adrianna Hu RN documented in this encounter Plan of Treatment Upcoming Encounters Date Type Department Care Team (Late st Contact Info) Description 10/22/2024 8:00 AM EDT Office Visit Cardiology, [address] [place] [address] Crissy Siegel CRNP [address] [place] [address] [place] [address] 12/24/2024 8:00 AM EDT Office Visit [address] [place] [phone] Maribel Angel PA-C [address] [place] [address] [place] [address] 06/25/2025 8:00 AM EST Office Visit Family Medicine [address] [phone] Alexandra Sales MD [address] [place] [address] [place] [address] 07/30/2025 11:30 AM EST Appointment Vascular Lab [place] [address] [place] [address] 07/30/2025 12:00 PM EST Office Visit Vascular Surg [place] [address] [place] [address] Negro Dover MD [address], [place] [id number] Scheduled Procedures Name Priority Associated Diagnoses Date/Ti [...] Additional history exists CKD HGB USE SMARTSET 55332 09/05/202409/05, 05/13/2023, 05/13/2023, Additional history exists Albumin/Creatinine Ratio 11/02/2024 024, 10/14/2022, 06/07/2008, Additional history exists Depression Screening 11/07/2024 11/08/2023 GFR 12/23/2024 06/24/2024, 08/24, 05/13/2023, Additional history exists AAA Monitoring 04/05/2025 04/05/2023, 03/24, 10/13/2021, Additional history exists CKD PHOS USE SMARTSET 38194 06/24/2025 12/08/2023, 05/13/2023, 10/14/2022 DISCUSS TOBACCO CESSATION [...] this encounter Medical Devices Implanted Type Area Psychiatric Assistant Device Identifier Shelf Expiration Date Model / Serial / Lot Lens Intraoc 16.5 - [id number] - [id number] Implanted:Qty : 1 on 05/28/2019 by Collin Mayberry MD at OR [facility] Right: Eye BAUSCH [employer] LOMB 11/20/2021 [id number] / [id number] / [id number] Lens Intraoc 17.5 - [id number] - [id number] Implanted:Qty : 1 on 06/04/2019 by Collin Mayberry MD at OR [facility] Left: Eye BAUSCH & LOMB 12/22/2023 [id number] / [id number] / [id number] Graft Hemashld [id number] - [id number] Implanted:Qty : 1 on 12/07/2021 by Negro Dover MD at [place] [facility] [place] N/A: Aorta GETINGE : MAQUET [id number] 08/23/2025 [id number] / [id number] / [id number] documented as of this encounter Procedures Procedure Name Priority Date/Time Associated Diagnosis Comments [facility] DUPLEX CAROTID BILAT Routine 07/11/2024 11:02 AM EST Infrarenal abdominal aortic aneurysm (AAA) without rupture (HCC) documented in this encounter Results * [facility] DUPLEX CAROTID BILAT (07/11/2024 11:02 AM EST) Anatomical Region Laterality Modality Neck, Vascular Ultrasound Narrative 07/11/2024 12:14 PM EST VASCULAR LAB RESULTS DATE OF EXAM: 07/11/24 PRESENTING CONDITIONS: Open AAA repair, evlaute for carotid stenosis PHYSICIAN REPORT Carotid Artery Duplex Examination Immediately before proceeding with the vascular lab procedure reported below, the identity of the patient, the correct exam and the correct procedural site were verified. Rogers scale and color flow Doppler imaging was performed for evaluation of the right carotid artery. Duplex examination of the right carotid artery identifies atherosclerotic plaque at the carotid bifurcation. The plaque is echogenic and appears to have an irregular surface. Color Doppler imaging was performed for evaluation of the right carotid bifurcation. Spectral analysis of the right internal carotid artery demonstrates peak systolic velocities of 120 cm/sec. Maximum end diastolic velocities are 25 cm/sec.. Peak right common carotid velocity is 70 cm/sec. The right internal carotid to common carotid ratio is 1.7. The right external carotid artery has a peak velocity of 98 centimeters per second. Rogers scale and color flow Doppler imaging was performed for the evaluation of the left carotid artery. Duplex examination of the left carotid artery identifies atherosclerotic plaque at the carotid bifurcation. The plaque is echogenic and appears to have an irregular surface. Color Doppler imaging was performed for the evaluation of the left carotid bifurcation. Spectral analysis of the left internal carotid artery demonstrates peak systolic velocities of 51 cm/sec. Maximum end diastolic velocities are 18 cm/sec. Peak left common carotid velocity is 84 cm/sec. The left internal carotid to common carotid ratio is 0.6. The left external carotid artery has a peak velocity of 81 centimeters per second. The right vertebral artery demonstrates antegrade flow. The left vertebral artery demonstrates antegrade flow. Impression: Right carotid artery duplex examination indicates evidence of less than 50% stenosis of the internal carotid artery. Left carotid artery duplex examination indicates evidence of less than 50% stenosis of the internal carotid artery. David LI RAD VASCULAR Final Resu lt documented in this encounter Advance Directives * Full Code (Latest Code Status on File) Date Activated Date Inactivated Comments 12/07/2021 12:57 PM 12/12/2021 7:03 PM This order reflects the patients wishes and were consensually agreed upon. Question Answer Comments Discussion of Advance Direct krystal occurred with: Not Discussed recent postop anesthesia Care Teams Manager Solution Relationship Specialty Start Date End Date Alexandra Sales MD [address] [place] [address] [place] [address] PCP - General Family Medicine 02/12/19 documented as of this encounter
--- OUTSIDE RECORDS SUMMARY | 2024-08-28 15:57 | External Medical Summary | Summary of Care ---
Author Name Unknown Organization [facility] Address [address] [place] [address] Phone [phone] Care Team Providers Care Social Insurance Analyst Name Role Phone Alexandra Sales MD Primary Care Prov ider Reason for Visit * Reason Comments Follow Up * Evaluate & Treat - Unlimited Visits (Within 30 days (routine)) - Pending Review Specialty Diagnoses / Procedures Referred By Contmustapha t Referred To Contact Vascular Surgery / Cardiovascular Surgery Diagnoses Atherosclerotic PVD with intermittent claudication (HCC) Abdominal aortic aneurysm (AAA) without rupture, unspecified part (HCC) Alexandra Sales MD [address] [place] [address] [place] [address] Phone: tel: fax: Referral ID Status Reason Start Date Expiration Date Visits Requested Visits Authorized [id number] Pending Review Specialty Services Required 04/03/[phone] Encounter Details Date Type Department Care Team (Late st Contact Info) Description 07/11/2024 12:30 PM EST Office Visit Vascular Surg [facility] [address] [place] [address] Negro Dover MD [address] [place] [address] PVD (peripheral vascular disease) (HCC)*; Hyperlipidemia LDL goal <100; Essential hypertension with goal blood pressure less than 140/90; Superficial femoral artery occlusion (HCC) Allergies Active Allergy Reactions Criticality Noted Date Comments Lisinopril Other (Please comment) 05/16/2016 Shortness of breath, and itchy documented as of this encounter (statuses as of 07/11/2024) Medications Albuterol Sulfate HFA 108 (90 Base) MCG/ACT Inhalation Aerosol Solution Inhale 2 Puffs by mouth every 4 hours as needed for Cough, Wheezing or Dyspnea. 18 g 1 04/21/20 21 Active Sildenafil Citrate 50 MG Oral TabletIndications: Erectile dysfunction Take 1 Tablet by mouth daily as needed for Erectile Dysfunction. 10 Tablet 5 10/26/19 23 Active Aspirin 81 MG Oral Tablet Delayed ReleaseIndications :HTN, goal below 140/90,Palpitation s,Dyslipidemia, goal LDL below 130,PAD (peripheral artery disease) ([facility]) Take 1 Tablet by mouth in the morning. 99 Tablet 3 05/09/20 23 Active Cetirizine HCl 10 MG Oral Tablet (ZyrTEC) Take 1 Tablet by mouth in the morning. 90 Tablet 3 05/09/20 23 Active Triamcinolone Acetonide 0.5 % External Cream (Aristocort) Apply topically to affected area 2 times a day. To affected area. 15 g 5 11/08/19 24 Active Fluticasone Propionate HFA 110 MCG/ACT Inhalation Aerosol (Flovent HFA)Indications:Pr imary osteoarthritis of both ankles TAKE 2 PUFFS BY MOUTH TWICE A DAY 12 g 5 11/23/19 24 Active Additional Information Patient taking differently: PRN, Reported on 07/11/2024 Ezetimibe 10 MG Oral Tablet (Zetia)Indications :Dyslipidemia, goal LDL below 70 TAKE 1 TABLET BY MOUTH EVERY DAY IN THE MORNING 90 Tablet 3 12/28/19 24 Active Atorvastatin Calcium 80 MG Oral Tablet (Lipitor)Indicatio ns:Hyperlipidemia LDL goal <100 TAKE 1 TABLET BY MOUTH EVERY DAY 90 Tablet 2 02/21/20 24 Active Omeprazole 20 MG Oral Capsule Delayed Release (PriLOSEC)Indicati ons:Abdominal pain, epigastric,Gastroe sophageal reflux disease with esophagitis without hemorrhage TAKE 1 CAPSULE BY MOUTH EVERY DAY 1 HOUR BEFORE FIRST MEAL OF THE DAY 90 Capsule 1 04/13/20 24 Active Metoprolol Succinate ER 50 MG Oral Tablet Extended Release 24 Hour (Toprol XL) Take 1 Tablet by mouth in the morning. 90 Tablet 3 04/23/20 24 Active Montelukast Sodium 10 MG Oral Tablet (Singulair)Indicat ions:COPD, moderate (HCC),Chronic rhinitis TAKE 1 TABLET BY MOUTH EVERY DAY IN THE MORNING 90 Tablet 1 06/16/20 24 Active Losartan Potassium 25 MG Oral Tablet (Cozaar) TAKE 1 TABLET BY MOUTH EVERY DAY IN THE MORNING 90 Tablet 07/10/20 24 Active Hospital, Clinic, or Other Facility Administered [...] use aero chamber. 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 on file Not on file Not on file documented as of this encounter Last Filed Vital Signs Vital Sign Reading Time Taken Comments Blood Pressure 120/72 07/11/2024 11:19 AM EST Pulse 70 07/11/2024 11:19 AM EST Temperature 36.3 C (97.3 F) 07/11/2024 11:[address] Respiratory Rate - - Oxygen Saturation - - Inhaled Oxygen Concentration - - Weight 96.7 kg (213 lb 1.6 oz) 07/11/2024 11:19 AM EST Height - - Body Mass Index 31.47 11/08/2023 3:38 PM EDT documented in this encounter Functional Status * Are you [...] Adrianna Hu RN documented in this encounter Progress Notes * Christiano Dalton PA-C - 07/11/2024 11:26 AM EST Date of Service: 07/11/2024 11:[address] Katz is a 64 year old male. Referring Physician: Alexandra Max MD Chief Complaint: Annual return Patient underwent repair of ventral hernia x 2, KATLYN with Dr. Lloyd @ [facility] on 04/26/24 secondaryto incarcerated ventral hernias & recurrent SBOs Remains a dedicated smoker, 1 ppd Has chronic right calf "tiredness" after walking 1 mile No rest pain or ulcers feet/toes HPI: Patient is a dedicated smoker with PMH of HTN, COPD, CKD, dyslipidemia, and obesity. Underwent open repair of unruptured infra-renal abdominal aortic aneurysm with aortic Dacron bypassgraft ( 18 mm Dacron tube graft) and ultrasound-guided transversus abdominis plane block on 12/07/21by Dr. Dover ABDOMINAL AORTIC ANEURYSM: Patient denies any symptoms related to AAA. Patient's chronic low back pain is unchanged. Patient denies new abdominal pain, flank pain, and back pain. PERIPHERAL VASCULAR DISEASE: Known right SFA occlusion, per 2014 CTA. Reports [id number] R calf claudication. Denies rest pain or ulcerations. FAMILY HISTORY: Denies FH of AAA Current Outpatient Medications Medication Sig Dispense Refill Albuterol Sulfate HFA 108 (90 Base) MCG/ACT Inhalation Aerosol Solution Inhale 2 Puffs by mouth every 4 hours as needed for Cough, Wheezing or Dyspnea. 18 g 1 Sildenafil Citrate 50 MG Oral Tablet Take 1 Tablet by mouth daily as needed for Erectile Dysfunction. 10 Tablet 5 Aspirin 81 MG Oral Tablet Delayed Release Take 1 Tablet by mouth in the morning. 99 Tablet 3 Cetirizine HCl 10 MG Oral Tablet (ZyrTEC) Take 1 Tablet by mouth in the morning. 90 Tablet 3 Triamcinolone Acetonide 0.5 % External Cream (Aristocort) Apply topically to affected area 2 times a day. To affected area. 15 g 5 Fluticasone Propionate HFA 110 MCG/ACT Inhalation Aerosol (Flovent HFA) TAKE 2 PUFFS BY MOUTH TWICEA DAY (Patient taking differently: as needed.) 12 g 5 Ezetimibe 10 MG Oral Tablet (Zetia) TAKE 1 TABLET BY MOUTH EVERY DAY IN THE MORNING 90 Tablet 3 Atorvastatin Calcium 80 MG Oral Tablet (Lipitor) TAKE 1 TABLET BY MOUTH EVERY DAY 90 Tablet 2 Omeprazole 20 MG Oral Capsule Delayed Release (PriLOSEC) TAKE 1 CAPSULE BY MOUTH EVERY DAY 1 HOUR BEFORE FIRST MEAL OF THE DAY 90 Capsule 1 Metoprolol Succinate ER 50 MG Oral Tablet Extended Release 24 Hour (Toprol XL) Take 1 Tablet by mouth in the morning. 90 Tablet 3 Montelukast Sodium 10 MG Oral Tablet (Singulair) TAKE 1 TABLET BY MOUTH EVERY DAY IN THE MORNING 90Tablet 1 Losartan Potassium 25 MG Oral Tablet (Cozaar) TAKE 1 TABLET BY MOUTH EVERY DAY IN THE MORNING 90 Tablet 0 Current Facility-Administered Medications Medication Dose Route Frequency Provider Last Rate Last Admin albuterol sulfate (PROVENTIL) (2.5 MG/3ML) 0.083% inhalation solution 2.5 mg 2.5 mg Nebulizer Q4H PRN Alexandra Sales MD 2.5 mg at 06/27/19 1331 Review of patient's allergies indicates: Allergen Reactions Lisinopril Other (Please comment) Shortness of breath, and itchy Patient Active Problem List Diagnosis Tobacco use disorder Esophageal reflux HIATAL HERNIA COPD, moderate (HCC) BMI 37.0-37.9, adult Essential hypertension with goal blood pressure less than 140/90 Hyperlipidemia LDL goal <100 Diverticulosis Abdominal aortic aneurysm without rupture (HCC) Hypoxemia Atherosclerotic PVD with intermittent claudication (HCC) Dermatitis of both ear canals Sensorineural hearing loss (SNHL) of both ears Age-related cataract of both eyes COPD, group B, by GOLD 2017 classification (HCC) Chronic kidney disease, stage 3a (HCC) Postoperative anemia due to acute blood loss Abdominal aortic aneurysm (AAA) without rupture (HCC) Abdominal aortic aneurysm (AAA) without rupture (HCC) Abdominal aortic aneurysm (AAA) without rupture (HCC) Actinic keratosis of scalp Past Medical History: Diagnosis Date AAA (abdominal aortic aneurysm) (HCC) 11/07/13 3.1 cm AAA Benign neoplasm of colon 05/06/09 polyps x3, diverticulosis adenomatous/repeat colonoscopy in 5 yrs BMI 33.0-33.9,adult Carpal tunnel syndrome left wrist Chest pain s/p cardiac cath January of 2004-normal Cholelithiasis COPD, moderate (HCC) Diverticulosis 10/30/14 entire colon Esophageal reflux Generalized osteoarthrosis, unspecified site HTN, goal below 140/90 Hyperlipidemia LDL goal < 130 Mixed conductive and sensorineural hearing loss Need for hepatitis C screening test 02/20/15 negative Peripheral vertigo Screening for HIV without presence of risk factors 02/20/15 negative Superficial femoral artery occlusion (HCC) 11/07/13 right Tobacco use disorder Past Surgical History: Procedure Laterality Date ANEUR AORTA/ILIAC/OCCL ILIAC N/A 12/07/2021 REPAIR ANEURYSM ABDOMINAL AORTA ILIAC performed by Negro Dover MD at OR [facility] BACK/FLANK DEEP TUMOR REMOVAL, 5 CM OR MORE N/A 02/20/2017 EXCISION BACK/FLANK DEEP TUMOR, 5 CM OR MORE performed by Christiano Linton MD at OR [facility] DX epidermoid cyst COLONOSCOPY W/ BIOPSY (RECTUM) 05/06/2009 polyps x3, diverticulosis adenomatous/repeat colonoscopy in 5 yrs COLONOSCOPY, DIAGNOSTIC (RECTUM) 10/30/2014 diverticulosis, repeat 5 yrs/COLONOSCOPY FLEXIBLE PROXIMAL DIAGNOSTIC performed by Zachary Suarez MD at ENDOSCOPY [facility] COLONOSCOPY, DIAGNOSTIC (RECTUM) 08/11/2020 adenomatous polyps, diverticulosis, repeat 5 yrs / COLONOSCOPY FLEXIBLE PROXIMAL DIAGNOSTIC performed by Nathalia Jara MD at ENDOSCOPY [facility] CT ABDOMEN/PELVIS 07/21/2017 stable 3.6 cm AAA, mild wall thickening of the descending colon suggestive of mild colitis CT CHEST LOW DOSE SCAN LUNG CANCER SCREEN INITIAL 07/14/2017 lung rads 1 normal CTA CHEST NON-CORONARY W CONTRAST 09/17/2009 COPD with scattered tiny bleb,. Clfd DRAIN SKIN ABSCESS, SIMPLE/SINGLE coccyx ECHO, COMPLETE (2D), TRANS-THORACIC 07/21/2017 mod conc LVH with normal wall motion, EF 55-60%, LA normal sized EKG 09/17/2009 NSR, Clfd IOF CT HEAD/BRAIN WO CONTRAST 09/17/2009 tiny 2 by 3mm hemorrhage right lateral ventricle, Clfd IR ARTERIOGRAM VISCERAL 11/07/2013 cholelithiasis, aortic aneurysm 3.1 cm, right superficial femoral artery chronically occluded, other vessels mostly patent with some tibial calcification LAPAROSCOPY; CHOLECYSTECTOMY N/A 07/07/2015 LAPAROSCOPIC CHOLECYSTECTOMY performed by Jeri Mcintyre MD at OR [facility] LOWER LEG/ANKLE SUBQ TUMOR REMOVAL,[id number] on left knee NOCTURNAL HOME OXIMETRY (OP) 08/13/2012 does not qualify for oxygen PFT B/A 05/04/2010 moderate COPD REMOVE CATARACT, INSERT LENS PROSTH Right 05/28/2019 right EXTRACAPSULAR CATARACT REMOVAL WITH INTRAOCULAR LENS performed by Collin Mayberry MD at OR [facility] REMOVE CATARACT, INSERT LENS PROSTH Left 06/04/2019 left EXTRACAPSULAR CATARACT REMOVAL WITH INTRAOCULAR LENS performed by Collin Mayberry MD at OR [facility] REPAIR COMPL CRANIOFACIAL FX W/FIX s/p pinning which was taken out REPLACE DENTURE TEETH COMPLT dentures upper and lower jaw TRANSVERSUS ABDOMINIS PLANE BLOCK , BILAT, INJ 12/07/[address]INIS PLANE (TAP) BLOCK (ABDOMINAL PLANE BLOCK, RECTUS SHEATH BLOCK) BILATERAL; BY INJECTION(S)--INCLUDES IMAGING GUIDANCE, WHEN PERFORMED performed by Negro Dover MD at OR [facility] US AORTA 11/10/2014 stable to slightly enlarging AAA US AORTA 03/02/2016 slightly enlarging 3.8x3.7 cm aorta US AORTA 01/31/2017 stable 3.8 cm US AORTA 03/12/2018 stable fusiform AAA, 3.7x3.6 cm VASC ARTERIAL DOPPLER LE Right 02/19/2015 FRED 0.61 suggest porimal iliac stenosis, and superficial femoral artery disease VASC DUPLEX VENOUS LE BILAT 10/24/2013 no DVT but has high grade stenosis or occlusion of right femoral artery Family History Problem Relation Name Age of Onset Hypertension Mother Cancer Father unknown Diabetes Grandmother (Paternal) Cancer Grandfather (Paternal) stomach? 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 marijuana use Sexual activity: Yes Partners: Female Other Topics Concern Not on file Social History Narrative Not on file Social Needs Financial Resource Strain: Low Risk (11/08/2023) Financial Resource Strain Do you have any trouble paying for your medications, or do you think you might in the future? (Adult - for ages 18 years and over): No Does your family have trouble paying for medicine? (Household - for ages 0-17 years): Not on file Food Insecurity: No Food Insecurity (11/08/2023) Food Insecurity Do you need food for this week? (Adult - for ages 18 years and over): No Are you able to get enough food for your family? (Household - for ages 0-17 years): Not on file Does your family need food this week? (Household - for ages 0-17 years): Not on file Do you always have enough food for your family? (Household - for ages 0-17 years): Not on file Transportation Needs: No Transportation Needs (11/08/2023) Transportation Needs Do you have trouble getting a ride to medical visits or work? (Adult - for ages 18 years and over):Never True Does your family have a hard time getting a ride to doctors visits? (Household - for ages 0-17 years): Not on file Has lack of transportation kept you from medical appointments, meetings, work, or from getting things needed for daily living? Check all that apply. (Adult - for ages 18 years and over): Not on file Do you (or your family) have trouble finding or paying for a ride (transportation)? (Household - for ages 0-17 years): Not on file Social Connections: Socially Integrated (11/08/2023) Social Connections How often do you feel lonely or isolated from those around you? (Adult - for ages 18 years and over): Never Housing Stability: Low Risk (11/08/2023) Housing Stability Do you currently live in a skilled nursing or have no steady place to sleep at night? (Adult - for ages 18 years and over): No Do you think you are at risk of becoming homeless? (Adult - for ages 18 years and over): No Does your family worry about paying for your home or becoming homeless? (Household - for ages 0-17 years): Not on file Are you homeless or worried that you might be in the future? (Adult - for ages 18 years and over): Not on file Are you (or your family) homeless or worried that you might be in the future? (Household - for ages0-17 years): Not on file REVIEW OF SYSTEMS: Constitutional: No fever/chills Eyes: No amaurosis fugax Pulmonary: No shortness of breath, reports stable ROA Cardiac: No chest pain GI: Reports BRBPR, reports midline abdominal surgical incision healed : No hematuria Skin: No ulcers Neurologic: No TIA/CVA symptoms GENERAL MULTI-SYSTEM PHYSICAL EXAM: VITAL SIGNS: BP 120/72 (BP Site: Left Arm, BP Position: Sitting, BP Cuff Size: Regular) | Pulse 70 | Temp 36.3 C (97.3 F) (Temporal Artery) | Wt 96.7 kg (213 lb 1.6 oz) | BMI 31.47 kg/m | BSA 2.17 m GENERAL MULTI-SYSTEM PHYSICAL EXAM: GENERAL: Normal grooming habits, no acute distress and appears stated age. RESPIRATORY: Nl effort, CTA CARDIOVASCULAR: RRR, no BLE edema. GASTROINTESTINAL: no tenderness, obese, midline abdominal surgical incision healed, on obvious hernia(s) SKIN: no ulcers of feet bilaterally PSYCHIATRIC: orientation to time, place and person normal and recent and remote memory normal. EYES: sclerae normal. NEUROLOGIC: Motor function grossly intact. PULSE SCALE: Carotid Right:----Bruit: No Left:----Bruit: No Radial Right: 2 Left: 2 Femoral Right: 2 Left: 2 Popliteal Right: 0 Left: 2 Dorsalis Pedis Right: 0 Left: 2 Posterior Tibial Right: 0 Left: 0 PULSE SCALE: 4=Aneurysmal; 3=Normal; 2=Diminished; 1=Barely Palpable; 0=Absent DIAGNOSTIC STUDIES: 07/11/24 FRED: 0.81/1.13 07/11/24 LE Art Duplex: RCFA 118/1 cm, R Pop 32/0.7 cm, no flow in RSFA (chronic, dating back to 2013) LCFA 1333/1.0 cm, L Pop 59/0.8 cm 07/11/24 Carotid Duplex: ALEXX 120/25, LICA 51/18, ante verts 04/25/24 CTA Abd/Pelvis ([facility]): patent abd tube graft. Non-obstructive calcified plaque of prox SMA,RIGHT renal artery @ its origin, B/L CIAs/CFAs The above diagnostic images were directly visualized and independently interpreted by me on 07/11/2024 with results as above 04/05/23 FRED .78/1.09. 04/05/23; Location of Study: [facility]; Modality: duplex; AAA measures 2.6 cm in greatest transversedimension s/p open AAA repair. B/L NAZARIO 1 cm. 04/04/22: aortic duplex: Ao 62/68/55, 2.5 cm patent aorta, CIAs UI, difficult imaging due to bowel gas/body habitus 11/08/21: DSE: Negative for inducible ischemia. No significant valvular disease. 10/13/21: CTA Abd/Pelv: 5.5 cm AAA; sub optimal infrarenal neck. 10/13/21: FRED: 0.83/1 10/01/20: CT: 4.7 cm AAA 05/01/20 CT chest: no TAA 08/20/19: aortic duplex 4.6 cm AAA 08/20/19: 0.68/1.0 06/25/18 FRED .70/.94. 03/12/18: Aortic Duplex: 3.7 cm AAA 03/02/16: Aortic Duplex: 3.8 cm AAA 06/30/15: Carotid Duplex: Bilat <50% 11/10/14: Aortic Duplex: 3.2 cm AAA 11/11/13: FRED: 0.68/1 (mono on right, tri on left) 11/06/13: CTA Runoff: 3.1 cm AAA. RSFA occlusion. 11/06/13: Carotid Duplex: Bilat <50% 05/20/10: FRED: 1/1, triphasic LABS: Creatinine Results: Lab Results Component Value Date/Time CREATININE - [facility] 1.0 06/24/2024 08:53 AM CREATININE - [facility] 1.1 09/05/2023 04:25 PM CREATININE - [facility] 1.1 05/13/2023 09:48 AM CREATININE - [facility] 1.3 (H) 03/03/2020 10:24 AM CREATININE - [facility] 1.2 03/15/2019 09:34 AM CREATININE - [facility] 1.1 03/09/2018 01:59 PM CREATININE POCT - [facility] 1.3 (H) 10/01/2020 09:14 AM CREATININE, RANDOM URINE - [facility] 51 11/03/2023 10:15 AM CREATININE, RANDOM URINE - [facility] 318 10/14/2022 07:35 AM CREATININE, RANDOM URINE - [facility] 169 03/15/2019 09:34 AM CREATININE, RANDOM URINE - [facility] 238 06/07/2008 09:32 AM CREATININE, RANDOM URINE - [facility] 23 06/20/2006 11:06 AM Lab Results Component Value Date/Time LDL CHOLESTEROL (CALCULATED) - [facility] 54 09/05/2023 04:25 PM LDL CHOLESTEROL (CALCULATED) - [facility] UNINTERPRETABLE RESULT 03/15/2019 09:34 AM LDL CHOLESTEROL (DIRECT MEASURE) - [facility] 104 03/03/2020 10:24 AM Hemoglobin Results: Lab Results Component Value Date/Time HGB 15.4 09/05/2023 04:25 PM HGB 15.5 05/13/2023 09:48 AM HGB 15.5 10/14/2022 07:35 AM HGB 12.9 (L) 12/07/2021 06:58 PM HGB 7.6 (L) 12/07/2021 01:47 PM HGB 15.3 02/15/2017 09:20 AM HGB 14.9 05/27/2015 01:30 PM HGB 14.9 08/10/2012 11:35 AM Hemoglobin AIC Results: Lab Results Component Value Date/Time HEMOGLOBIN A1C - [facility] 5.6 06/24/2024 08:53 AM HEMOGLOBIN A1C - [facility] 5.7 (H) 05/13/2023 09:48 AM HEMOGLOBIN A1C - [facility] 5.9 (H) 10/14/2022 07:35 AM HEMOGLOBIN A1C - [facility] 5.8 04/08/2009 09:09 AM HEMOGLOBIN A1C - [facility] 6.0 06/07/2008 09:32 AM HEMOGLOBIN A1C - [facility] 5.9 11/19/2007 10:14 AM The above clinical lab tests were reviewed by me on 07/11/2024 IMPRESSIONS: S/P open repair of unruptured infra-renal abdominal aortic aneurysm with aortic Dacron bypass graft(18 mm Dacron tube graft) and ultrasound-guided transversus abdominis plane block on 12/07/21 by - patent PAD with chronic R SFA occlusion, with aul-pghvouhvu-eifxdion claudication (calf "tired" after walking 1 mile) Asymptomatic bilateral internal carotid <50% stenosis No fem/pop aneurysms, per 2013 CTA. S/P repair of ventral hernia x 2, KATLYN with Dr. Lloyd @ [facility] on 04/26/24 secondary to incarcerated ventral hernias & recurrent SBOs HTN, stable on 2 meds Dyslipidemia, stable on statin Tobaco dependency. COPD. Prediabetes CKD, stage IIIa PLAN: The patient was counseled regarding the pathophysiology and natural history of abdominal aortic aneurysms, as well as the signs of rupture and the need to initiate emergency medical attention in thatsituation. Review of [facility] 2023 CTA Abd/Pelvis revealed patent abd aortic graft The patient was counseled regarding the pathophysiology and natural history of peripheral vascular disease, as well as the interventional and noninterventional therapeutic options. Stable vascular labs and claudication symptoms of RLE No rest pain or skin breakdown Continue aspirin 81 mg daily for antiplatelet therapy. Continue atorvastatin 80 mg daily for dyslipidemia and pleiotropic effects. The negative side effects of nicotine, in all forms, upon blood vessels was discussed. The nature of nicotine addiction was discussed. The usefulness of behavioral and medical therapies was discussed. The correct use, costs and side effects of medical therapies was discussed. The quit rates were discussed. Patient was referred to: [place] [facility]: [id number]. F/U in 1 year with FRED The patient was seen and examined with Negro Dover MD. Christiano Dalton MPAS, PA-C Section of Vascular and Endovascular Surgery [address] [address] I have reviewed the advanced practitioner's documentation on the date of service referenced in note, and I agree with, and take responsibility for the plan of care. 64-year-old male status post open AAA repair with a tube graft in November of 2021 for a 5.5 cm infrarenal AAA. We also follow him for stable mild right lower extremity claudication. Since we last saw himhe had an incarcerated hernia that is now status post repair. He is recovering well from this. He continues to work on smoking cessation. He had a CT scan done at the time of his hernia repair which shows an intact AAA repair. He knows to call us should his claudication symptoms worsen otherwise wewill plan on seeing him back in 1 year with an FRED or sooner as needed. Negro Dover MD Vascular Surgeon Division of Vascular and Endovascular Surgery [facility] documented in this encounter Nursing Notes * Ann-Marie Gasca LPN - 07/11/2024 11:22 AM EST Reviewed the option of transferring scripts to [facility] pharmacy with patient and / or family. Ann-Marie Gasca LPN documented in this encounter Plan of Treatment Upcoming Encounters Date Type Department Care Team (Late st Contact Info) Description 10/22/2024 8:00 AM EDT Office Visit Cardiology, [facility] [address] [facility] [place] [address] Crissy Siegel CRNP [address] [facility] [place] [address] 12/24/2024 8:00 AM EDT Office Visit Family [address] [phone] Maribel Angel PA-C [address] [place] [address] [place] [address] 06/25/2025 8:00 AM EST Office Visit Family Medicine [address] [phone] Alexandra Sales MD [address] [place] [address] [place] [address] 07/30/2025 11:30 AM EST Appointment Vascular Lab [address] [address] 07/30/2025 12:00 PM EST Office Visit Vascular Surg [facility] [address] [place] [address] Negro Dover MD [address] [place] [address] Scheduled Orders Name Type Priority Associated Diagnoses Orde r Schedule VASC ANKLE BRACHIAL INDICES WITHOUT PPG (PAD) Medical Imaging Routine Hyperlipidemia LDL goal <100 Essential hypertension with goal blood pressure less than 140/90 PVD (peripheral vascular disease) (HCC) Superficial femoral artery occlusion (HCC) Ordered: 07/11/2024 Scheduled Procedures Name Priority Associated Diagnoses Date/Ti [...] Additional history exists CKD HGB USE SMARTSET 49939 09/05/202409/05, 05/13/2023, 05/13/2023, Additional history exists Albumin/Creatinine Ratio 11/02/2024 024, 10/14/2022, 06/07/2008, Additional history exists Depression Screening 11/07/2024 11/08/2023 GFR 12/23/2024 06/24/2024, 08/24, 05/13/2023, Additional history exists AAA Monitoring 04/05/2025 04/05/2023, 03/24, 10/13/2021, Additional history exists CKD PHOS USE SMARTSET 50828 06/24/2025 1208/2023, 05/13/2023, 10/14/2022 DISCUSS TOBACCO CESSATION (REFER TO [...] this encounter Medical Devices Implanted Type Area Legal Services Manager Device Identifier Shelf Expiration Date Model / Serial / Lot Lens Intraoc 16.5 - [id number] - [id number] Implanted:Qty : 1 on 05/28/2019 by Collin Mayberry MD at OR [facility] Right: Eye BAUSCH & LOMB 11/20/2021 [id number] / [id number] / [id number] Lens Intraoc 17.5 - [id number] - [id number] Implanted:Qty : 1 on 06/04/2019 by Collin Mayberry MD at OR [facility] Left: Eye BAUSCH & LOMB 12/22/2023 [id number] / [id number] / [id number] Graft Hemashld [id number] - [id number] Implanted:Qty : 1 on 12/07/2021 by Negro Dover MD at OR [facility] [place] N/A: Aorta GETINGE : DEONNAT [id number] 08/23/2025 [id number] 180 / [id number] / [id number] documented as of this encounter Visit Diagnoses Diagnosis PVD (peripheral vascular disease) (HCC)- Primary Peripheral vascular disease, unspecified Hyperlipidemia LDL goal <100 Other and unspecified hyperlipidemia Essential hypertension with goal blood pressure less than 140/90 Superficial femoral artery occlusion (HCC) Atherosclerosis of mcgrath arteries of the extremities, unspecified documented in this encounter Advance Directives * Full Code (Latest Code Status on File) Date Activated Date Inactivated Comments 12/07/2021 12:57 PM 12/12/2021 7:03 PM This order reflects the patients wishes and were consensually agreed upon. Question Answer Comments Discussion of Advance Direct krystal occurred with: Not Discussed recent postop anesthesia Care Teams Social Insurance Analyst Relationship Specialty Start Date End Date Alexandra Sales MD [address] [place] [address] [place] [address] PCP - General Family Medicine 02/12/19 documented as of this encounter
--- OUTSIDE RECORDS SUMMARY | 2024-08-28 15:57 | External Medical Summary | Summary of Care ---
Author Name Unknown Organization [facility] Address [address] [place] [address] Phone [phone] Care Team Providers Care Embroiderer Name Role Phone Alexandra Sales MD Primary Care Prov ider Encounter Details Date Type Department Care Team (Latest Contact Info) Description 07/11/2024 9:30 AM EST - 07/11/2024 11:59 PM EST Hospital Encounter Vascular Lab [facility] [address] [place] [address] Arrived Discharge Disposition: Home - [...] MORNING 90 Tablet 1 06/16/20 24 Active Hospital, Clinic, or Other Facility [...] use aero chamber. 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 on file [...] 12/07/2021 3:58 PM EDT Karen Hu RN documented as of this encounter [...] 10/22/2024 8:00 AM EDT Office Visit Cardiology, [facility] [address] [facility] [place] [address] Crissy Siegel CRNP [address] [place] [address] 12/24/2024 8:00 AM EDT Office Visit Family Medicine [address] [place] [phone] Maribel Angel PA-C [address] [place] [address] [place] [address] 06/25/2025 8:00 AM EST Office Visit Family [address] [place] [address] Alexandra Sales MD [address] [place] [address] [place] [address] 07/30/2025 11:30 AM EST Appointment Vascular Lab [address] [address] 07/30/2025 12:00 PM EST Office Visit Vascular Surg [address] [address] Nergo Dover MD [address] [place] [address] Scheduled Procedures Name Priority Associated Diagnoses Date/Ti me COLONOSCOPY FLEXIBLE PROXIMA L DIAGNOSTIC Recall Personal history of colonic polyps COLONOSCOPY FLEXIBLE PROXIMA L DIAGNOSTIC Recall History of colon polyps Health Maintenance Due Date Last Done Comments Cologuard 02/08/2004 Fecal Occult Blood Test 02/08/2004 Sigmoidoscopy 02/08/2004 Pneumococcal Vaccine: 65+ Years (2 of 2 - PCV) 05/12/2007 05/12/2006 COVID-19 Vaccine ( - season) 2024 Influenza Vaccine (FLU shot) (#1) 2024 06/27/2017, 06/27/2017 (Refused), 05/25/2012, Additional history exists CKD HGB USE SMARTSET 26500 09/05/202409/05, 05/13/2023, 05/13/2023, Additional history exists Albumin/Creatinine Ratio 11/02/2024 024, 10/14/2022, 06/07/2008, Additional history exists Depression Screening 11/07/2024 11/08/2023 GFR 12/23/2024 06/24/2024, 08/24, 05/13/2023, Additional history exists AAA Monitoring 04/05/2025 04/05/2023, 03/24, 10/13/2021, Additional history exists CKD PHOS USE SMARTSET 20896 06/24/2025 12/08/2023, 05/13/2023, 10/14/2022 DISCUSS TOBACCO CESSATION [...] this encounter Medical Devices Implanted Type Area Mold Yard Worker Device Identifier Shelf Expiration Date Model / Serial / Lot Lens Intraoc 16.5 - [id number] - [id number] Implanted:Qty : 1 on 05/28/2019 by Collin Mayberry MD at [facility] Right: Eye BAUSCH & LOMB 11/20/2021 [id number] / [id number] / [id number] Lens Intraoc 17.5 - [id number] - [id number] Implanted:Qty : 1 on 06/04/2019 by Collin Mayberry MD at OR [facility] Left: Eye BAUSCH & LOMB 12/22/2023 [id number] / [id number] / [id number] Graft Hemashld [id number] - [id number] Implanted:Qty : 1 on 12/07/2021 by Negro Dover MD at OR [facility] N/A: Aorta GETINGE : MAQUET [id number] 08/23/2025 [id number] 180 / [id number] / [id number] documented as of this encounter Procedures Procedure Name Priority Date/Time Associated Diagnosis Comments VASC ANKLE BRACHIAL INDICES WITHOUT PPG (PAD) Routine 07/11/2024 11:04 AM EST Atherosclerotic PVD with intermittent claudication (HCC) documented in this encounter Results * VASC ANKLE BRACHIAL INDICES WITHOUT PPG (PAD) (07/11/2024 11:04 AM EST) Anatomical Region Laterality Modality Extremity, Ankle, Vascular, Lower Extremity, Hamlet t Ultrasound Impressions 07/11/2024 12:12 PM EST : FRED at rest is 0.81 on the right and 1.13 on the left. For the right lower extremity: Lower extremity Doppler Evaluation is consistent with mild arterial occlusive disease. For the left lower extremity: Lower extremity Doppler Evaluation is normal at rest with no evidence of significant arterial occlusive disease. Narrative 07/11/2024 12:12 PM EST VASCULAR LAB RESULTS DATE OF EXAMINATION: 07/11/24 INDICATION: PAD ANKLE BRACHIAL INDEX OF THE LOWER EXTREMITIES Immediately before proceeding with the vascular lab procedure reported below, the identity of the patient, the correct exam and the correct procedural site were identified. Continuous wave doppler and appropriate size pressure cuffs were utilized during the examination. Findings: The right and left brachial artery blood pressures are 108 mmHg and 106 mmHg respectively. On the right, the posterior tibial artery waveform is biphasic and has an amplitude which is decreased. . The right dorsalis pedis artery waveform is biphasic and has an amplitude which is good. The right peroneal artery waveform is biphasic and has an amplitude which is decreased. The tibial pressures range from 86 mmHg to 88 mmHg. On the left, the posterior tibial artery waveform is triphasic and has an amplitude which is good. . The left dorsalis pedis artery waveform is triphasic and has an amplitude which is good. . The left peroneal artery waveform is triphasic and has an amplitude which is decreased. The tibial pressures range from 118 mmHg to 122 mmHg. us David Vallecillo TOWER WATCHMAN RAD VASCULAR Final Resu lt documented in this encounter Advance Directives * Full Code (Latest Code Status on File) Date Activated Date Inactivated Comments 12/07/2021 12:57 PM 12/12/2021 7:03 PM This order reflects the patients wishes and were consensually agreed upon. Question Answer Comments Discussion of Advance Direct krystal occurred with: Not Discussed recent postop anesthesia Care Teams Embroiderer Relationship Specialty Start Date End Date Alexandra Sales MD [address] [place] [address] [place] [phone] PCP - General Family Medicine 02/12/19 documented as of this encounter
--- OUTSIDE RECORDS SUMMARY | 2024-08-28 15:57 | External Medical Summary | Summary of Care ---
Author Name Unknown Organization [facility] Address [address] [place] [address] Phone [phone] Care Team Providers Care Car Dumper Operator Helper Name Role Phone Alexandra Sales MD Primary Care Prov ider Encounter Details Date Type Department Care Team (Latest Contact Info) Description 07/11/2024 9:29 AM EST Hospital Encounter Vascular Lab [facility] [address] [place] [address] Arrived Discharge Disposition: Home - [...] use aero chamber. 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 [...] 10/22/2024 8:00 AM EDT Office Visit Cardiology, [address] [place] [address] Crissy Siegel CRNP [address] [place] [address] [place] [address] 12/24/2024 8:00 AM EDT Office Visit [address] [place] [phone] Maribel Angel PA-C [address] [place] [address] [place] [address] 06/25/2025 8:00 AM EST Office Visit Family Medicine [address] [phone] Alexandra Sales MD [address] [place] [address] [place] [address] 07/30/2025 11:30 AM EST Appointment Vascular Lab [place] [address] [place] [address] 07/30/2025 12:00 PM EST Office Visit Vascular Surg [place] [address] [place] [address] Negro Dover MD [address] [place], [place] [phone] Scheduled Procedures Name Priority Associated Diagnoses Date/Ti [...] Additional history exists CKD HGB USE SMARTSET 05691 09/05/202409/05, 05/13/2023, 05/13/2023, Additional history exists Albumin/Creatinine Ratio 11/02/2024 024, 10/14/2022, 06/07/2008, Additional history exists Depression Screening 11/07/2024 11/08/2023 GFR 12/23/2024 06/24/2024, 08/24, 05/13/2023, Additional history exists AAA Monitoring 04/05/2025 04/05/2023, 03/24, 10/13/2021, Additional history exists CKD PHOS USE SMARTSET 24822 06/24/2025 12/08/2023, 05/13/2023, 10/14/2022 DISCUSS TOBACCO CESSATION [...] this encounter Medical Devices Implanted Type Area Dialysis Registered Nurse Device Identifier Shelf Expiration Date Model / Serial / Lot Lens Intraoc 16.5 - [id number] - [id number] Implanted:Qty : 1 on 05/28/2019 by Collin Mayberry MD at OR [facility] Right: Eye BAUSCH & LOMB 11/20/2021 [id number] / [id number] / [id number] Lens Intraoc 17.5 - [id number] - [id number] Implanted:Qty : 1 on 06/04/2019 by Collin Mayberry MD at OR [facility] Left: Eye BAUSCH & LOMB 12/22/2023 [id number] / [id number] / [id number] Graft Hemashld [id number] - [id number] Implanted:Qty : 1 on 12/07/2021 by Negro Dover MD at [place] [facility] [place] N/A: Aorta GETINGE : MAQUET [id number] 08/23/2025 [id number] 180 / [id number] / [id number] documented as of this encounter Procedures Procedure Name Priority Date/Time Associated Diagnosis Comments [facility] [place] ART DUP BILAT LE Routine 07/11/2024 11:03 AM EST Infrarenal abdominal aortic aneurysm (AAA) without rupture (HCC) documented in this encounter Results * VASC [place] ART DUP BILAT LE (07/11/2024 11:03 AM EST) Anatomical Region Laterality Modality Lower Extremity, Vascular Ultras ound Narrative 07/11/2024 12:13 PM EST VASCULAR LAB RESULTS DATE OF EXAMINATION: 07/11/24 INDICATION: S/P open AAA, evaluate for fem/pop aneurysms LOWER EXTREMITY ARTERIAL DUPLEX FOR DETECTION OF ANEURYSM Immediately before proceeding with the vascular lab procedure reported below, the identity of the patient, the correct exam and the correct procedural site were verified. Rogers scale, color flow and spectral doppler were performed for this examination. Duplex ultrasound of the right common femoral artery has a triphasic waveform with a velocity of 118 cm/sec and a maximum dimension of 1.0 centimeters by 1.0 centimeters. Duplex ultrasound of the right superficial femoral artery has a absent waveform with a velocity of 0 cm/sec. Duplex ultrasound of the right popliteal artery has a biphasic waveform with a velocity of 32 cm/sec and a maximum dimension of 0.7 centimeters by 0.7 centimeters. Duplex ultrasound of the left common femoral artery has a triphasic waveform with a velocity of 133 cm/sec and a maximum dimension of 1.0 centimeters by 1.0 centimeters. Duplex ultrasound of the left popliteal artery has a triphasic waveform with a velocity of 59 cm/sec and a maximum dimension of 0.8 centimeters by 0.8 centimeters. CONCLUSIONS: For the right: Normal femoral/ popliteal arterial duplex examination with no evidence of aneurysmal degeneration. The right superficial femoral artery demonstrates no flow consistent with an occlusion. For the left: Normal femoral/popliteal arterial duplex examination with no evidence of aneurysmal degeneration. us David LI RAD VASCULAR Final Resu lt documented in this encounter Advance Directives * Full Code (Latest Code Status on File) Date Activated Date Inactivated Comments 12/07/2021 12:57 PM 12/12/2021 7:03 PM This order reflects the patients wishes and were consensually agreed upon. Question Answer Comments Discussion of Advance Direct krystal occurred with: Not Discussed recent postop anesthesia Care Teams Car Dumper Operator Helper Relationship Specialty Start Date End Date Alexandra Sales MD [address] [place] [address] [place] [address] PCP - General Family Medicine 02/12/19 documented as of this encounter
--- OUTSIDE RECORDS SUMMARY | 2024-08-28 15:58 | External Medical Summary | Summary of Care ---
Author Name Unknown Organization [facility] Address [address] [place] [address] Phone [phone] Care Team Providers Care Instructional Services Librarian Name Role Phone Alexandra Oconnor MD Primary Care Prov ider Reason for Visit * Reason Comments eRx-Medication Refill Encounter Details Date Type Department Care Team (Late st Contact Info) Description 06/16/2024 Refill Family Medicine [address] [phone] Alexandra Oconnor MD [address] [place] [address] [place] [address] COPD, moderate (HCC); Chronic rhinitis Allergies Active Allergy Reactions Criticality Noted Date Comments Lisinopril Other (Please comment) 05/16/2016 Shortness of breath, and itchy documented as of this encounter (statuses as of 06/16/2024) Medications Albuterol Sulfate HFA 108 (90 Base) MCG/ACT Inhalation Aerosol Solution Inhale 2 Puffs by mouth every 4 hours as needed for Cough, Wheezing or Dyspnea. 18 g 1 04/21/20 21 Active Sildenafil Citrate 50 MG Oral TabletIndications [...] morning. 90 Tablet 3 05/09/20 23 Active Losartan Potassium 25 MG Oral Tablet (Cozaar) Take 1 Tablet by mouth in the morning. 34 Tablet 11 07/07/20 23 Active Triamcinolone Acetonide 0.5 % External Cream (Aristocort) Apply topically to affected area 2 times a day. To affected area. 15 g 5 11/08/19 24 Active Fluticasone Propionate HFA 110 MCG/ACT Inhalation Aerosol (Flovent HFA)Indications:P rimary osteoarthritis of both ankles TAKE 2 PUFFS BY MOUTH TWICE A DAY 12 g 5 11/23/19 24 Active Ezetimibe 10 MG Oral Tablet (Zetia)Indication s:Dyslipidemia, [...] MORNING 90 Tablet 1 06/16/20 24 Active Montelukast Sodium 10 MG Oral Tablet (Singulair)Indica tions:COPD, moderate (HCC),Chronic rhinitis TAKE 1 TABLET BY MOUTH EVERY DAY IN THE MORNING 90 Tablet 2 06/17/20 23 024 Discontinued Hospital, Clinic, or Other Facility Administered Medication Ordered Dose Route Frequency Start Date End Date Status albuterol sulfate (PROVENTIL) (2.5 MG/3ML) 0.083% inhalation solution 2.5 mgIndications:COPD, moderate (HCC) 2.5 mg NEBULIZER Q4H PRN 03/15/2019 Active documented as of this encounter (statuses as of 06/16/2024) Active Problems Problem Noted Date Diagnosed Date [...] use aero chamber. 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 [...] encounter Miscellaneous Notes * [facility] 12[facility]32 PM ESTSigned Prescriptions: Disp Refills Montelukast Sodium 10 MG Oral Tablet (Sing*90 Tab*1 Sig: TAKE 1 TABLET BY MOUTH EVERY DAY IN THE MORNINGAuthorizing Provider: ALEXANDRA OCONNOR User: TALEROSKI, NAMRATA M documented in this encounter Plan of Treatment Upcoming Encounters Date Type Department Care Team (Late st Contact Info) Description 06/24/2024 8:20 AM EST Office Visit Family Medicine [address] [place] [phone] Alexandra Oconnor MD [address] [place] [address] [place] [address] 07/11/2024 10:30 AM EST Appointment Vascular Lab [address] [address] 07/11/2024 11:00 AM EST Appointment Vascular Lab [address] [address] 07/11/2024 12:00 PM EST Appointment Vascular Lab [address] [address] 07/11/2024 12:30 PM EST Office Visit Vascular Surg [address] [address] Negro Dover MD [address] [place] [address] 10/22/2024 8:00 AM EDT Office Visit Cardiology, [facility] [address] [facility] [place] [address] Crissy Siegel [facility] [address] [facility] [place] [address] Scheduled Procedures Name Priority Associated Diagnoses Date/Ti me COLONOSCOPY FLEXIBLE PROXIMA L DIAGNOSTIC Recall Personal history of colonic polyps COLONOSCOPY FLEXIBLE PROXIMA L DIAGNOSTIC Recall History of colon polyps Health Maintenance Due Date Last Done Comments Cologuard 02/08/2004 Fecal Occult Blood Test 02/08/2004 Sigmoidoscopy 02/08/2004 Pneumococcal Vaccine: 65+ Years (2 of 2 - PCV) 05/12/2007 05/12/2006 DISCUSS TOBACCO CESSATION (REFER TO SMARTSET #1421) 02/13/2020 02/12/2019 GFR 03/05/2024 09/05/2023, 04/24, 10/14/2022, Additional history exists COVID-19 Vaccine ( - season) 2024 Influenza Vaccine (FLU shot) (#1) 2024 06/27/2017, 06/27/2017 (Refused), 05/25/2012, Additional history exists AAA Monitoring 04/05/2024 04/05/2023, 03/24, 10/13/2021, Additional history exists CKD PHOS USE SMARTSET 68882 05/13/2024 05/13/2023, 0 10/14/2022 CKD HGB USE SMARTSET 75290 09/05/202409/05, 05/13/2023, 05/13/2023, Additional history exists Albumin/Creatinine [...] this encounter Medical Devices Implanted Type Area Surveyor Oil Well Directional Device Identifier Shelf Expiration Date Model / Serial / Lot Lens Intraoc 16.5 - [id number] - [id number] Implanted:Qty : 1 on 05/28/2019 by Collin Mayberry MD at OR [facility] Right: Eye BAUSCH & LOMB 11/20/2021 [id number] / [id number] / [id number] Lens Intraoc 17.5 - [id number] - [id number] Implanted:Qty : 1 on 06/04/2019 by Collin Mayberry MD at OR [facility] Left: Eye BAUSCH & LOMB 12/22/2023 [id number] / [id number] / [id number] Graft Hemashld [id number] - [id number] Implanted:Qty : 1 on 12/07/2021 by Negro Dover MD at OR [facility] N/A: Aorta GETINGE : MAQUET [id number] 08/23/2025 [id number] / [id number] / [id number] documented as of this encounter Visit Diagnoses Diagnosis COPD, moderate (HCC) Chronic airway obstruction, not elsewhere classified Chronic rhinitis documented in this encounter Advance Directives * Full Code (Latest Code Status on File) Date Activated Date Inactivated Comments 12/07/2021 12:57 PM 12/12/2021 7:03 PM This order reflects the patients wishes and were consensually agreed upon. Question Answer Comments Discussion of Advance Direct krystal occurred with: Not Discussed recent postop anesthesia Care Teams Instructional Services Librarian Relationship Specialty Start Date End Date Alexandra Oconnor MD [address] [place] [address] [place] [phone] PCP - General Family Medicine 02/12/19 documented as of this encounter
--- OUTSIDE RECORDS SUMMARY | 2024-08-28 15:58 | External Medical Summary ---
Author Name Unknown Address Unknown Organization K01:LABORATORY [facility] [place] - [address] [place] [address] Laboratory Report Ordering Provider Test Date Status VERNA AN 06/24/2024 08:53:53 Final Observation Date Value Abnormality Reference (Units ) Status BUN 06/24/2024 08:53:53 15 6-20 (mg/dL) Final Creatinine 06/24/2024 08:53:53 1.0 0.6-1.2 (mg/dL) Final Glomerular filtration rate/1.73 sq M.predicted [Volume Rate/Area] in Serum, Plasma or Blood by Creatinine-based formula (CKD-EPI) 06/24/2024 08:53:53 84 >=60 (mL/min) Final eGFR is calculated based on the CKD-EPI 2020 equation. Sodium 06/24/2024 08:53:53 141 135-146 (m mol/L) Final Potassium 06/24/2024 08:53:53 4.4 3.5-5.1 (m mol/L) Final Cl 06/24/2024 08:53:53 105 98-107 (mm ol/L) Final CO2 06/24/2024 08:53:53 26 22-32 (mmo l/L) Final Anion gap 06/24/2024 08:53:53 10 7-15 (mmol /L) Final Glucose 06/24/2024 08:53:53 82 70-120 (mg /dL) Final Calcium 06/24/2024 08:53:53 9.0 8.4-10.2 ( mg/dL) Final Albumin 06/24/2024 08:53:53 4.0 3.8-5.0 (g /dL) Final Phosphate 06/24/2024 08:53:53 3.7 2.5-4.8 (m g/dL) Final Performing Location LABORATORY [facility] - [address] [place] [address]
--- OUTSIDE RECORDS SUMMARY | 2024-08-28 15:58 | External Medical Summary ---
Author Name Unknown Address Unknown Organization K01:LABORATORY [facility] [place] - [address] [facility] [address] Laboratory Report Ordering Provider Test Date Status JUVEVERNA CISNEROS 06/24/2024 08:53:53 Final Observation Date Value Abnormality Reference (Units ) Status HbA1C 06/24/2024 08:53:53 5.6 4.0-5.6 (% ) Final The use of HbA1c to monitor glycemic status is based on normal hemoglobin and HbA composition. This test should not be used in patients with abnormal hemoglobin that affects the half life of the red blood cell or the in vivo glycation rates. Glucose, estimated average 06/24/2024 08:53:53 114 <126 (mg/dL) Final Performing Location LABORATORY [facility] [place] - [address] [facility] [address]
--- OUTSIDE RECORDS SUMMARY | 2024-08-28 15:58 | External Medical Summary | Summary of Care ---
Author Name Unknown Organization [facility] Address [address] [place] [address] Phone [phone] Care Team Providers Care Hospitality Workers Name Role Phone Alexandra Sales MD Primary Care Prov ider Reason for Visit * Reason Comments Outpatient Testing Encounter Details Date Type Department Care Team (Late st Contact Info) Description 06/24/2024 9:00 AM EST Laboratory Laboratory [address] [place] [phone] [place] [address] Prediabetes Allergies Active Allergy Reactions Criticality Noted Date Comments Lisinopril Other (Please comment) 05/16/2016 Shortness of breath, and itchy documented as of this encounter (statuses as of 06/24/2024) Medications Albuterol Sulfate HFA 108 (90 Base) [...] the morning. 90 Tablet 3 3 Active Losartan Potassium 25 MG Oral Tablet (Cozaar) Take 1 Tablet by mouth in the morning. 34 Tablet 11 3 Active Triamcinolone Acetonide 0.5 % External [...] as of this encounter (statuses as of 06/24/2024) Active Problems Problem Noted Date Diagnosed Date Prediabetes 06/24/2024 Actinic keratosis of scalp 06/24/2024 Abdominal aortic [...] use aero chamber. 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 Not on [...] Team (Late st Contact Info) Description 07/11/2024 10:30 AM EST Appointment Vascular Lab [facility] [address] 07/11/2024 11:00 AM EST Appointment Vascular Lab [facility] [address] [address] 07/11/2024 12:00 PM EST Appointment [facility], [address] [address] 07/11/2024 12:30 PM EST [facility] [place] [address] [place] [address] Negro Dover MD [address] [place] [address] 10/22/2024 8:00 AM EDT Office Visit Cardiology, [facility] [address] [facility] [place] [address] Crissy Siegel CRNP [address] [facility] [place] [address] 12/24/2024 8:00 AM EDT Office Visit [address] [phone] Maribel Angel PA-C [address] [place] [address] [place] [address] 06/25/2025 8:00 AM EST Office Visit [address] [phone] Alexandra Sales MD [address] [place] [address] [place] [address] Pending Results Name Type Priority Associated Diagnoses Date /Time RENAL FUNCTION PANEL Lab Routine Prediabetes 06/24/2024 8:53 AM EST HEMOGLOBIN A1C Lab Routine Prediabetes 06/24/2024 8:53 AM EST Scheduled Procedures Name Priority Associated Diagnoses Date/Ti ar COLONOSCOPY FLEXIBLE PROXIMA L DIAGNOSTIC Recall Personal history of colonic polyps COLONOSCOPY FLEXIBLE PROXIMA L DIAGNOSTIC Recall History of colon polyps Health Maintenance Due Date Last Done Comments Cologuard 02/08/2004 Fecal Occult Blood Test 02/08/2004 Sigmoidoscopy 02/08/2004 Pneumococcal Vaccine: 65+ Years (2 of 2 - PCV) 05/12/2007 05/12/2006 GFR 03/05/2024 09/05/2023, 04/24, 10/14/2022, Additional history exists COVID-19 Vaccine (2023- season) 2024 Influenza Vaccine (FLU shot) (#1) 2024 06/27/2017, 06/27/2017 (Refused), 05/25/2012, Additional history exists CKD PHOS USE SMARTSET 49226 05/13/2024 05/13/2023, 0 10/14/2022 HbA1c 05/13/2024 05/13/2023, 0310/2022, 12/06/2021, Additional history exists CKD HGB USE SMARTSET 25510 09/05/202409/05, 05/13/2023, 05/13/2023, Additional history exists Albumin/Creatinine Ratio 11/02/2024 024, 10/14/2022, 06/07/2008, Additional history exists Depression Screening 11/07/2024 11/08/2023 AAA Monitoring 04/05/2025 04/05/2023, 03/24, 10/13/2021, Additional history exists DISCUSS TOBACCO CESSATION (REFER TO SMARTSET #3223) 06/24/2025 06/24/2024 (Course Completed), 02/12/2019 O2 ASSESSMENT COMPLETED IN PAST YEAR FOR COPD 06/24/2025 06/24/2024 Colonoscopy 08/11/2025 08/11/2020, 07/24, 10/30/2014, Additional history exists Colorectal Cancer Screening 08/11/2025 DTap/Tdap Vaccines (3 - Td or Tdap) [...] this encounter Medical Devices Implanted Type Area Open Claims Representative Device Identifier Shelf Expiration Date Model / Serial / Lot Lens Intraoc 16.5 - [id number] - [id number] Implanted:Qty : 1 on 05/28/2019 by Collin Mayberry MD at OR [facility] Right: Eye [employer] 11/20/2021 [id number] / [id number] / [id number] Lens Intraoc 17.5 - [id number] - [id number] Implanted:Qty : 1 on 06/04/2019 by Collin Mayberry MD at OR [facility] Left: Eye [employer] 12/22/2023 [id number] / [id number] / [id number] Graft Hemashld [id number] - [id number] Implanted:Qty : 1 on 12/07/2021 [place] [facility] [place] Aorta GETINGE : MAQUET [id number] 08/23/2025 [id number] / [id number] / [id number] documented as of this encounter Visit Diagnoses Diagnosis Prediabetes Other abnormal glucose documented in this encounter Advance Directives * Full Code (Latest Code Status on File) Date Activated Date Inactivated Comments 12/07/2021 12:57 PM 12/12/2021 7:03 PM This order reflects the patients wishes and were consensually agreed upon. Question Answer Comments Discussion of Advance Direct krystal occurred with: Not Discussed recent postop anesthesia Care Teams Hospitality Workers Relationship Specialty Start Date End Date Alexandra Sales MD [address] [place] [address] [place] [phone] PCP - General Family Medicine 02/12/19 documented as of this encounter
--- OUTSIDE RECORDS SUMMARY | 2024-08-28 15:58 | External Medical Summary | Summary of Care ---
Author Name Unknown Organization [facility] Address [address] [place] [address] Phone [phone] Care Team Providers Care Director Internal Control Name Role Phone Alexandra Sales MD Primary Care Prov ider Reason for Visit * Reason Comments Re-Check Encounter Details Date Type Department Care Team (Latest Contact Info) Description 06/24/2024 8:20 AM EST Office Visit Family Medicine [address] [phone] Alexandra Sales MD [address] [place] [address] [place] [phone] COPD, group B, by GOLD 2017 classification ([facility])*; Hyperlipidemia LDL goal <100; Essential hypertension with goal blood pressure less than 140/90; Tobacco use disorder; Gastroesophageal reflux disease without esophagitis; Chronic kidney disease, stage 3a ([facility]); Prediabetes; Actinic keratosis of scalp Allergies Active Allergy Reactions Criticality Noted Date [...] use aero chamber. 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 on file Not on file documented as of this encounter Last Filed Vital Signs Vital Sign Reading Time Taken Comments Blood Pressure 120/64 06/24/2024 8:15 AM EST Pulse 55 06/24/2024 8:15 AM EST Temperature 36.2 C (97.1 F) 06/24/2024 8:15 AM ES T Respiratory Rate 16 06/24/2024 8:15 AM EST Oxygen Saturation 98% 06/24/2024 8:15 AM EST Inhaled Oxygen Concentration - - Weight 95.9 kg (211 lb 8 oz) 06/24/2024 8:15 AM EST Height - - Body Mass Index 31.23 11/08/2023 3:38 PM EDT documented in this [...] documented in this encounter Progress Notes * Alexandra Sales MD - 06/24/2024 9:25 AM EST Images from the original note were not included. Subjective Rd Katz is a 64 year old male that presents for Re-Check History of Present Illness The patient presents with a persistent, wart-like lesion on his skin, which he has been picking at for a few years. In addition, the patient reports a significant increase in appetite following a recent surgery to repair an obstructed hernia. The surgery was performed in late March after the patient experienced recurring sickness and vomiting. Since the surgery, the patient has noticed a constant hunger, even after eating large meals. This has led to a weight gain of approximately thirty pounds. The patient admits to snacking on junk food daily, in addition to regular meals. He also reports regular bowelmovements and daily exercise. The patient also mentions a history of tobacco use, which is evident in his slightly wheezy lung sounds. He attempted to quit smoking but resumed due to restlessness and difficulty sleeping. The patient denies any significant caffeine or alcohol intake. Objective Vitals: 06/24/24 0815 Temp: 97.1 F (36.2 C) Pulse: 55 Resp: 16 SpO2: 98% BP: 120/64 Physical Exam MEASUREMENTS: Weight increased by approximately thirty pounds from last visit. CHEST: Auscultation reveals wheezing. SKIN: Actinic keratosis observed, less than one centimeter, resembling a wart, attributed to sun damage. General: alert, no distress, well nourished, and well developed Heart: regular rate & rhythm, no murmur, and no gallops Abdomen: abdomen soft, non-tender, obese, normal bowel sounds, and no masses or organomegaly Extremities: less than 2 second capillary refill, no joint deformities, effusion, or inflammation I have reviewed the following results: Results LABS Cholesterol: significantly low (08/2023) Assessment and Plan Assessment & Plan Actinic Keratosis Persistent lesion on the scalp, likely secondary to sun damage. -Freeze with liquid nitrogen today. Post-Operative Recovery (Intestinal Obstruction) Recent surgery in late March for an obstructed hernia. Reports increased appetite and weight gain since surgery. -Order labs to check blood sugar and kidney function today. -Encourage healthier eating habits and regular exercise. -Consider referral to a rehabilitation program coordinator if patient's self-management is unsuccessful. Tobacco Use Continued smoking with audible wheezing on exam. -Encourage cessation of tobacco use. -Suggest qypo-omy-ujxnneg sleep aids like melatonin to manage sleep disturbances if he occurs with cessation. General Health Maintenance -Declined pneumonia vaccine. Revisit at next appointment. COPD, group B, by GOLD 2017 classification ([facility]) (Primary) Hyperlipidemia LDL goal <100 Essential hypertension with goal blood pressure less than 140/90 Tobacco use disorder Gastroesophageal reflux disease without esophagitis Chronic kidney disease, stage 3a ([facility]) Prediabetes - RENAL FUNCTION PANEL; Future; Expected date: 06/24/2024 - HEMOGLOBIN A1C; Future; Expected date: 06/24/2024 Actinic keratosis of scalp Wrap-Up Follow Up: Return in about 6 months (around 12/23/2024) for Return with Physician. | For: Return withPhysician Time: I spent a total of 20-29 minutes (exact time 27 mins) on the date of service in preparation, delivery, and documentation of the care provided to Rd Katz excluding any time spent in the performance of separately billed services. Text in this note was generated using an ambient documentation service. I discussed the use of a device to record and summarize our discussion today. All persons present during the encounter consented to its use. documented in this encounter Nursing Notes * Lyssa Nicholas LPN - 06/24/2024 8:16 AM EST 6 month return Has a spot on top of his head he would like looked at documented in this encounter Plan of Treatment Upcoming Encounters Date Type Department Care Team (Late st Contact Info) Description 07/11/2024 10:30 AM EST Appointment Vascular Lab [facility] [address] [place] [address] 07/11/2024 11:00 AM EST Appointment Vascular Lab [facility] [address] [place] [address] 07/11/2024 12:00 PM EST Appointment Vascular Lab [facility] [address] [place] [address] 07/11/2024 12:30 PM EST Office Visit Vascular Surg [facility] [address] [place] [address] Negro Dover MD [address] [place] [address] 10/22/2024 8:00 AM EDT Office Visit Cardiology, [facility] [address] [facility] [place] [address] Crissy Siegel CRNP [address] [place] [address] [place] [address] 12/24/2024 8:00 AM EDT Office Visit [address] [phone] Maribel Angel PA-C [address] [place] [address] [place] [address] 06/25/2025 8:00 AM EST Office Visit Family [address] [phone] Alexandra Sales MD [address] [place] [address] [place] [address] Pending Results Name Type Priority Associated Diagnoses Date /Time RENAL FUNCTION PANEL Lab Routine Prediabetes 06/24/2024 8:53 AM EST HEMOGLOBIN A1C Lab Routine Prediabetes 06/24/2024 8:53 AM EST Scheduled Orders Name Type Priority Associated Diagnoses Orde r Schedule RENAL FUNCTION PANEL Lab Routine Prediabetes Expected: 06/24/2024 (Approximate), Expires: 06/24/2025 HEMOGLOBIN A1C Lab Routine Prediabetes Expected: 06/24/2024 (Approximate), Expires: 06/24/2025 Scheduled Procedures Name Priority Associated Diagnoses Date/Ti [...] Additional history exists CKD PHOS USE SMARTSET 61030 05/13/2024 05/13/2023, 0 10/14/2022 HbA1c 05/13/2024 05/13/2023, 09/22, 12/06/2021, Additional history exists CKD HGB USE SMARTSET 62581 09/05/202409/05, 05/13/2023, 05/13/2023, Additional history exists Albumin/Creatinine Ratio 11/02/2024 024, 10/14/2022, 06/07/2008, Additional history exists Depression Screening 11/07/2024 11/08/2023 AAA Monitoring 04/05/2025 04/05/2023, 03/24, 10/13/2021, Additional history exists DISCUSS TOBACCO CESSATION (REFER TO SMARTSET #3291) [...] this encounter Medical Devices Implanted Type Area Clinical Biostatistician Device Identifier Shelf Expiration Date Model / Serial / Lot Lens Intraoc 16.5 - [id number] - [id number] Implanted:Qty : 1 on 05/28/2019 by Collin Mayberry MD at OR [facility] Right: Eye [employer] 11/20/2021 [id number] / [id number] / [id number] Lens Intraoc 17.5 - [id number] - [id number] Implanted:Qty : 1 on 06/04/2019 by Collin Mayberry MD at OR [facility] Left: Eye [employer]CH [employer]OMB 12/22/2023 [id number] / [id number] / [id number] Graft Hemashld [id number] - [id number] Implanted:Qty : 1 on 12/07/2021 by Negro Dover MD at [place] [facility] [place] N/A: Aorta GETINGE : MAQUET [id number] 08/23/2025 [id number] / [id number] / [id number] documented as of this encounter Visit Diagnoses Diagnosis COPD, group B, by GOLD 2017 classification ([facility])- Primary Hyperlipidemia LDL goal <100 Other and unspecified hyperlipidemia Essential hypertension with goal blood pressure less than 140/90 Tobacco use disorder Gastroesophageal reflux disease without esophagitis Esophageal reflux Chronic kidney disease, stage 3a ([facility]) Prediabetes Other abnormal glucose Actinic keratosis of scalp documented in this encounter Advance Directives * Full Code (Latest Code Status on File) Date Activated Date Inactivated Comments 12/07/2021 12:57 PM 12/12/2021 7:03 PM This order reflects the patients wishes and were consensually agreed upon. Question Answer Comments Discussion of Advance Direct krystal occurred with: Not Discussed recent postop anesthesia Care Teams Director Internal Control Relationship Specialty Start Date End Date Alexandra Sales MD [address] [place] [address] [place] [phone] PCP - General Family Medicine 02/12/19 documented as of this encounter"
[2024-08-28] MEDS ORDERED: methylPREDNISolone 1000 MG/16 ML IV SCH (16:02)
[2024-08-28] MEDS: BENZONATATE 100 MG CAPSULE PO SCH (16:07)
[2024-08-28] MEDS: SODIUM CHLORIDE 0.9% 1,000 ML IV SCH (16:09)
[2024-08-28] MEDS: methylPREDNISolone 40 MG in SYRINGE 0 ML IV SCH (17:53)
[2024-08-28] MEDS: FORMOTEROL 20 MCG/2 ML VIAL NEB SCH (17:58)
[2024-08-28] MEDS: BUDESONIDE 0.5 MG/2 ML VIAL (PULMICORT) NEB SCH (17:58)
[2024-08-28] MEDS: HEPARIN SOD 5,000 UNIT/0.5 ML VIAL SQ SCH (20:35)
[2024-08-29 06:09] LABS: Hematocrit (blood only) 41.9 % (42.0-52.0); Hemoglobin 14.6 g/dl (14.0-18.0); Mean Corpuscular Hemoglobin 32.3 pg (25.0-34.0); Mean Corpuscular Hgb Conc 34.8 g/dL (32.0-36.0); Mean Corpuscular Volume 92.7 fL (80.0-100.0); Mean Platelet Volume 11.2 fL (9.4-12.4); Platelet Count 117 K/uL (130-400); RDW Coefficient of Variation 13.6 % (11.5-14.5); RDW Standard Deviation 46.4 fL (36.4-46.3); Red Blood Count 4.52 M/uL (4.70-6.10); White Blood Count 12.11 K/ul (4.8-10.8)
[2024-08-29 06:19] LABS: BUN Creatinine Ratio 18.8 (10-20); Calcium 8.5 mg/dl (8.6-10.3); Creatinine Clr Calc Pharmacy 88.1 ml/min; Magnesium 1.8 mg/dl (1.7-2.4); Phosphorus 2.7 mg/dl (2.5-4.9); Potassium 3.8 mmol/L (3.5-5.1)
[2024-08-29] MEDS: PANTOprazole 40 MG TAB PO SCH (06:35)
[2024-08-29] MEDS: ASPIRIN 81 MG ECTAB PO SCH (08:50)
[2024-08-29] MEDS: AZITHROMYCIN 250 MG TAB PO SCH (08:50)
[2024-08-29] MEDS: EZETIMIBE 10 MG TAB PO SCH (08:50)
[2024-08-29] MEDS: ATORVASTATIN 40 MG TAB PO SCH (08:51)
[2024-08-29] MEDS: MONTELUKAST SODIUM 10 MG TABLET PO SCH (08:51)
[2024-08-29] MEDS: SODIUM CHLOR 7% 4 ML NEB NEB SCH (11:24)
--- NOTE | 2024-08-29 11:31 | XRay Report ---
XR chest 1V portable CLINICAL HISTORY: hypoxia, influenza, r/o pneumonia COMPARISON STUDY: 08/28/2024 FINDINGS: Heart size and pulmonary vasculature are normal. There is interval mild stranding opacity a t the left lung base. No other consolidation or pleural effusion. No pneumothorax. IMPRESSION: Atelectasis versus early pneumonia left lung base. ACT 112: Negative or not required by law. Electronically signed by: Ezequiel Jarquin M.D. 08/29/2024 11:29 AM
[2024-08-29] MEDS: CEFEPIME 2000MG 2,000 MG/20 ML SYR IV SCH (17:46)
--- NOTE | 2024-08-29 17:50 | Hospitalist Progress Note ---
Date of Service August 29, 2024 Assessment & Plan (1) Influenza A: Plan Acute exacerbation of COPD Acute exacerbation of asthma Influenza A URTI Sepsis POA: Likely secondary to viral URTI. Heart rate and respiratory rate elevated at presentation. Hypoxia Patient presents with dry cough, sore throat, fever for 1 day Noted to have flu a positive at presentation CXR with no acute finding. Pro-Dale and WBC WNL. Exacerbation of COPD and asthma likely secondary to viral UTI UTI. Continue with Solu-Medrol scheduled, Perforomist and budesonide nebulization, Tessalon Perles, Mucinex, incentive spirometer. Add doxycycline for 5 days. Add tamsulosin for 5 days. Continue to provide supportive care, IVF today given tachycardia. Can DC IV fluid once heart rate settled and p.o. intake improves. 08/29/2024 Oxygen requirement increased, currently on 4 L Chest x-ray: Possible left lower lobe atelectasis versus pneumonia Add cefepime 2 g IV every 8 Add hypertonic saline twice daily Continue nebs 4 times daily, Perforomist, Pulmicort, Solu-Medrol 40 every 8 azithromycin daily Tamiflu twice daily Mucinex, Incentive spirometry, flutter valve Monitor closely Episode of hypotension Resolved Other chronic medical conditions: HLD, GERD, CKD stage IIIb----continue with/resume home meds as when able. DVT prophylaxis: Heparin subcu DNI/DNI Disposition Anticipate discharge to home when medically stable Admission and Anticipated Discharge Date Admission Date: August 28, 2024 Subjective Follow-up for influenza, etc. Patient seen resting in bed comfortable States he feels that he is improving On 4 L of O2 Still having dry cough, some chest congestion No active shortness of breath on exam No chest pain, palpitations, dizziness, fevers or chills No abdominal pain, nausea vomiting No other new symptoms Review of Systems Review of Systems: all noted and negative except for above Physical Exam Physical Exam: General- oriented x 3, not in distress, speaks in sentences with no effort or accessory muscle use Eyes- anicteric Neck- no JVD Lungs-Faint intermittent, scattered wheezes bilaterally Faint rhonchi scattered bilaterally Good air entry bilaterally Heart- normal rate, regular rhythm; no murmurs Abdomen- normal bowel sounds, nondistended, soft, nontender Extremities- no pretibial edema, no calf tenderness Neuro- alert, oriented x 3; no gross focal neurologic deficits Skin- warm & dry Results & Data Results & Data Vital Signs (Past 12 Hours) Vital Signs Pulse Pulse Resp BP BP Pulse Ox O2 Del Method 08/29/24 13:12 96 H 24 91 Nasal Cannula 08/29/24 12:06 107 H 25 H 130/53 L 92 Nasal Cannula 08/29/24 11:24 20 90 Nasal Cannula 08/29/24 10:12 18 Nasal Cannula 08/29/24 10:00 92 H 26 H 93 08/29/24 10:00 131/76 08/29/24 10:00 131/76 08/29/24 10:00 131/76 08/29/24 09:30 108 H 19 95 08/29/24 09:06 100 H 27 H 90 08/29/24 08:58 Nasal Cannula 08/29/24 08:39 107 H 25 H 92 08/29/24 08:09 108 H 27 H 90 08/29/24 08:00 151/87 H 08/29/24 07:58 111 H 08/29/24 07:42 112 H 45 H 92 08/29/24 07:33 114 H 26 H 94 08/29/24 07:31 152/83 H 08/29/24 07:31 152/83 H 08/29/24 07:31 152/83 H 08/29/24 07:12 101 H 28 H 95 08/29/24 07:12 101 H 24 92 Nasal Cannula 08/29/24 07:03 94 H 30 H 92 08/29/24 06:33 99 H 30 H 93 08/29/24 06:33 96 H 26 H 138/80 92 Nasal Cannula 08/29/24 06:32 138/80 08/29/24 06:32 138/80 08/29/24 06:32 138/80 08/29/24 06:24 103 H 27 H 92 08/29/24 06:00 101 H 29 H 92 O2 Flow Rate 08/29/24 13:12 4 08/29/24 12:06 4 08/29/24 11:24 4 08/29/24 10:12 4 08/29/24 10:00 4 08/29/24 10:00 08/29/24 10:00 08/29/24 10:00 08/29/24 09:30 4 08/29/24 09:06 4 08/29/24 08:58 4 08/29/24 08:39 4 08/29/24 08:09 4 08/29/24 08:00 08/29/24 07:58 08/29/24 07:42 08/29/24 07:33 08/29/24 07:31 08/29/24 07:31 08/29/24 07:31 08/29/24 07:12 08/29/24 07:12 4 08/29/24 07:03 08/29/24 06:33 08/29/24 06:33 4 08/29/24 06:32 08/29/24 06:32 08/29/24 06:32 08/29/24 06:24 08/29/24 06:00 all noted and reviewed including below
--- NOTE | 2024-08-30 16:18 | Hospitalist Progress Note ---
Date of Service August 30, 2024 Assessment & Plan (1) Influenza A: Plan Acute exacerbation of COPD Acute exacerbation of asthma Influenza A URTI Sepsis POA: Likely secondary to viral URTI. Heart rate and respiratory rate elevated at presentation. Hypoxia Patient presents with dry cough, sore throat, fever for 1 day Noted to have flu a positive at presentation CXR with no acute finding. Pro-Dale and WBC WNL. Exacerbation of COPD and asthma likely secondary to viral UTI UTI. Continue with Solu-Medrol scheduled, Perforomist and budesonide nebulization, Tessalon Perles, Mucinex, incentive spirometer. Add doxycycline for 5 days. Add tamsulosin for 5 days. Continue to provide supportive care, IVF today given tachycardia. Can DC IV fluid once heart rate settled and p.o. intake improves. 08/29/2024 Oxygen requirement increased, currently on 4 L Chest x-ray: Possible left lower lobe atelectasis versus pneumonia Add cefepime 2 g IV every 8 Add hypertonic saline twice daily Continue nebs 4 times daily, Perforomist, Pulmicort, Solu-Medrol 40 every 8 azithromycin daily Tamiflu twice daily Mucinex, Incentive spirometry, flutter valve Monitor closely 08/30 Clinically improving Down to 2 L of O2 Continue present regimen Monitor closely Episode of hypotension Resolved Other chronic medical conditions: HLD, GERD, CKD stage IIIb----continue with/resume home meds as when able. DVT prophylaxis: Heparin subcu DNI/DNI Disposition Anticipate discharge to home when medically stable Admission and Anticipated Discharge Date Admission Date: August 28, 2024 Subjective Follow-up for acute hypoxic respiratory failure, COPD exacerbation, influenza A infection, etc. Seen resting in bed, on 2 L of O2 Not in distress Comfortable States he feels that he is gradually improving Breathing is improving, less cough No chest pain, fevers or chills No other new symptom Review of Systems Review of Systems: all noted and negative except for above Physical Exam Physical Exam: General- oriented x 3, not in distress, speaks in sentences with no effort or accessory muscle use Eyes- anicteric Neck- no JVD Lungs- Mild rhonchi bilateral bases, no wheezing, good air entry bilaterally Heart- normal rate, regular rhythm; no murmurs Abdomen- normal bowel sounds, nondistended, soft, nontender Extremities- no pretibial edema, no calf tenderness Neuro- alert, oriented x 3; no gross focal neurologic deficits Skin- warm & dry Results & Data Results & Data Vital Signs (Past 12 Hours) Vital Signs Temp Pulse Pulse Resp BP Pulse Ox O2 Del Method 08/30/24 14:55 36.7 C 76 18 110/68 92 Nasal Cannula 08/30/24 14:22 77 08/30/24 12:37 75 17 96 Nasal Cannula 08/30/24 11:18 36.6 C 78 20 123/74 95 Nasal Cannula 08/30/24 09:43 Nasal Cannula 08/30/24 07:56 36.5 C 73 20 121/77 96 Nasal Cannula 08/30/24 07:27 73 16 96 Nasal Cannula 08/30/24 07:26 72 O2 Flow Rate 08/30/24 14:55 2 08/30/24 14:22 08/30/24 12:37 3 08/30/24 11:18 4 08/30/24 09:43 4 08/30/24 07:56 4 08/30/24 07:27 4 08/30/24 07:26 all noted and reviewed including below
[2024-08-30] MEDS: ADVANCED PROBIOTIC 625 MG CAPSULE PO SCH (18:29)
[2024-08-30] MEDS: ACETAMINOPHEN 325 MG TAB PO PRN (19:27)
--- NOTE | 2024-08-31 11:34 | Hospitalist Progress Note ---
Date of Service August 31, 2024 Assessment & Plan (1) Influenza A: Plan Acute exacerbation of COPD Acute exacerbation of asthma Influenza A URTI Sepsis POA: Likely secondary to viral URTI. Heart rate and respiratory rate elevated at presentation. Hypoxia Patient presents with dry cough, sore throat, fever for 1 day Noted to have flu a positive at presentation CXR with no acute finding. Pro-Dale and WBC WNL. Exacerbation of COPD and asthma likely secondary to viral UTI UTI. Continue with Solu-Medrol scheduled, Perforomist and budesonide nebulization, Tessalon Perles, Mucinex, incentive spirometer. Add doxycycline for 5 days. Add tamsulosin for 5 days. Continue to provide supportive care, IVF today given tachycardia. Can DC IV fluid once heart rate settled and p.o. intake improves. 08/29/2024 Oxygen requirement increased, currently on 4 L Chest x-ray: Possible left lower lobe atelectasis versus pneumonia Add cefepime 2 g IV every 8 Add hypertonic saline twice daily Continue nebs 4 times daily, Perforomist, Pulmicort, Solu-Medrol 40 every 8 azithromycin daily Tamiflu twice daily Mucinex, Incentive spirometry, flutter valve Monitor closely 08/30 Clinically improving Down to 2 L of O2 Continue present regimen Monitor closely Episode of hypotension Resolved 08/31 continues to improve decrease Solumedrol to 40mg IV q12h continue abx, nebs, etc Other chronic medical conditions: HLD, GERD, CKD stage IIIb----continue with/resume home meds as when able. DVT prophylaxis: Heparin subcu DNI/DNI Disposition Anticipate discharge to home when medically stable Admission and Anticipated Discharge Date Admission Date: August 28, 2024 Subjective ff up for acute hypoxia, flu, etc seen resting in bed, comfortable on room air feels that he is improving daily less cough- dry no shortness of breath no other symptoms Review of Systems Review of Systems: all noted and negative except for above Physical Exam Physical Exam: General- oriented x 3, not in distress, speaks in sentences with no effort or accessory muscle use Eyes- anicteric Neck- no JVD Lungs- faint crackles at the bases no wheezing Heart- normal rate, regular rhythm; no murmurs Abdomen- normal bowel sounds, nondistended, soft, nontender Extremities- no pretibial edema, no calf tenderness Neuro- alert, oriented x 3; no gross focal neurologic deficits Skin- warm & dry Results & Data Results & Data Vital Signs (Past 12 Hours) Vital Signs Temp Pulse Pulse Resp BP BP Pulse Ox 08/31/24 08:45 08/31/24 07:26 36.4 C L 75 18 144/86 H 97 08/31/24 07:19 52 L 08/31/24 07:08 68 18 96 08/31/24 02:48 36.4 C L 62 18 122/71 96 08/30/24 23:45 66 08/30/24 23:44 81 16 96 O2 Del Method O2 Flow Rate 08/31/24 08:45 Room Air 08/31/24 07:26 Room Air, Nebulizer 08/31/24 07:19 08/31/24 07:08 Nasal Cannula 2 08/31/24 02:48 Nasal Cannula 2 08/30/24 23:45 08/30/24 23:44 Nasal Cannula 2 all noted and reviewed including below
[2024-08-31] MEDS ORDERED: ALBUT/IPRATROP 3MG/0.5MG NEB 3 ML VIAL NEB PRN (16:13)
[2024-08-31] MEDS: methylPREDNISolone 40 MG in SYRINGE 0 ML IV SCH (19:50)
--- NOTE | 2024-09-01 14:59 | Hospitalist Progress Note ---
Date of Service September 01, 2024 Assessment & Plan (1) Influenza A: Plan Acute exacerbation of COPD Acute exacerbation of asthma Influenza A URTI Sepsis POA: Likely secondary to viral URTI. Heart rate and respiratory rate elevated at presentation. Hypoxia Patient presents with dry cough, sore throat, fever for 1 day Noted to have flu a positive at presentation CXR with no acute finding. Pro-Dale and WBC WNL. Exacerbation of COPD and asthma likely secondary to viral UTI UTI. Continue with Solu-Medrol scheduled, Perforomist and budesonide nebulization, Tessalon Perles, Mucinex, incentive spirometer. Add doxycycline for 5 days. Add tamsulosin for 5 days. Continue to provide supportive care, IVF today given tachycardia. Can DC IV fluid once heart rate settled and p.o. intake improves. 08/29/2024 Oxygen requirement increased, currently on 4 L Chest x-ray: Possible left lower lobe atelectasis versus pneumonia Add cefepime 2 g IV every 8 Add hypertonic saline twice daily Continue nebs 4 times daily, Perforomist, Pulmicort, Solu-Medrol 40 every 8 azithromycin daily Tamiflu twice daily Mucinex, Incentive spirometry, flutter valve Monitor closely 08/30 Clinically improving Down to 2 L of O2 Continue present regimen Monitor closely Episode of hypotension Resolved 08/31 continues to improve decrease Solumedrol to 40mg IV q12h continue abx, nebs, etc 09/01 Continues to improve Continue Solu-Medrol, antibiotics, nebs, etc. Other chronic medical conditions: HLD, GERD, CKD stage IIIb----continue with/resume home meds as when able. DVT prophylaxis: Heparin subcu DNI/DNI Disposition Anticipate discharge to home when medically stable Admission and Anticipated Discharge Date Admission Date: August 28, 2024 Subjective Follow-up for influenza, bronchitis, etc. Seen resting in bed, comfortable, not in distress States he feels states he feels improving every day Still having some productive cough, but improving No shortness of breath No other new symptoms Review of Systems Review of Systems: all noted and negative except for above Physical Exam Physical Exam: General- oriented x 3, not in distress, speaks in sentences with no effort or accessory muscle use Eyes- anicteric Neck- no JVD Lungs- Mild rhonchi bilaterally No wheezing Good air entry bilaterally Heart- normal rate, regular rhythm; no murmurs Abdomen- normal bowel sounds, nondistended, soft, No tenderness Extremities- no pretibial edema, no calf tenderness Neuro- alert, oriented x 3; no gross focal neurologic deficits Skin- warm & dry Results & Data Results & Data Vital Signs (Past 12 Hours) Vital Signs Temp Pulse Pulse Resp BP BP Pulse Ox 09/01/24 14:37 66 09/01/24 08:06 36.8 C 76 18 153/88 H 93 09/01/24 07:45 09/01/24 07:19 57 L 09/01/24 07:10 60 18 92 09/01/24 03:32 36.7 C 67 18 148/84 H 92 O2 Del Method 09/01/24 14:37 09/01/24 08:06 Room Air 09/01/24 07:45 Room Air 09/01/24 07:19 09/01/24 07:10 Room Air 09/01/24 03:32 Room Air all noted and reviewed including below
--- NOTE | 2024-09-02 09:28 | XRay Report ---
XR chest 1V portable CLINICAL HISTORY: ff up pneumonia COMPARISON STUDY: Chest CT April 05, 2023. Chest radiograph August 29, 2024. FINDINGS: Lung volumes are normal. There is no pneumothorax or pleural effusion. Cardiomediastinal si lhouette is stable. Interstitial thickening and scattered bilateral airspace opacities have progresse d. IMPRESSION: Progression of interstitial thickening and bilateral airspace opacities suggestive of mu ltifocal pneumonia. Radiographic follow-up to ensure resolution is recommended. ACT 112: Negative or not required by law. Electronically signed by: Clay Leyva M.D. 09/02/2024 9:27 AM
--- NOTE | 2024-09-02 13:36 | Hospitalist Progress Note ---
Date of Service September 02, 2024 Assessment & Plan (1) Influenza A: Plan Acute exacerbation of COPD/AsthmaWith hypoxia Multifocal pneumonia Influenza A URTI Possible bacterial superinfection Sepsis POA: Likely secondary to viral URTI. Heart rate and respiratory rate elevated at presentation. Patient presents with dry cough, sore throat, fever for 1 day flu a positive at presentation initial CXR with no acute finding. Hypotensive on presentation as well, responded with IV fluids Patient initially required 4 L of oxygen supplement, was able to be weaned off during admission Placed on Tamiflu, cefepime plus azithromycin Nebs including Perforomist, Pulmicort twice a day Solu-Medrol 40 mg IV every 8 hours, tapered Mucinex, incentive spirometry and flutter valve Patient continued to clinically improve, weaned off oxygen supplement, on room air Less cough Repeat chest ray showing multifocal pneumonia Discussed with jboss developer Dr. Soto, felt to be secondary to viral pneumonia Okay for discharge today Discharge plan: Completed Tamiflu and azithromycin course while admitted Continue 2 more days of cefuroxime to complete 7-day course Continue Xopenex/Atrovent nebs 3 times daily at home for at least 5 more days Prednisone taper starting at 40 mg daily x 2 days, etc. Mucinex Probiotics Repeat chest x-ray in 4 weeks to establish resolution of pneumonia Other chronic medical conditions: HLD, GERD, CKD stage IIIb Patient's heart rate noted to be in the 50s-60s Metoprolol XL decreased to 25 mg p.o. daily Follow-up as an outpatient Disposition Discharge to home PCP follow-up in 1 week Admission and Anticipated Discharge Date Admission Date: August 28, 2024 Subjective Follow-up for COPD exacerbation, influenza, etc. Seen resting in bed side chair, comfortable, not in distress States he feels better overall Less cough No shortness of breath Ambulating in the room with no problems States he is ready for discharge Review of Systems Review of Systems: all noted and negative except for above Physical Exam Physical Exam: General- oriented x 3, not in distress, speaks in sentences with no effort or accessory muscle use Eyes- anicteric Neck- no JVD Lungs- Mild crackles right base, clear on the left Heart- normal rate, regular rhythm; no murmurs Abdomen- normal bowel sounds, nondistended, soft, nontender Extremities- no pretibial edema, no calf tenderness Neuro- alert, oriented x 3; no gross focal neurologic deficits Skin- warm & dry Results & Data Results & Data Vital Signs (Past 12 Hours) Vital Signs Temp Pulse Pulse Pulse Pulse Resp Resp 09/02/24 11:05 36.4 C L 65 18 09/02/24 09:30 09/02/24 09:03 80 77 20 09/02/24 08:33 60 09/02/24 07:54 56 L 09/02/24 07:43 36.4 C L 60 18 09/02/24 07:33 61 18 09/02/24 03:11 36.2 C L 55 L 18 Resp BP BP Pulse Ox Pulse Ox Pulse Ox O2 Del Method 09/02/24 11:05 148/80 H 93 Room Air 09/02/24 09:30 Room Air 09/02/24 09:03 16 92 91 09/02/24 08:33 09/02/24 07:54 09/02/24 07:43 147/85 H 94 Room Air 09/02/24 07:33 95 Room Air 09/02/24 03:11 145/81 H 93 Room Air all noted and reviewed including below
[2024-09-02] MEDS: AZITHROMYCIN 250 MG TAB PO ONE (14:31)
[2024-09-02 14:43] VITALS: BP 138/89; PULSE 76; RESP 16; TEMP 97.9; O2SAT 94
--- NOTE | 2024-09-02 17:14 | Discharge Summary ---
Discharge Summary Date of Service September 02, 2024 Principal Dx & Hospital Course #1 = Principal Diagnosis (1) Influenza A: Plan Acute exacerbation of COPD/AsthmaWith hypoxia Multifocal pneumonia Influenza A URTI Possible bacterial superinfection Sepsis POA: Likely secondary to viral URTI. Heart rate and respiratory rate elevated at presentation. Patient presents with dry cough, sore throat, fever for 1 day flu a positive at presentation initial CXR with no acute finding. Hypotensive on presentation as well, responded with IV fluids Patient initially required 4 L of oxygen supplement, was able to be weaned off during admission Placed on Tamiflu, cefepime plus azithromycin Nebs including Perforomist, Pulmicort twice a day Solu-Medrol 40 mg IV every 8 hours, tapered Mucinex, incentive spirometry and flutter valve Patient continued to clinically improve, weaned off oxygen supplement, on room air Less cough Repeat chest ray showing multifocal pneumonia Discussed with nutritional services host Dr. Soto, felt to be secondary to viral pneumonia Okay for discharge today Discharge plan: Completed Tamiflu and azithromycin course while admitted Continue 2 more days of cefuroxime to complete 7-day course Continue Xopenex/Atrovent nebs 3 times daily at home for at least 5 more days Prednisone taper starting at 40 mg daily x 2 days, etc. Mucinex Probiotics Repeat chest x-ray in 4 weeks to establish resolution of pneumonia Other chronic medical conditions: HLD, GERD, CKD stage IIIb Patient's heart rate noted to be in the 50s-60s Metoprolol XL decreased to 25 mg p.o. daily Follow-up as an outpatient Disposition Discharge to home PCP follow-up in 1 week Notes For Next Care Provider Repeat chest x-ray in 4 weeks Medication Changes From Visit Continue 2 more days of cefuroxime to complete 7-day course Continue Xopenex/Atrovent nebs 3 times daily at home for at least 5 more days Prednisone taper starting at 40 mg daily x 2 days, etc. Mucinex Probiotics Admission HPI Per Admitting Provider 64-year-old male with PMH of asthma, COPD, current tobacco abuse [smokes 1 packs a day for more than 50 years per patient], PVD, HLD, CKD stage IIIa, GERD, AAA, SNHL of both ears presented to the ED with complaint of dry cough, fever, sore throat for 1 days. Patient reports having fever, but did not measure, it is associated with dry cough, shortness of breath, weakness, poor appetite since yesterday. Patient noted to be hypoxic at 87% by EMS. Patient needed 2 L oxygen at presentation. Patient denies nausea, vomiting, chest pain, belly pain, diarrhea, pain or burning with passing urine. Patient reports decreased appetite. Patient reports smoking 1 packs a day for more than 50 years, denies alcohol/recreational drug use. DNR/DNI Medications reviewed with patient at bedside. Plan of care discussed with patient and his [id number] at bedside in detail, answered all their questions, they voiced understanding. Admission Exam Per Admitting Provider GENERAL: Alert and oriented x3. NAD, getting breathing treatment HEENT: No pallor, no icterus. Pupils equal, round and reactive to light. Oral mucosa moist. NECK: No JVD, no neck masses. HEART: S1 and S2 heard. Regular rate and rhythm. HR in 110s, No murmur, no gallop. RESPIRATORY SYSTEM: Normal AP diameter. No accessory muscle use. b/l wheeze and occ crackles ABDOMEN: Soft, bowel sounds present, nontender, no distention. Midline old healed surgical scar noted. CENTRAL NERVOUS SYSTEM: No facial droop. Speech is clear. Obeys simple commands. Moves extremities. EXTREMITIES: No edema, no erythema seen. Discharge Exam General- oriented x 3, not in distress, speaks in sentences with no effort or accessory muscle use Eyes- anicteric Neck- no JVD Lungs- Mild crackles right base, clear on the left Heart- normal rate, regular rhythm; no murmurs Abdomen- normal bowel sounds, nondistended, soft, nontender Extremities- no pretibial edema, no calf tenderness Neuro- alert, oriented x 3; no gross focal neurologic deficits Skin- warm & dry Updated Medication List Medication Instructions Recorded Confirmed Type aspirin 81 mg tablet,delayed 81 mg PO QAM 04/05/23 08/28/24 History release atorvastatin 80 mg tablet 80 mg PO QAM 04/05/23 08/28/24 History montelukast 10 mg tablet 10 mg PO QAM 04/05/23 08/28/24 History (Singulair) omeprazole 20 mg capsule,delayed 20 mg PO DAILYBB 04/05/23 08/28/24 History release ezetimibe 10 mg tablet (Zetia) 10 mg PO QAM 10/18/23 08/28/24 History losartan 25 mg tablet 25 mg PO QAM 04/26/24 08/28/24 History L.acidop,casei,lactis,rham-B.lact,raiza 1 cap PO DAILY 30 days #30 caps 09/02/24 Rx 625 mg (10 billion cell) capsule (Advanced Probiotic) benzonatate 100 mg capsule 100 mg PO TID PRN cough #20 caps 09/02/24 Rx cefuroxime axetil 500 mg tablet 500 mg PO BID 2 days #4 tabs 09/02/24 Rx guaifenesin 600 mg tablet, 600 mg PO Q12 7 days #14 tabs 09/02/24 Rx extended release 12 hr (Mucinex) ipratropium bromide 0.02 % 1.25 ml inhalation TID 7 days #75 09/02/24 Rx solution for inhalation mL levalbuterol HCl 1.25 mg/3 mL 1.25 mg (3 mL) NEB TID #90 mL 09/02/24 Rx solution for nebulization metoprolol succinate 25 mg 25 mg PO QAM 30 days #30 tabs 09/02/24 Rx tablet,extended release 24 hr prednisone 10 mg tablet 10 mg PO UD #20 tabs 09/02/24 Rx Hospital Stay Data Consultations 08/28/24 11:19 ED Decision to Admit Stat Diagnostic Imagining Performed XR chest 1V portable CLINICAL HISTORY: Chest pain, nonspecific COMPARISON STUDY: 04/05/2023 FINDINGS: Heart size and pulmonary vasculature normal. No effusion, consolidation, or pneumothorax. IMPRESSION: No acute findings. ACT 112: Negative or not required by law. XR chest 1V portable CLINICAL HISTORY: hypoxia, influenza, r/o pneumonia COMPARISON STUDY: 08/28/2024 FINDINGS: Heart size and pulmonary vasculature are normal. There is interval mild stranding opacity at the left lung base. No other consolidation or pleural effusion. No pneumothorax. IMPRESSION: Atelectasis versus early pneumonia left lung base. ACT 112: Negative or not required by law. XR chest 1V portable CLINICAL HISTORY: ff up pneumonia COMPARISON STUDY: Chest CT April 05, 2023. Chest radiograph August 29, 2024. FINDINGS: Lung volumes are normal. There is no pneumothorax or pleural effusion. Cardiomediastinal silhouette is stable. Interstitial thickening and scattered bilateral airspace opacities have progressed. IMPRESSION: Progression of interstitial thickening and bilateral airspace opacities suggestive of multifocal pneumonia. Radiographic follow-up to ensure resolution is recommended. ACT 112: Negative or not required by law. Electronically signed by: Clay Leyva M.D. 09/02/2024 9:27 AM Pending Results Patient Have Any Pending Studies at Discharge: No Discharge Instructions Given to Patient (Per Discharging Provider) PLEASE REFER TO YOUR NEW MEDICATION LIST AND FOLLOW INSTRUCTIONS CAREFULLY. YOUR NEW MEDICATIONS INCLUDE: Cefdinir, Azithromycin- antibiotic for bacterial pneumonia Xopenex/Atrovent- nebulized treatments Prednisone taper- steroids, take as follows: 40mg po daily x 2 days, then 30mg po daily x 2 days, then 20mg po daily x 2 days, then 10mg po daily x 2 days, then STOP Mucinex- cough Probiotics- to prevent diarrhea Please continue to use your incentive spirometry and flutter valve frequently at home. Please continue to ambulate frequently at home. PLEASE CALL YOUR PRIMARY CARE PHYSICIAN OR RETURN TO THE ER IF WITH WORSENING OF SYMPTOMS, INCLUDING Cough, shortness of breath, increased sputum production, fevers or chills, chest pain, diarrhea, etc. FOLLOW UP WITH PRIMARY CARE PHYSICIAN OUTLINED ABOVE. Total Time Total Time Spent Total Time Spent (In Minutes): 45 minutes
[2024-09-03] MEDS ORDERED: AZITHROMYCIN 250 MG TAB PO SCH (09:00)
[2024-09-03] MEDS ORDERED: predniSONE 20 MG TAB PO SCH (09:00)
== END 2024-09-02 15:54 | disposition home or self-care (01) | DRG 871 ==
LOC: ED 09:51 → EDINP 11:45 → SUATTDRO 11:45 → 2N 08-29 13:31